=== PATIENT | female | born 1940 | race Caucasian/White ===

== ENCOUNTER → 2017-09-17 16:58 | Outpatient (CLI) | payer MEDICARE, SELFPAY | PROVIDERS: PCP Family Medicine; Visit Provider Specialist | DX: R89.8 Other abnormal findings in specimens from other organs, systems and tissues (principal) | CPT/HCPCS: 87086 ==

== ENCOUNTER → 2017-10-25 14:37 | Outpatient (CLI) | payer MEDICARE, SELFPAY ==
--- NOTE | 2017-10-25 | DI.CT.S_ITS ---
PROCEDURE: CT KIDNEY URETER BLADDER (KUB) INDICATIONS: Left abdominal pain TECHNIQUE: Noncontrast 5 mm thick sections acquired from the diaphragms to the symphysis. 5 mm thick coronal and sagittal reformats were then performed. For radiation dose reduction, the following was used: automated exposure control, adjustment of mA and/or kV according to patient size. COMPARISON: [facility], CT, IVP (ABD & PEL WWO CONTRAST), 02/22/2015, 10:57. FINDINGS: Image quality: Excellent. Lung bases: Lung bases are clear. Heart size is normal. Urinary system: Both kidneys are normal in size. 3 calcifications in the upper pole of the left kidney are identified, measuring 2-3 mm in size. Punctate calcifications are present present in the right lower collecting system. No hydronephrosis or perinephric fat stranding. Both ureters appear non-dilated throughout their expected courses. Bladder is nearly empty; no calcified bladder stones. Other solid organs: Liver is normal in size. Gallbladder is absent. Pancreas is normal in contours. Spleen is normal in size, numerous calcifications again noted. No adrenal nodules. Peritoneum and bowel: Unenhanced bowel loops demonstrate normal wall thickness and caliber. Appendix is not seen. Colonic diverticulosis without diverticulitis. No free fluid or air. Nodes and vessels: No retroperitoneal or mesenteric adenopathy by size criteria. Atheromatous aorta and inferior vena cava are normal in caliber. Abdominal wall: In the left lower quadrant, series 2/image 60, is identified a hernia within which is mesenteric fat and a loop of nonobstructed small bowel. The neck of the hernia measures 2.1 cm in diameter. Pelvis: No free pelvic fluid. No inguinal hernias or adenopathy. Uterus and adnexa are unremarkable. Bones: No suspicious bony lesions. No vertebral body compression fractures. Lumbar scoliosis with multilevel degenerative disc disease and reactive sclerosis. Slight anterolisthesis L4-5. IMPRESSION: 1. Nephrolithiasis, calcifications too small to characterize. No hydronephrosis. Normal ureters and near empty urinary bladder. 2. Colonic diverticulosis, most marked in the sigmoid colon. No CT evidence of diverticulitis. 3. Left lower quadrant ventral hernia containing nonobstructed small bowel. Correlate clinically for area of pain. 4. Splenic calcifications compatible with prior granulomatous infection. 5. Apparent cholecystectomy and appendectomy. Dictated by: Juan Pablo Evans M.D. on 10/25/2017 at 15:10 Approved by: Juan Pablo Evans M.D. on 10/25/2017 at 15:22
== END ==
PROVIDERS: PCP Family Medicine; Visit Provider Physician Assistant
DX: N20.0 Calculus of kidney (principal); K57.90 Diverticulosis of intestine, part unspecified, without perforation or abscess without bleeding; K43.9 Ventral hernia without obstruction or gangrene
CPT/HCPCS: 74176

== ENCOUNTER → 2017-11-18 12:56 | Outpatient (CLI) | payer MEDICARE, SELFPAY ==
--- NOTE | 2017-11-18 | DI.RAD.S_ITS ---
PROCEDURE: FL UPPER GI SMALL BOWEL INDICATIONS: GERD COMPARISON: [facility], CT, THORAX WITH CONTRAST, 09/28/2013, 13:08. [facility], CT, CT KIDNEY URETER BLADDER (KUB), 10/25/2017, 14:36. FINDINGS: KUB: Preprocedural rehabilitation center manager film shows a normal bowel gas pattern. No suspicious abdominal calcifications. Visualized solid organ contours appear normal in size. No suspicious bony abnormalities. Esophagus: Air-contrast views demonstrate a normal mucosal pattern. There is mild esophageal dysmotility with disorganized tertiary contractions. No fixed strictures, extrinsic mass effects, or diverticula. Small sliding hiatal hernias is present. There is severe gastroesophageal reflux. There is normal transit of a calibrated barium tablet through the esophagus. Stomach: The gastric lumen is normally distensible, and has normal rugal fold thickness. No mucosal masses or ulcers. The pylorus and duodenal bulb have a normal morphology. Small bowel: Duodenal folds appear normal in thickness. There is normal transit time of barium through the small intestine. Small bowel loops appear normal in caliber throughout. Jejunal and ileal folds are smooth and normal in thickness. No strictures, intraluminal masses, or extrinsic mass effects. The terminal ileum is identified and appears normal. IMPRESSION: 1. Severe gastroesophageal reflux. 2. Mild esophageal dysmotility. 3. Normal small bowel follow-through. Dictated by: Phillip Soriano M.D. on 11/18/2017 at 15:26 Approved by: Phillip Soriano M.D. on 11/18/2017 at 15:29
== END ==
PROVIDERS: Family Provider Surgery; PCP Family Medicine; Visit Provider Family Medicine
DX: K21.9 Gastro-esophageal reflux disease without esophagitis (principal); K22.4 Dyskinesia of esophagus; K44.9 Diaphragmatic hernia without obstruction or gangrene
CPT/HCPCS: 74245

== ENCOUNTER → 2017-11-25 08:47 | Outpatient (CLI) | payer MEDICARE, SELFPAY ==
--- NOTE | 2017-11-26 18:01 | PM.PFT.1 ---
Pulmonary Function Test Referral & Results Date Patient Seen: 11/25/17 Requesting provider: Jodi Banegas Indication: Results: The spirometry demonstrates an FVC of 2.33 L which is 91% of predicted. The FEV1 was measured at 1.94 L which is 101% of predicted. The FEV1/FVC ratio was 83 which is 111% of predicted. Following the administration of bronchodilator there was no appreciable change. Lung volumes show an SVC of 2.19 L which is 85% of predicted. The diffusing capacity was measured at 17.88 which is 82% of predicted. No hemoglobin value was provided, so no correction for potential anemia could be made, if appropriate. The maximum voluntary ventilation was slightly reduced. Interpretation: This study demonstrates essentially normal spirometry with perhaps mild reduction in diffusing capacity, unless patient is anemic. Clinical correlation suggested.
== END ==
PROVIDERS: PCP Family Medicine; Visit Provider Surgery
DX: R06.02 Shortness of breath (principal)
CPT/HCPCS: 94010; 94060; 94726; 94729

== ENCOUNTER → 2017-12-10 13:50 | Outpatient (CLI) | payer MEDICARE, SELFPAY | PROVIDERS: PCP Family Medicine; Visit Provider Registered Nurse | DX: N76.0 Acute vaginitis (principal) ==

== ENCOUNTER 2017-12-21 13:23 | Day surgery (SDC) | payer MEDICARE, SELFPAY ==
--- NOTE | 2017-12-21 | PATH_ITS ---
[facility] Accession Number: [id number] . 01 Material submitted: . PART A: DUODENAL BIOPSY PART B: ANTRAL BIOPSY PART C: GE JUNCTION . 02 Diagnosis: A. Duodenal Biopsy: Duodenal mucosa with no diagnostic abnormality. Negative for active inflammation, granulomas, dysplasia, and malignancy. . B. Antral Biopsy: Antral mucosa with mild chronic gastritis. Negative for H. pylori organisms by H/E stain and immunohistochemistry studies. Negative for intestinal metaplasia, dysplasia or malignancy. . C. GE Junction, Biopsy: Squamocolumnar junctional mucosa with no diagnostic abnormality. Negative for intestinal metaplasia, dysplasia, and malignancy. [facility]/12/24/2017 . 02 Electronically signed: . Bianca Alvarado MD, Pathologist NPI- [id number] . 01 Gross description: . Part A: DUODENAL BIOPSY: Received in formalin is 1 fragment(s) of regan, soft tissue measuring 0.4 x 0.3 x 0.3 cm submitted entirely in 1 cassette(s) Part B: ANTRAL BIOPSY: Received in formalin is 1 fragment(s) of regan, soft tissue measuring 0.3 x 0.3 x 0.3 cm submitted entirely in 1 cassette(s) Part C: GE JUNCTION: Received in formalin is 1 fragment(s) of regan, soft tissue measuring 0.4 x 0.4 x 0.3 cm submitted entirely in 1 cassette(s) /CKI /CKI . 02 Microscopic: . Immunohistochemical stains are performed to further evaluate for the presence of Helicobacter organisms. The patient tissue is stained with monoclonal antibody to Helicobacter pylori (SP48). Positive and negative controls stain appropriately. . RESULT: Block: Block B1 Helicobacter pylori: Negative. . * This test was developed and its performance characteristics determined by [facility]. It has not been cleared or approved by the U.S. Food and Drug Administration. The FDA has determined that such clearance or approval is not necessary. This test is used for clinical purposes. It should not be regarded as investigational or for research. . 02 Pathologist provided ICD-10: K29.70 . 02 CPT . 410209, 090353, 324449, [id number] Performed at: 01 [facility] [address] [address], [place], [place] [id number] MD Phil Michele MD Phone: [phone] Performed at: 02 [facility] [address] [place] [id number] MD Kelby Cunningham MD Phone: [phone]
[2017-12-21 14:05] VITALS: BP 141/77; PULSE 71; RESP 16; TEMP 36.2; O2SAT 98; BMI 33.6
--- NOTE | 2017-12-21 16:23 | SUR.OPER ---
IV failed, new IV started in Right arm. patient resedated
[2017-12-21] MEDS: TETRACAINE/BENZOCAINE/BUTAMBEN (CETACAINE) BOTTLE 1 SPRAY TOP (16:29)
[2017-12-21] MEDS: LIDOCAINE 4% SOLN 50 ML 20 ML TOP (16:30)
[2017-12-21] MEDS: MIDAZOLAM 5 MG/5 ML VIAL IV (16:31)
[2017-12-21] MEDS: fentaNYL 250 MCG/5 ML INJ IV (16:32)
--- NOTE | 2017-12-21 16:35 | PM.PREOP ---
Pre-operative Note Interval Note Pre-op Check: Yes History & Physical Reviewed by Physician Changes: No ASA Class (for procedural sedation): II
[2017-12-21 16:36] VITALS: BP 124/54; PULSE 73; RESP 10; TEMP 36.8; O2SAT 96
--- NOTE | 2017-12-21 16:36 | PM.OP.1 ---
Operative Date/Time/Diagnoses Date of procedure: 12/21/17 Time of procedure: 16:36 Pre-op diagnosis: Hoarseness Dysphagia Post-op diagnosis: same Procedure & Clinicians Procedure: Esophagogastroduodenoscopy with biopsies Same procedure as scheduled: Yes Surgeon: Jodi Banegas Anesthesia Type: Sedation (Fentanyl and Versed) Operative Notes Findings: 1. Normal duodenum 2. Normal appearing antrum with a functioning pyloric valve 3. GE junction at 40 cm from the incisors with no significant hiatal hernia. Very regular appearing Z-line 4. Presbyesophagus with normal mucosa 5. Normal posterior oropharynx without obvious evidence of inflammation. Closure Type: not applicable Specimen(s): other (See list) Procedure in detail: After obtaining informed consent, the patient was brought to the GI suite and placed in the left lateral decubitus position on the examination table. After placement of appropriate monitors, the patient was given incremental doses of Versed and Fentanyl until an appropriate level of sedation was achieved. A time out was held per SCOAP protocol. A bite block was gently placed between the patient's teeth. The endoscope was lubricated and then passed into the patient's posterior oropharynx. The esophagus was cannulated under direct vision and the scope was passed to the second portion of the duodenum without difficulty. The scope was then withdrawn with careful examination of all areas of the upper GI tract and mucosa. In the stomach, the instrument was retroflexed and the GE junction examined. The scope was straightened and the procedure continued with examination of the remainder of the upper GI tract. Findings are noted above. Air was aspirated from the stomach and the endoscope gently removed from the esophagus. The patient was allowed to awaken from sedation without difficulty and taken to the post-anesthesia care unit in good condition. Complications: none Condition: stable Disposition: PACU Plan for aftercare: 1. Discharge to home 2. We will contact you with pathology results and recommendations
[2017-12-21 16:42] VITALS: BP 126/68; PULSE 74; RESP 12; O2SAT 96
[2017-12-21 16:48] VITALS: BP 137/65; PULSE 68; RESP 18; O2SAT 95
[2017-12-21 16:52] VITALS: BP 128/60; PULSE 74; RESP 16; TEMP 36.4; O2SAT 95
== END 2017-12-21 17:05 | disposition home or self-care (01) ==
PROVIDERS: PCP Family Medicine; Visit Provider Surgery
PROC: 0DJ08ZZ Inspection of Upper Intestinal Tract, Via Natural or Artificial Opening Endoscopic (ICD-10-PCS; CPT 43235; principal; 2017-12-21 15:00)
DX: R49.0 Dysphonia (principal); K21.9 Gastro-esophageal reflux disease without esophagitis; R06.02 Shortness of breath
CPT/HCPCS: 43235; 88305; 88342; J2250; J3010

== ENCOUNTER → 2017-12-23 10:29 | Outpatient (CLI) | payer MEDICARE, SELFPAY | PROVIDERS: PCP Family Medicine; Visit Provider Specialist | DX: R30.0 Dysuria (principal) | CPT/HCPCS: 87086 ==

== ENCOUNTER → 2018-11-09 13:03 | Outpatient (CLI) | payer MEDICARE, SELFPAY ==
--- NOTE | 2018-11-09 | DI.RAD.S_ITS ---
PROCEDURE: FL BARIUM SWALLOW W SPEECH INDICATIONS: pain in throat TECHNIQUE: Examination was conducted in conjunction with speech pathology per standard protocol. In the lateral projection, filming was performed of the patient swallowing. AP projection filming may also be performed with patient swallowing. COMPARISON: [facility], CT, CT ABDOMEN PELVIS WITH CONTRAST, 08/11/2018, 12:24. FINDINGS: Function: The oral preparatory phase appears normal, with proper containment. The subsequent oral propulsive phase, pharyngeal phase, and esophageal phase of swallowing also appear normal with all proffered substances. Minimal laryngotracheal penetration was observed. No aspiration. No pathologic vallecular or piriform sinus pooling. Limited evaluation of the esophagus in the upright position demonstrates decreased peristalsis with pooling of contrast in the lower third of esophagus. A 13 mm barium tablet passes without difficulty through the pharynx but was held up at the gastroesophageal junction. Morphology: No cricopharyngeal bar is identified. No cervical esophageal webs. No Zenker's diverticulum. No strictures. IMPRESSION: 1. Intermittent laryngeal penetration. No aspiration. 2. Decreased esophageal peristalsis was demonstrated with limited evaluation. If more detailed evaluation is desired esophagram could be performed. 3. Barium tablet passes through the pharynx but was held up at the gastroesophageal junction. Please see speech pathologist report. Dictated by: Taj Baxter M.D. on 11/09/2018 at 14:50 Approved by: Taj Baxter M.D. on 11/09/2018 at 15:00
--- NOTE | 2018-11-10 11:07 | ST.SWALLOW ---
Care Team Visit Care Team Role Provider Type Diana Cottrell DO Primary Care Provider Non-Staff Specialty: Family Practice Address: [address], [address] Email: Pelon Kunz MD Attending Provider Physician Specialty: Ear, Nose, Throat Address: [address] [place] [address], [id number] Email: Modified Barium Swallow Study KNIFEMAN Modified Barium Swallow Study Start: 11/10/18 10:44 Freq: Status: Active Protocol: Document 11/09/18 10:46 TLC (Rec: 11/10/18 11:07 TLC [id number]) Modified Barium Swallow Study Total Time Visit Start Time 13:30 Visit Stop Time 13:50 Total Visit Minutes 20 Setting Setting Outpatient Care Patient Information Identification Type Name Patient History Tri was referred by Dr. Kunz, ENT due to complaints of pill dysphagia and chronic sore throat persisting for the last 6 weeks following bilateral robotic inguinal hernia repair in August. Intermittent sore throat dates back to at least 2013. She has a medical history of breast cancer, cutaneous lupus , sleep apnea, reflux, hiatal hernia repair in 2018, thryoid nodules (biopsy was negative) . Laryngoscopy revealed mildly asymmetric left base of tongue with possible small byst, normal vallecula, epiglottis, pyriform sinuses and normally mobile TVCs without lesion. Subjective Observations Patient arrived on time and was pleasant and cooperative during the examination. The study was not recorded due to a technological malfunction, therefore, exam report is limited to real time observations. Patient Positioning Position View Lat-A/P Imaging Lateral View Textures Administered Trials Presented Thin Liquid via Spoon Thin Liquid via Cup [place] Liquid via Spoon [place] Liquid via Cup Honey Liquid via Spoon Pudding Thick Liquid via Spoon Regular Textures Oral Phase Source: MBSIMP (TM) (C) Bolus Specific Scoring Grid Lip Closure No Impairment (WNL) Tongue Control During Bolus Hold No Impairment (WNL) Bolus Prep/Mastication No Impairment (WNL) Bolus Transport/Lingual Motion No Impairment (WNL) Oral Residue Minimal Impairment Residue Clearing No Impairment (WNL) Additional Oral Phase Observations Mild oral residue on base of tongue likely related to asymmetry of tongue. Cleared with additional swallows. Pharyngeal Phase Source: MBSIMP (TM) (C) Bolus Specific Scoring Grid Delayed Initiation of Pharyngeal Swallow No Laryngeal Elevation No Impairment (WNL) Anterior Hyoid Movement No Impairment (WNL) Epiglottic Range of Motion No Impairment (WNL) Vallecular Residue Yes Clearance of Vallecular Residue No Impairment (WNL) Laryngeal Vestibular Closure Minimal Impairment Posterior Pharyngeal Wall Residue No Upper Esophageal Sphincter Opening No Impairment (WNL) Residue in the Pyriform Sinuses Yes Clearance of Residue in the Pyriform No Impairment (WNL) Sinuses Esophageal Clearance Upright Position Mild Impairment Additional Pharyngeal Phase Observations One episode of flash penetration with cup sips of thin liquids. No aspiration observed during the study. Trace residue in the vallecula and pyriform sinus cleared with additional swallows. A/P View Textures Administered Trials Presented Barium Tablet A/P View Observations Esophageal Function Slowed Clearing Additional Observations Decreased esophageal peristalsis resulting in esophageal retention. Clinical Impressions Findings Mild dysphagia in oral, pharyngeal and esophageal phase characterized by trace oral and pharyngeal residue, incomplete laryngeal vestibule closure allowing for intermittent flash penetration and esophageal retention. Recommendations Diet Liquids Order Thin Diet Order Regular Medication Recommendation Whole in Carrier One at a Time Aspiration Precautions Recommended Precautions Upright at 90 Degrees Small Bites/Sips Double Swallow Treatment Plan Recommended Referrals GI Consult
== END ==
PROVIDERS: PCP Family Medicine; Visit Provider Otolaryngology
DX: R07.0 Pain in throat (principal)
CPT/HCPCS: 74230; 92611

== ENCOUNTER → 2018-12-09 10:34 | Outpatient (CLI) | payer MEDICARE, SELFPAY ==
[2018-12-09 12:46] LABS: Estimated Glomerular Filt Rate > 60.0 mL/min (>60)
== END ==
PROVIDERS: Visit Provider Otolaryngology
DX: R42 Dizziness and giddiness (principal)
CPT/HCPCS: 36415; 82565

== ENCOUNTER → 2018-12-16 14:03 | Outpatient (CLI) | payer MEDICARE, SELFPAY ==
--- NOTE | 2018-12-16 | DI.MRI.S_ITS ---
PROCEDURE: MR HEAD/BRAIN WO/W CON INDICATIONS: DIZZINESS TECHNIQUE: Noncontrast axial T1 spin echo, axial T2 fast spin echo, sagittal and axial FLAIR, coronal T2 fast spin echo, axial gradient echo, axial diffusion and ADC through the brain. After the administration of contrast, axial and coronal 3D VIBE or T1 spin echo with fat saturation through the brain. COMPARISON: None. FINDINGS: Image quality: Excellent. CSF Spaces: Basal cisterns are patent. No extra-axial fluid collections. Ventricles are normal in size and shape. Brain: No midline shift. No intracranial bleeds or masses. No abnormal intracranial enhancement. The brainstem appears normal. Diffusion-weighted images demonstrate no acute ischemic insults. No areas of encephalomalacia. No GRE weighted abnormalities identified. There is mild, diffuse rebral on loss. There are mild periventricular and subcortical white matter chronic microvascular ischemic changes. Normal intravascular flow voids are present. Skull and face: Calvarial marrow is normal in signal. Orbits appear normal. Sinuses: Sinuses and mastoids appear clear. IMPRESSION: 1. No acute intracranial disease process. 2. No abnormal intracranial mass or suspicious postcontrast enhancement. 3. Mild, diffuse cerebral volume loss. 4. Mild periventricular and subcortical white matter chronic microvascular ischemic change. Dictated by: Desirae Nicole MD, PhD on 12/16/2018 at 16:32 Approved by: Desirae Nicole MD, PhD on 12/16/2018 at 16:37
== END ==
PROVIDERS: PCP Family Medicine; Visit Provider Otolaryngology
DX: R42 Dizziness and giddiness (principal)
CPT/HCPCS: 70553; A9579

== ENCOUNTER → 2019-02-06 17:29 | Outpatient (CLI) | payer MEDICARE, SELFPAY ==
--- NOTE | 2019-02-06 | DI.MRI.S_ITS ---
PROCEDURE: MR CERVICAL SPINE WO CON INDICATIONS: Cervicalgia TECHNIQUE: Noncontrast sagittal T1 spin echo and T2 fast spin echo, sagittal STIR, foraminal oblique sagittal T2 fast spin echo, and axial gradient echo or T2 fast spin echo through the cervical spine. COMPARISON: [facility], , C-SPINE WITHOUT CONTRAST, 05/28/2017, 16:45. FINDINGS: Image quality: Excellent. Alignment and Curvature: Trace anterolisthesis of C2 on C3, C3 on C4, and C4 on C5, unchanged. Bone Marrow: Marrow demonstrates normal overall signal. Again noted is a hemangioma involving the C5 vertebral body. Spinal Cord: Visualized spinal cord has normal size and signal. No cerebellar tonsillar herniation. Paraspinous Soft Tissues: No paravertebral masses. Prevertebral soft tissues are normal in thickness. C2-C3: Unchanged. No canal stenosis or foraminal stenosis. C3-C4: Unchanged. No canal stenosis or foraminal stenosis. Minimal disc bulge. Mild bilateral facet hypertrophy. C4-C5: Unchanged. Mild posterior disc bulge. No canal stenosis. Bilateral uncovertebral joint hypertrophy. Left uncovertebral joint hypertrophy with moderate left foraminal narrowing. C5-C6: Unchanged. Minimal disc bulge. No canal stenosis. Mild bilateral foraminal stenosis. Mild bilateral uncovertebral joint hypertrophy. Mild bilateral facet hypertrophy. C6-C7: Slight interval increase in disc bulge without canal stenosis. Mild bilateral foraminal stenosis. Bilateral uncovertebral joint hypertrophy. C7-T1: Normal appearance. IMPRESSION: 1. Mild increase in disc bulge at C6-C7 without canal stenosis. 2. Otherwise stable study. 3. No canal stenosis. Multilevel foraminal narrowing as described above. 4. Mild multilevel facet hypertrophy. Dictated by: Alverto Tejada M.D. on 02/07/2019 at 12:40 Approved by: Alverto Tejada M.D. on 02/07/2019 at 12:50
== END ==
PROVIDERS: Family Provider Family Medicine; PCP Family Medicine; Visit Provider Physical Medicine & Rehabilitation
DX: M50.221 Other cervical disc displacement at C4-C5 level (principal); M48.02 Spinal stenosis, cervical region
CPT/HCPCS: 72141

== ENCOUNTER → 2019-06-07 13:46 | Outpatient (CLI) | payer MEDICARE, SELFPAY ==
[2019-06-07 16:16] LABS: Blood Urea Nitrogen 28 mg/dL (7-17); Calcium 10.2 mg/dL (8.4-10.2); Carbon Dioxide 27 mmol/L (22-32); Chloride 100 mmol/L (98-107); Estimated Glomerular Filt Rate > 60.0 mL/min (>60); Glucose 124 mg/dL (80-110); HEMOLYSIS < 15 (0-50); Sodium 138 mmol/L (137-145)
== END ==
PROVIDERS: Family Provider Family Medicine; PCP Family Medicine; Referring Provider Internal Medicine Cardiovascular Disease; Visit Provider Internal Medicine Cardiovascular Disease
DX: I10 Essential (primary) hypertension (principal)
CPT/HCPCS: 36415; 80048

== ENCOUNTER → 2019-09-22 14:21 | Outpatient (CLI) | payer MEDICARE, SELFPAY ==
[2019-09-24 10:36] LABS: COVID19 Sendout Not Detected (Not Detected)
== END ==
PROVIDERS: Family Provider Family Medicine; PCP Family Medicine; Visit Provider Physician Assistant
DX: R06.02 Shortness of breath (principal)
CPT/HCPCS: 87635

== ENCOUNTER → 2019-09-22 14:34 | Outpatient (CLI) | payer MEDICARE, SELFPAY ==
--- NOTE | 2019-09-22 14:37 | DI.RAD.S_ITS ---
PROCEDURE: XR CHEST 2V INDICATIONS: Shortness of breath; fever; hx of breast cancer TECHNIQUE: 2 views of the chest were acquired. COMPARISON: [facility], , CHEST 1 VIEW, 09/26/2015, 10:03. FINDINGS: Surgical changes and devices: None. Lungs and pleura: Lungs are clear. No pleural effusions or pneumothorax. Mediastinum: Mediastinal contours are normal. Heart size is normal. Bones and chest wall: No suspicious bony abnormalities. Soft tissues appear unremarkable. IMPRESSION: Normal for age, source of current shortness of breath symptoms is not seen. Dictated by: Norberto Grover M.D. on 09/22/2019 at 15:35 Approved by: Norberto Grover M.D. on 09/22/2019 at 15:35
[2019-09-22 16:14] LABS: Add Manual Diff / Slide Review NO; Basophils Absolute Auto 100 /uL (0-100); Basophils Percent Auto 0.7 % (0-2); Eosinophils Absolute Auto 0 /uL (0-450); Eosinophils Percent Auto 0.3 % (2-4); Hemoglobin 14.6 g/dL (12.0-16.0); Lymphocytes Absolute Auto 1000 /uL (1100-4500); Lymphocytes Percent Auto 12.4 % (25-40); Mean Corpuscular Hemoglobin 30.4 PG (26-34); Mean Corpuscular Volume 89.6 fL (80-100); Monocytes Absolute Auto 500 /uL (0-900); Monocytes Percent Auto 5.6 % (3-14); Neutrophils Absolute Auto 6500 /uL (1500-7000); Platelet Count 185 X10^3/uL (150-400); Red Cell Distribution Width 14.9 % (11.6-14.8)
[2019-09-22 16:30] LABS: Alanine Aminotransferase 14 IU/L (<35); Albumin 4.2 g/dL (3.5-5.0); Albumin Globulin Ratio 1.4 (1.0-2.8); Alkaline Phosphatase 73 U/L (38-126); Aspartate Aminotransferase 24 IU/L (14-36); BUN Creatinine Ratio 36.2 (6-22); Bilirubin Total 0.7 mg/dL (0.2-1.3); Blood Urea Nitrogen 25 mg/dL (7-17); Carbon Dioxide 28 mmol/L (22-32); Chloride 104 mmol/L (98-107); Estimated Glomerular Filt Rate > 60.0 mL/min (>60); Globulin 3.1 g/dL (1.7-4.1); Glucose 101 mg/dL (80-110); HEMOLYSIS < 15 (0-50); Potassium 4.6 mmol/L (3.4-5.1); Sodium 139 mmol/L (137-145); Total Protein 7.3 g/dL (6.3-8.2)
== END ==
PROVIDERS: Family Provider Family Medicine; PCP Family Medicine; Referring Provider Physician Assistant; Visit Provider Physician Assistant
DX: R06.02 Shortness of breath (principal); R50.9 Fever, unspecified; R06.00 Dyspnea, unspecified; C50.919 Malignant neoplasm of unspecified site of unspecified female breast
CPT/HCPCS: 36415; 71046; 80053; 85025; 87635

== ENCOUNTER → 2019-12-18 15:47 | Outpatient (CLI) | payer MEDICARE, SELFPAY ==
--- NOTE | 2019-12-18 | DI.MRI.S_ITS ---
PROCEDURE: MR LUMBAR SPINE WO CON INDICATIONS: Lumbago with sciatica, right side TECHNIQUE: Noncontrast sagittal T1 spin echo and T2 fast echo, sagittal STIR, axial T1 and T2 fast spin echo through the lumbar spine. In cases with scoliosis, additional coronal T2 fast spin echo may be performed. COMPARISON: [facility], MR, L-SPINE WITHOUT CONTRAST, 12/17/2016, 11:59. [facility], CT, CT KIDNEY URETER BLADDER (KUB), 10/25/2017, 14:36. FINDINGS: Image quality: Excellent. Alignment and Curvature: Moderate dextroconvex lumbar scoliosis is seen. There is minimal retrolisthesis at L3-4 and mild grade 1 anterolisthesis at L4-5. No associated pars defects are seen. Bone Marrow: Marrow is of normal overall signal. No acute vertebral body compression fractures. Spinal Cord: Conus medullaris terminates at the T12-L1 level. Visualized cord demonstrates normal signal and size. Paraspinous Soft Tissues: No paravertebral masses. T12-L1: The disc height is well-preserved. Loss of disc signal is seen at this level. No significant neural foraminal or central canal narrowing can be seen. L1-L2: At least moderate loss of disc height and disc signal can be seen. Bridging endplate osteophytes are seen. Mild to moderate disc bulge is seen. Moderate facet joint hypertrophy is seen. Associated hypertrophy of the ligamentum flavum can be seen. There is mild to moderate right-sided and moderate left-sided neural foraminal narrowing seen. Mild central canal narrowing is seen. No significant change from the prior. L2-L3: Moderate loss of disc height is seen. Loss of disc signal is seen. Moderate disc bulge is seen, which is eccentric to the left. There is moderate left-sided and [id number] right-sided facet hypertrophy seen. Associated hypertrophy of the ligamentum flavum can be seen. There is mild to moderate right-sided and moderate to severe left-sided neural foraminal narrowing seen. There is a degree of compression seen upon the exiting left L2 nerve root. Mild central canal narrowing is seen. When comparison is made with the prior examination, these findings are similar. L3-L4: Moderate loss of disc height is seen. Loss of disc signal is seen. Moderate generalized disc bulge is seen. There is at least moderate facet hypertrophy seen, left worse than right. There is moderate left-sided and moderate to severe left-sided neural foraminal narrowing seen. There is a degree of compression seen upon the exiting left L3 nerve root. Moderate central canal narrowing is seen. When comparison is made with the prior examination, these findings are similar. L4-L5: Moderate loss of disc height is seen. Loss of disc signal is seen. Moderate disc bulge is seen, which is eccentric to the right. There is prominent right-sided and moderate left-sided facet hypertrophy seen at this level. There is moderate bilateral neural foraminal narrowing seen. At least moderate central canal narrowing is seen at this level. When comparison is made with the prior examination, these findings are similar. L5-S1: Mild loss of disc height is seen. Loss of disc signal is seen. Mild disc bulge is seen, with a mild central disc protrusion. There is moderate facet hypertrophy seen. No significant neural foraminal or central canal narrowing can be seen. No significant change from the prior. IMPRESSION: Dextroconvex lumbar scoliosis and multiple levels of degenerative change are seen. When compared to 2017, there is no significant progression of the degenerative change. Dictated by: Jairon Jay M.D. on 12/18/2019 at 17:47 Approved by: Jairon Jay M.D. on 12/18/2019 at 17:52
== END ==
PROVIDERS: Family Provider Family Medicine; PCP Family Medicine; Referring Provider Physical Medicine & Rehabilitation; Visit Provider Physical Medicine & Rehabilitation
DX: M54.41 Lumbago with sciatica, right side (principal); M41.86 Other forms of scoliosis, lumbar region; M47.816 Spondylosis without myelopathy or radiculopathy, lumbar region; M47.817 Spondylosis without myelopathy or radiculopathy, lumbosacral region
CPT/HCPCS: 72148

== ENCOUNTER → 2020-01-09 12:32 | Outpatient (CLI) | payer MEDICARE, SELFPAY ==
[2020-01-09 13:27] LABS: NT-proBNP (BNP-Adult 18+) 400 pg/mL (<450)
== END ==
PROVIDERS: Family Provider Family Medicine; PCP Family Medicine; Referring Provider Internal Medicine Cardiovascular Disease; Visit Provider Internal Medicine Cardiovascular Disease
DX: R06.02 Shortness of breath (principal)
CPT/HCPCS: 36415; 83880

== ENCOUNTER → 2020-07-02 11:46 | Outpatient (CLI) | payer MEDICARE, SELFPAY ==
[2020-07-02 12:48] LABS: BUN Creatinine Ratio 36.1 (6-22); Blood Urea Nitrogen 22 mg/dL (7-17); Carbon Dioxide 29 mmol/L (22-32); Chloride 102 mmol/L (98-107); Estimated Glomerular Filt Rate > 60.0 mL/min (>60); Glucose 109 mg/dL (80-110); HEMOLYSIS < 15 (0-50); Potassium 4.7 mmol/L (3.4-5.1); Sodium 137 mmol/L (137-145)
== END ==
PROVIDERS: Family Provider Family Medicine; PCP Family Medicine; Referring Provider Nurse Practitioner; Visit Provider Nurse Practitioner
DX: I10 Essential (primary) hypertension (principal); R00.2 Palpitations
CPT/HCPCS: 36415; 80048

== ENCOUNTER 2020-10-04 17:40 | Emergency (ER) | payer MEDICARE, SELFPAY ==
[2020-10-04 17:46] VITALS: BP 169/86; PULSE 78; RESP 18; TEMP 36.7; O2SAT 98
--- NOTE | 2020-10-04 17:54 | DI.MRI.S_ITS ---
PROCEDURE: MR HEAD/BRAIN WO/W CON INDICATIONS: cyst found on cervical spine MRI, blurry vision, 'shaking' TECHNIQUE: Noncontrast axial T1 spin echo, axial T2 fast spin echo, sagittal and axial FLAIR, coronal T2 fast spin echo, axial gradient echo, axial diffusion and ADC through the brain. After the administration of contrast, axial and coronal 3D VIBE or T1 spin echo with fat saturation through the brain. COMPARISON: [facility], MR, MR HEAD/BRAIN WO/W CON, 12/16/2018, 14:08. [facility], RG, MRI C-SPINE W/WO CONTRAST, 10/03/2020, 13:57. FINDINGS: Cerebrum, Cerebellum and Brainstem: At the craniocervical junction just below the foramen magnum, there is an anterior extra-axial 7 mm mass lesion which is dural-based, densely enhancing and has a small dural tail. The lesion touches the ventral surface of the cord without mass effect or indentation. Moderate cerebral and cerebellar volume loss as well as moderate multifocal hyperintensities in the deep and subcortical white matter present. The diffusion sequence is normal without evidence of acute infarct. incidental enlarged perivascular space noted adjacent to the anterior commissure on the right. No intracranial hemorrhage. Ventricles: Appropriate in size and position. No hydrocephalus. Skull Base: The bony sella, pituitary gland and infundibulum unremarkable. Clivus and craniovertebral relationships are appropriate. Visualized portions of the seventh and eighth cranial nerve complexes and internal auditory canals are within normal limits. Scalp and Calvarium: The scalp is unremarkable. Underlying calvarium has an appropriate marrow signal. Paranasal Sinuses: Visualized portions of the paranasal sinuses are clear. Mastoids: Unremarkable as visualized. No mastoid effusion present. Orbits: The orbits, globes and ocular muscles are unremarkable. IMPRESSION: 1. Small 7 mm extra-axial meningioma corresponding with the prior MR cervical spine findings. No cord indentation or associated cord edema. 2. Stable atrophy and chronic ischemic change. No intracranial hemorrhage or infarct. Dictated by: Khoi Gee M.D. on 10/04/2020 at 18:28 Approved by: Khoi Gee M.D. on 10/04/2020 at 18:40
[2020-10-04 18:29] LABS: Add Manual Diff / Slide Review NO; Basophils Absolute Auto 100 /uL (0-100); Basophils Percent Auto 0.9 % (0-2); Eosinophils Absolute Auto 100 /uL (0-450); Eosinophils Percent Auto 0.8 % (2-4); Hematocrit 43.3 % (36-46); Hemoglobin 14.1 g/dL (12.0-16.0); Lymphocytes Absolute Auto 1500 /uL (1100-4500); Lymphocytes Percent Auto 15.6 % (25-40); Mean Corpuscular HGB Conc 32.5 % (30-36); Mean Corpuscular Volume 89.3 fL (80-100); Monocytes Absolute Auto 1100 /uL (0-900); Monocytes Percent Auto 11.1 % (3-14); Neutrophils Absolute Auto 6900 /uL (1500-7000); Neutrophils Percent Auto 71.6 % (50-75); Platelet Count 203 X10^3/uL (150-400); Red Blood Cell Count 4.85 X10^6/uL (4.0-5.2); Red Cell Distribution Width 15.4 % (11.6-14.8); White Blood Cell Count 9.6 X10^3/uL (4.5-11.0)
[2020-10-04 18:48] LABS: Alanine Aminotransferase 15 IU/L (<35); Albumin 4.2 g/dL (3.5-5.0); Albumin Globulin Ratio 1.3 (1.0-2.8); Alkaline Phosphatase 70 U/L (38-126); Aspartate Aminotransferase 27 IU/L (14-36); BUN Creatinine Ratio 33.8 (6-22); Bilirubin Total 0.4 mg/dL (0.2-1.3); Blood Urea Nitrogen 25 mg/dL (7-17); Calcium 10.2 mg/dL (8.4-10.2); Carbon Dioxide 29 mmol/L (22-32); Chloride 103 mmol/L (98-107); Estimated Glomerular Filt Rate > 60.0 mL/min (>60); Globulin 3.2 g/dL (1.7-4.1); Glucose 106 mg/dL (80-110); HEMOLYSIS 21 (0-50); Potassium 4.2 mmol/L (3.4-5.1); Sodium 138 mmol/L (137-145); Total Protein 7.4 g/dL (6.3-8.2)
[2020-10-04 19:18] VITALS: BP 167/76; PULSE 76; O2SAT 97
[2020-10-04 19:30] VITALS: BP 161/72; PULSE 69; O2SAT 95
--- NOTE | 2020-10-04 20:20 | ED.RECABL ---
HPI - Recheck/Abnormal Lab/Rx General Chief Complaint: Recheck/Abnormal Lab/Rx Stated Complaint: sent for MRI Time Seen by Provider: 10/04/20 17:56 Source: patient Mode of arrival: Ambulatory Limitations: no limitations History of Present Illness HPI narrative: 80F nonsmoker with history of breast cancer, lumbar pain and various chronic neurologic symptoms over the past few months presents at the request of her doctors for an MRI. The patient has suffered dizziness and various episodes of numbness and tingling of her upper and lower extremities off and on for the past few months. Her doctors had ordered an outpatient cervical MRI yesterday which noticed a cyst anterior to her spinal cord and recommendation was to obtain further imaging. Her doctors had made multiple attempts to set up the imaging as an outpatient and were unsuccessful and then sent her here has of result. She denies any new symptoms. She has had no change in the severity or distribution of her symptoms over the past many months. She denies any trauma nor any fever or chills. She has no focal findings. She denies any chest pain or shortness of breath. She denies any new medications or dietary change. Symptoms since prior visit: no new symptoms Related Data Home Medications Medication Instructions Recorded Confirmed atenolol 25 mg tablet 25 mg PO DAILY 09/17/17 07/23/20 naproxen 500 mg tablet 500 mg PO QD-BID PRN 09/17/17 07/23/20 ascorbic acid (vitamin C) 500 mg mg PO cap 11/22/17 07/23/20 capsule calcium carbonate 500 mg calcium 500 mg PO BID cap 11/22/17 07/23/20 (1,250 mg) capsule cholecalciferol (vitamin D3) 50 2,000 unit PO DAILY 11/22/17 07/23/20 mcg (2,000 unit) capsule multivitamin 1 tab PO DAILY 11/22/17 07/23/20 prednisone 5 mg tablet 5 mg PO DAILY 11/22/17 07/23/20 tramadol 50 mg tablet 100 mg PO ONCE tab 11/22/17 07/23/20 esomeprazole magnesium 20 mg 40 mg PO DAILY cap 12/10/17 07/23/20 capsule,delayed release diclofenac sodium 1 % topical gel 2 gram TOP QID 09/28/18 07/23/20 losartan 25 mg tablet 25 mg PO DAILY 09/28/18 07/23/20 cyclosporine EYE-BOTH DAILY 01/02/19 07/23/20 Previous Rx's Medication Instructions Recorded Cmp Estriol Cream 0.5 gram VAG .COMPLEX #45 gram 05/20/18 estradiol 10 mcg vaginal tablet 10 mcg VAG .1XW #12 tab 07/23/20 Allergies Allergy/AdvReac Type Severity Reaction Status Date / Time Sulfa (Sulfonamide Allergy Mild Rash Verified 10/04/20 17:50 Antibiotics) Penicillins [PENICILLINS] Allergy Unknown Verified 10/04/20 17:50 oxybutynin AdvReac Intermediate Facial Verified 10/04/20 17:50 redness and swelling Review of Systems Constitutional Constitutional: Denies chills, Denies fatigue, Denies fever(s), Denies frequent falls, Denies lethargy and Denies weakness Eyes Eyes: Denies change in vision, Denies eye discharge, Denies irritation and Denies loss of vision ENT Ears, Nose, Mouth, and Throat: Denies change in voice, Reports dizziness, Denies neck pain, Denies sore throat and Denies throat swelling Cardiovascular Cardiovascular: Denies chest pain, Denies irregular heart rhythm, Denies lightheadedness, Denies palpitations, Denies dyspnea, Denies dyspnea on exertion and Denies orthopnea Respiratory Respiratory: Denies cough, Denies dyspnea, Denies dyspnea on exertion and Denies wheezing Gastrointestinal Gastrointestinal: Denies abdominal pain, Denies change in bowel habits, Denies diarrhea, Denies nausea and Denies vomiting Musculoskeletal Musculoskeletal: Denies neck pain and Denies numbness Integumentary/Breasts Skin/Breast: Denies pruritus, Denies erythema, Denies rash and Denies wounds Neurologic Neurologic: Denies behavioral changes, Denies confusion, Reports dizziness, Denies frequent falls, Denies loss of vision, Denies numbness, Reports sensory deficit, Reports paresthesias and Denies weakness Psychiatric Psychiatric: Denies anxiety, Denies behavioral changes, Denies confusion, Denies depression, Denies homicidal ideation and Denies suicidal ideation Endocrine Endocrine: Denies fatigue, Denies flushing and Denies palpitations Hematologic/Lymphatic Hematologic/Lymphatic: Denies easy bruising Allergic/Immunologic Allergic/Immunologic: Denies urticaria, Denies throat swelling and Denies wheezing Patient History Medical History Breast cancer Lupus Osteopenia Surgical History History of cataract removal with insertion of prosthetic lens Status post laparoscopic cholecystectomy (12/2014) Family History Mother Hypertension Father Heart disease Brother Heart disease Social History household members: none Smoking Status: Never smoker alcohol intake: never substance use type: does not use Smoking Status: Never smoker alcohol intake frequency: 0-2 drinks per day Substance Use Type: does not use Exam Narrative Exam Narrative: GENERAL: [80] year old patient appears stated age. Well-developed patient, in mild distress. HEAD: Atraumatic. Normocephalic. EYES: Pupils equal round and reactive. Extraocular motions intact. No scleral icterus. No injection or drainage. ENT: Nose without bleeding, purulent drainage. Throat without erythema, tonsillar hypertrophy or exudate. Airway patent. NECK: Trachea midline. Non tender CARDIOVASCULAR: Regular rate and rhythm without murmurs, gallops, or rubs. RESPIRATORY: Clear to auscultation. Breath sounds equal bilaterally. No wheezes, rales, or rhonchi. GASTROINTESTINAL: Abdomen soft, non-tender, nondistended. EXTREMITIES: No edema or joint tenderness. BACK: Nontender without deformity or crepitance. No flank tenderness. NEURO: AOx3. SKIN: No rash or erythema of visible areas NIH Stroke Scale 1a. LOC: Patient is alert and keenly responsive (0) 1b. LOC Questions: Patient answers both LOC questions accurately (0) 1c. LOC Commands: Patient performs both tasks correctly (0) 2. Best Gaze: Normal (0) 3. Visual: No visual loss (0) 4. Facial palsy: Normal symmetrical movements (0) 5. Motor arm: No drift (0) 6. Motor leg: No drift (0) 7. Limb ataxia: Absent (0) 8. Sensory: Normal (1) 9. Best language: No aphasia; normal (0) 10. Dysarthria: Normal (0) 11. Extinction and inattention: No abnormality (0) NIHSS: 1 Initial Vital Signs Initial Vital Signs: Vital Signs Temperature 98.1 F 10/04/20 17:46 Pulse Rate 78 10/04/20 17:46 Respiratory Rate 18 10/04/20 17:46 Blood Pressure 169/86 H 10/04/20 17:46 Pulse Oximetry 98 10/04/20 17:46 Course Orders Ordered: ED Orders 10/04/20 17:54 MR head/brain wo/w con Stat 10/04/20 18:15 Complete Blood Count AUTO DIFF Stat Comprehensive Metabolic Panel Stat Vital Signs Vital signs: Vital Signs - 8 hr 10/04/20 17:46 10/04/20 19:18 10/04/20 19:30 Temperature 98.1 F Pulse Rate 78 76 69 Respiratory Rate 18 Blood Pressure 169/86 H 167/76 H 161/72 H Pulse Oximetry 98 97 95 10/04/20 21:00 Temperature Pulse Rate 69 Respiratory Rate 18 Blood Pressure 159/74 H Pulse Oximetry 97 MDM - Recheck/Abnormal Lab/Rx Lab Data Result diagrams: 10/04/20 18:15 10/04/20 18:15 Labs: Lab Results 10/04/20 10/04/20 Range/Units 18:15 18:15 WBC 9.6 (4.5-11.0) X10^3/uL RBC 4.85 (4.0-5.2) X10^6/uL Hgb 14.1 (12.0-16.0) g/dL Hct 43.3 (36-46) % MCV 89.3 (80-100) fL MCH 29.0 (26-34) PG MCHC 32.5 (30-36) % RDW 15.4 H (11.6-14.8) % Plt Count 203 (150-400) X10^3/uL Neut % (Auto) 71.6 (50-75) % Lymph % (Auto) 15.6 L (25-40) % Harris % (Auto) 11.1 (3-14) % Eos % (Auto) 0.8 L (2-4) % Baso % (Auto) 0.9 (0-2) % Neut # (Auto) 6900 (6635-4313) /uL Lymph # (Auto) 1500 (5948-1247) /uL Harris # (Auto) 1100 H (0-900) /uL Eos # (Auto) 100 (0-450) /uL Baso # (Auto) 100 (0-100) /uL Sodium 138 (137-145) mmol/L Potassium 4.2 (3.4-5.1) mmol/L Chloride 103 (98-107) mmol/L Carbon Dioxide 29 (22-32) mmol/L BUN 25 H (7-17) mg/dL Creatinine 0.74 (0.52-1.04) mg/dL Estimated GFR > 60.0 (>60) mL/min BUN/Creatinine Ratio 33.8 H (6-22) Glucose 106 (80-110) mg/dL Calcium 10.2 (8.4-10.2) mg/dL Total Bilirubin 0.4 (0.2-1.3) mg/dL AST 27 (14-36) IU/L ALT 15 (<35) IU/L Alkaline Phosphatase 70 (38-126) U/L Total Protein 7.4 (6.3-8.2) g/dL Albumin 4.2 (3.5-5.0) g/dL Globulin 3.2 (1.7-4.1) g/dL Albumin/Globulin Ratio 1.3 (1.0-2.8) Urine Dip Bedside Urine Glucose Negative Bedside Urine Bilirubin - Negative Bedside Urine Ketone - Negative Urine Specific [place] 1.010 Bedside Urine Occult Blood - Negative Bedside Urine pH 6.0 Bedside Urine Protein - Negative Bedside Urine Urobilinogen - Negative Bedside Urine Nitrite - Negative Bedside Urine Leukocytes - Negative Esterase Imaging Data MRI Head: Radiologist's Impression: [address] [id number] Resonance ReportSigned Patient: Tri Joseph CMR#: [id number]: 1940cct:[id number]/Sex: 80 / FDate of Service: 10/04/20Loc: EDAccession Number: [id number] Procedure: MR head/brain wo/w con Ordering Provider: Lucie Hsu MD PROCEDURE: MR HEAD/BRAIN WO/W CON INDICATIONS: cyst found on cervical spine MRI, blurry vision, 'shaking' TECHNIQUE: Noncontrast axial T1 spin echo, axial T2 fast spin echo, sagittal and axial FLAIR, coronal T2 fast spin echo, axial gradient echo, axial diffusion and ADC through the brain. After the administration of contrast, axial and coronal 3D VIBE or T1 spin echo with fat saturation through the brain. COMPARISON: [facility], MR, MR HEAD/BRAIN WO/W CON, 12/16/2018, 14:08. [facility], RG, MRI C-SPINE W/WO CONTRAST, 10/03/2020, 13:57. FINDINGS: Cerebrum, Cerebellum and Brainstem: At the craniocervical junction just below the foramen magnum, there is an anterior extra-axial 7 mm mass lesion which is dural-based, densely enhancing and has a small dural tail. The lesion touches the ventral surface of the cord without mass effect or indentation. Moderate cerebral and cerebellar volume loss as well as moderate multifocal hyperintensities in the deep and subcortical white matter present. The diffusion sequence is normal without evidence of acute infarct. incidental enlarged perivascular space noted adjacent to the anterior commissure on the right. No intracranial hemorrhage. Ventricles: Appropriate in size and position. No hydrocephalus. Skull Base: The bony sella, pituitary gland and infundibulum unremarkable. Clivus and craniovertebral relationships are appropriate. Visualized portions of the seventh and eighth cranial nerve complexes and internal auditory canals are within normal limits. Scalp and Calvarium: The scalp is unremarkable. Underlying calvarium has an appropriate marrow signal. Paranasal Sinuses: Visualized portions of the paranasal sinuses are clear. Mastoids: Unremarkable as visualized. No mastoid effusion present. Orbits: The orbits, globes and ocular muscles are unremarkable. IMPRESSION: 1. Small 7 mm extra-axial meningioma corresponding with the prior MR cervical spine findings. No cord indentation or associated cord edema. 2. Stable atrophy and chronic ischemic change. No intracranial hemorrhage or infarct. Dictated by: Khoi Gee M.D. on 10/04/2020 at 18:28 Approved by: Khoi Gee M.D. on 10/04/2020 at 18:40 [facility] Narrative Medical decision making narrative: Patient with stable and widespread neurologic symptoms for the past many months. She was sent here for an MRI which shows a small 7 mm Extra-axial meningioma without any cord involvement. Patient was very adamant about going home as her symptoms have been stable for so many months. I did not ask her to sign out Against Medical Advice as Pauline were symptoms stable for many months but this is a small meningioma without any evidence of compression or edema. I did discuss return precautions with the patient and encouraged close follow-up. She was given a copy of her MRI and records have been electronically transmitted to both her primary care provider as well as the neurologist she is seen in consultation. Discharge Plan Departure Patient Disposition: Home Clinical Impression: Dizziness, Meningioma Instructions: DI for Dizziness-Nonvertigo Activity Restrictions/Additional Instructions: *You have been diagnosed with [chronic neurologic symptoms including dizziness, numbness and tingling with an MRI suggesting a small, 7 mm meningioma outside of your brain and spinal cord] *What to do: *Please continue to take your regular medications as directed. [ ] New medication prescriptions sent to your pharmacy: [ ] [ ] New medication written as a paper prescription [ x] No new medications given *Please follow up with your primary care provider in 2-3 days, call for an appointment. Let them know you were seen in the Emergency Department and that we ask that you be seen in follow up. We will electronically transmit a record of today's note if your PCP is in our system *If you do not have a primary care provider please contact the [facility] Resource line at [phone]. They will ask some questions about your medical history and help get you set up with a doctor in the community. *Return to Emergency Department if you should have any new, worsening or concerning symptoms, such as [fever greater than 101 F, shaking chills, worsening pain, persistent vomiting or other bothersome symptoms] Prescriptions: No Action Cmp Estriol Cream 0.2 % 0.5 gram VAG .COMPLEX Qty: 45 RF: 1 naproxen 500 mg tablet 500 mg PO QD-BID PRN (Reason: Pain (Scale Score 4-6)) RF: 0 atenolol 25 mg tablet 25 mg PO DAILY RF: 0 tramadol 50 mg tablet 100 mg PO ONCE RF: 0 esomeprazole magnesium [Nexium] 20 mg capsule,delayed release(DR/EC) 40 mg PO DAILY RF: 0 losartan 25 mg tablet 25 mg PO DAILY RF: 0 diclofenac sodium [Voltaren] 1 % gel 2 gram TOP QID RF: 0 estradiol [Vagifem] 10 mcg tablet 10 mcg VAG .1XW Qty: 12 RF: 3 prednisone 5 mg tablet 5 mg PO DAILY RF: 0 multivitamin tablet 1 tab PO DAILY RF: 0 ascorbic acid (vitamin C) 500 mg capsule PO RF: 0 calcium carbonate [Calci-Mix] 500 mg calcium (1,250 mg) capsule 500 mg PO BID RF: 0 cholecalciferol (vitamin D3) 2,000 unit capsule 2,000 unit PO DAILY RF: 0 cyclosporine EYE-BOTH DAILY RF: 0 Referrals: Diana Cottrell DO [Primary Care Provider] - Hemant Pacheco MD [Non-Staff] -
[2020-10-04 21:00] VITALS: BP 159/74; PULSE 69; RESP 18; O2SAT 97
== END 2020-10-04 21:15 | disposition home or self-care (01) ==
PROVIDERS: Emergency Medicine; Emergency Provider Emergency Medicine; Family Provider Family Medicine; PCP Family Medicine; Referring Provider Family Medicine
DX: D32.0 Benign neoplasm of cerebral meninges (principal); D32.1 Benign neoplasm of spinal meninges; R42 Dizziness and giddiness
CPT/HCPCS: 70553; 80053; 81003; 85025; 99283; 99284; A9579

== ENCOUNTER 2020-10-28 08:40 | Emergency (ER) | payer MEDICARE, SELFPAY ==
[2020-10-28] VITALS (7 sets, daily range): BP systolic 159–165; BP diastolic 70–77; PULSE 57–72; RESP 14; TEMP 36.9; O2SAT 96–99
--- NOTE | 2020-10-28 10:01 | ED_ITS ---
HPI - Neuro Symptoms/Deficit General Chief Complaint: Neuro Symptoms/Deficit Stated Complaint: episodes of tremors, seizures Time Seen by Provider: 10/28/20 09:57 Source: patient and old records reviewed Mode of arrival: Ambulatory Limitations: no limitations History of Present Illness HPI Narrative: This is a 80-year-old who comes to the emergency department with complaint of worsening tremor over the last several days. Patient states she was seen in September and was seen at [place] by Neurosurgery for a meningioma. Patient states she was told that was not the cause of her symptoms. She has had tremor for the past 3 months but is significantly worse for the last few days he has been affecting her speech. Patient denies fevers but she has felt chilled. She states her teeth it been chattering. She has had a little bit of shortness of breath, she has not any chest pain or pressure. She has not had any syncope. She has had some mild nausea but no vomiting. No other GI symptoms. She has had dysuria, frequency and a sense of urgency. She denies any back or flank pain. She is currently on losartan for blood pressure, prednisone daily for lupus and takes atenolol which was switched to propranolol for tremor several days ago she had significantly worsening symptoms after this and is attempting to switch back to atenolol. Patient also has a history of breast cancer and had lumpectomy, chemotherapy which she has completed in its entirety. Related Data Home Medications Medication Instructions Recorded Confirmed atenolol 25 mg tablet 25 mg PO DAILY 09/17/17 07/23/20 naproxen 500 mg tablet 500 mg PO QD-BID PRN 09/17/17 07/23/20 ascorbic acid (vitamin C) 500 mg mg PO cap 11/22/17 07/23/20 capsule calcium carbonate 500 mg calcium 500 mg PO BID cap 11/22/17 07/23/20 (1,250 mg) capsule (Calci-Mix) cholecalciferol (vitamin D3) 50 2,000 unit PO DAILY 11/22/17 07/23/20 mcg (2,000 unit) capsule multivitamin 1 tab PO DAILY 11/22/17 07/23/20 prednisone 5 mg tablet 5 mg PO DAILY 11/22/17 07/23/20 tramadol 50 mg tablet 100 mg PO ONCE tab 11/22/17 07/23/20 esomeprazole magnesium 20 mg 40 mg PO DAILY cap 12/10/17 07/23/20 capsule,delayed release (Nexium) diclofenac sodium 1 % topical gel 2 gram TOP QID 09/28/18 07/23/20 (Voltaren) losartan 25 mg tablet 25 mg PO DAILY 09/28/18 07/23/20 cyclosporine [Restasis] EYE-BOTH DAILY 01/02/19 07/23/20 Previous Rx's Medication Instructions Recorded Cmp Estriol Cream 0.5 gram VAG .COMPLEX #45 gram 05/20/18 estradiol 10 mcg vaginal tablet 10 mcg VAG .1XW #12 tab 07/23/20 (Vagifem) Allergies Allergy/AdvReac Type Severity Reaction Status Date / Time Sulfa (Sulfonamide Allergy Mild Rash Verified 10/28/20 09:14 Antibiotics) Penicillins [PENICILLINS] Allergy Unknown Verified 10/28/20 09:14 oxybutynin AdvReac Intermediate Facial Verified 10/28/20 09:14 redness and swelling Review of Systems Review of Systems ROS Unobtainable: All systems reviewed & are unremarkable except as noted in HPI and below Patient History Medical History Breast cancer Lupus Osteopenia Surgical History History of cataract removal with insertion of prosthetic lens Status post laparoscopic cholecystectomy (12/2014) Family History Mother Hypertension Father Heart disease Brother Heart disease Social History household members: none Smoking Status: Never smoker alcohol intake: never substance use type: does not use Smoking Status: Never smoker alcohol intake frequency: 0-2 drinks per day Substance Use Type: does not use Exam Narrative Exam Narrative: GEN: well nourished, well appearing female, alert and oriented x 3, patient appears to be in mild distress. HEENT: Atraumatic, right pupil is 5 mm and left pupil appears to be 6-7 mm both are round reactive to light, extraocular movements are intact, nares are clear, TMs are clear with no fluid, there is no conjunctival pallor. Throat is clear without any exudates, erythema, tonsillar enlargement or uvular deviation, no facial droop. HEART: Regular rate and rhythm without murmur, clicks, rubs. LUNGS:Lungs clear to auscultation, no wheezes, rales, crackles, chest moves symmetrically ABD:bowel sounds normal, soft, non-tender, no guarding, rebound, rigidity, no masses noted, no hepatosplenomegaly :No CVA tenderness EXT: Normal range of motion, 5 in 5 muscle strength. NEURO:CN 2-12 intact, sensation normal, reflexes 2/4 upper and lower extremities. Patient has mild generalized tremor. Patient ambulates to the department without issue several times. Initial Vital Signs Initial Vital Signs: Vital Signs Temperature 98.4 F 10/28/20 09:10 Pulse Rate 64 10/28/20 09:10 Respiratory Rate 14 10/28/20 09:10 Blood Pressure 165/76 H 10/28/20 09:10 Pulse Oximetry 99 10/28/20 09:10 Scores GCS Juan Alberto coma scale eye opening: Spontaneous Juan Alberto coma scale verbal response: Orientated [place] coma scale motor response: Obey commands Juan Alberto coma scale total score: 15 Course Orders Ordered: ED Orders 10/28/20 10:10 CT head/brain wo con Stat 10/28/20 11:05 Basic Metabolic Panel Stat Complete Blood Count AUTO DIFF Stat Lactate (Lactic Acid) Stat Procalcitonin Stat Vital Signs Vital signs: Vital Signs - 8 hr 10/28/20 11:57 10/28/20 11:59 10/28/20 12:00 Pulse Rate 57 L 60 62 Blood Pressure 163/77 H Pulse Oximetry 99 97 97 MDM - Neuro Symptoms/Deficit Lab Data Result diagrams: 10/28/20 11:05 10/28/20 11:05 Labs: Lab Results 10/28/20 10/28/20 10/28/20 Range/Units 11:05 11:05 11:05 WBC 8.5 (4.5-11.0) X10^3/uL RBC 4.90 (4.0-5.2) X10^6/uL Hgb 14.2 (12.0-16.0) g/dL Hct 44.1 (36-46) % MCV 90.0 (80-100) fL MCH 29.1 (26-34) PG MCHC 32.3 (30-36) % RDW 15.3 H (11.6-14.8) % Plt Count 174 (150-400) X10^3/uL Neut % (Auto) 86.0 H (50-75) % Lymph % (Auto) 9.0 L (25-40) % Jackson % (Auto) 4.1 (3-14) % Eos % (Auto) 0.2 L (2-4) % Baso % (Auto) 0.7 (0-2) % Neut # (Auto) 7300 H (5986-3479) /uL Lymph # (Auto) 800 L (9889-4415) /uL Jackson # (Auto) 300 (0-900) /uL Eos # (Auto) 0 (0-450) /uL Baso # (Auto) 100 (0-100) /uL Sodium 141 (137-145) mmol/L Potassium 4.1 (3.4-5.1) mmol/L Chloride 106 (98-107) mmol/L Carbon Dioxide 28 (22-32) mmol/L BUN 21 H (7-17) mg/dL Creatinine 0.58 (0.52-1.04) mg/dL Estimated GFR > 60.0 (>60) mL/min BUN/Creatinine Ratio 36.2 H (6-22) Glucose 114 H (80-110) mg/dL Lactate 0.6 L (0.7-2.1) mmol/L Calcium 10.3 H (8.4-10.2) mg/dL Procalcitonin 0.03 (<0.5) ng/mL Urine Dip Bedside Urine Glucose Negative Bedside Urine Bilirubin - Negative Bedside Urine Ketone - Negative Urine Specific [place] 1.020 Bedside Urine Occult Blood - Negative Bedside Urine pH 6.5 Bedside Urine Protein - Negative Bedside Urine Urobilinogen - Negative Bedside Urine Nitrite - Negative Bedside Urine Leukocytes - Negative Esterase Imaging Data MRI brain : Radiologist's Impression: Tri Joseph 80 F [address] [id number] Resonance ReportSigned Patient: Tri Joseph CMR#: [id number]: [id number]:[id number]/Sex: 80 / FDate of Service: 10/04/20Loc: EDAccession Number: [id number] Procedure: MR head/brain wo/w con Ordering Provider: Lucie Hsu MD PROCEDURE: MR HEAD/BRAIN WO/W CON INDICATIONS: cyst found on cervical spine MRI, blurry vision, 'shaking' TECHNIQUE: Noncontrast axial T1 spin echo, axial T2 fast spin echo, sagittal and axial FLAIR, coronal T2 fast spin echo, axial gradient echo, axial diffusion and ADC through the brain. After the administration of contrast, axial and coronal 3D VIBE or T1 spin echo with fat saturation through the brain. COMPARISON: [facility], MR, MR HEAD/BRAIN WO/W CON, 12/16/2018, 14:08. [facility], RG, MRI C-SPINE W/WO CONTRAST, 10/03/2020, 13:57. FINDINGS: Cerebrum, Cerebellum and Brainstem: At the craniocervical junction just below the foramen magnum, there is an anterior extra-axial 7 mm mass lesion which is dural-based, densely enhancing and has a small dural tail. The lesion touches the ventral surface of the cord without mass effect or indentation. Moderate cerebral and cerebellar volume loss as well as moderate multifocal hyperintensities in the deep and subcortical white matter present. The diffusion sequence is normal without evidence of acute infarct. incidental enlarged perivascular space noted adjacent to the anterior commissure on the right. No intracranial hemorrhage. Ventricles: Appropriate in size and position. No hydrocephalus. Skull Base: The bony sella, pituitary gland and infundibulum unremarkable. Cl ivus and craniovertebral relationships are appropriate. Visualized portions of the seventh and eighth cranial nerve complexes and internal auditory canals are within normal limits. Scalp and Calvarium: The scalp is unremarkable. Underlying calvarium has an appropriate marrow signal. Paranasal Sinuses: Visualized portions of the paranasal sinuses are clear. Mastoids: Unremarkable as visualized. No mastoid effusion present. Orbits: The orbits, globes and ocular muscles are unremarkable. IMPRESSION: 1. Small 7 mm extra-axial meningioma corresponding with the prior MR cervical spine findings. No cord indentation or associated cord edema. 2. Stable atrophy and chronic ischemic change. No intracranial hemorrhage or infarct. Dictated by: Khoi Gee M.D. on 10/04/2020 at 18:28 Approved by: Khoi Gee M.D. on 10/04/2020 at 18:40 CT scan - head: Radiologist's Impression: [address] [id number] Scan ReportSigned Patient: Tri Joseph CMR#: [id number]: 3Acct:[id number]/Sex: 80 / FDate of Service: 10/28/20Loc: EDAccession Number: [id number] Procedure: CT head/brain wo con Ordering Provider: Sakina Rush D.O. PROCEDURE: CT HEAD/BRAIN WO CON INDICATIONS: Worsening tremor; craniocervical junction meningioma TECHNIQUE: Noncontrast 4.5 mm thick angled axial sections acquired from the foramen magnum to the vertex, with coronal and sagittal reformats. For radiation dose reduction, the following was used: automated exposure control, adjustment of mA and/or kV according to patient size. COMPARISON: [facility], MR, MR HEAD/BRAIN WO/W CON, 12/16/2018, 14:08. [facility], MR, MR HEAD/BRAIN WO/W CON, 10/04/2020, 18:20. FINDINGS: Image quality: Excellent. CSF spaces: Basal cisterns are patent. No extra-axial fluid collections. The ventricles are symmetric in size and shape. Brain: Small meningioma at the craniocervical junction is redemonstrated, though not well visualized. No acute intracranial hemorrhage. No findings of mass effect or midline shift. There is cerebral volume loss. Moderate to severe chronic microvascular ischemic changes. Intracranial carotid artery and vertebral artery atherosclerosis. Midline structures are within normal limits. Skull and face: Calvarium and visualized facial bones appear intact, without suspicious lesions. Sinuses: Visualized sinuses and mastoids are clear. IMPRESSION: No acute intracranial finding. Global cerebral volume loss and chronic microvascular ischemic changes. Dictated by: Sumit Bloom M.D. on 10/28/2020 at 10:48 Approved by: Sumit Bloom M.D. on 10/28/2020 at 10:51 [facility] Narrative Medical decision making narrative: This is a 80-year-old female comes emergency department with complaint of worsening tremors. Patient has seen neurosurgery for a meningioma that was appreciated on MRI. She was cleared medically and they do not feel that is the cause of her symptoms. Patient's primary care had changed her medications recently from to propranolol and sounds like she had a gap or she was not really covered with beta-torrey this may worsened or exacerbated her symptoms. She did does not have any acute neurologic changes and is able to ambulate safely here in the department. My suspicion for stroke or other acute neurologic event is low. Unclear patient has seen Neurology and recommended follow-up with them for further evaluation and treatment. Discharge Plan Departure Patient Disposition: Home Clinical Impression: Tremor of unknown origin Activity Restrictions/Additional Instructions: Follow-up with your physician for recheck. I would recommend you continue at least 1 of her beta-blockers, your atenolol is appropriate if you find this more helpful than the propranolol. I would also recommend following up with Neurology for further evaluation if that has not occurred. Peripheral is included below. Your labs, imaging and urinalysis today do not show any acute changes or causes. Please return for new or worsening symptoms, severe headaches, passing out, persistent vomiting, new chest pain or shortness of breath, inability to ambulate safely, new numbness tingling or weakness of your extremities or other new or concerning symptoms. Prescriptions: No Action Cmp Estriol Cream 0.2 % 0.5 gram VAG .COMPLEX Qty: 45 RF: 1 naproxen 500 mg tablet 500 mg PO QD-BID PRN (Reason: Pain (Scale Score 4-6)) RF: 0 atenolol 25 mg tablet 25 mg PO DAILY RF: 0 tramadol 50 mg tablet 100 mg PO ONCE RF: 0 esomeprazole magnesium [Nexium] 20 mg capsule,delayed release(DR/EC) 40 mg PO DAILY RF: 0 losartan 25 mg tablet 25 mg PO DAILY RF: 0 diclofenac sodium [Voltaren] 1 % gel 2 gram TOP QID RF: 0 estradiol [Vagifem] 10 mcg tablet 10 mcg VAG .1XW Qty: 12 RF: 3 prednisone 5 mg tablet 5 mg PO DAILY RF: 0 multivitamin tablet 1 tab PO DAILY RF: 0 ascorbic acid (vitamin C) 500 mg capsule PO RF: 0 calcium carbonate [Calci-Mix] 500 mg calcium (1,250 mg) capsule 500 mg PO BID RF: 0 cholecalciferol (vitamin D3) 2,000 unit capsule 2,000 unit PO DAILY RF: 0 cyclosporine EYE-BOTH DAILY RF: 0 Referrals: Diana Cottrell DO [Primary Care Provider] - Hemant Pacheco MD [Non-Staff] -
--- NOTE | 2020-10-28 10:10 | DI.CT.S_ITS ---
PROCEDURE: CT HEAD/BRAIN WO CON INDICATIONS: Worsening tremor; craniocervical junction meningioma TECHNIQUE: Noncontrast 4.5 mm thick angled axial sections acquired from the foramen magnum to the vertex, with coronal and sagittal reformats. For radiation dose reduction, the following was used: automated exposure control, adjustment of mA and/or kV according to patient size. COMPARISON: [facility], MR, MR HEAD/BRAIN WO/W CON, 12/16/2018, 14:08. [facility], MR, MR HEAD/BRAIN WO/W CON, 10/04/2020, 18:20. FINDINGS: Image quality: Excellent. CSF spaces: Basal cisterns are patent. No extra-axial fluid collections. The ventricles are symmetric in size and shape. Brain: Small meningioma at the craniocervical junction is redemonstrated, though not well visualized. No acute intracranial hemorrhage. No findings of mass effect or midline shift. There is cerebral volume loss. Moderate to severe chronic microvascular ischemic changes. Intracranial carotid artery and vertebral artery atherosclerosis. Midline structures are within normal limits. Skull and face: Calvarium and visualized facial bones appear intact, without suspicious lesions. Sinuses: Visualized sinuses and mastoids are clear. IMPRESSION: No acute intracranial finding. Global cerebral volume loss and chronic microvascular ischemic changes. Dictated by: Sumit Bloom M.D. on 10/28/2020 at 10:48 Approved by: Sumit Bloom M.D. on 10/28/2020 at 10:51
[2020-10-28 11:15] LABS: Add Manual Diff / Slide Review NO; Basophils Absolute Auto 100 /uL (0-100); Basophils Percent Auto 0.7 % (0-2); Eosinophils Absolute Auto 0 /uL (0-450); Eosinophils Percent Auto 0.2 % (2-4); Hematocrit 44.1 % (36-46); Hemoglobin 14.2 g/dL (12.0-16.0); Lymphocytes Absolute Auto 800 /uL (1100-4500); Mean Corpuscular HGB Conc 32.3 % (30-36); Mean Corpuscular Hemoglobin 29.1 PG (26-34); Monocytes Absolute Auto 300 /uL (0-900); Monocytes Percent Auto 4.1 % (3-14); Neutrophils Absolute Auto 7300 /uL (1500-7000); Platelet Count 174 X10^3/uL (150-400); Red Cell Distribution Width 15.3 % (11.6-14.8); White Blood Cell Count 8.5 X10^3/uL (4.5-11.0)
[2020-10-28 11:29] LABS: Lactate (Lactic Acid) 0.6 mmol/L (0.7-2.1)
[2020-10-28 11:30] LABS: BUN Creatinine Ratio 36.2 (6-22); Blood Urea Nitrogen 21 mg/dL (7-17); Calcium 10.3 mg/dL (8.4-10.2); Carbon Dioxide 28 mmol/L (22-32); Chloride 106 mmol/L (98-107); Estimated Glomerular Filt Rate > 60.0 mL/min (>60); Glucose 114 mg/dL (80-110); HEMOLYSIS < 15 (0-50); Potassium 4.1 mmol/L (3.4-5.1); Sodium 141 mmol/L (137-145)
[2020-10-28 11:47] LABS: Procalcitonin 0.03 ng/mL (<0.5)
--- NOTE | 2020-10-28 12:23 | PC.NURSE ---
pt stated having tremors and urine incontinence for the last week or so
== END 2020-10-28 12:24 | disposition home or self-care (01) ==
PROVIDERS: Emergency Provider Emergency Medicine; Family Provider Family Medicine; PCP Family Medicine
DX: R25.1 Tremor, unspecified (principal); R11.0 Nausea; R30.0 Dysuria
CPT/HCPCS: 36415; 70450; 80048; 81003; 83605; 84145; 85025; 99282; 99284

== ENCOUNTER → 2021-01-23 10:54 | Outpatient (CLI) | payer MEDICARE, SELFPAY ==
--- NOTE | 2021-01-23 10:56 | DI.US.S_ITS ---
PROCEDURE: US PELVIC COMPLETE INDICATIONS: BLOATING TECHNIQUE: Real-time scanning was performed of the pelvic organs, with image documentation. Additional endovaginal scanning was necessary due to incomplete visualization of the adnexal and endometrial structures by transabdominal scanning. COMPARISON: None. FINDINGS: Uterus: The uterus is anteverted and measures 5.2 x 1.9 x 3.5 centimeters. Endometrial thickness is 1.3 millimeters. The cervix appears normal. Ovaries: The ovaries are not visualized. Other: No pathologic free abdominal or pelvic fluid. IMPRESSION: Normal pelvic ultrasound. Dictated by: Efrain Quintana M.D. on 01/23/2021 at 12:59 Approved by: Efrain Quintana M.D. on 01/23/2021 at 13:07
[2021-01-23 13:35] LABS: Appearance Urine UA CLEAR; Bilirubin Urine UA NEGATIVE (NEGATIVE); Color Urine UA YELLOW; Glucose Urine UA NEGATIVE (Negative); Ketones Urine UA NEGATIVE (NEGATIVE); Leukocyte Esterase Urine UA NEGATIVE (NEGATIVE); Nitrite Urine UA NEGATIVE (Negative); Occult Blood Urine UA 2+ (Negative); Protein Urine UA TRACE (Negative); Urobilinogen Urine UA 0.2 E.U./dL (0.2)
[2021-01-23 14:24] LABS: RBC Urine 1-5/HPF (0-5/HPF)
[2021-01-23 14:25] LABS: Bacteria Urine Few (2-10); Culture Indicated Urine Cult Not Indicated; Squamous Epithelial Cell Urine 5-10 /HPF (0-5/HPF); WBC Urine 0-1/HPF (0-5/HPF)
== END ==
PROVIDERS: Family Provider Family Medicine; PCP Family Medicine; Referring Provider Specialist; Visit Provider Specialist
DX: R14.0 Abdominal distension (gaseous) (principal); N39.0 Urinary tract infection, site not specified
CPT/HCPCS: 76830; 76856; 81003; 81015

== ENCOUNTER → 2021-07-03 14:04 | Outpatient (CLI) | payer MEDICARE, SELFPAY ==
--- NOTE | 2021-07-03 | DI.MRI.S_ITS ---
PROCEDURE: MR CERVICAL SPINE WO CON INDICATIONS: Spinal stenosis, cervical region TECHNIQUE: Noncontrast sagittal T1 spin echo and T2 fast spin echo, sagittal STIR, foraminal oblique sagittal T2 fast spin echo, and axial gradient echo or T2 fast spin echo through the cervical spine. COMPARISON: [facility], MR, MR CERVICAL SPINE WO CON, 02/06/2019, 17:45. FINDINGS: Image quality: Excellent. Alignment and Curvature: Trace degenerative anterolisthesis of C2 on C3 and of C4 on C5, and of C6 on C7. Bone Marrow: Marrow demonstrates normal overall signal. C5 vertebral body hemangioma. Spinal Cord: Visualized spinal cord has normal size and signal. No cerebellar tonsillar herniation. Paraspinous Soft Tissues: No paravertebral masses. Prevertebral soft tissues are normal in thickness. C2-C3: No canal stenosis or foraminal stenosis. C3-C4: No canal stenosis or foraminal stenosis. C4-C5: Stable findings. Mild disc bulge. No canal stenosis. Mild bilateral uncovertebral joint hypertrophy. Bilateral facet hypertrophy. Moderate left foraminal narrowing. C5-C6: Unchanged. No canal stenosis. Mild bilateral facet hypertrophy. Mild bilateral foraminal narrowing. C6-C7: Unchanged. Disc bulge. No canal stenosis or foraminal stenosis. C7-T1: No canal stenosis or foraminal stenosis. IMPRESSION: 1. No significant interval change. 2. Mild multilevel facet arthropathy. 3. Multilevel disc bulges. 4. No canal stenosis. 5. Multilevel foraminal narrowing as described above. Dictated by: Alverto Tejada M.D. on 07/03/2021 at 15:50 Approved by: Alverto Tejada M.D. on 07/03/2021 at 16:00
== END ==
PROVIDERS: Family Provider Family Medicine; PCP Family Medicine; Referring Provider Physical Medicine & Rehabilitation; Visit Provider Physical Medicine & Rehabilitation
DX: M48.02 Spinal stenosis, cervical region (principal); M47.812 Spondylosis without myelopathy or radiculopathy, cervical region; M50.221 Other cervical disc displacement at C4-C5 level
CPT/HCPCS: 72141

== ENCOUNTER → 2021-08-21 12:41 | Outpatient (CLI) | payer MEDICARE, SELFPAY ==
--- NOTE | 2021-08-21 12:44 | DI.US.S_ITS ---
PROCEDURE: US CAROTID DOPPLER BI INDICATIONS: OCCLUSION AND STENOSIS OF CAROTID ARTERIES TECHNIQUE: Color and pulse Doppler interrogation was performed of both carotid systems, with image documentation and velocity measurements. COMPARISON: None. FINDINGS: Stenosis calculations are based on SRU (Society of Radiologists in Ultrasound) criteria. Right side: Brachial blood pressure: 138/78 mm Hg. Common carotid artery peak systolic velocity: 109 cm/sec. Internal carotid artery peak systolic velocity: 104 cm/sec. Internal carotid artery end diastolic velocity: 16 cm/sec. External carotid artery peak systolic velocity: 83 cm/sec. ICA/CCA peak systolic ratio: 0.96 . Beard scale imaging description: Mild atheromatous plaque is present at the carotid bulb Percent internal carotid artery stenosis: Less than 50% stenosis . Vertebral artery: Flow direction is antegrade. Left side: Brachial blood pressure: Not obtained mm Hg. Common carotid artery peak systolic velocity: 98 cm/sec. Internal carotid artery peak systolic velocity: 82 cm/sec. Internal carotid artery end diastolic velocity: 17 cm/sec. External carotid artery peak systolic velocity: 72 cm/sec. ICA/CCA peak systolic ratio: 0.84 . Beard scale imaging description: No atheromatous plaque or calcification. Percent internal carotid artery stenosis: Normal study. Vertebral artery: Flow direction is antegrade. IMPRESSION: Less than 50% stenosis of the right internal carotid artery and no sonographic evidence for stenosis of the left internal carotid artery. Dictated by: Elizabet Holcomb M.D. on 08/21/2021 at 16:44 Approved by: Elizabet Holcomb M.D. on 08/21/2021 at 16:46
--- NOTE | 2021-08-21 12:45 | DI.MRI.S_ITS ---
PROCEDURE: MR HEAD/BRAIN WO/W CON INDICATIONS: Occlusion and stenosis of bilateral carotid arteri TECHNIQUE: Noncontrast axial T1 spin echo, axial T2 fast spin echo, sagittal and axial FLAIR, coronal T2 fast spin echo, axial gradient echo, axial diffusion and ADC through the brain. After the administration of contrast, axial and coronal T1 spin echo with fat saturation through the brain. COMPARISON: [facility], US, US CAROTID DOPPLER BI, 08/21/2021, 14:02. [facility], MR, MR HEAD/BRAIN WO/W CON, 10/04/2020, 18:20. FINDINGS: Image quality: Excellent. CSF spaces: Basal cisterns are patent. No extra-axial fluid collections. Ventricles are normal in size and shape. Brain: No midline shift. No intracranial bleeds. There is an extra-axial 7 mm focus of enhancement appearing dural-based within enhancing tail at the craniocervical junction, series 13, image 18. It is unchanged compared to prior exam, including noting effacement of the ventral surface of the cord without mass effect or indentation. No associated cord edema. There is cerebral volume loss for age. There is periventricular white matter chronic small vessel ischemic change. The brainstem appears normal. Diffusion-weighted images demonstrate no acute ischemic insults. No chronic ischemic insults. Normal intravascular flow voids are present. Skull and face: Calvarial marrow is normal in signal. Orbits appear normal. Sinuses: Sinuses and mastoids appear clear. IMPRESSION: Unchanged appearance of craniocervical meningioma. Moderate atrophy and chronic microvascular ischemic change. Dictated by: Vicky Artis M.D. on 08/21/2021 at 16:03 Approved by: Vicky Artis M.D. on 08/21/2021 at 16:07
== END ==
PROVIDERS: Family Provider Family Medicine; PCP Family Medicine; Referring Provider Psychiatry & Neurology Neurology; Visit Provider Psychiatry & Neurology Neurology
DX: D32.9 Benign neoplasm of meninges, unspecified (principal); I65.23 Occlusion and stenosis of bilateral carotid arteries
CPT/HCPCS: 70553; 93880; A9579

== ENCOUNTER → 2021-12-16 11:14 | Outpatient (CLI) | payer MEDICARE, SELFPAY ==
--- NOTE | 2021-12-16 11:18 | DI.MRI.S_ITS ---
PROCEDURE: MR CERVICAL SPINE WO CON INDICATIONS: Cervicalgia TECHNIQUE: Noncontrast sagittal T1 spin echo and T2 fast spin echo, sagittal STIR, foraminal oblique sagittal T2 fast spin echo, and axial gradient echo or T2 fast spin echo through the cervical spine. COMPARISON: [facility], MR, MR CERVICAL SPINE WO CON, 07/03/2021, 15:01. FINDINGS: Image quality: Excellent. Alignment and Curvature: Grade 1 anterior spondylolisthesis noted C4-5 Bone Marrow: Marrow demonstrates normal overall signal. Spinal Cord: Visualized spinal cord has normal size and signal. No cerebellar tonsillar herniation. Paraspinous Soft Tissues: No paravertebral masses. Prevertebral soft tissues are normal in thickness. C2-C3: Normal appearance. C3-C4: Normal appearance. C4-C5: Mild disc space narrowing and hypertrophic facet joints present. No central or foraminal stenosis. C5-C6: Normal appearance. C6-C7: Normal appearance. C7-T1: Normal appearance. IMPRESSION: Mild degenerative arthropathy resulting in grade 1 anterior spondylolisthesis at C4-5. No central or foraminal stenosis Approved by: Khoi Gee M.D. on 12/16/2021 at 15:16
== END ==
PROVIDERS: Family Provider Family Medicine; PCP Nurse Practitioner Family; Referring Provider Psychiatry & Neurology Neurology; Visit Provider Psychiatry & Neurology Neurology
DX: M43.12 Spondylolisthesis, cervical region (principal); M54.2 Cervicalgia
CPT/HCPCS: 72141

== ENCOUNTER → 2022-01-05 09:53 | Outpatient (CLI) | payer MEDICARE, SELFPAY ==
[2022-01-05 11:34] LABS: COVID19 -Nasal RAPID Negative (Negative)
== END ==
PROVIDERS: Family Provider Family Medicine; PCP Nurse Practitioner Family; Visit Provider Surgery
DX: Z01.812 Encounter for preprocedural laboratory examination (principal); Z20.822 Contact with and (suspected) exposure to COVID-19
CPT/HCPCS: 87635; C9803

== ENCOUNTER 2022-01-06 13:32 | Day surgery (SDC) | payer MEDICARE, SELFPAY ==
[2022-01-06] VITALS (7 sets, daily range): BP systolic 138–170; BP diastolic 52–76; PULSE 65–88; RESP 10–22; TEMP 36.2–36.4; O2SAT 97–99; BMI 30.7
[2022-01-06] MEDS: LACTATED RINGERS 1,000 ML 42 ML IV (14:28)
--- NOTE | 2022-01-06 15:36 | PM.PREOP ---
Pre-operative Note COVID-19 COVID-19 status: Negative Result date/Date tested (Pos, Neg/Pending): 01/05/22 Interval Note History & Physical reviewed/Exam performed by Physician: Yes Changes to H&P: No ASA Class (for procedural sedation): III
--- NOTE | 2022-01-06 16:35 | P.OP.COLON_ITS ---
Operative Date/Time/Diagnoses Date of procedure: 01/06/22 Time of procedure: 16:35 Pre-op diagnosis: Positive cologuard test Post-op diagnosis: same Procedure & Clinicians Study performed: Colonoscopy Same procedure as scheduled: Yes Surgeon: Jono River Procedure Notes Procedure in detail: Surgeon: Jono River MD Anesthesia: MAC by Dr. Prabhakar Procedure: The patient was brought to the endoscopy suite, placed in left lateral decubitus position. The patient was connected to monitoring devices. A time-out was performed. Sedation was administered. Once the patient was adequately sedated, a digital rectal exam was performed and was normal. The scope was then inserted and advanced to the cecum where the appendiceal orifice was identified and photographed. The scope was then slowly withdrawn over greater than 6 minutes. The mucosa was thoroughly inspected. There was pandiv erticulosis greatest in the sigmoid colon. There were no polyps. The scope was retroflexed in the rectum. No abnormality was noted. The scope was straightened and removed. The patient was awakened and brought to recovery. EBL: 0 Findings: Pandiverticulosis Scope withdrawal time: 8 Impression: You may stop screening for colon cancer Post-procedure Disposition: PACU
== END 2022-01-06 17:22 | disposition home or self-care (01) ==
PROVIDERS: Family Provider Family Medicine; PCP Nurse Practitioner Family; Referring Provider Surgery; Visit Provider Surgery
PROC: 0DJD8ZZ Inspection of Lower Intestinal Tract, Via Natural or Artificial Opening Endoscopic (ICD-10-PCS; CPT 45378; principal; 2022-01-06 15:00)
DX: R19.5 Other fecal abnormalities (principal); G20 Parkinson's disease; K57.30 Diverticulosis of large intestine without perforation or abscess without bleeding
CPT/HCPCS: 45378; J2704

== ENCOUNTER → 2022-03-19 10:53 | Outpatient (CLI) | payer MEDICARE, SELFPAY ==
[2022-03-20 06:37] LABS: Candida species Negative (Negative); Gardnerella vaginalis Negative (Negative); Trichomoas vaginalis Negative (Negative)
== END ==
PROVIDERS: Family Provider Family Medicine; PCP Nurse Practitioner Family; Visit Provider Physician Assistant Medical
DX: N39.0 Urinary tract infection, site not specified (principal); R30.0 Dysuria; N89.8 Other specified noninflammatory disorders of vagina
CPT/HCPCS: 87086; 87480; 87510; 87660

== ENCOUNTER → 2022-03-19 11:11 | Outpatient (CLI) | payer MEDICARE, SELFPAY ==
[2022-03-19 12:49] LABS: Add Manual Diff / Slide Review NO; Basophils Absolute Auto 100 /uL (0-100); Basophils Percent Auto 0.6 % (0-2); Eosinophils Absolute Auto 100 /uL (0-450); Eosinophils Percent Auto 0.6 % (2-4); Hematocrit 43.7 % (36-46); Hemoglobin 14.1 g/dL (12.0-16.0); Lymphocytes Absolute Auto 900 /uL (1100-4500); Lymphocytes Percent Auto 7.8 % (25-40); Mean Corpuscular HGB Conc 32.3 % (30-36); Mean Corpuscular Hemoglobin 29.2 PG (26-34); Mean Corpuscular Volume 90.2 fL (80-100); Monocytes Absolute Auto 900 /uL (0-900); Monocytes Percent Auto 7.4 % (3-14); Neutrophils Absolute Auto 9600 /uL (1500-7000); Neutrophils Percent Auto 83.6 % (50-75); Platelet Count 190 X10^3/uL (150-400); Red Blood Cell Count 4.85 X10^6/uL (4.0-5.2); Red Cell Distribution Width 15.4 % (11.6-14.8); White Blood Cell Count 11.5 X10^3/uL (4.5-11.0)
[2022-03-19 14:04] LABS: Alanine Aminotransferase 17 IU/L (<35); Albumin Globulin Ratio 1.5 (1.0-2.8); Alkaline Phosphatase 68 U/L (38-126); Aspartate Aminotransferase 20 IU/L (14-36); BUN Creatinine Ratio 37.9 (6-22); Bilirubin Total 0.7 mg/dL (0.2-1.3); Blood Urea Nitrogen 25 mg/dL (7-17); Calcium 9.9 mg/dL (8.4-10.2); Carbon Dioxide 27 mmol/L (22-32); Chloride 101 mmol/L (98-107); Estimated Glomerular Filt Rate > 60 mL/min (>60); Globulin 2.7 g/dL (1.7-4.1); Glucose 92 mg/dL (80-110); HEMOLYSIS < 15 (0-50); Potassium 4.5 mmol/L (3.4-5.1); Sodium 137 mmol/L (137-145); Total Protein 6.7 g/dL (6.3-8.2)
== END ==
PROVIDERS: Family Provider Family Medicine; PCP Nurse Practitioner Family; Referring Provider Physician Assistant Medical; Visit Provider Physician Assistant Medical
DX: R42 Dizziness and giddiness (principal); N39.0 Urinary tract infection, site not specified; R30.0 Dysuria; N89.8 Other specified noninflammatory disorders of vagina
CPT/HCPCS: 36415; 80053; 84443; 85025; 87077; 87086; 87186; 87480; 87510; 87660

== ENCOUNTER 2022-07-08 18:46 | Emergency (ER) | payer MEDICARE, SELFPAY ==
[2022-07-08] VITALS (10 sets, daily range): BP systolic 184–197; BP diastolic 79–88; PULSE 63–82; RESP 17–25; TEMP 36.7; O2SAT 97–98; BMI 26.9
--- NOTE | 2022-07-08 18:50 | DI.RAD.S_ITS ---
PROCEDURE: XR ELBOW LT MIN 3V INDICATIONS: fall with pain on olecranon TECHNIQUE: Three views of the elbow were acquired. COMPARISON: None. FINDINGS: Bones: Small curvilinear calcification seen in the medial aspect of the radiocapitellar region. No discrete lucent fracture plane or donor site. Elbow articulations are otherwise normal. Soft tissues: No elbow joint effusion. No suspicious soft tissue calcifications. IMPRESSION: 1. Tiny curvilinear calcification along the radiocapitellar articulation. This may be a small avulsion fracture or degeneration. 2. No joint effusion to support fracture. Dictated by: Cher Gregory M.D. on 07/08/2022 at 19:52 Approved by: Cher Gregory M.D. on 07/08/2022 at 19:54
--- NOTE | 2022-07-08 18:50 | DI.RAD.S_ITS ---
PROCEDURE: XR ANKLE LT MIN 3V INDICATIONS: fall with ankle pain TECHNIQUE: 3 views of the ankle were acquired. COMPARISON: None. FINDINGS: Bones: No fractures or dislocations. Ankle mortise is normally aligned. No suspicious bony lesions. Soft tissues: No tibiotalar joint effusion. Achilles tendon appears normal. IMPRESSION: Normal left ankle. Dictated by: Cher Gregory M.D. on 07/08/2022 at 19:54 Approved by: Cher Gregory M.D. on 07/08/2022 at 19:55
--- NOTE | 2022-07-08 18:50 | DI.RAD.S_ITS ---
PROCEDURE: XR HIP W PEL IF DONE LT 2V INDICATIONS: fall with L hip pain, cannot weight bear TECHNIQUE: AP pelvis with lateral view(s) of the left hip(s). COMPARISON: None. FINDINGS: Bones: No fractures or dislocations. Moderate asymmetric right hip joint degeneration and mild left degeneration. Pelvic ring appears intact. No suspicious bony lesions. Soft tissues: The visualized bowel gas pattern is normal. No suspicious soft tissue calcifications. IMPRESSION: 1. No visible hip or pelvic fracture. 2. Asymmetric right greater than left hip joint degeneration. Dictated by: Cher Gregory M.D. on 07/08/2022 at 19:55 Approved by: Cher Gregory M.D. on 07/08/2022 at 19:56
--- NOTE | 2022-07-08 18:50 | DI.RAD.S_ITS ---
PROCEDURE: XR KNEE LT 3V INDICATIONS: fall with knee pain TECHNIQUE: 3 views of the knee were acquired. COMPARISON: [facility], RAMO, XR KNEE ARTHRITIC SERIES BI, 01/24/2020, 15:54. [facility], RAMO, XR KNEE 4+ VIEWS LEFT, 06/26/2020, 11:48. [facility], , KNEE 3V LEFT, 12/20/2016, 12:50. FINDINGS: Bones: No acute fracture or dislocation. Knee prosthesis components are in place. Possible developing lucency around the tibial stem. Chronic enthesophyte arising from the medial femoral condyle. Spurring at the patellofemoral joint. Soft tissues: Very small joint effusion. No suspicious soft tissue calcifications. IMPRESSION: 1. No evidence of acute fracture. 2. Questionable changes of tibial component loosening. 3. Very small joint effusion. Dictated by: Cher Gregory M.D. on 07/08/2022 at 20:06 Approved by: Cher Gregory M.D. on 07/08/2022 at 20:09
--- NOTE | 2022-07-08 18:51 | ED_ITS ---
HPI - General Adult General Chief complaint: Fall Stated complaint: GLF, LLE pain Time Seen by Provider: 07/08/22 18:47 History of Present Illness HPI narrative: 81-year-old female nonsmoker with history of Parkinson's and hypertension presents by EMS for evaluation of injury sustained as a consequence of a ground level fall this afternoon. She states that she was getting out of the car with assistance from her caregiver and fell onto her left side. She denies any head neck or back pain but does have some left-sided rib pain. Over the course of the afternoon her pain is increased. She denies any shortness of breath and has had no hemoptysis. She does not take blood thinners. She denies pain in her left shoulder but does have increasing pain in her left elbow which is made worse with range of motion. She has significant pain in her left hip, knee and ankle, sufficient that she is unable to weightbear. EMS notes no shortening or rotation. The patient denies any weakness, numbness or tingling. She is activated as a modified trauma given her age and suspected injury Related Data Home Medications Medication Instructions Recorded Confirmed atenolol 25 mg tablet 25 mg PO DAILY 09/17/17 03/19/22 ascorbic acid (vitamin C) 500 mg 500 mg PO DAILY 11/22/17 03/19/22 capsule calcium carbonate 500 mg calcium 500 mg PO BID 11/22/17 03/19/22 (1,250 mg) capsule (Calci-Mix) cholecalciferol (vitamin D3) 50 2,000 unit PO DAILY 11/22/17 03/19/22 mcg (2,000 unit) capsule multivitamin 1 tab PO DAILY 11/22/17 03/19/22 prednisone 5 mg tablet 5 mg PO DAILY 11/22/17 03/19/22 diclofenac sodium 1 % topical gel 2 gram topical QID 09/28/18 03/19/22 (Voltaren) losartan 25 mg tablet 25 mg PO DAILY 09/28/18 03/19/22 lidocaine 4 % topical patch 1 patch topical DAILY PRN Pain 12/15/21 03/19/22 (Scale Score 4-6) omega 6-efc-jgd-fish oil 300 1 cap PO DAILY 12/15/21 03/19/22 mg-1,000 mg capsule (Fish Oil) naproxen 500 mg tablet 500 mg PO DAILY PRN Pain (Scale 12/16/21 03/19/22 Score 1-3) tramadol 50 mg tablet 50 mg PO BID PRN Pain (Scale Score 12/16/21 03/19/22 4-6) aspirin 81 mg capsule 81 mg PO DAILY PRN Headache 01/06/22 03/19/22 Previous Rx's Medication Instructions Recorded estradiol 10 mcg vaginal tablet 10 mcg vaginal 2XW #24 tabs 03/19/22 (Vagifem) Allergies Allergy/AdvReac Type Severity Reaction Status Date / Time ciprofloxacin [From Cipro] Allergy Verified 07/08/22 18:51 doxycycline Allergy Verified 07/08/22 18:51 gabapentin Allergy Verified 07/08/22 18:51 mirabegron [From Myrbetriq] Allergy Verified 07/08/22 18:51 primidone Allergy Verified 07/08/22 18:51 propranolol Allergy Verified 07/08/22 18:51 oxybutynin AdvReac Intermediate Facial Verified 07/08/22 18:51 redness and swelling nitrofurantoin AdvReac Mild Dizziness Verified 07/08/22 18:51 [From Macrobid] Review of Systems Review of Systems Narrative: GENERAL: Denies chills, fatigue, malaise, fever, sweats. HEENT: Denies sinus pain, ear pain, sore throat, difficulty swallowing, dizziness. RESPIRATORY: See HPI CARDIOVASCULAR: Denies chest pain, palpitations, orthopnea, edema, GASTROINTESTINAL: Denies nausea, vomiting, abdominal pain, diarrhea, constipati on, melena. : Denies dysuria, frequency, incontinence, hematuria, urinary retention. MUSCULOSKELETAL: See HPI SKIN: Denies rash, skin lesions, or other NEUROLOGIC: Denies weakness, headache, numbness, change in speech, confusion, seizures, incoordination. PSYCHIATRIC: No concerning psychosocial issues. 12 point review of systems is negative except for those stated above Patient History Medical History Breast cancer Dizziness Lupus Osteopenia Parkinson disease Surgical History History of cataract removal with insertion of prosthetic lens Status post laparoscopic cholecystectomy (12/2014) Status post total knee replacement, left Family History Mother Hypertension Father Heart disease Brother Heart disease Social History household members: none Smoking Status: Never smoker alcohol intake: never substance use type: does not use Smoking Status: Never smoker alcohol intake frequency: 0-2 drinks per day Substance Use Type: does not use Exam Narrative Exam Narrative: GENERAL: [81] year old patient appears stated age. Well-developed patient, in mild distress. GCS 15 HEAD: Atraumatic. Normocephalic. No hematoma, abrasion or evidence of depressed skull fracture EYES: Pupils equal round and reactive. No hyphema Extraocular motions intact. No scleral icterus. No injection or drainage. ENT: Nose without bleeding, purulent drainage. Throat without erythema, tonsillar hypertrophy or exudate. Airway patent. NECK: Trachea midline. Non tender, no crepitance or step-offs CARDIOVASCULAR: Regular rate and rhythm without murmurs, gallops, or rubs. Left lateral ribs tender to palpate, no obvious ecchymosis or clicks RESPIRATORY: Clear to auscultation. Breath sounds equal bilaterally. No wheezes, rales, or rhonchi. GASTROINTESTINAL: Abdomen soft, non-tender, nondistended. EXTREMITIES: Left elbow with tenderness on the olecranon, no obvious deformity. Minimal ecchymosis, pain with flexion, extension as well as pronation and supination though range of motion is full. Pain on palpation of left hip, no shortening or rotation. Pain on palpation of joint lines of knee, no ligamentous instability, no effusion or obvious deformity. Pain on palpation of left ankle, no obvious deformity these injuries are closed and neurovascularly intact, compartments are soft BACK: Nontender without deformity or crepitance. No flank tenderness. NEURO: AOx3. SKIN: No rash or erythema of visible areas Initial Vital Signs Initial Vital Signs: Vital Signs Pulse Rate 64 07/08/22 18:51 Respiratory Rate 18 07/08/22 18:51 Blood Pressure 193/88 H 07/08/22 18:51 Pulse Oximetry 97 07/08/22 18:51 Oxygen Delivery Method Room Air 07/08/22 18:51 Course Orders Ordered: Discontinued Medications Acetaminophen (Acetaminophen 325 Mg Tablet) 650 mg PO NOW ONE Stop: 07/08/22 21:43 Last Admin: 07/08/22 21:54 Dose: 650 mg Documented By: GRISELDA Hydrocodone Bitart/Acetaminophen (Hydrocodone/Acet 5/325 Prepack) 1 bottle MISC SEEINSTR ONE Stop: 07/08/22 21:43 Last Admin: 07/08/22 21:52 Dose: 1 bottle Documented By: GRISELDA Ibuprofen (Ibuprofen 400 Mg Tablet) 400 mg PO NOW ONE Stop: 07/08/22 21:43 Last Admin: 07/08/22 21:52 Dose: 400 mg Documented By: GRISELDA Vital Signs Vital signs: Vital Signs - 8 hr 07/08/22 18:51 07/08/22 18:56 07/08/22 18:56 Temperature Pulse Rate 64 74 Respiratory Rate 18 17 Blood Pressure 193/88 H 193/88 H Pulse Oximetry 97 97 Oxygen Delivery Method Room Air 07/08/22 19:23 07/08/22 19:28 07/08/22 19:28 Temperature Pulse Rate 63 75 Respiratory Rate 25 H Blood Pressure 186/79 H Pulse Oximetry 98 97 Oxygen Delivery Method 07/08/22 19:30 07/08/22 19:30 07/08/22 20:00 Temperature Pulse Rate 74 78 Respiratory Rate 21 17 Blood Pressure 197/88 H Pulse Oximetry 98 97 Oxygen Delivery Method 07/08/22 20:01 07/08/22 20:01 07/08/22 20:30 Temperature Pulse Rate 72 Respiratory Rate 24 Blood Pressure 186/81 H 184/81 H Pulse Oximetry 98 Oxygen Delivery Method 07/08/22 20:30 07/08/22 21:00 07/08/22 21:54 Temperature 98.1 F Pulse Rate 82 72 Respiratory Rate 23 Blood Pressure Pulse Oximetry 98 97 Oxygen Delivery Method Medical Decision Making [facility] Narrative Medical decision making narrative: [81] year old patient presents with ground level mechanical fall and left-sided injuries worsening over the course of the day. No head or neck injury Multiple etiologies for patient's symptoms considered including, but not limited to: [Rib fracture versus contusion, elbow contusion versus fracture or dislocation, hip fracture versus contusion versus other] Prior Charts reviewed in our EMR Primary Historian: patient Imaging reviewed: Consultations: Patient's symptoms improved over duration of stay with above-stated therapies. Findings and discharge diagnosis discussed with patient/family followed by verbalization of understanding Return precautions discussed with patient/family whom verbalize understanding of diagnosis and plan Discharge Plan Departure Patient Disposition: Home Clinical Impression: Contusion of hip region, Contusion of ribs, Contusion of knee, Ankle sprain Activity Restrictions/Additional Instructions: *You have been diagnosed with [ minor injuries as a consequence of your fall. Xrays and CT scan showed no obvious fracture or dislocation] *What to do: *Please continue to take your regular medications as directed. [ ] New medication prescriptions sent to your pharmacy: [ ] [ ] New medication written as a paper prescription [ ] No new medications given *Please follow up with your primary care provider in 2-3 days, call for an appointment. Let them know you were seen in the Emergency Department and that we ask that you be seen in follow up. We will electronically transmit a record of today's note if your PCP is in our system *If you do not have a primary care provider please contact the [facility] Resource line at [phone]. They will ask some questions about your medical history and help get you set up with a doctor in the community. *Return to Emergency Department if you should have any new, worsening or concerning symptoms, such as [fever greater than 101 F, shaking chills, worsening pain, persistent vomiting or other bothersome symptoms] Prescriptions: No Action atenolol 25 mg tablet 25 mg PO DAILY losartan 25 mg tablet 25 mg PO DAILY diclofenac sodium [Voltaren] 1 % gel 2 gram TOP QID estradiol [Vagifem] 10 mcg tablet 10 mcg vaginal 2XW Qty: 24 3RF prednisone 5 mg tablet 5 mg PO DAILY multivitamin tablet 1 tab PO DAILY ascorbic acid (vitamin C) 500 mg capsule 500 mg PO DAILY calcium carbonate [Calci-Mix] 500 mg calcium (1,250 mg) capsule 500 mg PO BID cholecalciferol (vitamin D3) 2,000 unit capsule 2,000 unit PO DAILY omega 3-udv-dwg-fish oil [Fish Oil] 300-1,000 mg capsule 1 cap PO DAILY lidocaine 4 % adhesive patch,medicated 1 patch topical DAILY PRN (Reason: Pain (Scale Score 4-6)) tramadol 50 mg tablet 50 mg PO BID PRN (Reason: Pain (Scale Score 4-6)) naproxen 500 mg tablet 500 mg PO DAILY PRN (Reason: Pain (Scale Score 1-3)) aspirin 81 mg Capsule 81 mg PO DAILY PRN (Reason: Headache) Referrals: Walchenbach,Lainey A, [facility] [Primary Care Provider] - Stand Alone Forms: Patient Portal/API
--- NOTE | 2022-07-08 18:52 | DI.RAD.S_ITS ---
PROCEDURE: XR RIBS LT MIN 3V W CXR1V INDICATIONS: fall with left side rib pain TECHNIQUE: Two views of the left ribs were acquired, along with a single view chest. COMPARISON: None. FINDINGS: Surgical changes and devices: Surgical clips in the left axilla. Bones and chest wall: No visible displaced fractures or dislocations. No suspicious bony lesions. Overlying soft tissues appear unremarkable. Lungs and pleura: No pleural effusions or pneumothorax. Lungs appear clear. Mediastinum: Mediastinal contours appear normal. Heart size is slightly enlarged. IMPRESSION: 1. No visible displaced rib fractures. 2. No radiographic evidence of underlying chest trauma. Dictated by: Cher Gregory M.D. on 07/08/2022 at 20:09 Approved by: Cher Gregory M.D. on 07/08/2022 at 20:10
--- NOTE | 2022-07-08 20:17 | DI.CT.S_ITS ---
PROCEDURE: CT PEL WO CON INDICATIONS: fall with pain, neg xray, cannot weight bear TECHNIQUE: Noncontrast 3 mm axial sections acquired through the bony pelvis, with coronal and sagittal reformatting. COMPARISON: [facility], CR, XR HIP W PEL IF DONE LT 2V, 07/08/2022, 18:52. FINDINGS: Image quality: Excellent. Bones: No fracture or dislocation. Specifically, no hip fracture identified. There is moderate axial joint space narrowing in the right hip with moderate collar osteophytosis. There is moderate facet arthropathy within the visualized lower lumbar spine. Soft tissues: The visualized musculature appears preserved. No discrete hematoma collection. No definite hip joint effusions. No intraperitoneal free fluid within the visualized pelvis. IMPRESSION: 1. No fracture of the hips or bony pelvis identified. Dictated by: Phil Edwards M.D. on 07/08/2022 at 21:27 Approved by: Phil Edwards M.D. on 07/08/2022 at 21:30
[2022-07-08] MEDS: IBUPROFEN 400 MG TABLET PO (21:52)
[2022-07-08] MEDS: HYDROCODONE/ACET 5/325 PREPACK 1 BOTTLE MISC (21:52)
[2022-07-08] MEDS: ACETAMINOPHEN 325 MG TABLET 650 MG PO (21:54)
== END 2022-07-08 23:23 | disposition home or self-care (01) ==
PROVIDERS: Emergency Provider Emergency Medicine; Family Provider Family Medicine; PCP Nurse Practitioner Family
DX: S70.02XA Contusion of left hip, initial encounter (principal); S20.212A Contusion of left front wall of thorax, initial encounter; S80.02XA Contusion of left knee, initial encounter; S93.402A Sprain of unspecified ligament of left ankle, initial encounter; W18.30XA Fall on same level, unspecified, initial encounter; Z79.899 Other long term (current) drug therapy
CPT/HCPCS: 71101; 72192; 73080; 73502; 73562; 73610; 99283; 99284

== ENCOUNTER 2022-07-10 07:38 | Inpatient (IN) | payer MEDICARE, SELFPAY ==
[2022-07-10] VITALS (25 sets, daily range): BP systolic 152–189; BP diastolic 64–90; PULSE 66–95; RESP 11–24; TEMP 36.3–36.8; O2SAT 92–98; BMI 26.9
--- NOTE | 2022-07-10 07:45 | DI.RAD.S_ITS ---
PROCEDURE: XR CHEST 1V INDICATIONS: fall TECHNIQUE: One view of the chest was acquired. COMPARISON: [facility], [facility], XR CHEST 2V, 09/22/2019, 14:51. [facility], [facility], CHEST 1 VIEW, 09/26/2015, 10:03. FINDINGS: Surgical changes and devices: Left axillary clips Lungs and pleura: Mild diffuse lung disease. No pleural effusions. Mediastinum: Mild cardiomegaly Bones and chest wall: No suspicious bony lesions. Overlying soft tissues appear unremarkable. IMPRESSION: Mild diffuse lung disease, possibly infection or edema. Consider future imaging surveillance to assess for resolution. Dictated by: Nitin Lehman M.D. on 07/10/2022 at 9:11 Approved by: Nitin Lehman M.D. on 07/10/2022 at 9:12
--- NOTE | 2022-07-10 07:45 | DI.CT.S_ITS ---
PROCEDURE: CT CERVICAL SPINE WO CON INDICATIONS: fall pain TECHNIQUE: Noncontrast 3 mm thick sections acquired from the skull base to the T4 level. Sagittal and coronal reformats were then constructed. For radiation dose reduction, the following was used: automated exposure control, adjustment of mA and/or kV according to patient size. COMPARISON: None. FINDINGS: Image quality: Excellent. Bones: No fractures or dislocations. Grade 1 anterolisthesis of C4 on C5. Mild degenerative disease and moderate facet arthropathy in cervical spine. Osteopenia. Visualized superior ribs are intact. Soft tissues: Prevertebral soft tissues are normal in thickness. No paravertebral hematomas. No apical pneumothoraces. IMPRESSION: No acute fracture in cervical spine. Degenerative changes noted. Dictated by: Phillip Soriano M.D. on 07/10/2022 at 8:27 Approved by: Phillip Soriano M.D. on 07/10/2022 at 8:29
--- NOTE | 2022-07-10 07:45 | DI.RAD.S_ITS ---
PROCEDURE: XR HIP W PEL IF DONE LT 2V INDICATIONS: fall pain TECHNIQUE: AP pelvis with lateral view(s) of the left hip(s). COMPARISON: [facility], CT, CT PEL WO CON, 07/08/2022, 20:40. [facility], CR, XR HIP W PEL IF DONE LT 2V, 07/08/2022, 18:52. FINDINGS: Bones: Lateral view is suboptimal. Suspected left angulated hip fracture. Right hip arthrosis. Soft tissues: No suspicious calcifications. IMPRESSION: Suspected basicervical angulated left hip fracture. Lateral view is suboptimal. Consider CT to further characterize. Approved by: Nitin Lehman M.D. on 07/10/2022 at 9:10
--- NOTE | 2022-07-10 07:45 | DI.CT.S_ITS ---
PROCEDURE: CT HEAD/BRAIN WO CON INDICATIONS: syncope fall TECHNIQUE: Noncontrast 4.5 mm thick angled axial sections acquired from the foramen magnum to the vertex, with coronal and sagittal reformats. For radiation dose reduction, the following was used: automated exposure control, adjustment of mA and/or kV according to patient size. COMPARISON: [facility], CT, CT HEAD/BRAIN WO CON, 10/28/2020, 10:44. FINDINGS: Image quality: Excellent. CSF spaces: Basal cisterns are patent. No extra-axial fluid collections. The ventricles are symmetric in size and shape. Brain: No intracranial bleeds or masses. There is cerebral volume loss for age, with resultant ventricular and sulcal prominence. There are periventricular and deep white matter chronic small vessel ischemic changes. There is intracranial internal carotid artery atherosclerosis. Skull and face: Calvarium and visualized facial bones appear intact, without suspicious lesions. Sinuses: Visualized sinuses and mastoids are clear. IMPRESSION: 1. No acute intracranial abnormalities. 2. Cerebral volume loss and chronic microvascular ischemic changes. Dictated by: Phillip Soriano M.D. on 07/10/2022 at 8:25 Approved by: Phillip Soriano M.D. on 07/10/2022 at 8:27
--- NOTE | 2022-07-10 07:45 | DI.RAD.S_ITS ---
PROCEDURE: XR SHOULDER LT MIN 2V INDICATIONS: fall pain TECHNIQUE: 3 views of the shoulder were acquired. COMPARISON: None. FINDINGS: Bones: No displaced fracture or dislocation of the shoulder. Soft tissues: There are axillary clips. Possible mild partially seen lung disease. IMPRESSION: No acute radiographic abnormality. If there is high concern for occult injury, consider repeat radiography or cross-sectional imaging. Possible mild lung disease, better seen on chest imaging. Dictated by: Nitin Lehman M.D. on 07/10/2022 at 9:10 Approved by: Nitin Lehman M.D. on 07/10/2022 at 9:11
--- NOTE | 2022-07-10 07:45 | ED.SYNCOPE ---
HPI - Syncope General Chief Complaint: Fall Stated Complaint: Fall/ Pain Time Seen by Provider: 07/10/22 07:41 History of Present Illness HPI narrative: Patient is a 81-year-old female with history of Parkinson's, hypertension, meningioma presenting today after syncopal episode while on the commode yesterday. She is not really been ambulatory since. She reports that she is always a little bit dizzy and lightheaded it was not any worse today than previously. She fell onto her left side now complaining of left-sided neck pain shoulder pain and hip pain. She denies any chest pain palpitations shortness of breath nausea or vomiting. She was seen evaluated here on 07/08/2022 for a ground level fall she was getting out of the car at that time and had left leg pain. She denies any fever chills or worsening symptoms. Related Data Home Medications Medication Instructions Recorded Confirmed atenolol 25 mg tablet 25 mg PO DAILY 09/17/17 03/19/22 ascorbic acid (vitamin C) 500 mg 500 mg PO DAILY 11/22/17 03/19/22 capsule calcium carbonate 500 mg calcium 500 mg PO BID 11/22/17 03/19/22 (1,250 mg) capsule (Calci-Mix) cholecalciferol (vitamin D3) 50 2,000 unit PO DAILY 11/22/17 03/19/22 mcg (2,000 unit) capsule multivitamin 1 tab PO DAILY 11/22/17 03/19/22 prednisone 5 mg tablet 5 mg PO DAILY 11/22/17 03/19/22 diclofenac sodium 1 % topical gel 2 gram topical QID 09/28/18 03/19/22 (Voltaren) losartan 25 mg tablet 25 mg PO DAILY 09/28/18 03/19/22 lidocaine 4 % topical patch 1 patch topical DAILY PRN Pain 12/15/21 03/19/22 (Scale Score 4-6) omega 6-yrw-bkq-fish oil 300 1 cap PO DAILY 12/15/21 03/19/22 mg-1,000 mg capsule (Fish Oil) naproxen 500 mg tablet 500 mg PO DAILY PRN Pain (Scale 12/16/21 03/19/22 Score 1-3) tramadol 50 mg tablet 50 mg PO BID PRN Pain (Scale Score 12/16/21 03/19/22 4-6) aspirin 81 mg capsule 81 mg PO DAILY PRN Headache 01/06/22 03/19/22 Previous Rx's Medication Instructions Recorded estradiol 10 mcg vaginal tablet 10 mcg vaginal 2XW #24 tabs 03/19/22 (Vagifem) Allergies Allergy/AdvReac Type Severity Reaction Status Date / Time ciprofloxacin [From Cipro] Allergy Verified 07/08/22 18:51 doxycycline Allergy Verified 07/08/22 18:51 gabapentin Allergy Verified 07/08/22 18:51 mirabegron [From Myrbetriq] Allergy Verified 07/08/22 18:51 primidone Allergy Verified 07/08/22 18:51 propranolol Allergy Verified 07/08/22 18:51 oxybutynin AdvReac Intermediate Facial Verified 07/08/22 18:51 redness and swelling nitrofurantoin AdvReac Mild Dizziness Verified 07/08/22 18:51 [From Macrobid] Review of Systems Review of Systems ROS Unobtainable: All systems reviewed & are unremarkable except as noted in HPI and below Patient History Medical History Breast cancer Dizziness Lupus Osteopenia Parkinson disease Surgical History History of cataract removal with insertion of prosthetic lens Status post laparoscopic cholecystectomy (12/2014) Status post total knee replacement, left Family History Mother Hypertension Father Heart disease Brother Heart disease Social History household members: none Smoking Status: Never smoker alcohol intake: never substance use type: does not use Smoking Status: Never smoker alcohol intake frequency: 0-2 drinks per day Substance Use Type: does not use Exam Initial Vital Signs Initial Vital Signs: Vital Signs Pulse Rate 72 07/10/22 07:45 Pulse Oximetry 93 07/10/22 07:45 GENERAL: Alert 81-year-old female and in no acute distress. HEENT: Head atraumatic,EOMI, pupils reactive, face symmetric, moist mucous membranes CARDIOVASCULAR: Regular rate and rhythm without murmurs, rubs or gallops. RESPIRATORY: Breath sounds equal bilaterally, no wheezes rales or rhonchi. ABDOMEN: Soft, nontender. Normoactive bowel sounds all 4 quadrants. No guarding or rebound. : No CVA tenderness EXTREMITIES: Normal range of motion, no clubbing or edema. Neurovascularly intact Pain left hip with internal external rotation legs are of equal length, distal pedal pulse intact Left shoulder pain NEUROLOGICAL: Alert and oriented x4. Rubber Insulator strength equal bilaterally SKIN: Warm, dry, no laceration, no petechiae, no rashes or lesions. Course Orders Ordered: ED Orders 07/10/22 07:45 CT cervical spine wo con Stat CT head/brain wo con Stat XR chest 1V Stat XR hip w pel if done LT 2V Stat XR shoulder LT min 2V Stat 07/10/22 07:57 EKG-12 Lead Stat 07/10/22 09:23 Complete Blood Count AUTO DIFF Stat Comprehensive Metabolic Panel Stat Lipase Stat Procalcitonin Stat Troponin & CK Cardiac Panel Stat 07/10/22 09:59 CT pelvis wo con Stat 07/10/22 11:02 Urinalysis and Microscopic Stat Acetaminophen (Acetaminophen 325 Mg Tablet) 650 mg PO Q6H PRN PRN Reason: Fever/Mild Pain (1-3) Atenolol (Atenolol 25 Mg Tablet) 25 mg PO DAILY RICK Diclofenac Sodium (Diclofenac 1% Gel 100 Gm) 1 applic TOP QID PRN PRN Reason: joint pain Enoxaparin Sodium (Enoxaparin 40 Mg/0.4 Ml Syringe) 40 mg SUBCUT DAILY [facility] Hydromorphone HCl (Hydromorphone 0.5 Mg Inj) 0.5 mg IV Q2H PRN PRN Reason: Pain, Severe (7-10) Last Admin: 07/10/22 12:31 Dose: 0.5 mg Documented By: KLS Sodium Chloride (Normal Saline 0.9%) 1,000 mls @ 150 mls/hr IV CONT [facility] Last Admin: 07/10/22 09:42 Dose: 150 mls/hr Documented By: NR Lidocaine (Lidocaine Patch 1 Each Adh..Patch) 1 each TOP DAILY PRN PRN Reason: Pain (Scale Score 4-6) Losartan Potassium (Losartan 25 Mg Tablet) 25 mg PO DAILY [facility] Last Admin: 07/10/22 13:31 Dose: Not Given Documented By: NR Melatonin (Melatonin 3 Mg Tablet) 6 mg PO BEDTIME PRN PRN Reason: Insomnia Naloxone HCl (Naloxone 0.4 Mg/Ml Vial) 0.2 mg IV Q2MIN PRN PRN Reason: Opiate Reversal Oxycodone HCl (Oxycodone Ir 5 Mg Tablet) 5 mg PO Q4HR PRN PRN Reason: Pain, Moderate (4-6) Oxycodone HCl (Oxycodone Ir 10 Mg Tablet) 10 mg PO Q4HR PRN PRN Reason: Pain, Severe (7-10) Polyethylene Glycol (Polyethylene Glycol 3350 17 Gm Powd.Pack) 17 gm PO DAILY PRN PRN Reason: Constipation Prednisone (Prednisone 5 Mg Tablet) 5 mg PO DAILY RICK Sennosides (Sennosides 8.6 Mg Tablet) 8.6 mg PO BID PRN PRN Reason: Constipation Discontinued Medications Morphine Sulfate (Morphine 2 Mg/Ml Inj) 2 mg IV NOW ONE Stop: 07/10/22 10:00 Last Admin: 07/10/22 10:32 Dose: 2 mg Documented By: NR Vital Signs Vital signs: Vital Signs - 8 hr 07/10/22 08:00 07/10/22 07:45 07/10/22 07:46 Temperature 98.3 F Pulse Rate 78 72 Respiratory Rate 20 Blood Pressure 187/87 H 187/87 H Pulse Oximetry 93 93 Oxygen Delivery Method Room Air 07/10/22 07:46 07/10/22 08:00 07/10/22 08:00 Temperature Pulse Rate 70 66 Respiratory Rate Blood Pressure 168/71 H Pulse Oximetry 93 93 Oxygen Delivery Method 07/10/22 08:40 07/10/22 09:00 07/10/22 09:23 Temperature Pulse Rate 75 72 Respiratory Rate Blood Pressure 183/90 H Pulse Oximetry 95 93 Oxygen Delivery Method 07/10/22 09:23 07/10/22 09:30 07/10/22 09:30 Temperature Pulse Rate 75 69 Respiratory Rate Blood Pressure 176/79 H Pulse Oximetry 94 94 Oxygen Delivery Method 07/10/22 10:00 07/10/22 10:00 07/10/22 10:15 Temperature Pulse Rate 73 Respiratory Rate 13 Blood Pressure 172/75 H 189/88 H Pulse Oximetry 94 Oxygen Delivery Method 07/10/22 10:15 07/10/22 10:30 07/10/22 10:30 Temperature Pulse Rate 72 72 Respiratory Rate 11 L 18 Blood Pressure 182/84 H Pulse Oximetry Oxygen Delivery Method 07/10/22 11:00 07/10/22 11:00 Temperature Pulse Rate 71 Respiratory Rate 19 Blood Pressure 172/79 H Pulse Oximetry 93 Oxygen Delivery Method Room Air MDM - Syncope Lab Data 07/10/22 09:23 07/10/22 09:23 Labs: Lab Results 07/10/22 07/10/22 07/10/22 Range/Units 09:23 09:23 09:23 WBC 11.4 H (4.5-11.0) X10^3/uL RBC 4.77 (4.0-5.2) X10^6/uL Hgb 14.1 (12.0-16.0) g/dL Hct 43.0 (36-46) % MCV 90.2 (80-100) fL MCH 29.6 (26-34) PG MCHC 32.8 (30-36) % RDW 15.0 H (11.6-14.8) % Plt Count 150 (150-400) X10^3/uL Neut % (Auto) 84.1 H (50-75) % Lymph % (Auto) 5.6 L (25-40) % [place] % (Auto) 9.1 (3-14) % Eos % (Auto) 0.5 L (2-4) % Baso % (Auto) 0.7 (0-2) % Neut # (Auto) 9600 H (0406-1076) /uL Lymph # (Auto) 600 L (8010-8252) /uL [place] # (Auto) 1000 H (0-900) /uL Eos # (Auto) 100 (0-450) /uL Baso # (Auto) 100 (0-100) /uL Sodium 139 (137-145) mmol/L Potassium 3.6 (3.4-5.1) mmol/L Chloride 104 (98-107) mmol/L Carbon Dioxide 31 (22-32) mmol/L BUN 17 (7-17) mg/dL Creatinine 0.53 (0.52-1.04) mg/dL Estimated GFR > 60 (>60) mL/min BUN/Creatinine Ratio 32.1 H (6-22) Glucose 100 (80-110) mg/dL Calcium 8.9 (8.4-10.2) mg/dL Magnesium (1.6-2.3) mg/dL Total Bilirubin 1.2 (0.2-1.3) mg/dL AST 31 (14-36) IU/L ALT 19 (<35) IU/L Alkaline Phosphatase 53 (38-126) U/L Total Creatine Kinase 89 (30-135) U/L CK-MB (CK-2) TNP CK-MB (CK-2) Rel Index TNP Troponin I 0.020 (0.01-0.034) ng/mL Total Protein 6.7 (6.3-8.2) g/dL Albumin 3.6 (3.5-5.0) g/dL Globulin 3.1 (1.7-4.1) g/dL Albumin/Globulin Ratio 1.2 (1.0-2.8) Lipase 27 (23-300) U/L Procalcitonin 0.08 (<0.5) ng/mL Urine Color Urine Appearance Urine pH (4.5-8.0) Ur Specific [place] (1.000-1.035) Urine Protein (Negative) Urine Glucose (UA) (Negative) g/dL Urine Ketones (NEGATIVE) Urine Occult Blood (Negative) Urine Nitrate (Negative) Urine Bilirubin (NEGATIVE) Urine Urobilinogen (0.2) E.U./dL Ur Leukocyte Esterase (NEGATIVE) Urine RBC (0-5/HPF) Urine WBC (0-5/HPF) Ur Squamous Epith Cells (0-5/HPF) Urine Bacteria (None) Ur Culture Indicated? 07/10/22 07/10/22 Range/Units 09:23 11:02 WBC (4.5-11.0) X10^3/uL RBC (4.0-5.2) X10^6/uL Hgb (12.0-16.0) g/dL Hct (36-46) % MCV (80-100) fL MCH (26-34) PG MCHC (30-36) % RDW (11.6-14.8) % Plt Count (150-400) X10^3/uL Neut % (Auto) (50-75) % Lymph % (Auto) (25-40) % [place] % (Auto) (3-14) % Eos % (Auto) (2-4) % Baso % (Auto) (0-2) % Neut # (Auto) (5180-8366) /uL Lymph # (Auto) (8624-3215) /uL [place] # (Auto) (0-900) /uL Eos # (Auto) (0-450) /uL Baso # (Auto) (0-100) /uL Sodium (137-145) mmol/L Potassium (3.4-5.1) mmol/L Chloride (98-107) mmol/L Carbon Dioxide (22-32) mmol/L BUN (7-17) mg/dL Creatinine (0.52-1.04) mg/dL Estimated GFR (>60) mL/min BUN/Creatinine Ratio (6-22) Glucose (80-110) mg/dL Calcium (8.4-10.2) mg/dL Magnesium 2.0 (1.6-2.3) mg/dL Total Bilirubin (0.2-1.3) mg/dL AST (14-36) IU/L ALT (<35) IU/L Alkaline Phosphatase (38-126) U/L Total Creatine Kinase (30-135) U/L CK-MB (CK-2) CK-MB (CK-2) Rel Index Troponin I (0.01-0.034) ng/mL Total Protein (6.3-8.2) g/dL Albumin (3.5-5.0) g/dL Globulin (1.7-4.1) g/dL Albumin/Globulin Ratio (1.0-2.8) Lipase (23-300) U/L Procalcitonin (<0.5) ng/mL Urine Color Yellow Urine Appearance Clear Urine pH 5.5 (4.5-8.0) Ur Specific [place] 1.015 (1.000-1.035) Urine Protein Negative (Negative) Urine Glucose (UA) Negative (Negative) g/dL Urine Ketones 1+ H (NEGATIVE) Urine Occult Blood Negative (Negative) Urine Nitrate Negative (Negative) Urine Bilirubin Negative (NEGATIVE) Urine Urobilinogen 0.2 (0.2) E.U./dL Ur Leukocyte Esterase Negative (NEGATIVE) Urine RBC None seen (0-5/HPF) Urine WBC None seen (0-5/HPF) Ur Squamous Epith Cells None seen (0-5/HPF) Urine Bacteria None seen (None) Ur Culture Indicated? Cult not indicated Imaging Data CT scan - head: Radiologist's Impression: PROCEDURE:? CT HEAD/BRAIN WO CON ? INDICATIONS:? syncope fall ? TECHNIQUE:? Noncontrast 4.5 mm thick angled axial sections acquired from the foramen magnum to the vertex, with coronal and sagittal reformats.? For radiation dose reduction, the following was used:? automated exposure control, adjustment of mA and/or kV according to patient size.? ? COMPARISON:? [facility], CT, CT HEAD/BRAIN WO CON, 10/28/2020, 10:44. ? FINDINGS:? Image quality:? Excellent.? ? CSF spaces:? Basal cisterns are patent.? No extra-axial fluid collections.? The ventricles are symmetric in size and shape.? ? Brain:? No intracranial bleeds or masses.? There is cerebral volume loss for age, with resultant ventricular and sulcal prominence.? There are periventricular and deep white matter chronic small vessel ischemic changes.? There is intracranial internal carotid artery atherosclerosis.? ? Skull and face:? Calvarium and visualized facial bones appear intact, without suspicious lesions.? ? Sinuses:? Visualized sinuses and mastoids are clear.? ? IMPRESSION:? ? 1. No acute intracranial abnormalities. ? 2. Cerebral volume loss and chronic microvascular ischemic changes. ? ? ? Dictated by: Phillip Soriano M.D. on 07/10/2022 at 8:25 CT - cervical spine: Radiologist's Impression: PROCEDURE:? CT CERVICAL SPINE WO CON ? INDICATIONS:? fall pain ? TECHNIQUE:? Noncontrast 3 mm thick sections acquired from the skull base to the T4 level.? Sagittal and coronal reformats were then constructed.? For radiation dose reduction, the following was used:? automated exposure control, adjustment of mA and/or kV according to patient size.? ? COMPARISON:? None. ? FINDINGS:? Image quality:? Excellent.? ? Bones:? No fractures or dislocations.? Grade 1 anterolisthesis of C4 on C5.? Mild degenerative disease and moderate facet arthropathy in cervical spine.? Osteopenia.? Visualized superior ribs are intact.? ? Soft tissues:? Prevertebral soft tissues are normal in thickness.? No paravertebral hematomas.? No apical pneumothoraces.? ? ? IMPRESSION:? No acute fracture in cervical spine.? Degenerative changes noted. ? ? ? Dictated by: Phillip Soriano M.D. on 07/10/2022 at 8:27 ? Chest x-ray: Radiologist's Impression: PROCEDURE:? XR CHEST 1V ? INDICATIONS:? fall ? TECHNIQUE:? One view of the chest was acquired.? ? COMPARISON:? [facility], CR, XR CHEST 2V, 09/22/2019, 14:51.? [facility], CR, CHEST 1 VIEW, 09/26/2015, 10:03. ? FINDINGS:? ? Surgical changes and devices:? Left axillary clips ? Lungs and pleura:? Mild diffuse lung disease.? No pleural effusions. ? Mediastinum:? Mild cardiomegaly ? Bones and chest wall:? No suspicious bony lesions.? Overlying soft tissues appear unremarkable.? ? IMPRESSION:? Mild diffuse lung disease, possibly infection or edema.? Consider future imaging surveillance to assess for resolution. ? ? ? Dictated by: Nitin Lehman M.D. on 07/10/2022 at 9:11 ? ? Extremity x-ray #1: Radiologist's Impression: PROCEDURE:? XR HIP W PEL IF DONE LT 2V ? INDICATIONS:? fall pain ? TECHNIQUE:? AP pelvis with lateral view(s) of the left hip(s).? ? COMPARISON:? [facility], CT, CT PEL WO CON, 07/08/2022, 20:40.? [facility], CR, XR HIP W PEL IF DONE LT 2V, 07/08/2022, 18:52. ? FINDINGS:? ? Bones:? Lateral view is suboptimal.? Suspected left angulated hip fracture.? Right hip arthrosis. ? Soft tissues:? No suspicious calcifications. ? ? IMPRESSION:? Suspected basicervical angulated left hip fracture.? Lateral view is suboptimal.? Consider CT to further characterize. Approved by: Nitin Lehman M.D. on 07/10/2022 at 9:10? Extremity x-ray #2: Radiologist's Impression: PROCEDURE:? XR SHOULDER LT MIN 2V ? INDICATIONS:? fall pain ? TECHNIQUE:? 3 ?views of the shoulder were acquired.? ? COMPARISON:? None. ? FINDINGS:? ? Bones:? No displaced fracture or dislocation of the shoulder.? ? Soft tissues:? There are axillary clips.? Possible mild partially seen lung disease. ? IMPRESSION:? No acute radiographic abnormality.? If there is high concern for occult injury, consider repeat radiography or cross-sectional imaging. Possible mild lung disease, better seen on chest imaging.? ? Dictated by: Nitin Lehman M.D. on 07/10/2022 at 9:10 ?? ECG Data Interpretation: Normal sinus rhythm rate 64 MN interval 194 QRS [address] changes T-wave inversion noted in lead 3 only MDM Narrative Medical decision making narrative: Patient is a 81-year-old female who has a history of Parkinson's she was seen evaluated here a few days ago after a fall however she has fallen since. Complaining today mostly of pain on left side of body. X-ray of hip questionable for fracture CT confirms a subcapital femoral fracture. Blood work shows mild leukocytosis of 11.4 without significant left shift, electrolyte no abnormality no DUY, no UTI chest x-ray is negative other head CT and CT cervical spine are also negative. 10:41 Dr. Thomas called and consulted in regards to hip fracture Dr. Abarca updated patient's symptoms test results and accepts patient Discharge Plan Departure Patient Disposition: Admitted As Inpatient Clinical Impression: Closed left hip fracture Admit Date/Time: 07/10/22 11:25 Admit Provider: Carlos Abarca
[2022-07-10 09:33] LABS: Add Manual Diff / Slide Review NO; Basophils Absolute Auto 100 /uL (0-100); Basophils Percent Auto 0.7 % (0-2); Eosinophils Absolute Auto 100 /uL (0-450); Eosinophils Percent Auto 0.5 % (2-4); Hemoglobin 14.1 g/dL (12.0-16.0); Lymphocytes Absolute Auto 600 /uL (1100-4500); Lymphocytes Percent Auto 5.6 % (25-40); Mean Corpuscular HGB Conc 32.8 % (30-36); Mean Corpuscular Hemoglobin 29.6 PG (26-34); Mean Corpuscular Volume 90.2 fL (80-100); Monocytes Absolute Auto 1000 /uL (0-900); Monocytes Percent Auto 9.1 % (3-14); Neutrophils Absolute Auto 9600 /uL (1500-7000); Neutrophils Percent Auto 84.1 % (50-75); Platelet Count 150 X10^3/uL (150-400); Red Blood Cell Count 4.77 X10^6/uL (4.0-5.2); White Blood Cell Count 11.4 X10^3/uL (4.5-11.0)
[2022-07-10] MEDS: SODIUM CHLORIDE 0.9% 1,000 ML 150 ML IV (09:42)
[2022-07-10 09:53] LABS: Alanine Aminotransferase 19 IU/L (<35); Albumin 3.6 g/dL (3.5-5.0); Albumin Globulin Ratio 1.2 (1.0-2.8); Alkaline Phosphatase 53 U/L (38-126); Aspartate Aminotransferase 31 IU/L (14-36); BUN Creatinine Ratio 32.1 (6-22); Bilirubin Total 1.2 mg/dL (0.2-1.3); Blood Urea Nitrogen 17 mg/dL (7-17); Calcium 8.9 mg/dL (8.4-10.2); Carbon Dioxide 31 mmol/L (22-32); Chloride 104 mmol/L (98-107); Creatine Kinase 89 U/L (30-135); Estimated Glomerular Filt Rate > 60 mL/min (>60); Globulin 3.1 g/dL (1.7-4.1); Glucose 100 mg/dL (80-110); HEMOLYSIS 47 (0-50); Lipase 27 U/L (23-300); Potassium 3.6 mmol/L (3.4-5.1); Sodium 139 mmol/L (137-145); Total Protein 6.7 g/dL (6.3-8.2)
--- NOTE | 2022-07-10 09:59 | DI.CT.S_ITS ---
PROCEDURE: CT PEL WO CON INDICATIONS: left hip fracture? TECHNIQUE: Noncontrast 3 mm axial sections acquired through the bony pelvis, with coronal and sagittal reformatting. COMPARISON: [facility], CT, CT PEL WO CON, 07/08/2022, 20:40. FINDINGS: Image quality: Good Bones: Subcapital moderately angulated and displaced left hip fracture. Soft tissues: There is surrounding soft tissue swelling. Vascular calcifications. Possible prior hernia repair. Right hip degenerative changes. Lumbosacral degenerative changes. IMPRESSION: Left hip subcapital fracture Dictated by: Nitin Lehman M.D. on 07/10/2022 at 10:19 Approved by: Nitin Lehman M.D. on 07/10/2022 at 10:21
[2022-07-10 10:10] LABS: Procalcitonin 0.08 ng/mL (<0.5)
[2022-07-10] MEDS: MORPHINE 2 MG/ML INJ IV (10:32)
--- NOTE | 2022-07-10 12:14 | PM.HP.1 ---
History of Present Illness History of Present Illness Date Patient Seen: 07/10/22 Time Patient Seen: 12:14 Chief complaint: Fall/ Pain Narrative: This is a 81-year-old female with past medical history of Parkinson's disease followed by Dr. Pacheco Neurology, lupus, remote breast cancer, hypertension, and left total knee replacement who presents with ground level fall resulting in left hip fracture. Patient states she slipped and landed on her left side on 07/08 after getting out of the car. She came to our ED but CT and XR hip showed no fracture so she was sent home. Then earlier today she fell off the commode and had left hip pain. Repeat CT pelvis shows subcapital fracture. Dr. Thomas consulted for surgery. She is only on baby aspirin but no other blood thinners. She has been off of her parkinson's meds due to side-effects but her neurologist has been wanting her to restart them. She is not in much pain currently at rest but has severe pain with movement of left leg. She denies headache, dizziness, CP, SOB, abd pain, diarrhea or dysuria. Patient History Medical History Breast cancer Dizziness Lupus Osteopenia Parkinson disease Surgical History History of cataract removal with insertion of prosthetic lens Status post laparoscopic cholecystectomy (12/2014) Status post total knee replacement, left Family & Social History Family History Mother Hypertension Father Heart disease Brother Heart disease Social History: household members none Safety & Behavioral: Feels Safe in Current Yes Environment Been Physically Hurt or No Threatened By a Person Tobacco & Substance use: Smoking Status Never smoker alcohol intake never alcohol intake frequency 0-2 drinks per day Substance Use Type does not use Meds Home Medications and Allergies Home Medications Medication Instructions Recorded Confirmed Type atenolol 25 mg tablet 25 mg PO DAILY 09/17/17 03/19/22 History ascorbic acid (vitamin C) 500 mg 500 mg PO DAILY 11/22/17 03/19/22 History capsule calcium carbonate 500 mg calcium 500 mg PO BID 11/22/17 03/19/22 History (1,250 mg) capsule (Calci-Mix) cholecalciferol (vitamin D3) 50 2,000 unit PO DAILY 11/22/17 03/19/22 History mcg (2,000 unit) capsule multivitamin 1 tab PO DAILY 11/22/17 03/19/22 History prednisone 5 mg tablet 5 mg PO DAILY 11/22/17 03/19/22 History diclofenac sodium 1 % topical gel 2 gram topical QID 09/28/18 03/19/22 History (Voltaren) losartan 25 mg tablet 25 mg PO DAILY 09/28/18 03/19/22 History lidocaine 4 % topical patch 1 patch topical DAILY PRN Pain 12/15/21 03/19/22 History (Scale Score 4-6) omega 3-wzm-uev-fish oil 300 1 cap PO DAILY 12/15/21 03/19/22 History mg-1,000 mg capsule (Fish Oil) naproxen 500 mg tablet 500 mg PO DAILY PRN Pain (Scale 12/16/21 03/19/22 History Score 1-3) tramadol 50 mg tablet 50 mg PO BID PRN Pain (Scale Score 12/16/21 03/19/22 History 4-6) aspirin 81 mg capsule 81 mg PO DAILY PRN Headache 01/06/22 03/19/22 History estradiol 10 mcg vaginal tablet 10 mcg vaginal 2XW #24 tabs 03/19/22 03/19/22 Rx (Vagifem) Allergies Allergy/AdvReac Type Severity Reaction Status Date / Time ciprofloxacin [From Cipro] Allergy Verified 07/08/22 18:51 doxycycline Allergy Verified 07/08/22 18:51 gabapentin Allergy Verified 07/08/22 18:51 mirabegron [From Myrbetriq] Allergy Verified 07/08/22 18:51 primidone Allergy Verified 07/08/22 18:51 propranolol Allergy Verified 07/08/22 18:51 oxybutynin AdvReac Intermediate Facial Verified 07/08/22 18:51 redness and swelling nitrofurantoin AdvReac Mild Dizziness Verified 07/08/22 18:51 [From Macrobid] Review of Systems Review of Systems Narrative: All other systems reviewed with the patient and are negative unless otherwise stated. Exam Vital Signs (past 8 hours): - 07/10/22 08:00 07/10/22 07:45 07/10/22 07:46 Temperature 98.3 F Pulse Rate 78 72 Respiratory Rate 20 Blood Pressure 187/87 H 187/87 H Pulse Oximetry 93 93 Oxygen Delivery Method Room Air 07/10/22 07:46 07/10/22 08:00 07/10/22 08:00 Temperature Pulse Rate 70 66 Respiratory Rate Blood Pressure 168/71 H Pulse Oximetry 93 93 Oxygen Delivery Method 07/10/22 08:40 07/10/22 09:00 07/10/22 09:23 Temperature Pulse Rate 75 72 Respiratory Rate Blood Pressure 183/90 H Pulse Oximetry 95 93 Oxygen Delivery Method 07/10/22 09:23 07/10/22 09:30 07/10/22 09:30 Temperature Pulse Rate 75 69 Respiratory Rate Blood Pressure 176/79 H Pulse Oximetry 94 94 Oxygen Delivery Method 07/10/22 10:00 07/10/22 10:00 07/10/22 10:15 Temperature Pulse Rate 73 Respiratory Rate 13 Blood Pressure 172/75 H 189/88 H Pulse Oximetry 94 Oxygen Delivery Method 07/10/22 10:15 Temperature Pulse Rate 72 Respiratory Rate 11 L Blood Pressure Pulse Oximetry Oxygen Delivery Method Oxygen Delivery Method Room Air Narrative Exam Narrative: GEN: no acute distress, appears in pain, elderly female HEENT: moist mucous membranes, PERRL NECK: trachea midline, no JVD CV: regular rate and rhythm, no murmurs PULM: clear bilaterally ABD: soft, nontender, nondistended, no organomegaly EXT: left hip externally rotated NEURO: awake, alert, oriented, no focal deficits Objective Labs 07/10/22 09:23 07/10/22 09:23 Labs: Laboratory Results - last 24 hr 07/10/22 07/10/22 07/10/22 09:23 09:23 09:23 WBC 11.4 H RBC 4.77 Hgb 14.1 Hct 43.0 MCV 90.2 MCH 29.6 MCHC 32.8 RDW 15.0 H Plt Count 150 Neut % (Auto) 84.1 H Lymph % (Auto) 5.6 L [place] % (Auto) 9.1 Eos % (Auto) 0.5 L Baso % (Auto) 0.7 Neut # (Auto) 9600 H Lymph # (Auto) 600 L [place] # (Auto) 1000 H Eos # (Auto) 100 Baso # (Auto) 100 Sodium 139 Potassium 3.6 Chloride 104 Carbon Dioxide 31 BUN 17 Creatinine 0.53 Estimated GFR > 60 BUN/Creatinine Ratio 32.1 H Glucose 100 Calcium 8.9 Total Bilirubin 1.2 AST 31 ALT 19 Alkaline Phosphatase 53 Total Creatine Kinase 89 CK-MB (CK-2) TNP CK-MB (CK-2) Rel Index TNP Troponin I 0.020 Total Protein 6.7 Albumin 3.6 Globulin 3.1 Albumin/Globulin Ratio 1.2 Lipase 27 Procalcitonin 0.08 Assessment & Plan Assessment & Plan narrative: # left subcapital hip fracture -patient fell twice in last 2 days, CT shows fracture -Dr. Thomas orthopedics consulted and will take for surgery either today or tomorrow -pain control as needed -NPO # history of Parkinson's -followed by Stroke, Neurology at [facility] -currently not on Sinemet which may contributing to her falls # history of lupus -continue home prednisone 5 mg daily # hypertension -continue home losartan and atenolol daily # urinary incontinence, chronic -check UA -place [facility] Code status is DNR. COVID negative. DVT prophylaxis with Lovenox. Proxy is brothaura Champion. I have reviewed home meds and used all available resources to reconcile the home meds. This patient will be admitted as inpatient and will require greater than 2 midnights of hospital time to treat left hip fracture.
[2022-07-10] MEDS: HYDROMORPHONE 0.5 MG INJ IV (12:31)
[2022-07-10 13:11] LABS: COVID19 -Nasal RAPID Negative (Negative)
--- NOTE | 2022-07-10 13:26 | PC.NURSE ---
pt states she no longer takes losartan and was taken off it last month. medication not given, reported to RN in acute care
[2022-07-10 13:28] LABS: Appearance Urine UA CLEAR; Bilirubin Urine UA NEGATIVE (NEGATIVE); Color Urine UA YELLOW; Glucose Urine UA NEGATIVE (Negative); Ketones Urine UA 1+ (NEGATIVE); Leukocyte Esterase Urine UA NEGATIVE (NEGATIVE); Nitrite Urine UA NEGATIVE (Negative); Occult Blood Urine UA NEGATIVE (Negative); Protein Urine UA NEGATIVE (Negative); Specific Gravity Urine UA 1.015 (1.000-1.035); Urobilinogen Urine UA 0.2 E.U./dL (0.2)
[2022-07-10 13:57] LABS: pH Urine UA 5.5 (4.5-8.0)
[2022-07-10 14:02] LABS: Bacteria Urine None Seen; Culture Indicated Urine Cult Not Indicated; RBC Urine None Seen (0-5/HPF); Squamous Epithelial Cell Urine None Seen (0-5/HPF); WBC Urine None Seen (0-5/HPF)
--- NOTE | 2022-07-10 14:28 | PM.CN ---
History of Present Illness Consult details Date Patient Seen: 07/10/22 Time Patient Seen: 14:29 Chief complaint: Fall/ Pain Reason for consult: Left femoral neck fracture Requesting provider: Umm Motta Narrative: The patient is a 81-year-old woman who suffers from Parkinson's disease. She was attending an appointment at her doctors when she fell landing on concrete 3 days ago. She had difficulty walking afterwards and was assisted into her car by her friend who was driving her to the appointment. She did go to the emergency room 2 days ago, on July 08, 2022. Radiographs at that time were interpreted as normal however in retrospect there is a crack across the femoral neck. She subsequently had worsening of her condition was returned to the emergency room today where repeat x-rays and a CT scan has showed a displaced femoral neck fracture. She is been admitted to the hospital for treatment and orthopedic consultation has been obtained for definitive management of the fracture. Meds Home Medications and Allergies Home Medications Medication Instructions Recorded Confirmed Type atenolol 25 mg tablet 25 mg PO DAILY 09/17/17 03/19/22 History ascorbic acid (vitamin C) 500 mg 500 mg PO DAILY 11/22/17 03/19/22 History capsule calcium carbonate 500 mg calcium 500 mg PO BID 11/22/17 03/19/22 History (1,250 mg) capsule (Calci-Mix) cholecalciferol (vitamin D3) 50 2,000 unit PO DAILY 11/22/17 03/19/22 History mcg (2,000 unit) capsule multivitamin 1 tab PO DAILY 11/22/17 03/19/22 History prednisone 5 mg tablet 5 mg PO DAILY 11/22/17 03/19/22 History diclofenac sodium 1 % topical gel 2 gram topical QID 09/28/18 03/19/22 History (Voltaren) losartan 25 mg tablet 25 mg PO DAILY 09/28/18 03/19/22 History lidocaine 4 % topical patch 1 patch topical DAILY PRN Pain 12/15/21 03/19/22 History (Scale Score 4-6) omega 9-bsl-epl-fish oil 300 1 cap PO DAILY 12/15/21 03/19/22 History mg-1,000 mg capsule (Fish Oil) naproxen 500 mg tablet 500 mg PO DAILY PRN Pain (Scale 12/16/21 03/19/22 History Score 1-3) tramadol 50 mg tablet 50 mg PO BID PRN Pain (Scale Score 12/16/21 03/19/22 History 4-6) aspirin 81 mg capsule 81 mg PO DAILY PRN Headache 01/06/22 03/19/22 History estradiol 10 mcg vaginal tablet 10 mcg vaginal 2XW #24 tabs 03/19/22 03/19/22 Rx (Vagifem) Allergies Allergy/AdvReac Type Severity Reaction Status Date / Time ciprofloxacin [From Cipro] Allergy Verified 07/08/22 18:51 doxycycline Allergy Verified 07/08/22 18:51 gabapentin Allergy Verified 07/08/22 18:51 mirabegron [From Myrbetriq] Allergy Verified 07/08/22 18:51 primidone Allergy Verified 07/08/22 18:51 propranolol Allergy Verified 07/08/22 18:51 oxybutynin AdvReac Intermediate Facial Verified 07/08/22 18:51 redness and swelling nitrofurantoin AdvReac Mild Dizziness Verified 07/08/22 18:51 [From Macrobid] Review of Systems Review of Systems Narrative: The patient reports that prior to the fall she was in her normal state of health with significant Parkinson's limiting her activity. Exam Vital Signs (past 8 hours): - 07/10/22 08:00 07/10/22 07:45 07/10/22 07:46 Temperature 98.3 F Pulse Rate 78 72 Respiratory Rate 20 Blood Pressure 187/87 H 187/87 H Pulse Oximetry 93 93 Oxygen Delivery Method Room Air Oxygen Flow Rate 07/10/22 07:46 07/10/22 08:00 07/10/22 08:00 Temperature Pulse Rate 70 66 Respiratory Rate Blood Pressure 168/71 H Pulse Oximetry 93 93 Oxygen Delivery Method Oxygen Flow Rate 07/10/22 08:40 07/10/22 09:00 07/10/22 09:23 Temperature Pulse Rate 75 72 Respiratory Rate Blood Pressure 183/90 H Pulse Oximetry 95 93 Oxygen Delivery Method Oxygen Flow Rate 07/10/22 09:23 07/10/22 09:30 07/10/22 09:30 Temperature Pulse Rate 75 69 Respiratory Rate Blood Pressure 176/79 H Pulse Oximetry 94 94 Oxygen Delivery Method Oxygen Flow Rate 07/10/22 10:00 07/10/22 10:00 07/10/22 10:15 Temperature Pulse Rate 73 Respiratory Rate 13 Blood Pressure 172/75 H 189/88 H Pulse Oximetry 94 Oxygen Delivery Method Oxygen Flow Rate 07/10/22 10:15 07/10/22 10:30 07/10/22 10:30 Temperature Pulse Rate 72 72 Respiratory Rate 11 L 18 Blood Pressure 182/84 H Pulse Oximetry Oxygen Delivery Method Oxygen Flow Rate 07/10/22 11:00 07/10/22 11:00 07/10/22 11:30 Temperature Pulse Rate 71 Respiratory Rate 19 Blood Pressure 172/79 H 180/84 H Pulse Oximetry 93 Oxygen Delivery Method Room Air Oxygen Flow Rate 07/10/22 11:30 07/10/22 12:00 07/10/22 12:00 Temperature Pulse Rate 74 76 Respiratory Rate 23 Blood Pressure 171/81 H Pulse Oximetry 93 93 Oxygen Delivery Method Oxygen Flow Rate 07/10/22 12:30 07/10/22 12:30 07/10/22 13:00 Temperature Pulse Rate 71 Respiratory Rate 24 Blood Pressure 184/79 H 178/77 H Pulse Oximetry 95 Oxygen Delivery Method Oxygen Flow Rate 07/10/22 13:00 07/10/22 13:30 07/10/22 13:30 Temperature Pulse Rate 71 70 Respiratory Rate 24 Blood Pressure 174/79 H Pulse Oximetry 94 94 Oxygen Delivery Method Oxygen Flow Rate 07/10/22 14:00 Temperature 97.8 F Pulse Rate 70 Respiratory Rate 17 Blood Pressure 169/64 H Pulse Oximetry 94 Oxygen Delivery Method Oxygen Flow Rate 0 Oxygen Delivery Method Room Air Oxygen Flow Rate 0 Narrative Exam Narrative: The patient is examined while resting comfortably in bed. The left leg is somewhat shortened and externally rotated. There is discomfort upon log roll of the leg. She has intact light touch throughout the left foot and can dorsiflex and plantar flex her toes and ankle on demand. Objective Labs 07/10/22 09:23 07/10/22 09:23 Labs: Laboratory Results - last 24 hr 07/10/22 07/10/22 07/10/22 09:23 09:23 09:23 WBC 11.4 H RBC 4.77 Hgb 14.1 Hct 43.0 MCV 90.2 MCH 29.6 MCHC 32.8 RDW 15.0 H Plt Count 150 Neut % (Auto) 84.1 H Lymph % (Auto) 5.6 L [place] % (Auto) 9.1 Eos % (Auto) 0.5 L Baso % (Auto) 0.7 Neut # (Auto) 9600 H Lymph # (Auto) 600 L [place] # (Auto) 1000 H Eos # (Auto) 100 Baso # (Auto) 100 Sodium 139 Potassium 3.6 Chloride 104 Carbon Dioxide 31 BUN 17 Creatinine 0.53 Estimated GFR > 60 BUN/Creatinine Ratio 32.1 H Glucose 100 Calcium 8.9 Magnesium Total Bilirubin 1.2 AST 31 ALT 19 Alkaline Phosphatase 53 Total Creatine Kinase 89 CK-MB (CK-2) TNP CK-MB (CK-2) Rel Index TNP Troponin I 0.020 Total Protein 6.7 Albumin 3.6 Globulin 3.1 Albumin/Globulin Ratio 1.2 Lipase 27 Procalcitonin 0.08 Urine Color Urine Appearance Urine pH Ur Specific [place] Urine Protein Urine Glucose (UA) Urine Ketones Urine Occult Blood Urine Nitrate Urine Bilirubin Urine Urobilinogen Ur Leukocyte Esterase Urine RBC Urine WBC Ur Squamous Epith Cells Urine Bacteria Ur Culture Indicated? SARS-CoV-2 (PCR) 07/10/22 07/10/22 07/10/22 09:23 11:02 12:32 WBC RBC Hgb Hct MCV MCH MCHC RDW Plt Count Neut % (Auto) Lymph % (Auto) [place] % (Auto) Eos % (Auto) Baso % (Auto) Neut # (Auto) Lymph # (Auto) [place] # (Auto) Eos # (Auto) Baso # (Auto) Sodium Potassium Chloride Carbon Dioxide BUN Creatinine Estimated GFR BUN/Creatinine Ratio Glucose Calcium Magnesium 2.0 Total Bilirubin AST ALT Alkaline Phosphatase Total Creatine Kinase CK-MB (CK-2) CK-MB (CK-2) Rel Index Troponin I Total Protein Albumin Globulin Albumin/Globulin Ratio Lipase Procalcitonin Urine Color Yellow Urine Appearance Clear Urine pH 5.5 Ur Specific [place] 1.015 Urine Protein Negative Urine Glucose (UA) Negative Urine Ketones 1+ H Urine Occult Blood Negative Urine Nitrate Negative Urine Bilirubin Negative Urine Urobilinogen 0.2 Ur Leukocyte Esterase Negative Urine RBC None seen Urine WBC None seen Ur Squamous Epith Cells None seen Urine Bacteria None seen Ur Culture Indicated? Cult not indicated SARS-CoV-2 (PCR) Negative radiographs from today, a CT scan from today and radiographs from July 08, 2022 are reviewed and independently interpreted today. These reveal a displaced femoral neck fracture on the left. As noted in the history of present illness this was evident but nondisplaced on the films from July 08. PFSH Medical History Breast cancer Dizziness Lupus Osteopenia Parkinson disease Surgical History History of cataract removal with insertion of prosthetic lens Status post laparoscopic cholecystectomy (12/2014) Status post total knee replacement, left Family History Mother Hypertension Father Heart disease Brother Heart disease Social History household members: none Tobacco & Substance Use Smoking Status: Never smoker alcohol intake: never substance use type: does not use Assessment & Plan Assessment & Plan narrative: Patient has a displaced left femoral neck fracture. This would best be treated with a hemiarthroplasty. She is been NPO since last evening. There is an opportunity for us to perform a hemiarthroplasty this evening at around 4:30 a.m.. The risks benefits and alternatives of that surgery were discussed with her in the presence of her family. Risks discussed included but were not limited to: Failure to improve pain, leg length discrepancy, instability of the hip, infection, nerve damage, deep venous thrombosis, pulmonary embolism, stroke, myocardial infarction, permanent paralysis and . In addition we did discuss the high mortality rate within the year following hip fracture. The patient has given her signed informed consent to proceed after this discussion. COVID-19 COVID-19 status: Negative Result date/Date tested (Pos, Neg/Pending): 07/10/22 Time Spent With Patient Time with patient: 30 to 49 minutes with 50% spent counseling/coordinating care
[2022-07-10] MEDS: LACTATED RINGERS 1,000 ML 42 ML IV (16:01)
--- NOTE | 2022-07-10 16:06 | PC.NURSE ---
Pt arrived from ED on stretcher at 1350. A&Ox4, c/o significant pain to LLE and numbness and tingling throughout left side of body. Lungs CTA, c/o nausea, + bowel sounds. Pedal/radial pulses equal bilaterally, tremors occasionally noted with movement. Linens changed, purewick in place, pt oriented to room and call light. Pt and family updated re: plan for surgery this afternoon. Bed alarm on.
[2022-07-10] MEDS: CEFAZOLIN 2 GM/100 ML PREMIX 100 ML IV (17:10)
[2022-07-10] MEDS: TRANEXAMIC ACID 1,000 MG VIAL 2000 MG INJ ×2 (17:20→18:15)
--- NOTE | 2022-07-10 17:29 | SUR.OPER ---
Lateral on padded OR bed. Gel axillary roll. Arms secured on padded armboard with pillow supporting top arm. Padded hip positioner braces x4 - anterior and posterior chest and pelvis. Additional gel pad used anterior pelvis. Gel pad under bottom leg from knee to foot and secured with tape over sheet.
[2022-07-10] MEDS: BUPIVACAINE 0.25% (PF) 30 ML, EPINEPHrine 0.15 MG INJ (17:37)
--- NOTE | 2022-07-10 18:02 | DI.RAD.S_ITS ---
PROCEDURE: XR PELVIS 1-2V INDICATIONS: surgical TECHNIQUE: Intra-operative view of the pelvis and hip acquired. COMPARISON: None. FINDINGS: Bones: Intraoperative devices prior to placement of arthroplasty prostheses are in expected positions. No fractures or suspicious bony lesions. Soft tissues: Overlying surgical retractors are present, along with other intraoperative changes. IMPRESSION: Postsurgical changes from left hip arthroplasty Dictated by: Royal Walters M.D. on 07/10/2022 at 18:29 Approved by: Royal Walters M.D. on 07/10/2022 at 18:29
--- NOTE | 2022-07-10 18:29 | P.OP_ITS ---
Operative Date/Time/Diagnoses Date of procedure: 07/10/22 Time of procedure: 18:29 Pre-op diagnosis: Left closed displaced femoral neck fracture Post-op diagnosis: same Procedure & Clinicians Procedure: Left hip hemiarthroplasty Same procedure as scheduled: Yes Indications: The patient is a 81-year-old woman with Parkinson's who fell, suffering a left hip femoral neck fracture with displacement. She has agreed to proceed with surgery after discussion of the risks benefits and alternatives as documented in my consultation note. Surgeon: Paras Thomas Director Peoplesoft: Aroldo Castano Click Yes if Unassisted: No Anesthesia Type: General and Local Operative Notes Findings: Displaced femoral neck fracture with extension down the medial calcar to the level of the lesser trochanter. Closure Type: primary Specimen(s): none sent Prosthetic devices, grafts, tissues, transplants, or devices: Implants used in this procedure manufactured by the [employer] and included a size 9 high offset Synergy cemented stem with an 8 mm distal cement centralizer, a +4 tandem unipolar neck sleeve and a 44 mm tandem unipolar head. In addition an Artisan bone plug for small size canal was implanted. Applied: implant(s) Estimated Blood Loss (mL): 200 Blood products transfused: none Procedure in detail: The patient was seen in the pre-operative area, where they identified the left hip as the operative site and this was marked with my initials. The patient received pre-operative antibiotics and was taken to the operating room and placed on the operative table in the right lateral decubitus position after satisfactory anesthesia. A interactive multimedia designer out was performed. The left leg was prepared from the ankle to the iliac crest with ChloroPrep in the usual fashion and draped through sterile drapes. The hip was approached through an approximately 20 cm incision centered over the greater trochanter and curving gently posteriorly as it went proximally. This was carried sharply to the fascia abhilash, which was divided and retracted with a self-retaining retractor. The trochanteric bursa was excised with care being taken to avoid the sciatic nerve, which was identified and protected throughout the case. The short external rotators were incised and the capsulomuscular flap was raised and tagged for later repair. The femoral head was removed with a ?c orkscrew?, and the femoral neck osteotomy performed approximately 15 mm above the lesser trochanter. Retractors were placed to expose the acetabulum and a trial femoral head placed to confirm the size of the ball. We then turned our attention to the femur. The canal was opened with a box cutting osteotome, followed by a T handled reamer and a lateralizing reamer. The broaches were used, sequentially enlarging until a good fit was obtained. A trial head and neck were then placed and the hip relocated and checked for leg length and stability. The patient was stable in the position of sleep, of squatting, and could be put through a range of motion with 45 degrees internal rotation without dislocation. At 90 degrees flexion, internal rotation to 70 degrees was possible before dislocation. This was felt to be satisfactory and the appropriate components were opened, and the trials were removed. The canal was prepared by placing a distal cement plug. The pulsatile lavage was used followed by an epinephrine-soaked sponge for hemostasis. Cement was then retrograde injected and pressurized by finger packing. Pressurization using the gun was not possible due to the split medially to the level of the lesser trochanter. The final stem was then impacted into the prepared femoral canal. Finally the femoral head was impacted onto the stem. The acetabulum was cleared of all material and the hip relocated one final time. Radiographs were obtained intra-operatively confirming the position of all components and confirming that there were no iatrogenic fractures. The capsulomuscular flap was then repaired to the greater trochanter though an awl hole using the tag sutures. The short external rotators were not of sufficient quality to allow repair. The fascia abhilash was closed with running and interrupted 0 Vicryl. The subcutaneous layer was closed with interrupted 3-0 Vicryl, and the skin with a running 3-0 V-Lock suture and Dermabond. An Aquacel Ag dressing was applied and the patient was taken to recovery having tolerated the procedure well. The services of a skilled physical laboratory assistant were required to assist with this procedure to position the limb, provide retraction to protect vital structures and to provide exposure. Without the services of Mr. Castano, the procedure would not have proceeded in a safe, expedient fashion. Complications: none Post-operative Condition: stable Disposition: PACU Plan for aftercare: The patient will be maintained on posterior hip precautions with a formal foam wedge because of her Parkinson's and mild dementia. She will likely require discharge to a [place] [facility] facility. She is allowed to weight bear as tolerated.
--- NOTE | 2022-07-10 18:44 | SUR.PHASEI ---
Patient drowsy but arousable. VSS. Following all commands; denies pain at this time.
--- NOTE | 2022-07-10 19:42 | PC.NURSE ---
Pt returned from PACU at 1855, A&Ox3, but lethargic. No c/o pain or nausea. Aquacel to R hip c/d/i, ice in place, pillow between legs, 2+ pedal pulse. Pt requiring 3L O2 and hypertensive, otherwise VSS. Pt re-oriented to room and call light, bed alarm on.
[2022-07-10] MEDS: DOCUSATE 100 MG CAPSULE PO (20:38)
[2022-07-10] MEDS: ASPIRIN EC 81 MG TABLET PO (20:38)
--- NOTE | 2022-07-10 23:49 | PC.NURSE ---
Pt refuses SCDs, states they will keep me awake at night.
[2022-07-11] MEDS: IBUPROFEN 400 MG TABLET PO ×5 (00:36→23:00)
[2022-07-11] MEDS: CEFAZOLIN 2 GM/100 ML PREMIX 100 ML IV ×2 (00:37→08:55)
[2022-07-11] MEDS: ACETAMINOPHEN 325 MG TABLET 650 MG PO ×5 (00:37→23:00)
[2022-07-11 03:02] VITALS: BP 157/67; PULSE 84; RESP 17; TEMP 35.9; O2SAT 96
[2022-07-11 08:00] VITALS: BP 183/90; PULSE 84; PULSE 88; RESP 17; RESP 18; TEMP 36.3; O2SAT 94; O2SAT 96
[2022-07-11] MEDS: atenoloL 25 MG TABLET PO (08:56)
[2022-07-11] MEDS: DOCUSATE 100 MG CAPSULE PO ×2 (08:56→20:26)
[2022-07-11] MEDS: ASPIRIN EC 81 MG TABLET PO ×2 (08:56→20:26)
[2022-07-11 09:14] LABS: Add Manual Diff / Slide Review NO; Basophils Absolute Auto 100 /uL (0-100); Basophils Percent Auto 0.8 % (0-2); Eosinophils Absolute Auto 100 /uL (0-450); Eosinophils Percent Auto 0.7 % (2-4); Hematocrit 39.2 % (36-46); Hemoglobin 12.7 g/dL (12.0-16.0); Lymphocytes Absolute Auto 900 /uL (1100-4500); Lymphocytes Percent Auto 7.9 % (25-40); Mean Corpuscular HGB Conc 32.4 % (30-36); Mean Corpuscular Hemoglobin 29.4 PG (26-34); Mean Corpuscular Volume 90.9 fL (80-100); Monocytes Absolute Auto 600 /uL (0-900); Monocytes Percent Auto 5.4 % (3-14); Neutrophils Absolute Auto 9500 /uL (1500-7000); Neutrophils Percent Auto 85.2 % (50-75); Platelet Count 133 X10^3/uL (150-400); Red Blood Cell Count 4.31 X10^6/uL (4.0-5.2); Red Cell Distribution Width 15.2 % (11.6-14.8); White Blood Cell Count 11.1 X10^3/uL (4.5-11.0)
--- NOTE | 2022-07-11 09:14 | PM.PNPO.1 ---
Subjective Subjective Date Patient Seen: 07/11/22 Time Patient Seen: 09:14 Interval history: mild left hip pain. No fever or chills. No nausea or vomiting. Exam Vital Signs (past 8 hours): - 07/11/22 03:02 07/11/22 08:00 Temperature 96.7 F L 97.3 F L Pulse Rate 84 88 Respiratory Rate 17 17 Blood Pressure 157/67 H 183/90 H Pulse Oximetry 96 96 Oxygen Flow Rate 1 3 Fraction of Inspired Oxygen 32 SaO2/FiO2 Ratio 300 Oxygen Delivery Method Nasal Cannula Oxygen Flow Rate 3 Narrative Exam Narrative: Left hip dressing is clean, dry and intact.Motor functions intact bilateral lower extremities. Sensation grossly intact to light touch bilateral lower extremities. Const General: cooperative, healthy appearing and comfortable Nutritional Appearance: well nourished Orientation: alert Resp Effort & Inspection: normal respiratory effort and able to speak in complete sentences Objective Labs 07/11/22 08:50 07/10/22 09:23 Labs: Laboratory Results - last 24 hr 07/10/22 07/10/22 07/10/22 09:23 09:23 09:23 WBC 11.4 H RBC 4.77 Hgb 14.1 Hct 43.0 MCV 90.2 MCH 29.6 MCHC 32.8 RDW 15.0 H Plt Count 150 Neut % (Auto) 84.1 H Lymph % (Auto) 5.6 L [place] % (Auto) 9.1 Eos % (Auto) 0.5 L Baso % (Auto) 0.7 Neut # (Auto) 9600 H Lymph # (Auto) 600 L [place] # (Auto) 1000 H Eos # (Auto) 100 Baso # (Auto) 100 Sodium 139 Potassium 3.6 Chloride 104 Carbon Dioxide 31 BUN 17 Creatinine 0.53 Estimated GFR > 60 BUN/Creatinine Ratio 32.1 H Glucose 100 Calcium 8.9 Magnesium Total Bilirubin 1.2 AST 31 ALT 19 Alkaline Phosphatase 53 Total Creatine Kinase 89 CK-MB (CK-2) TNP CK-MB (CK-2) Rel Index TNP Troponin I 0.020 Total Protein 6.7 Albumin 3.6 Globulin 3.1 Albumin/Globulin Ratio 1.2 Lipase 27 Procalcitonin 0.08 Urine Color Urine Appearance Urine pH Ur Specific [place] Urine Protein Urine Glucose (UA) Urine Ketones Urine Occult Blood Urine Nitrate Urine Bilirubin Urine Urobilinogen Ur Leukocyte Esterase Urine RBC Urine WBC Ur Squamous Epith Cells Urine Bacteria Ur Culture Indicated? SARS-CoV-2 (PCR) 07/10/22 07/10/22 07/10/22 09:23 11:02 12:32 WBC RBC Hgb Hct MCV MCH MCHC RDW Plt Count Neut % (Auto) Lymph % (Auto) [place] % (Auto) Eos % (Auto) Baso % (Auto) Neut # (Auto) Lymph # (Auto) [place] # (Auto) Eos # (Auto) Baso # (Auto) Sodium Potassium Chloride Carbon Dioxide BUN Creatinine Estimated GFR BUN/Creatinine Ratio Glucose Calcium Magnesium 2.0 Total Bilirubin AST ALT Alkaline Phosphatase Total Creatine Kinase CK-MB (CK-2) CK-MB (CK-2) Rel Index Troponin I Total Protein Albumin Globulin Albumin/Globulin Ratio Lipase Procalcitonin Urine Color Yellow Urine Appearance Clear Urine pH 5.5 Ur Specific [place] 1.015 Urine Protein Negative Urine Glucose (UA) Negative Urine Ketones 1+ H Urine Occult Blood Negative Urine Nitrate Negative Urine Bilirubin Negative Urine Urobilinogen 0.2 Ur Leukocyte Esterase Negative Urine RBC None seen Urine WBC None seen Ur Squamous Epith Cells None seen Urine Bacteria None seen Ur Culture Indicated? Cult not indicated SARS-CoV-2 (PCR) Negative PFSH Medical History Breast cancer Dizziness Lupus Osteopenia Parkinson disease Surgical History History of cataract removal with insertion of prosthetic lens Status post laparoscopic cholecystectomy (12/2014) Status post total knee replacement, left Family History Mother Hypertension Father Heart disease Brother Heart disease Social History household members: none Smoking Status: Never smoker alcohol intake: never substance use type: does not use Assessment & Plan Post-op Postoperative Procedures: Procedures Operation Date: 07/10/22 16:30 Actual Procedure Side Surgeon p Hip Hemiarthroplasty Left Paras Thomas MD Postoperative day: 1 Postoperative status: doing well Postoperative status narrative: Status post left hip hemiarthroplasty for left closed displaced femoral neck fracture Postoperative plan: routine post-op care Postoperative plan narrative: posterior hip precautions with foam wedge because of her Parkinson's and mild dementia weight-bearing as tolerated multimodal pain management disposition likely correction facility follow-up with [facility] 2 weeks
--- NOTE | 2022-07-11 09:29 | P.PN_ITS ---
Subjective Subjective Interval history: This is a 81-year-old female with past medical history of Parkinson's disease followed by Dr. Pacheco Neurology, lupus, remote breast cancer, hypertension, and left total knee replacement who presented with ground level fall resulting in left hip fracture.? Patient is currently 1 day postoperative. Main complaint is neck and back pain. Patient states that her left hip does not hurt due to her stationary position in bed. However patient is eager to get up to walk soon. Is concerned about having a bowel movement and wants to be able to walk to the bathroom. Exam Vital Signs (past 8 hours): - 07/11/22 03:02 07/11/22 08:00 Temperature 96.7 F L 97.3 F L Pulse Rate 84 88 Respiratory Rate 17 17 Blood Pressure 157/67 H 183/90 H Pulse Oximetry 96 96 Oxygen Flow Rate 1 3 Fraction of Inspired Oxygen 32 SaO2/FiO2 Ratio 300 Oxygen Delivery Method Nasal Cannula Oxygen Flow Rate 3 Narrative Exam Narrative: GEN: no acute distress, appears in some pain, elderly female HEENT: moist mucous membranes, PERRL NECK: trachea midline, no JVD, tender posteriorly CV: regular rate and rhythm, no murmurs PULM: clear bilaterally ABD: soft, nontender, nondistended, no organomegaly EXT: Wedge between legs. Tenderness of left hip. NEURO: awake, alert, oriented, no focal deficits Objective Labs 07/11/22 08:50 07/10/22 09:23 Labs: Laboratory Results - last 24 hr 07/10/22 07/10/22 07/10/22 09:23 09:23 09:23 WBC 11.4 H RBC 4.77 Hgb 14.1 Hct 43.0 MCV 90.2 MCH 29.6 MCHC 32.8 RDW 15.0 H Plt Count 150 Neut % (Auto) 84.1 H Lymph % (Auto) 5.6 L [place] % (Auto) 9.1 Eos % (Auto) 0.5 L Baso % (Auto) 0.7 Neut # (Auto) 9600 H Lymph # (Auto) 600 L [place] # (Auto) 1000 H Eos # (Auto) 100 Baso # (Auto) 100 Sodium 139 Potassium 3.6 Chloride 104 Carbon Dioxide 31 BUN 17 Creatinine 0.53 Estimated GFR > 60 BUN/Creatinine Ratio 32.1 H Glucose 100 Calcium 8.9 Magnesium Total Bilirubin 1.2 AST 31 ALT 19 Alkaline Phosphatase 53 Total Creatine Kinase 89 CK-MB (CK-2) TNP CK-MB (CK-2) Rel Index TNP Troponin I 0.020 Total Protein 6.7 Albumin 3.6 Globulin 3.1 Albumin/Globulin Ratio 1.2 Lipase 27 Procalcitonin 0.08 Urine Color Urine Appearance Urine pH Ur Specific [place] Urine Protein Urine Glucose (UA) Urine Ketones Urine Occult Blood Urine Nitrate Urine Bilirubin Urine Urobilinogen Ur Leukocyte Esterase Urine RBC Urine WBC Ur Squamous Epith Cells Urine Bacteria Ur Culture Indicated? SARS-CoV-2 (PCR) 07/10/22 07/10/22 07/10/22 09:23 11:02 12:32 WBC RBC Hgb Hct MCV MCH MCHC RDW Plt Count Neut % (Auto) Lymph % (Auto) [place] % (Auto) Eos % (Auto) Baso % (Auto) Neut # (Auto) Lymph # (Auto) [place] # (Auto) Eos # (Auto) Baso # (Auto) Sodium Potassium Chloride Carbon Dioxide BUN Creatinine Estimated GFR BUN/Creatinine Ratio Glucose Calcium Magnesium 2.0 Total Bilirubin AST ALT Alkaline Phosphatase Total Creatine Kinase CK-MB (CK-2) CK-MB (CK-2) Rel Index Troponin I Total Protein Albumin Globulin Albumin/Globulin Ratio Lipase Procalcitonin Urine Color Yellow Urine Appearance Clear Urine pH 5.5 Ur Specific [place] 1.015 Urine Protein Negative Urine Glucose (UA) Negative Urine Ketones 1+ H Urine Occult Blood Negative Urine Nitrate Negative Urine Bilirubin Negative Urine Urobilinogen 0.2 Ur Leukocyte Esterase Negative Urine RBC None seen Urine WBC None seen Ur Squamous Epith Cells None seen Urine Bacteria None seen Ur Culture Indicated? Cult not indicated SARS-CoV-2 (PCR) Negative 07/11/22 08:50 WBC 11.1 H RBC 4.31 Hgb 12.7 Hct 39.2 MCV 90.9 MCH 29.4 MCHC 32.4 RDW 15.2 H Plt Count 133 L Neut % (Auto) 85.2 H Lymph % (Auto) 7.9 L [place] % (Auto) 5.4 Eos % (Auto) 0.7 L Baso % (Auto) 0.8 Neut # (Auto) 9500 H Lymph # (Auto) 900 L [place] # (Auto) 600 Eos # (Auto) 100 Baso # (Auto) 100 Sodium Potassium Chloride Carbon Dioxide BUN Creatinine Estimated GFR BUN/Creatinine Ratio Glucose Calcium Magnesium Total Bilirubin AST ALT Alkaline Phosphatase Total Creatine Kinase CK-MB (CK-2) CK-MB (CK-2) Rel Index Troponin I Total Protein Albumin Globulin Albumin/Globulin Ratio Lipase Procalcitonin Urine Color Urine Appearance Urine pH Ur Specific [place] Urine Protein Urine Glucose (UA) Urine Ketones Urine Occult Blood Urine Nitrate Urine Bilirubin Urine Urobilinogen Ur Leukocyte Esterase Urine RBC Urine WBC Ur Squamous Epith Cells Urine Bacteria Ur Culture Indicated? SARS-CoV-2 (PCR) [facility] Medical History Breast cancer Dizziness Lupus Osteopenia Parkinson disease Surgical History History of cataract removal with insertion of prosthetic lens Status post laparoscopic cholecystectomy (12/2014) Status post total knee replacement, left Family History Mother Hypertension Father Heart disease Brother Heart disease Social History household members: none Smoking Status: Never smoker alcohol intake: never substance use type: does not use Assessment & Plan Assessment & Plan narrative: # left subcapital hip fracture Postop day 1 of left hip hemiarthroplasty # history of Parkinson's -followed by Stroke, Neurology at [facility] -currently not on Sinemet which may be contributing to her falls # history of lupus -continue home prednisone 5 mg daily. Due to chronic steroid use will increase to 5 mg b.i.d. for the next 3 days and then back to baseline 5 mg daily # hypertension -continue home losartan and atenolol daily. Continue to monitor. May need other medication added. # urinary incontinence, chronic - UA unremarkable - Fole in place, we will remove for trial of void once patient can ambulate to the bathroom # mild leukocytosis and mild hyponatremia. Continue to follow. # Pain control. Postoperative orders per orthopedic surgeon. Regular medicine of tramadol, lidocaine patch, and Voltaren gel ordered. Patient also on ibuprofen as needed. Follow labs and clinically. Code status is DNR. COVID negative. DVT prophylaxis with Lovenox. Proxy is brother Akira.
[2022-07-11 09:34] LABS: BUN Creatinine Ratio 26.4 (6-22); Blood Urea Nitrogen 14 mg/dL (7-17); Calcium 8.6 mg/dL (8.4-10.2); Carbon Dioxide 27 mmol/L (22-32); Chloride 104 mmol/L (98-107); Estimated Glomerular Filt Rate > 60 mL/min (>60); Glucose 153 mg/dL (80-110); HEMOLYSIS < 15 (0-50); Potassium 3.8 mmol/L (3.4-5.1); Sodium 135 mmol/L (137-145)
[2022-07-11] MEDS: CHOLECALCIFEROL (VITAMIN D3) 1,000 UNIT TABLET 2000 UNIT PO (10:34)
[2022-07-11] MEDS: CALCIUM CARBONATE 500 MG TAB PO ×2 (10:34→20:26)
[2022-07-11] MEDS: predniSONE 5 MG TABLET PO ×2 (10:34→20:26)
[2022-07-11 10:35] VITALS: BP 183/90; PULSE 88
[2022-07-11] MEDS: LOSARTAN 25 MG TABLET PO (10:35)
[2022-07-11] MEDS: MULTIVITAMIN 1 TABLET 1 TAB PO (10:35)
[2022-07-11] MEDS: FISH OIL 1,000 MG CAPSULE 1000 MG PO (10:36)
[2022-07-11] MEDS: TRAMADOL 50 MG TABLET PO ×2 (10:36→20:26)
--- NOTE | 2022-07-11 10:49 | CM.DANOTE ---
Addendum entered by Irina Gamez R.N. 07/11/22 14:41: Met with patient and nieceKathia. Brought in ipad with Medicare Choice List, as well as list to give to patient and niece, and Senior Resources, book. Encouraged patient to make three choices on skilled facilities. She originally chose [facility], let her know that they had some COVID patients, and were holding on discharges. She has chosen three, [facility], [facility], and [facility]. Faxed to [facility] and [facility] the referral, and spoke to Camelia at [facility], she was going to review. She then called back and stated that they have accepted patient, would be ready Wednesday. Went ahead and completed PASSR. Went over Senior Resouces Book with Kathia, and encouraged her to start researching the agencies for home caregivers. Patient indicated that she has an apartment downstairs, and is hopeful to hire someone to stay with her. Kathia indicated, she does have the finances, she also has truck terminal manager care insurance. Original Note: DCP: Case received, EMR reviewed and met with patient. Introduced self and role. With patient's permission, also spoke to patient's niece, Kathia. Her number is: [phone]. Was able to obtain information regarding patient's baseline activity level at home, as well as her current living situation. DCP assessment completed with information currently available. Patient is a 81 year old female who admitted yesterday morning to the care of the hospitalist team. PCP: Dr. Martins. Payer: confirmed: Medicare/AARP. Patient came to the hospital via ambulance secondary to having a ground level fall. Notes indicate that patient had syncopal episode while on the commode yesterday Notes also indicate that patient had been evaluated at the ER on 07/08, for a ground level fall getting out of the car, and was complaining of left leg pain. Patient was evaluated after second fall, and was noted to have a hip fracture. Patient had hip surgery yesterday afternoon by ortho. Patient has history of Parkinson's , followed by Dr. Pacheco, Neurology, lupus, total knee replacement. Received a message on [employer]'s desk from Kathia, wanting to discuss discharge plan. Met with patient in her room. She was sitting up in bed, she had just gotten off of the phone with Kathia. Confirmed that she is her niece, gave permission to contact. Patient resides alone in [place], her niece also lives in the [place] area. Patient no longer drives, has a FWW. Mentioned the possibility of detention. She is hopeful for home, but has not yet worked with P.T. Spoke to Kathia. She indicated that patient will need caregivers at home, and that she has the finances to do so. Let her know that this [employer] can meet with her today to discuss, and give her resources so she can start calling agencies. This [employer] will plan on bringing in ipad for detention facilities, so she may be able to get some rehab before going home, and pattie may be able to do some research on caregivers. Dr. Thomas came by the office, and was updated. P: DCP to continue to follow. Will meet with niece and patient between [phone] with resources, and detention information. Patient has not yet worked with P.T. Irina Gamez RN/Electroencephalographic Technologist Discharge Planning/Care Management CM Discharge Assessment Start: 07/11/22 10:47 Freq: Status: Active Protocol: Document 07/11/22 10:47 (Rec: 07/11/22 10:49 [id number]) Discharge Planning Assessment Assigned Brand Ambassador Irina Gamze RN/Electroencephalographic Technologist Advance Directives? Yes Advance Directives on File No History Provided By Family Member,Medical Record Prior Living Arrangements House Household Members none Type of transporation used prior to Relies on Others admit Independent with ADL's Yes Is patient alert and oriented? Yes Needs Assistance With Meal Prep,Home Chores / Shopping Caregiver for Another No DME Already Rented / Owned FWW / Walker Patient/Family Preference Care Home Facility Barriers to Discharge Yes Comment Lives alone, frequent falls, may need multimedia authoring specialist caregivers. Discharge Plan Care Home Facility Transportation Arrangement Facility Referrals Initiated Other Additional Comment Will plan on meeting with patient and niKathia marquez, today to discuss. Whiteboard Updated in Patient Room with Yes name and ext. # of Brand Ambassador Review Status In Process Next Review Type Continued Stay Review
[2022-07-11 12:00] VITALS: BP 138/64; PULSE 68; RESP 17; TEMP 37.2; O2SAT 93
--- NOTE | 2022-07-11 12:21 | PT.IIE ---
Current Diagnoses Unspecified intracapsular fracture of left femur, initial encounter for closed fracture (07/10/22) Surgery Performed Operation Date: 07/10/22 16:30 Actual Procedures p Hip Hemiarthroplasty(Left) - Paras Thomas MD Surgical History (Last Reviewed 07/11/22 @ 09:31 by Tisha Jacome MD) History of cataract removal with insertion of prosthetic lens Status post laparoscopic cholecystectomy (12/2014) Status post total knee replacement, left Medical History (Last Reviewed 07/11/22 @ 09:31 by Tisha Jacome MD) Breast cancer Dizziness Lupus Osteopenia Parkinson disease Physical Therapy Inpatient Evaluation/Re-Eval M1 PT/OT-IP Prior Functional Status Start: 07/11/22 12:16 Freq: NEEDED Status: Active Protocol: Document 07/11/22 12:21 DLM (Rec: 07/11/22 13:00 DLM [id number]) Medical Review Prior Functional Status Medical History Reviewed Yes Diet/Fluid Consistency Regular Communication WFL, hx mild dementia Mobility and Gait Independent gait at home, pt is unclear in how much she uses her fWW vs nothing. This admit is her second recent fall. Pt reports she tripped the first time and she fell using the bedside commode the second time. She reports she normally rolls out of bed towards the left side to get up. Activities of Daily Living and IADL's Independent with basic ADL's. She has help for meals/ shopping and housekeeping. Prior Functional Level (Other details) She has a Niece involved in her care at home Social History Household Members none Living Arrangements House Number of Floors (Floors) One Floor Number of Stairs To Enter/Railing? she can stay on main level, one step to enter Home Equipment Front Wheel Walker Additional Social History Comment She reports her bed is tall and she has to use a stool at home. She had difficulty giving me all the details of her home situation. M2 PT-IP Current Condition Start: 07/11/22 12:16 Freq: NEEDED Status: Active Protocol: Document 07/11/22 12:21 DLM (Rec: 07/11/22 13:00 DLM [id number]) Physical Therapy Current Condition Current Condition Evaluation Date 07/11/22 Treatment Diagnosis fall, left MERCEDES with posterior approach, impaired gait/ mobility Onset Date 07/10/22 M3 PT-IP Subjective Start: 07/11/22 12:16 Freq: NEEDED Status: Active Protocol: Document 07/11/22 12:21 DLM (Rec: 07/11/22 13:00 DL [id number]) Subjective Physical Therapy Visit Type Type Initial Evaluation Visit Start Time 11:35 Visit Stop Time 12:22 Total Visit Minutes 47 Number of ALARM INSTALLER Visits 0 Physical Therapy Visit Comments Patient Comments She reports having right hip area soreness in addition to left hip pain during mobility. Patient Goals be able to go home Therapy Pain Assessment Pain When Pain Assessed After Treatment Pain Present Pain Present Pain Reported Location left side Intensity 7 Scale Used Numeric (0 - 10) Description Aching Pain Behaviors Facial Grimacing Pain Management Techniques Apply Cold,Re-positioning M4 PT-IP Mobility and Gait Start: 07/11/22 12:16 Freq: NEEDED Status: Active Protocol: Document 07/11/22 12:21 DLM (Rec: 07/11/22 13:00 DL [id number]) PT-Bed Mobility Assessment Supine to Sit Supine to Sit Moderate Assistance,Bedrails Scooting Scooting to Edge of Bed Moderate Assistance,Maximum Assistance PT-Transfer Assessment Sit to and From Stand Sit to and from Stand Minimal Assistance,Use of Upper Extremities Equipment Transfer Assistive Device Gait Belt,Front Wheeled Walker Transfers Transfer Destination Chair Transfer Technique Stand Step Pivot Transfer Ability Level of Assist Moderate Assistance,Use of Upper Extremities Comments Mobility Comments The bed is tall for Tri so it was easier for her to stay up from this position. She needs education to effectively use UE support during sit to stand. She has significant posterior losses of balance with initial standing that improved as she stood but she continued to need min/mod assist to prevent a fall in standing with the FWW. CG/min assist of second person was added in standing for transfers and gait due to her decreased balance. Educated pt to avoid rolling to get out of bed to manage her posterior hip precautions. She has difficulty scooting on the bed and was very slow to get up to sitting on the edge of the bed. No light-headedness and no nausea with getting up. Gait Assessment Gait Gait Assistance Required: Moderate Assistance,1 Person Assist,2 Person Assist Distance (Feet) 3 Assistive Devices Assistive Device Gait Belt,Front Wheeled Walker Gait Deviations General Gait Pattern Antalgic,Decreased Stride Length,Decreased Feet Clearance,Flexed Trunk Factors Limiting Gait Function Factors Limiting Gait Function Decreased Activity Tolerance, Decreased Strength,Limited Range of Motion,Pain,Poor Balance Comments Gait Comments Pt ambulated a short distance bed to recliner with small steps and increased pain with weight bearing on her Left LE. She needs assistance to manage stance on left LE to advance right LE since she can not fully compensate with her UE's on the FWW. She is able to lift Left LE functionally to take steps. Two people used this visit to decrease her fall risks. Pt left up in the recliner and set up for lunch. Her feet are elevated, ice in incisional area for pain, call light close and chair alarm. Stair Climbing Assessment Comments Stair Climbing Comments has one step to enter at home, pt not ready to do stair training yet PT-Balance Assessment Sitting Balance and Reactions Static Sitting Balance Ability Good Dynamic Sitting Balance Ability Fair Standing Balance and Reactions Static Standing Balance Ability Fair Dynamic Standing Balance Ability Poor Device Used FWW Comments Other Balance Tests/Deviations/Treatment posterior losses of balance in : standing with delayed and insufficient balance reactions , pt reports this was also a problem at baseline M5 PT-IP Objective Assessments Start: 07/11/22 12:16 Freq: NEEDED Status: Active Protocol: Document 07/11/22 12:21 DLM (Rec: 07/11/22 13:00 DL [id number]) Orientation Orientation/Cognition Level of Alertness Alert Orientation Name,Age,Birthday,Place, Situation Language Function Ability No Deficits Noted Safety Awareness Understands Safety Issues Memory Description Short Term Impaired Gross Range of Motion Upper Extremity ROM Assessment Within Functional Limits Lower Extremity ROM Assessment Left Impaired Impairments post-op precautions and hip pain Strength Upper Extremity Strength Assessment Within Functional Limits Lower Extremity Strength Assessment Left Impaired Hip needs assist to move LE in bed , standing flex 2+/5 Knee ext 3-/5 Ankle DF 4/5 Comments Strength Comments left hip pain limits functional strength Coordination Assessment Gross Coordination Gross Coordination WNL Sensation Assessment Sensation Gross Sensation WNL Comments Sensation Comments no changes reported by pt Muscle Tone Muscle Tone WNL Yes M6 PT-IP Treatment Start: 07/11/22 12:16 Freq: NEEDED Status: Active Protocol: Document 07/11/22 12:21 DLM (Rec: 07/11/22 13:00 DL [id number]) Physical Therapy Treatment Education Education Provided Precautions,Weight Bearing Status,Post-Op Packet,Safety Other Treatments Other Treatment Performed pt educated to have staff assist for all mobility M7 PT-IP Assessment and Plan Start: 07/11/22 12:16 Freq: NEEDED Status: Active Protocol: Document 07/11/22 12:21 DLM (Rec: 07/11/22 13:00 DLM [id number]) PT Summary Assessment and Plan Potential Rehabilitation Potential Good Status of Condition at Evaluation Evolving Summary Impairments Pain,ROM,Strength,Balance, Cognition,Bed Mobility, Transfers,Gait,Activity Tolerance Assessment Summary Tri is alert and resting in bed today. She is talkative and engaged in therapy. She is moving slowly with mobility with left hip pain. She also reported intermittent right hip area pain. She was two person assist to get up to the recliner to manage her posterior losses of balance and difficulty weight bearing on left LE in stance. Pt left up in the recliner for lunch. Recommend SNF rehab at discharge to assist with her functional recovery. She is not safe to discharge home alone. Goals Bed Mobility Goal Contact Guard Assistance, Minimal Assistance Transfer Goal Contact Guard Assistance, Minimal Assistance,Front Wheeled Walker Gait Goal Contact Guard Assistance, Minimal Assistance,Front Wheel Walker Gait Distance 30 feet Other Goals up/down one step with fWW and min assist Days to Meet Goals 7 Frequency of Treatment Frequency Of Treatment Twice a Day Treatment Plan Physical Therapy Treatment Plan Bed Mobility Training,Transfer Training,Gait Training, Therapeutic Exercise,Balance Retraining,Post Op Education, Discharge Planning,Hot or Cold Pack,Neuromuscular Re-ed Precautions Posterior Hip Precautions No Hip Flexion > 90 degrees,No Hip Internal Rotation,No Hip Adduction Weight Bearing Status Weight Bearing Status Weight Bear as Tolerated Allowed Weight Bearing Amount (enter % left LE s/p MERCEDES or #) (%) Recommendations To Nursing Amount of Assist Needed 1 Person Assist,2 Person Assist Discharge Recommendations PT Discharge Recommendations SNF Rehab Transportation Needs at Discharge Wheelchair/Cabulance
--- NOTE | 2022-07-11 15:00 | PT.IPTN ---
Current Diagnoses Unspecified intracapsular fracture of left femur, initial encounter for closed fracture (07/10/22) Surgery Performed Operation Date: 07/10/22 16:30 Actual Procedures p Hip Hemiarthroplasty(Left) - Paras Thomas MD Physical Therapy Treatment Note M2 PT-IP Current Condition Start: 07/11/22 12:16 Freq: NEEDED Status: Active Protocol: Document 07/11/22 12:21 DLM (Rec: 07/11/22 13:00 DLM [id number]) Physical Therapy Current Condition Current Condition Evaluation Date 07/11/22 Treatment Diagnosis fall, left MERCEDES with posterior approach, impaired gait/ mobility Onset Date 07/10/22 M3 PT-IP Subjective Start: 07/11/22 12:16 Freq: NEEDED Status: Active Protocol: Document 07/11/22 15:36 TS (Rec: 07/11/22 16:30 TS [id number]) Subjective Physical Therapy Visit Type Type Treatment Note Visit Start Time 15:00 Visit Stop Time 15:27 Total Visit Minutes 27 Number of SUPERVISOR MOLD CONSTRUCTION Visits 1 Physical Therapy Visit Comments Patient Comments Pt just got back to bed with nursing, continues to report increase pain in R hip. Patient Goals be able to go home Therapy Pain Assessment Pain When Pain Assessed During Mobility Pain Present Pain Present Pain Reported Location left side Description Aching,Sharp Pain Behaviors Facial Grimacing,Guarding, Holding Area Pain Management Techniques Apply Cold,Re-positioning M4 PT-IP Mobility and Gait Start: 07/11/22 12:16 Freq: NEEDED Status: Active Protocol: Document 07/11/22 15:36 TS (Rec: 07/11/22 16:30 TS [id number]) PT-Transfer Assessment Comments Mobility Comments Pt found resting in bed with niece in room, just got back to bed with nursing and wedge in place. She asked to remain in bed for session. Educated her on post-op precautions for L hip, recalled 0/3. Pt performed bed ex of ankle pumps, quad sets, hip abd, heel slides and glute sets x5. Pt was left in bed with wedge back in place call light nearby and needs met. Gait Assessment Comments Gait Comments Did not ambulate this session. Stair Climbing Assessment Comments Stair Climbing Comments has one step to enter at home, pt not ready to do stair training yet PT-Balance Assessment Comments Other Balance Tests/Deviations/Treatment Pt in supine. : M5 PT-IP Objective Assessments Start: 07/11/22 12:16 Freq: NEEDED Status: Active Protocol: Document 07/11/22 12:21 DLM (Rec: 07/11/22 13:00 DLM [id number]) Orientation Orientation/Cognition Level of Alertness Alert Orientation Name,Age,Birthday,Place, Situation Language Function Ability No Deficits Noted Safety Awareness Understands Safety Issues Memory Description Short Term Impaired Gross Range of Motion Upper Extremity ROM Assessment Within Functional Limits Lower Extremity ROM Assessment Left Impaired Impairments post-op precautions and hip pain Strength Upper Extremity Strength Assessment Within Functional Limits Lower Extremity Strength Assessment Left Impaired Hip needs assist to move LE in bed , standing flex 2+/5 Knee ext 3-/5 Ankle DF 4/5 Comments Strength Comments left hip pain limits functional strength Coordination Assessment Gross Coordination Gross Coordination WNL Sensation Assessment Sensation Gross Sensation WNL Comments Sensation Comments no changes reported by pt Muscle Tone Muscle Tone WNL Yes M6 PT-IP Treatment Start: 07/11/22 12:16 Freq: NEEDED Status: Active Protocol: Document 07/11/22 15:36 TS (Rec: 07/11/22 16:30 TS [id number]) Physical Therapy Treatment Education Education Provided Precautions,Weight Bearing Status,Post-Op Packet,Safety Other Treatments Other Treatment Performed Pt educated on post-op precautions for L hip, recalled 0/3. Pt educated on post-op bed exercises on frequency and intensity. M7 PT-IP Assessment and Plan Start: 07/11/22 12:16 Freq: NEEDED Status: Active Protocol: Document 07/11/22 15:36 TS (Rec: 07/11/22 16:30 TS [id number]) PT Summary Assessment and Plan Potential Rehabilitation Potential Good Status of Condition at Evaluation Evolving Summary Impairments Pain,ROM,Strength,Balance, Cognition,Bed Mobility, Transfers,Gait,Activity Tolerance Assessment Summary Tri transferred back to bed with nursing staff before PT session. She requested to stay in bed for treatment and agreed to perform bed exercises. She continues to report pain in left hip with mobility and in R hip when trasnferring with nursing. She performed post-op exercises of anle pumps, quad sets, glute sets, heel slides and hip abd, has most discomfort with heel slides. She required education on post-op hip precautions and could recall 0 /3. PT is recommending SNF to improve bed mobility, transfers and gait. She is not safe to d/c home alone. Goals Bed Mobility Goal Contact Guard Assistance, Minimal Assistance Transfer Goal Contact Guard Assistance, Minimal Assistance,Front Wheeled Walker Gait Goal Contact Guard Assistance, Minimal Assistance,Front Wheel Walker Gait Distance 30 feet Other Goals up/down one step with fWW and min assist Days to Meet Goals 7 Frequency of Treatment Frequency Of Treatment Twice a Day Treatment Plan Physical Therapy Treatment Plan Bed Mobility Training,Transfer Training,Gait Training, Therapeutic Exercise,Balance Retraining,Post Op Education, Discharge Planning,Hot or Cold Pack,Neuromuscular Re-ed Precautions Posterior Hip Precautions No Hip Flexion > 90 degrees,No Hip Internal Rotation,No Hip Adduction Weight Bearing Status Weight Bearing Status Weight Bear as Tolerated Allowed Weight Bearing Amount (enter % left LE s/p MERCEDES or #) (%) Recommendations To Nursing Amount of Assist Needed 1 Person Assist,2 Person Assist Discharge Recommendations PT Discharge Recommendations SNF Rehab Transportation Needs at Discharge Wheelchair/Cabulance
[2022-07-11 20:33] VITALS: BP 137/64; PULSE 65; RESP 18; TEMP 36.7; O2SAT 94
[2022-07-12] VITALS (8 sets, daily range): BP systolic 133–169; BP diastolic 56–84; PULSE 67–82; RESP 15–18; TEMP 36.2–37; O2SAT 93–97
[2022-07-12] MEDS: IBUPROFEN 400 MG TABLET PO ×4 (05:57→23:37)
[2022-07-12] MEDS: ONDANSETRON 4 MG ODT PO (05:57)
[2022-07-12] MEDS: ACETAMINOPHEN 325 MG TABLET 650 MG PO ×4 (05:57→23:36)
[2022-07-12 06:14] LABS: Add Manual Diff / Slide Review NO; Basophils Absolute Auto 0 /uL (0-100); Basophils Percent Auto 0.3 % (0-2); Eosinophils Absolute Auto 100 /uL (0-450); Eosinophils Percent Auto 0.8 % (2-4); Hemoglobin 12.2 g/dL (12.0-16.0); Lymphocytes Absolute Auto 1000 /uL (1100-4500); Lymphocytes Percent Auto 10.2 % (25-40); Mean Corpuscular HGB Conc 32.9 % (30-36); Mean Corpuscular Hemoglobin 29.4 PG (26-34); Mean Corpuscular Volume 89.5 fL (80-100); Monocytes Absolute Auto 900 /uL (0-900); Monocytes Percent Auto 9.7 % (3-14); Neutrophils Absolute Auto 7600 /uL (1500-7000); Platelet Count 142 X10^3/uL (150-400); Red Blood Cell Count 4.14 X10^6/uL (4.0-5.2); Red Cell Distribution Width 14.8 % (11.6-14.8); White Blood Cell Count 9.7 X10^3/uL (4.5-11.0)
[2022-07-12 06:27] LABS: BUN Creatinine Ratio 32.1 (6-22); Blood Urea Nitrogen 17 mg/dL (7-17); Calcium 8.6 mg/dL (8.4-10.2); Carbon Dioxide 30 mmol/L (22-32); Chloride 104 mmol/L (98-107); Estimated Glomerular Filt Rate > 60 mL/min (>60); Glucose 101 mg/dL (80-110); HEMOLYSIS < 15 (0-50); Potassium 3.9 mmol/L (3.4-5.1); Sodium 137 mmol/L (137-145)
[2022-07-12] MEDS: CALCIUM CARBONATE 500 MG TAB PO ×2 (08:09→20:35)
[2022-07-12] MEDS: FISH OIL 1,000 MG CAPSULE 1000 MG PO (08:09)
[2022-07-12] MEDS: TRAMADOL 50 MG TABLET PO ×2 (08:09→20:35)
[2022-07-12] MEDS: CHOLECALCIFEROL (VITAMIN D3) 1,000 UNIT TABLET 2000 UNIT PO (08:11)
[2022-07-12] MEDS: atenoloL 25 MG TABLET PO (08:11)
[2022-07-12] MEDS: ASPIRIN EC 81 MG TABLET PO ×2 (08:11→20:35)
[2022-07-12] MEDS: predniSONE 5 MG TABLET PO ×2 (08:12→20:35)
[2022-07-12] MEDS: DOCUSATE 100 MG CAPSULE PO ×2 (08:12→20:35)
[2022-07-12] MEDS: MULTIVITAMIN 1 TABLET 1 TAB PO (08:12)
[2022-07-12] MEDS: LOSARTAN 25 MG TABLET PO (08:13)
--- NOTE | 2022-07-12 10:25 | PM.PNPO.1 ---
Subjective Subjective Interval history: The patient reports no new pain. She expresses a desire to [facility] to [facility] and then home with home health care. Exam Vital Signs (past 8 hours): - 07/12/22 06:00 07/12/22 08:13 07/12/22 08:15 Temperature 98.0 F Pulse Rate 78 75 75 Respiratory Rate 18 Blood Pressure 164/73 H 169/74 H 169/84 H Pulse Oximetry 94 Oxygen Flow Rate 0 Fraction of Inspired Oxygen 24 SaO2/FiO2 Ratio 391 Oxygen Delivery Method Nasal Cannula Oxygen Flow Rate 0 Narrative Exam Narrative: The patient is lying comfortably in bed. Left leg length and rotation appears appropriate. Dressing shows no signs of drainage in the visible portion. Calf is soft. Light touch and motion are intact in the left lower extremity. Objective Labs 07/12/22 05:43 07/12/22 05:43 Labs: Laboratory Results - last 24 hr 07/12/22 07/12/22 05:43 05:43 WBC 9.7 RBC 4.14 Hgb 12.2 Hct 37.0 MCV 89.5 MCH 29.4 MCHC 32.9 RDW 14.8 Plt Count 142 L Neut % (Auto) 79.0 H Lymph % (Auto) 10.2 L [place] % (Auto) 9.7 Eos % (Auto) 0.8 L Baso % (Auto) 0.3 Neut # (Auto) 7600 H Lymph # (Auto) 1000 L [place] # (Auto) 900 Eos # (Auto) 100 Baso # (Auto) 0 Sodium 137 Potassium 3.9 Chloride 104 Carbon Dioxide 30 BUN 17 Creatinine 0.53 Estimated GFR > 60 BUN/Creatinine Ratio 32.1 H Glucose 101 Calcium 8.6 PFSH Medical History Breast cancer Dizziness Lupus Osteopenia Parkinson disease Surgical History History of cataract removal with insertion of prosthetic lens Status post laparoscopic cholecystectomy (12/2014) Status post total knee replacement, left Family History Mother Hypertension Father Heart disease Brother Heart disease Social History household members: none Smoking Status: Never smoker alcohol intake: never substance use type: does not use Assessment & Plan Post-op Postoperative Procedures: Procedures Operation Date: 07/10/22 16:30 Actual Procedure Side Surgeon p Hip Hemiarthroplasty Left Paras Thomas MD Postoperative day: 2 Postoperative status: doing well and anemia Postoperative status narrative: She is stable postoperative day 2 status post left hip hemiarthroplasty. She has been able to get up and ambulate to the bathroom with the assistance of physical therapy. Discharge planning is underway for transfer to [facility]. Postoperative plan: routine post-op care, ambulate and voiding trials Postoperative plan narrative: She will mobilize further with physical therapy. The Dill will be discontinued per protocol. She will likely be transferred to [facility] tomorrow. Time Spent With Patient Time with patient: less than 15 minutes
[2022-07-12] MEDS: OXYCODONE IR 5 MG TABLET PO (10:54)
[2022-07-12] MEDS: polyethylene glycoL 3350 17 GM POWD.PACK PO (12:42)
--- NOTE | 2022-07-12 13:31 | CM.DPC ---
DCP Cont: Spoke to Camelia at [facility], confirmed acceptance for tomorrow. customer support agent time is currently pending. Did update patient today regarding bed for tomorrow. Updated Dr. Thomas, as well as Dr. Rivera. Confirmed with September also that patient does not need another COVID swab. P: DCP to continue to follow. Plan is for [facility] tomorrow. Gave Kathia blankenship, resources yesterday for in home private caregivers. Irina Gamez RN/[employer] Operator Helper
--- NOTE | 2022-07-12 14:10 | P.PN_ITS ---
Subjective Subjective Interval history: Progressing as expected post operatively. Unusual progress with physical therapy. We will be transitioning to SNF tomorrow for this process of further rehabilitation. Exam Vital Signs (past 8 hours): - 07/12/22 08:13 07/12/22 08:15 07/12/22 12:00 Temperature 97.6 F Pulse Rate 75 75 75 Respiratory Rate 15 Blood Pressure 169/74 H 169/84 H 165/76 H Pulse Oximetry 94 93 Oxygen Flow Rate 0 0 Fraction of Inspired Oxygen 24 SaO2/FiO2 Ratio 391 Oxygen Delivery Method Nasal Cannula Oxygen Flow Rate 0 Narrative Exam Narrative: GEN: no acute distress, appears in some pain, elderly female HEENT: moist mucous membranes, PERRL NECK: trachea midline, no JVD, tender posteriorly CV: regular rate and rhythm, no murmurs PULM: clear bilaterally ABD: soft, nontender, nondistended, no organomegaly EXT:? Tenderness of left hip. NEURO: awake, alert, oriented, no focal deficits Objective Labs 07/12/22 05:43 07/12/22 05:43 Labs: Laboratory Results - last 24 hr 07/12/22 07/12/22 05:43 05:43 WBC 9.7 RBC 4.14 Hgb 12.2 Hct 37.0 MCV 89.5 MCH 29.4 MCHC 32.9 RDW 14.8 Plt Count 142 L Neut % (Auto) 79.0 H Lymph % (Auto) 10.2 L [place] % (Auto) 9.7 Eos % (Auto) 0.8 L Baso % (Auto) 0.3 Neut # (Auto) 7600 H Lymph # (Auto) 1000 L [place] # (Auto) 900 Eos # (Auto) 100 Baso # (Auto) 0 Sodium 137 Potassium 3.9 Chloride 104 Carbon Dioxide 30 BUN 17 Creatinine 0.53 Estimated GFR > 60 BUN/Creatinine Ratio 32.1 H Glucose 101 Calcium 8.6 PFSH Medical History Breast cancer Dizziness Lupus Osteopenia Parkinson disease Surgical History History of cataract removal with insertion of prosthetic lens Status post laparoscopic cholecystectomy (12/2014) Status post total knee replacement, left Family History Mother Hypertension Father Heart disease Brother Heart disease Social History household members: none Smoking Status: Never smoker alcohol intake: never substance use type: does not use Assessment & Plan Assessment & Plan narrative: # left subcapital hip fracture Postop day 2 of left hip hemiarthroplasty # history of Parkinson's -followed by Stroke, Neurology at [facility] -currently not on Sinemet which may be contributing to her falls # history of lupus -continue home prednisone 5 mg daily.? Due to chronic steroid use will increase to 5 mg b.i.d. for the next 3 days and then back to baseline 5 mg daily # hypertension -continue home losartan and atenolol daily.? Continue to monitor.? May need other medication added. # urinary incontinence, chronic - UA unremarkable - Dill in place, we will remove for trial of void once patient can ambulate to the bathroom # mild leukocytosis and mild hyponatremia.? Continue to follow. #? Pain control.? Postoperative orders per orthopedic surgeon.? Regular medicine of tramadol, lidocaine patch, and Voltaren gel ordered.? Patient also on ibuprofen as needed. Follow labs and clinically. Code status is DNR. COVID negative. DVT prophylaxis with Lovenox. Proxy is brothaura Champion.
--- NOTE | 2022-07-12 14:44 | PT.IPTN ---
Current Diagnoses Unspecified intracapsular fracture of left femur, initial encounter for closed fracture (07/10/22) Surgery Performed Operation Date: 07/10/22 16:30 Actual Procedures p Hip Hemiarthroplasty(Left) - Paras Thomas MD Physical Therapy Treatment Note M2 PT-IP Current Condition Start: 07/11/22 12:16 Freq: NEEDED Status: Active Protocol: Document 07/11/22 12:21 DLM (Rec: 07/11/22 13:00 DLM [id number]) Physical Therapy Current Condition Current Condition Evaluation Date 07/11/22 Treatment Diagnosis fall, left MERCEDES with posterior approach, impaired gait/ mobility Onset Date 07/10/22 M3 PT-IP Subjective Start: 07/11/22 12:16 Freq: NEEDED Status: Active Protocol: Document 07/12/22 14:36 BC (Rec: 07/12/22 14:44 BC [id number]) Subjective Physical Therapy Visit Type Type Initial Evaluation Visit Start Time 13:20 Visit Stop Time 13:50 Total Visit Minutes 25 Physical Therapy Visit Comments Patient Comments Pt stating she has PD but stopped taking Carbidopa- Levadopa several mo ago. She has since had several falls. Patient Goals To go to SNF Therapy Pain Assessment Pain When Pain Assessed During Weight Bearing Pain Present Pain Present Pain Reported Location left side Intensity 5 Description Burning Pain Management Techniques Re-positioning,Timing of Activity with Medications M4 PT-IP Mobility and Gait Start: 07/11/22 12:16 Freq: NEEDED Status: Active Protocol: Document 07/12/22 14:36 BC (Rec: 07/12/22 14:44 BC [id number]) PT-Bed Mobility Assessment Supine to Sit Supine to Sit Moderate Assistance,Bedrails Scooting Scooting to Edge of Bed Moderate Assistance,Maximum Assistance PT-Transfer Assessment Sit to and From Stand Sit to and from Stand Minimal Assistance,Use of Upper Extremities Equipment Transfer Assistive Device Gait Belt,Front Wheeled Walker Transfers Transfer Destination Chair Transfer Technique Stand Step Pivot Transfer Ability Level of Assist Moderate Assistance,Use of Upper Extremities Comments Mobility Comments Needing hand over hand cues for positioning and safe technique with sit<>stand. Gait Assessment Gait Gait Assistance Required: Moderate Assistance,1 Person Assist Distance (Feet) 10 Assistive Devices Assistive Device Gait Belt,Front Wheeled Walker Gait Deviations General Gait Pattern Antalgic,Decreased Stride Length,Decreased Feet Clearance,Flexed Trunk,Step-to Gait Factors Limiting Gait Function Factors Limiting Gait Function Decreased Activity Tolerance, Decreased Strength,Limited Range of Motion,Pain,Poor Balance Comments Gait Comments Ambulated 10' to chair in room . Unable to progress beyond step to gait pattern due to decreased WB tolerance on LLE during SLS. Movement is grayson and hypokinetic. RUE tremor increasing with faitgue of gait. Stair Climbing Assessment Comments Stair Climbing Comments Not appropriate at this time PT-Balance Assessment Sitting Balance and Reactions Static Sitting Balance Ability Good Dynamic Sitting Balance Ability Fair Standing Balance and Reactions Static Standing Balance Ability Fair Dynamic Standing Balance Ability Poor Device Used FWW Comments Other Balance Tests/Deviations/Treatment Slight retropulsion in : standing but improves with dynamic mobility. M5 PT-IP Objective Assessments Start: 07/11/22 12:16 Freq: NEEDED Status: Active Protocol: Document 07/11/22 12:21 DLM (Rec: 07/11/22 13:00 DLM [id number]) Orientation Orientation/Cognition Level of Alertness Alert Orientation Name,Age,Birthday,Place, Situation Language Function Ability No Deficits Noted Safety Awareness Understands Safety Issues Memory Description Short Term Impaired Gross Range of Motion Upper Extremity ROM Assessment Within Functional Limits Lower Extremity ROM Assessment Left Impaired Impairments post-op precautions and hip pain Strength Upper Extremity Strength Assessment Within Functional Limits Lower Extremity Strength Assessment Left Impaired Hip needs assist to move LE in bed , standing flex 2+/5 Knee ext 3-/5 Ankle DF 4/5 Comments Strength Comments left hip pain limits functional strength Coordination Assessment Gross Coordination Gross Coordination WNL Sensation Assessment Sensation Gross Sensation WNL Comments Sensation Comments no changes reported by pt Muscle Tone Muscle Tone WNL Yes M6 PT-IP Treatment Start: 07/11/22 12:16 Freq: NEEDED Status: Active Protocol: Document 07/12/22 14:36 BC (Rec: 07/12/22 14:44 BC [id number]) Physical Therapy Treatment Exercises Exercises Ankle Pumps,Gluteal Sets,Quad Sets,Supine Hip Abduction, Short Arc Quads Education Education Provided Precautions,Weight Bearing Status,Post-Op Packet,Safety Other Treatments Other Treatment Performed Pt unable to recall THPs. Used packet/handout to review precautions. M7 PT-IP Assessment and Plan Start: 07/11/22 12:16 Freq: NEEDED Status: Active Protocol: Document 07/12/22 14:36 BC (Rec: 03/26/23 14:44 [id number]) PT Summary Assessment and Plan Potential Rehabilitation Potential Good Status of Condition at Evaluation Evolving Summary Impairments Pain,ROM,Strength,Balance, Cognition,Bed Mobility, Transfers,Gait,Activity Tolerance Assessment Summary Pt agreeable to PT. She is requiring mod A for bed mobility, transfers and ambulation. She cannot recall hip precautions today. She was able to ambulate further ~10' today. She expresses surprise at ease of moving LLE vs RLE. Educated on RLE swing phase more challenging due to the WB tolerance on LLE. Pt fatigued quickly. She was unable to ambulate all the way posterior to chair. Chair was brought closer to her to assist with transfer safety. She completed the above ther ex with cues for technique and AAROM for hip abduction. Pt to remain sitting up in chair. Family arrived at end of session. Alarm is donned and call light in reach. Nsng aware Pt is sitting up. Goals Bed Mobility Goal Contact Guard Assistance, Minimal Assistance Transfer Goal Contact Guard Assistance, Minimal Assistance,Front Wheeled Walker Gait Goal Contact Guard Assistance, Minimal Assistance,Front Wheel Walker Gait Distance 30 feet Other Goals up/down one step with fWW and min assist Days to Meet Goals 7 Frequency of Treatment Frequency Of Treatment Twice a Day Treatment Plan Physical Therapy Treatment Plan Bed Mobility Training,Transfer Training,Gait Training, Therapeutic Exercise,Balance Retraining,Post Op Education, Discharge Planning,Hot or Cold Pack,Neuromuscular Re-ed Precautions Posterior Hip Precautions No Hip Flexion > 90 degrees,No Hip Internal Rotation,No Hip Adduction Weight Bearing Status Weight Bearing Status Weight Bear as Tolerated Allowed Weight Bearing Amount (enter % left LE s/p MERCEDES or #) (%) Recommendations To Nursing Amount of Assist Needed 1 Person Assist Discharge Recommendations PT Discharge Recommendations SNF Rehab Transportation Needs at Discharge Wheelchair/Cabulance
[2022-07-13] MEDS: IBUPROFEN 400 MG TABLET PO (05:01)
[2022-07-13] MEDS: ACETAMINOPHEN 325 MG TABLET 650 MG PO (05:01)
[2022-07-13 05:36] LABS: Add Manual Diff / Slide Review NO; Basophils Absolute Auto 100 /uL (0-100); Basophils Percent Auto 0.9 % (0-2); Eosinophils Absolute Auto 100 /uL (0-450); Eosinophils Percent Auto 1.4 % (2-4); Hematocrit 36.3 % (36-46); Hemoglobin 12.1 g/dL (12.0-16.0); Lymphocytes Absolute Auto 1100 /uL (1100-4500); Lymphocytes Percent Auto 12.6 % (25-40); Mean Corpuscular HGB Conc 33.3 % (30-36); Mean Corpuscular Hemoglobin 29.6 PG (26-34); Mean Corpuscular Volume 89.1 fL (80-100); Monocytes Absolute Auto 1000 /uL (0-900); Monocytes Percent Auto 11.2 % (3-14); Neutrophils Absolute Auto 6600 /uL (1500-7000); Neutrophils Percent Auto 73.9 % (50-75); Platelet Count 162 X10^3/uL (150-400); Red Blood Cell Count 4.07 X10^6/uL (4.0-5.2); Red Cell Distribution Width 14.9 % (11.6-14.8); White Blood Cell Count 8.9 X10^3/uL (4.5-11.0)
[2022-07-13 05:42] LABS: BUN Creatinine Ratio 32.3 (6-22); Blood Urea Nitrogen 20 mg/dL (7-17); Calcium 8.9 mg/dL (8.4-10.2); Carbon Dioxide 31 mmol/L (22-32); Chloride 105 mmol/L (98-107); Estimated Glomerular Filt Rate > 60 mL/min (>60); Glucose 101 mg/dL (80-110); HEMOLYSIS < 15 (0-50); Potassium 4.2 mmol/L (3.4-5.1); Sodium 138 mmol/L (137-145)
[2022-07-13 06:00] VITALS: BP 165/78; PULSE 80; RESP 18; TEMP 36.6; O2SAT 94
[2022-07-13 06:01] VITALS: BP 157/73
[2022-07-13] MEDS: LIDOCAINE PATCH 1 EACH ADH..PATCH TOP (06:41)
[2022-07-13] MEDS: SODIUM CHLORIDE NASAL SPRAY 1 SPRAY NASAL (06:41)
[2022-07-13 08:00] VITALS: BP 157/66; PULSE 68; RESP 17; TEMP 36.6; O2SAT 96
[2022-07-13] MEDS: FISH OIL 1,000 MG CAPSULE 1000 MG PO (08:22)
[2022-07-13] MEDS: CHOLECALCIFEROL (VITAMIN D3) 1,000 UNIT TABLET 2000 UNIT PO (08:22)
[2022-07-13] MEDS: predniSONE 5 MG TABLET PO (08:23)
[2022-07-13] MEDS: TRAMADOL 50 MG TABLET PO (08:23)
[2022-07-13 08:24] VITALS: BP 170/85; PULSE 63
[2022-07-13] MEDS: MULTIVITAMIN 1 TABLET 1 TAB PO (08:24)
[2022-07-13] MEDS: LOSARTAN 25 MG TABLET PO (08:24)
[2022-07-13] MEDS: DOCUSATE 100 MG CAPSULE PO (08:24)
[2022-07-13] MEDS: ASPIRIN EC 81 MG TABLET PO (08:24)
[2022-07-13] MEDS: atenoloL 25 MG TABLET PO (08:24)
[2022-07-13] MEDS: CALCIUM CARBONATE 500 MG TAB PO (08:25)
--- NOTE | 2022-07-13 08:43 | P.DS_ITS ---
History of Present Illness History of Present Illness Date Patient Seen: 07/13/22 Chief complaint: Fall/ Pain Narrative: Progressing as expected post operatively.? Usual progress with physical therapy.? We will be transitioning to SNF today for this process of further rehabilitation. Discharge Providers Provider Date of admission: 07/10/22 11:25 Discharge Date: 07/13/22 Primary care physician: TOMAS Daigle Consults: 07/10/22 12:08 Consult to Orthopedic Surgery Routine Comment: Consulting Provider: Paras Thomas Reason for consultation: left hip fracture Has provider been notified: Yes 07/10/22 12:11 Consult to Discharge Planning Routine Comment: 07/10/22 17:41 Consult to Dietitian, Adult Routine Comment: Reason For Exam: decrease in oral intake 07/10/22 19:41 Consult to Discharge Planning Routine Comment: Consult to Physical Therapy Evaluate & Treat Comment: Physician Instructions: post op MERCEDES protocol Discharge provider: Tisha Jacome MD Summary Hospital Course Discharge Diagnosis: Left subcapital hip fracture Postop left hip hemiarthroplasty Hypertension Urinary incontinence, chronic Mild leukocytosis Mild hyponatremia Pain control Breast cancer Dizziness Lupus Osteopenia Parkinson disease History of cataract removal with insertion of prosthetic lens Status post laparoscopic cholecystectomy (12/2014) Status post total knee replacement, left Hospital Course: This is a 81-year-old female with past medical history of Parkinson's disease followed by Dr. Pacheco Neurology, lupus, remote breast cancer, hypertension, and left total knee replacement who presented with ground level fall resulting in left hip fracture. Patient states she slipped and landed on her left side on 07/08 after getting out of the car. She came to our ED but CT and XR hip showed no fracture so she was sent home. Then earlier today she fell off the commode and had left hip pain. Repeat CT pelvis shows subcapital fracture. Dr. Thomas consulted for surgery. She is only on baby aspirin but no other blood thinners. She has been off of her parkinson's meds due to side-effects but her neurologist has been wanting her to restart them. On July 10, 2022 a left hip hemiarthroplasty was done by Dr. Thomas. Has been stable postoperatively. Progressing with physical therapy however some delay in the amount progress due to her multiple comorbidities. Patient will be transferred to a SNF for further rehabilitation. Currently has a Dill catheter in place. Status at Discharge Cognitive/behavioral status at discharge: at baseline, oriented Functional status at discharge: independent ambulation (Needs 1 person assist and only ambulating approximately 10 ft) Overall status at discharge: patient is progressing back to baseline Time Spent with Patient Time spent: Greater than 30 minutes Exam Vital Signs (past 8 hours): - 07/13/22 06:00 07/13/22 06:01 Temperature 98 F Pulse Rate 80 Respiratory Rate 18 Blood Pressure 165/78 H 157/73 H Pulse Oximetry 94 Fraction of Inspired Oxygen 24 SaO2/FiO2 Ratio 391 Oxygen Delivery Method Nasal Cannula Oxygen Flow Rate 0 Narrative Exam Narrative: GEN: no acute distress, appears in some pain, elderly female HEENT: moist mucous membranes, PERRL NECK: trachea midline, no JVD, tender posteriorly CV: regular rate and rhythm, no murmurs PULM: clear bilaterally ABD: soft, nontender, nondistended, no organomegaly EXT:? Tenderness of left hip. NEURO: awake, alert, oriented, no focal deficits Objective Labs 07/13/22 05:04 07/13/22 05:04 Labs: Laboratory Results - last 24 hr 07/13/22 07/13/22 05:04 05:04 WBC 8.9 RBC 4.07 Hgb 12.1 Hct 36.3 MCV 89.1 MCH 29.6 MCHC 33.3 RDW 14.9 H Plt Count 162 Neut % (Auto) 73.9 Lymph % (Auto) 12.6 L [place] % (Auto) 11.2 Eos % (Auto) 1.4 L Baso % (Auto) 0.9 Neut # (Auto) 6600 Lymph # (Auto) 1100 [place] # (Auto) 1000 H Eos # (Auto) 100 Baso # (Auto) 100 Sodium 138 Potassium 4.2 Chloride 105 Carbon Dioxide 31 BUN 20 H Creatinine 0.62 Estimated GFR > 60 BUN/Creatinine Ratio 32.3 H Glucose 101 Calcium 8.9 PFSH Medical History Breast cancer Dizziness Lupus Osteopenia Parkinson disease Surgical History History of cataract removal with insertion of prosthetic lens Status post laparoscopic cholecystectomy (12/2014) Status post total knee replacement, left Family History Mother Hypertension Father Heart disease Brother Heart disease Social History household members: none Smoking Status: Never smoker alcohol intake: never substance use type: does not use Discharge Plan Discharge Plan Patient Disposition: SNF Transfer to: [facility] Discharge orders & Medications Prescriptions: New acetaminophen 325 mg Tablet 650 mg PO Q6HR Qty: 30 0RF docusate sodium 100 mg Capsule 100 mg PO BID Qty: 30 0RF polyethylene glycol 3350 17 gram Powder In Packet 17 g PO DAILY PRN (Reason: Constipation) Qty: 14 0RF ibuprofen 400 mg Tablet 400 mg PO Q6HR Qty: 30 0RF oxycodone 5 mg Tablet 5 mg PO Q3HR PRN (Reason: Pain, Moderate (4-6)) Qty: 10 0RF [place] Nasal 0.65 % Aerosol,[place] 1 spray intranasal PRN PRN (Reason: Congestion) Qty: 44 0RF Continued atenolol 25 mg tablet 25 mg PO DAILY losartan 25 mg tablet 25 mg PO DAILY diclofenac sodium [Voltaren] 1 % gel 2 gram TOP QID estradiol [Vagifem] 10 mcg tablet 10 mcg vaginal 2XW Qty: 24 3RF prednisone 5 mg tablet 5 mg PO DAILY multivitamin tablet 1 tab PO DAILY ascorbic acid (vitamin C) 500 mg capsule 500 mg PO DAILY calcium carbonate [Calci-Mix] 500 mg calcium (1,250 mg) capsule 500 mg PO BID cholecalciferol (vitamin D3) 2,000 unit capsule 2,000 unit PO DAILY omega 4-giq-ure-fish oil [Fish Oil] 300-1,000 mg capsule 1 cap PO DAILY lidocaine 4 % adhesive patch,medicated 1 patch topical DAILY PRN (Reason: Pain (Scale Score 4-6)) tramadol 50 mg tablet 50 mg PO BID PRN (Reason: Pain (Scale Score 4-6)) naproxen 500 mg tablet 500 mg PO DAILY PRN (Reason: Pain (Scale Score 1-3)) aspirin 81 mg Capsule 81 mg PO DAILY PRN (Reason: Headache) Follow up/Referrals: Paras Thomas MD [Physician] - (Dr. Thomas or CHRIS 2 wks post op) Lainey Martins ARNP [Primary Care Provider] - Diet/Activity/Treatments Activity: weight-bearing as tolerated, foam wedge while in bed, posterior hip precautions Cold/Heat Therapy: ice to hip as needed Skin/Wound/Dressing Care Dressing: keep dressing clean and dry Visit Report/Discharge Packet Stand Alone Forms: Patient Portal/API Discharge Data Primary Care Provider: Lainey Martins
--- NOTE | 2022-07-13 10:27 | PT.IPTN ---
Current Diagnoses Unspecified intracapsular fracture of left femur, initial encounter for closed fracture (07/10/22) Surgery Performed Operation Date: 07/10/22 16:30 Actual Procedures p Hip Hemiarthroplasty(Left) - Paras Thomas MD Physical Therapy Treatment Note M2 PT-IP Current Condition Start: 07/11/22 12:16 Freq: NEEDED Status: Active Protocol: Document 07/11/22 12:21 DLM (Rec: 07/11/22 13:00 DLM [id number]) Physical Therapy Current Condition Current Condition Evaluation Date 07/11/22 Treatment Diagnosis fall, left MERCEDES with posterior approach, impaired gait/ mobility Onset Date 07/10/22 M3 PT-IP Subjective Start: 07/11/22 12:16 Freq: NEEDED Status: Active Protocol: Document 07/13/22 11:30 TS (Rec: 07/13/22 12:05 TS [id number]) Subjective Physical Therapy Visit Type Type Treatment Note Visit Start Time 10:27 Visit Stop Time 11:15 Total Visit Minutes 48 Physical Therapy Visit Comments Patient Comments Pt found resting in bedside chair with ice pack on L hip and back of neck. She reports her pain is 9/10, is having burning sensation after UTI, reports concern about peeing into brief. Patient Goals To go to SNF Therapy Pain Assessment Pain When Pain Assessed At Rest Pain Present Pain Present Pain Reported Location left side Intensity 9 Scale Used Numeric (0 - 10) Description Burning,Radiating,Shooting, With Movement Pain Behaviors Facial Grimacing,Guarding, Holding Area,Wincing Pain Management Techniques Apply Cold,Modification of Treatment,Re-positioning, Timing of Activity with Medications M4 PT-IP Mobility and Gait Start: 07/11/22 12:16 Freq: NEEDED Status: Active Protocol: Document 07/13/22 11:30 TS (Rec: 07/13/22 12:05 TS [id number]) PT-Bed Mobility Assessment Rolling Type of Rolling Bilateral Level of Assist Standby Assistance Sit to Supine Sit to Supine Maximum Assistance,1 Person Assistance,2 Person Assistance Scooting Scooting Up and Down in Bed Moderate Assistance PT-Transfer Assessment Sit to and From Stand Sit to and from Stand Minimal Assistance,1 Person Assistance,Use of Upper Extremities Equipment Transfer Assistive Device Gait Belt,Front Wheeled Walker Comments Mobility Comments Sit to stand x1 from chair Anel with cues for pushing off arms of chair with BUE support, some retropulsion. In standing she performed heel lifts x2 ea LE with decreased lift on on RLE, provided cues to offload weight into arms on FWW, discussed wbering status . Sit to stand from EOB Anel x1, required cues for handplacement with BUE support on bed, does not demonstrate carryover from previous attempts. Sit to supine MaxA x1 for LE's inot bed and righting of trunk, provided cues for UE handrail assist. ModA x2 for scooting up to HOB , again provided cues for BUE handrail assist. Pt was left in bed with call light nearby, ice packs and pillows back in place, nursing notified. Gait Assessment Gait Gait Assistance Required: Minimum Assistance,1 Person Assist Distance (Feet) 10 Able to Maintain Weight Bearing Status Yes During Gait Assistive Devices Assistive Device Gait Belt,Front Wheeled Walker Gait Deviations General Gait Pattern Antalgic,Decreased Stride Length,Decreased Feet Clearance,Flexed Trunk,Step-to Gait Factors Limiting Gait Function Factors Limiting Gait Function Decreased Activity Tolerance, Decreased Strength,Limited Range of Motion,Pain,Poor Balance Comments Gait Comments Ambulated ~5' to bed from chair Anel for retropulsion, required cues for step to gait , FWW management and wbering status. Reported feeling fatigue/weakness in LEs, required a break and sat EOB. She took lateral steps x6 to HOB SBA with cues for fww management and placement of feet. Stair Climbing Assessment Comments Stair Climbing Comments Not appropriate at this time PT-Balance Assessment Sitting Balance and Reactions Static Sitting Balance Ability Good Dynamic Sitting Balance Ability Fair Standing Balance and Reactions Static Standing Balance Ability Fair Dynamic Standing Balance Ability Poor Device Used FWW Comments Other Balance Tests/Deviations/Treatment Maintains good sitting balance : without UE support. In standing she requires cues for posture and Anel for retropulsion. M5 PT-IP Objective Assessments Start: 07/11/22 12:16 Freq: NEEDED Status: Active Protocol: Document 07/11/22 12:21 DLM (Rec: 07/11/22 13:00 DLM [id number]) Orientation Orientation/Cognition Level of Alertness Alert Orientation Name,Age,Birthday,Place, Situation Language Function Ability No Deficits Noted Safety Awareness Understands Safety Issues Memory Description Short Term Impaired Gross Range of Motion Upper Extremity ROM Assessment Within Functional Limits Lower Extremity ROM Assessment Left Impaired Impairments post-op precautions and hip pain Strength Upper Extremity Strength Assessment Within Functional Limits Lower Extremity Strength Assessment Left Impaired Hip needs assist to move LE in bed , standing flex 2+/5 Knee ext 3-/5 Ankle DF 4/5 Comments Strength Comments left hip pain limits functional strength Coordination Assessment Gross Coordination Gross Coordination WNL Sensation Assessment Sensation Gross Sensation WNL Comments Sensation Comments no changes reported by pt Muscle Tone Muscle Tone WNL Yes M6 PT-IP Treatment Start: 07/11/22 12:16 Freq: NEEDED Status: Active Protocol: Document 07/13/22 11:30 TS (Rec: 07/13/22 12:05 TS [id number]) Physical Therapy Treatment Exercises Exercises Ankle Pumps,Gluteal Sets,Quad Sets,Heel Slides Education Education Provided Precautions,Weight Bearing Status,Post-Op Packet,Safety Other Treatments Other Treatment Performed Pt recalled 1/3 hip precautions, educated her on the importance of her precautions. She performed ankle pumps, heel slides, glute sets and quad sets x5, reported some discomfort with heel slides. M7 PT-IP Assessment and Plan Start: 07/11/22 12:16 Freq: NEEDED Status: Active Protocol: Document 07/13/22 11:30 TS (Rec: 07/13/22 12:05 TS [id number]) PT Summary Assessment and Plan Potential Rehabilitation Potential Good Status of Condition at Evaluation Evolving Summary Impairments Pain,ROM,Strength,Balance, Cognition,Bed Mobility, Transfers,Gait,Activity Tolerance Assessment Summary Pt continues to not recall precatuions 1 out of 3 today, doesn't demonstrate carryover of bed exercises. Pt requires Anel for sit to stands due to retropulsion and reapted cues for sequencing and BUE support with FWW. She ambulated Anel x~10' to bed and along EOB, requires cues for step sequencing and management of FWW, reported fatigue/weakness in LE's. PT continues to recommend SNF to improve activity tolerance, trasnfers and gait. Goals Bed Mobility Goal Contact Guard Assistance, Minimal Assistance Transfer Goal Contact Guard Assistance, Minimal Assistance,Front Wheeled Walker Gait Goal Contact Guard Assistance, Minimal Assistance,Front Wheel Walker Gait Distance 30 feet Other Goals up/down one step with fWW and min assist Days to Meet Goals 7 Frequency of Treatment Frequency Of Treatment Twice a Day Treatment Plan Physical Therapy Treatment Plan Bed Mobility Training,Transfer Training,Gait Training, Therapeutic Exercise,Balance Retraining,Post Op Education, Discharge Planning,Hot or Cold Pack,Neuromuscular Re-ed Precautions Posterior Hip Precautions No Hip Flexion > 90 degrees,No Hip Internal Rotation,No Hip Adduction Weight Bearing Status Weight Bearing Status Weight Bear as Tolerated Allowed Weight Bearing Amount (enter % left LE s/p MERCEDES or #) (%) Recommendations To Nursing Amount of Assist Needed 2 Person Assist Discharge Recommendations PT Discharge Recommendations SNF Rehab Transportation Needs at Discharge Wheelchair/Cabulance
--- NOTE | 2022-07-13 12:03 | CM.DPC ---
DCP Cont: Confirmed with Camelia at [facility] that patient is to be picked up at 1300. Updated nurse, Enedina, gave her name and number for report, and patient is updated, White board at main nurses' station has pear picker time written on it. Dr. Rivera has completed orders, and EVA Barnard assistant operator, faxed over PASSR, orders, DC Summary to [facility]. P: Patient is to be discharged to [facility] today with pear picker time of 1300. Irina Gamez RN/Independent Agent [employer]
== END 2022-07-13 13:00 | DRG 522 ==
LOC: ED 11:11 → AC 11:25
PROVIDERS: Orthopaedic Surgery; Admitting Provider Student in an Organized Health Care Education/Training Program; Emergency Provider Emergency Medicine; Family Provider Family Medicine; PCP Nurse Practitioner Family; Referring Provider Emergency Medicine; Visit Provider Student in an Organized Health Care Education/Training Program
PROC: 0SRS0JZ Replacement of Left Hip Joint, Femoral Surface with Synthetic Substitute, Open Approach (ICD-10-PCS; CPT 27125; principal; 2022-07-10 16:30)
DX: S72.012A Unspecified intracapsular fracture of left femur, initial encounter for closed fracture (principal); E87.1 Hypo-osmolality and hyponatremia; G20 Parkinson's disease; I10 Essential (primary) hypertension; R32 Unspecified urinary incontinence; F02.80 Dementia in other diseases classified elsewhere, unspecified severity, without behavioral disturbance, psychotic disturbance, mood disturbance, and anxiety; W18.11XA Fall from or off toilet without subsequent striking against object, initial encounter; Z66 Do not resuscitate; Z20.822 Contact with and (suspected) exposure to COVID-19
CPT/HCPCS: 36415; 70450; 71045; 71101; 72125; 72170; 72192; 73030; 73080; 73502; 73562; 73610; 80048; 80053; 81001; 82550; 83690; 83735; 84145; 84484; 85025; 87635; 93005; 93010; 94760; 94762; 96374; 96375; 97110; 97116; 97162; 97530; 99284; 99285; C1776; C9803; A9270; J0171; J0690; J1170; J2270; J2405; J2704; J3010

== ENCOUNTER 2022-08-08 21:41 | Emergency (ER) | payer MEDICARE, SELFPAY ==
[2022-07-10 17:32] VITALS: BMI 26.9
[2022-08-08] VITALS (24 sets, daily range): BP systolic 179–191; BP diastolic 73–84; PULSE 65–81; RESP 18–19; TEMP 36.7; O2SAT 92–99; BMI 29.3
--- NOTE | 2022-08-08 21:55 | DI.RAD.S_ITS ---
PROCEDURE: XR HIP W PEL IF DONE LT 2V INDICATIONS: fall with pain TECHNIQUE: AP pelvis with lateral view(s) of the left hip(s). COMPARISON: [facility], CT, CT PEL WO CON, 07/10/2022, 10:06. [facility], CR, XR HIP W PEL IF DONE LT 2V, 07/10/2022, 8:16. FINDINGS: Bones: The left prosthetic femoral head is dislocated superiorly from the pauma acetabular cup. Pelvic ring appears intact. No suspicious bony lesions. Soft tissues: The visualized bowel gas pattern is normal. No suspicious soft tissue calcifications. IMPRESSION: Left hip dislocation, with the prosthetic femoral head dislocated superiorly from the acetabular cup. Dictated by: Jairon Jay M.D. on 08/08/2022 at 21:13 Approved by: Jairon Jay M.D. on 08/08/2022 at 21:14
--- NOTE | 2022-08-08 23:01 | ED_ITS ---
HPI - Fall General Chief Complaint: Fall Stated Complaint: fall/ hip fx Time Seen by Provider: 08/08/22 22:14 Source: patient and EMS Mode of arrival: EMS Limitations: no limitations History of Present Illness HPI Narrative: Patient is an 82-year-old female who recently had left hip surgery. She states that earlier today she was bending over cleaning out the cat litter when she felt like she either fractured or dislocated left hip. She stated that she did hit her head in his having neck pain but she is also having left knee pain as well. There was no loss of consciousness. Related Data Home Medications Medication Instructions Recorded Confirmed atenolol 25 mg tablet 25 mg PO DAILY 09/17/17 03/19/22 ascorbic acid (vitamin C) 500 mg 500 mg PO DAILY 11/22/17 03/19/22 capsule calcium carbonate 500 mg calcium 500 mg PO BID 11/22/17 03/19/22 (1,250 mg) capsule (Calci-Mix) cholecalciferol (vitamin D3) 50 2,000 unit PO DAILY 11/22/17 03/19/22 mcg (2,000 unit) capsule multivitamin 1 tab PO DAILY 11/22/17 03/19/22 prednisone 5 mg tablet 5 mg PO DAILY 11/22/17 03/19/22 diclofenac sodium 1 % topical gel 2 gram topical QID 09/28/18 03/19/22 (Voltaren) losartan 25 mg tablet 25 mg PO DAILY 09/28/18 03/19/22 lidocaine 4 % topical patch 1 patch topical DAILY PRN Pain 12/15/21 03/19/22 (Scale Score 4-6) omega 8-ffs-mql-fish oil 300 1 cap PO DAILY 12/15/21 03/19/22 mg-1,000 mg capsule (Fish Oil) naproxen 500 mg tablet 500 mg PO DAILY PRN Pain (Scale 12/16/21 03/19/22 Score 1-3) tramadol 50 mg tablet 50 mg PO BID PRN Pain (Scale Score 12/16/21 03/19/22 4-6) aspirin 81 mg capsule 81 mg PO DAILY PRN Headache 01/06/22 03/19/22 Previous Rx's Medication Instructions Recorded estradiol 10 mcg vaginal tablet 10 mcg vaginal 2XW #24 tabs 03/19/22 (Vagifem) acetaminophen 325 mg tablet 650 mg PO Q6HR #30 tabs 07/13/22 docusate sodium 100 mg capsule 100 mg PO BID #30 caps 07/13/22 ibuprofen 400 mg tablet 400 mg PO Q6HR #30 tabs 07/13/22 oxycodone 5 mg capsule 5 mg PO Q6H PRN pain #20 caps 07/13/22 polyethylene glycol 3350 17 gram 17 g PO DAILY PRN Constipation #14 07/13/22 oral powder packet ea sodium chloride 0.65 % nasal spray 1 spray intranasal PRN PRN 07/13/22 aerosol (Deep Sea Nasal) Congestion #44 mL tramadol 50 mg tablet 50 mg PO Q8H PRN pain #30 tabs 07/13/22 Allergies Allergy/AdvReac Type Severity Reaction Status Date / Time ciprofloxacin [From Cipro] Allergy Verified 08/08/22 21:51 doxycycline Allergy Verified 08/08/22 21:51 gabapentin Allergy Verified 08/08/22 21:51 mirabegron [From Myrbetriq] Allergy Verified 08/08/22 21:51 primidone Allergy Verified 08/08/22 21:51 propranolol Allergy Verified 08/08/22 21:51 oxybutynin AdvReac Intermediate Facial Verified 08/08/22 21:51 redness and swelling nitrofurantoin AdvReac Mild Dizziness Verified 08/08/22 21:51 [From Macrobid] Review of Systems Constitutional Constitutional: Reports system reviewed and no additional complaints, except as documented Cardiovascular Cardiovascular: Reports system reviewed and no additional complaints, except as documented Respiratory Respiratory: Reports system reviewed and no additional complaints, except as documented Musculoskeletal Musculoskeletal: Reports system reviewed and no additional complaints, except as documented Integumentary/Breasts Skin/Breast: Reports system reviewed and no additional complaints, except as documented Hematologic/Lymphatic On Anticoagulants: No Patient History Medical History Breast cancer Dizziness Lupus Osteopenia Parkinson disease Surgical History History of cataract removal with insertion of prosthetic lens Status post laparoscopic cholecystectomy (12/2014) Status post total knee replacement, left Family History Mother Hypertension Father Heart disease Brother Heart disease Social History household members: none Smoking Status: Never smoker alcohol intake: never substance use type: does not use Smoking Status: Never smoker alcohol intake frequency: 0-2 drinks per day Substance Use Type: does not use Exam Initial Vital Signs Initial Vital Signs: Vital Signs Pulse Rate 65 08/08/22 21:46 Blood Pressure 191/84 H 08/08/22 21:46 Pulse Oximetry 96 08/08/22 21:46 HENMT Head: normal to inspection and normocephalic Chest Chest: No crepitus and No tenderness Resp Effort & Inspection: normal respiratory effort Auscultation: clear to auscultation bilaterally Cardio Rate: regular rate Rhythm: regular rhythm GI Inspection: normal to inspection Back/Spine/Pelvis Cervical Spine: cervical muscular tenderness and No cervical spinal tenderness Neuro General: patient alert and patient awake Extrem Other: Tenderness to palpation of the left knee and also the left hemipelvis. Procedures Orthopedic Joint Reduction Joint #1: Time Out Performed: Yes Side: left Joint Reduction Location: hip Analgesia: procedural sedation Technique used: traction/counter-traction and direct manipulation Post-reduction neuro exam: intact Post-reduction vascular: intact Post Reduction X-Ray Obtained: Yes Post Reduction X-Ray Results: reduced Splint Applied: Yes (Knee immobilizer) Patient Tolerated Procedure: Well and No complications Orthopedic Splinting/Casting Injury #1: Side: left Lower Extremity Immobilizer: knee immobilizer Post splinting neuro exam: intact Post splinting vascular exam: intact Placed by: Nursing Procedural Sedation Time out performed: Yes Indication: fracture/dislocation reduction ASA Class: II Mallampati Airway Classification: Class II Preparation: groundwater monitoring technician applied, pulse oximeter, capnometry used, supplemental O2 applied, suction/airway equipment at bedside and IV secured IV Propofol dose (mg): 60 Intraservice time/total sedation time (min): 15 ED Sedation Level: Moderate (Concious) Patient Tolerated Procedure: Well and No complications Complications: none Course Orders Ordered: ED Orders 08/08/22 21:55 XR hip w pel if done LT 2V Stat 08/08/22 23:02 CT cervical spine wo con Stat CT head/brain wo con Stat XR knee LT 1to2V Stat 08/09/22 00:08 XR hip w pel if done LT 2V Stat Sodium Chloride (Normal Saline 0.9%) 1,000 mls @ 125 mls/hr IV CONT RICK Last Infusion: 08/09/22 02:15 Dose: 0 mls/hr Documented By: Admin: 08/08/22 23:16 Dose: 125 mls/hr Documented By: JESS Discontinued Medications Fentanyl (Fentanyl 100 Mcg/2 Ml Inj) 50 mcg IV NOW ONE Stop: 08/08/22 23:02 Last Admin: 08/08/22 23:17 Dose: 50 mcg Documented By: JESS Propofol (Propofol 200 Mg/20 Ml Vial) 100 mg IV NOW ONE Stop: 08/08/22 22:49 Last Admin: 08/09/22 00:06 Dose: 60 mg Documented By: JESS Vital Signs Vital signs: Vital Signs - 8 hr 08/08/22 21:51 08/09/22 00:10 08/09/22 00:34 Temperature 98.0 F 97.6 F 97.4 F L Pulse Rate 67 71 67 Respiratory Rate 18 16 14 Blood Pressure 191/84 H 137/58 L 134/69 Pulse Oximetry 95 98 98 Oxygen Delivery Method Room Air 08/08/22 21:46 08/08/22 21:46 08/08/22 21:50 Temperature Pulse Rate 65 68 Respiratory Rate Blood Pressure 191/84 H Pulse Oximetry 96 98 Oxygen Delivery Method 08/08/22 21:55 08/08/22 22:00 08/08/22 22:05 Temperature Pulse Rate 65 72 70 Respiratory Rate Blood Pressure Pulse Oximetry 96 98 97 Oxygen Delivery Method 08/08/22 22:10 08/08/22 22:15 08/08/22 22:20 Temperature Pulse Rate 67 69 65 Respiratory Rate Blood Pressure Pulse Oximetry 96 97 96 Oxygen Delivery Method 08/08/22 22:25 08/08/22 22:30 08/08/22 22:35 Temperature Pulse Rate 67 65 Respiratory Rate Blood Pressure 182/73 H Pulse Oximetry 96 93 Oxygen Delivery Method 08/08/22 22:35 08/08/22 22:40 08/08/22 22:45 Temperature Pulse Rate 67 67 67 Respiratory Rate Blood Pressure Pulse Oximetry 98 95 95 Oxygen Delivery Method 08/08/22 22:50 08/08/22 22:55 08/08/22 23:00 Temperature Pulse Rate 67 69 Respiratory Rate Blood Pressure 179/80 H Pulse Oximetry 95 97 Oxygen Delivery Method 08/08/22 23:00 08/08/22 23:05 08/08/22 23:10 Temperature Pulse Rate 71 70 70 Respiratory Rate 18 Blood Pressure Pulse Oximetry 99 98 97 Oxygen Delivery Method 08/08/22 23:15 08/08/22 23:20 08/08/22 23:45 Temperature Pulse Rate 68 66 69 Respiratory Rate 19 18 18 Blood Pressure Pulse Oximetry 92 93 95 Oxygen Delivery Method 08/08/22 23:50 08/08/22 23:55 08/09/22 00:00 Temperature Pulse Rate 73 81 80 Respiratory Rate 18 18 21 Blood Pressure Pulse Oximetry 97 95 97 Oxygen Delivery Method 08/09/22 00:05 08/09/22 00:05 08/09/22 00:10 Temperature Pulse Rate 75 72 Respiratory Rate 18 22 Blood Pressure 183/84 H Pulse Oximetry 97 94 Oxygen Delivery Method 08/09/22 00:11 08/09/22 00:11 08/09/22 00:15 Temperature Pulse Rate 69 Respiratory Rate 23 Blood Pressure 146/66 H 158/70 H Pulse Oximetry 97 Oxygen Delivery Method 08/09/22 00:15 08/09/22 00:20 08/09/22 00:20 Temperature Pulse Rate 71 67 Respiratory Rate 21 20 Blood Pressure 145/67 H Pulse Oximetry 98 97 Oxygen Delivery Method 08/09/22 00:25 08/09/22 00:25 Temperature Pulse Rate 69 Respiratory Rate 22 Blood Pressure 137/58 L Pulse Oximetry 97 Oxygen Delivery Method MDM - Fall Lab Data Labs: Point of Care Testing Test Results Not applicable Imaging Data Extremity x-ray #1: Radiologist's Impression: PROCEDURE:? XR HIP W PEL IF DONE LT 2V ? INDICATIONS:? fall with pain ? TECHNIQUE:? AP pelvis with lateral view(s) of the left hip(s).? ? COMPARISON:? [facility], CT, CT PEL WO CON, 07/10/2022, 10:06.? [facility], CR, XR HIP W PEL IF DONE LT 2V, 07/10/2022, 8:16. ? FINDINGS:? ? Bones:? The left prosthetic femoral head is dislocated superiorly from the [place] acetabular cup. ? Pelvic ring appears intact.? No suspicious bony lesions.? ? Soft tissues:? The visualized bowel gas pattern is normal.? No suspicious soft tissue calcifications.? ? ? IMPRESSION:? Left hip dislocation, with the prosthetic femoral head dislocated superiorly from the acetabular cup. Extremity x-ray #2: Radiologist's Impression: PROCEDURE:? XR HIP W PEL IF DONE LT 2V ? INDICATIONS:? post reduction ? TECHNIQUE:? AP pelvis with lateral view(s) of the left hip(s).? ? COMPARISON:? [facility], CR, XR KNEE LT 1TO2V, 08/08/2022, 23:30.? [facility], CT, CT HEAD/BRAIN WO CON, 08/08/2022, 23:27.? [facility], CT, CT CERVICAL SPINE WO CON, 08/08/2022, 23:27.? [facility], CR, XR PELVIS 1-2V, 07/10/2022, 17:59.? [facility], CT, CT PEL WO CON, 07/10/2022, 10:06.? [facility], CR, XR HIP W PEL IF DONE LT 2V, 07/10/2022, 8:16.? [facility], CR, XR HIP W PEL IF DONE LT 2V, 08/08/2022, 21:51. ? FINDINGS:? ? Bones:? The left prosthetic femoral hip is now relocated within the left acetabulum. ? No fracture is detected. ? Soft tissues:? The visualized bowel gas pattern is normal.? No suspicious soft tissue calcifications.? Atherosclerotic calcification is noted.? ? ? IMPRESSION:? Left hip relocation. Extremity x-ray #3: Radiologist's Impression: PROCEDURE:? XR KNEE LT 1TO2V ? INDICATIONS:? pain after fall ? TECHNIQUE:? 2 views of the knee were acquired.? ? COMPARISON:? [facility], CR, XR KNEE LT 3V, 07/08/2022, 18:52.? [facility], CT, CT HEAD/BRAIN WO CON, 08/08/2022, 23:27.? [facility], CT, CT CERVICAL SPINE WO CON, 08/08/2022, 23:27. ? FINDINGS:? Study is limited by nonstandard positioning. ? Bones:? No fractures or dislocations.? No suspicious bony lesions.? ? Left knee arthroplasty hardware is seen.? The previously seen lucency adjacent to the tibial component is not well seen on the current images. ? Soft tissues:? No joint effusion.? No suspicious soft tissue calcifications.? ? ? IMPRESSION: ? No displaced fracture is seen on these images, although evaluation is limited by nonstandard positioning.? CT - cervical spine: Radiologist's Impression: PROCEDURE:? CT CERVICAL SPINE WO CON ? INDICATIONS:? pain after fall ? TECHNIQUE:? Noncontrast 3 mm thick sections acquired from the skull base to the T4 level.? Sagittal and coronal reformats were then constructed.? For radiation dose reduction, the following was used:? automated exposure control, adjustment of mA and/or kV according to patient size.? ? COMPARISON:? [facility], MR, MR CERVICAL SPINE WO CON, 12/16/2021, 11:56.? [facility], CR, XR KNEE LT 1TO2V, 08/08/2022, 23:30.? [facility], CT, CT HEAD/BRAIN WO CON, 08/08/2022, 23:27.? [facility], CR, XR HIP W PEL IF DONE LT 2V, 08/08/2022, 21:51.? [facility], CT, CT CERVICAL SPINE WO CON, 07/10/2022, 8:14. ? FINDINGS:? Image quality:? This examination is limited by involuntary motion artifact.? ? ? Bones:? No fractures or dislocations.? Visualized superior ribs are intact.? ? Focal degenerative change is seen involving the C1-C2 interface anteriorly.? Mild grade 1 anterolisthesis is seen at the C4-C5 level.? A C5 level the hemangioma can be seen. ? Soft tissues:? Prevertebral soft tissues are normal in thickness.? No paravertebral hematomas.? No apical pneumothoraces.? 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 ? IMPRESSION:? Negative for fracture. CT scan - head: Radiologist's Impression: PROCEDURE:? CT HEAD/BRAIN WO CON ? INDICATIONS:? fall with head injury ? TECHNIQUE:? Noncontrast 4.5 mm thick angled axial sections acquired from the foramen magnum to the vertex, with coronal and sagittal reformats.? For radiation dose reduction, the following was used:? automated exposure control, adjustment of mA and/or kV according to patient size.? ? COMPARISON:? [facility], CT, CT CERVICAL SPINE WO CON, 07/10/2022, 8:14.? [facility], MR, MR HEAD/BRAIN WO/W CON, 08/21/2021, 13:42.? [facility], CR, XR KNEE LT 1TO2V, 08/08/2022, 23:30.? [facility], CT, CT CERVICAL SPINE WO CON, 08/08/2022, 23:27.? [facility], CR, XR HIP W PEL IF DONE LT 2V, 08/08/2022, 21:51.? [facility], CT, CT HEAD/BRAIN WO CON, 07/10/2022, 8:14. ? FINDINGS:? Image quality:? Excellent.? ? CSF spaces:? Basal cisterns are patent.? No extra-axial fluid collections.? The ventricles are symmetric in size and shape.? ? Brain:? No intracranial bleeds or masses.? There is cerebral volume loss for age, with resultant ventricular and sulcal prominence.? There are periventricular and deep white matter chronic small vessel ischemic changes.? There is intracranial internal carotid artery atherosclerosis.? ? Skull and face:? Calvarium and visualized facial bones appear intact, without suspicious lesions.? ? Sinuses:? Visualized sinuses and mastoids are clear.? ? IMPRESSION:? No acute intracranial hemorrhage is seen.? ? No acute intracranial process is seen.? ? Note is made of age-appropriate brain parenchymal volume loss and chronic small vessel ischemic changes. MDM Narrative Medical decision making narrative: Workup here in the emergency department does show a left-sided hip dislocation. No other injuries were noted on any x-rays. I did discuss the risks and benefits of sedation and a reduction with the patient. She provided verbal consent however given the amount of discomfort that she was in she did not sign the consent paperwork. Nursing staff and respiratory therapist were in the room when the patient did give verbal consent. Patient was sedated in her hip was reduced without incident. She is placed in a knee immobilizer to prevent her from getting into position that would potentially cause her to dislocate again. She was ambulatory with a walker. She has a walker at home. Will discharge patient home with care instructions and return precautions. She expressed understanding and agreement. Discharge Plan Departure Patient Disposition: Home Clinical Impression: Anterior dislocation of left hip Instructions: DI for Hip Dislocation -- Adult Activity Restrictions/Additional Instructions: I do recommend you use your walker at home as needed. You can put pressure/walk on your left leg. The knee immobilizer can be taken off to shower and also to sleep and if your just sitting at home. I do recommend that for the next 48 hours you wear it all your up and moving. After that you can take it off. I also recommend that you contact the orthopedic doctor who performed your surgery to let them know you were here in the emergency department today. Return to the emergency department for new or worsening symptoms. Prescriptions: No Action atenolol 25 mg tablet 25 mg PO DAILY losartan 25 mg tablet 25 mg PO DAILY diclofenac sodium [Voltaren] 1 % gel 2 gram TOP QID estradiol [Vagifem] 10 mcg tablet 10 mcg vaginal 2XW Qty: 24 3RF prednisone 5 mg tablet 5 mg PO DAILY multivitamin tablet 1 tab PO DAILY ascorbic acid (vitamin C) 500 mg capsule 500 mg PO DAILY calcium carbonate [Calci-Mix] 500 mg calcium (1,250 mg) capsule 500 mg PO BID cholecalciferol (vitamin D3) 2,000 unit capsule 2,000 unit PO DAILY omega 6-clx-qnq-fish oil [Fish Oil] 300-1,000 mg capsule 1 cap PO DAILY lidocaine 4 % adhesive patch,medicated 1 patch topical DAILY PRN (Reason: Pain (Scale Score 4-6)) tramadol 50 mg tablet 50 mg PO BID PRN (Reason: Pain (Scale Score 4-6)) naproxen 500 mg tablet 500 mg PO DAILY PRN (Reason: Pain (Scale Score 1-3)) aspirin 81 mg Capsule 81 mg PO DAILY PRN (Reason: Headache) acetaminophen 325 mg Tablet 650 mg PO Q6HR Qty: 30 0RF docusate sodium 100 mg Capsule 100 mg PO BID Qty: 30 0RF polyethylene glycol 3350 17 gram Powder In Packet 17 g PO DAILY PRN (Reason: Constipation) Qty: 14 0RF ibuprofen 400 mg Tablet 400 mg PO Q6HR Qty: 30 0RF Deep Sea Nasal 0.65 % Aerosol,[place] 1 spray intranasal PRN PRN (Reason: Congestion) Qty: 44 0RF oxycodone 5 mg capsule 5 mg PO Q6H PRN (Reason: pain) Qty: 20 0RF tramadol 50 mg tablet 50 mg PO Q8H PRN (Reason: pain) Qty: 30 0RF Referrals: Lainey Martins ARNP [Primary Care Provider] - Stand Alone Forms: Patient Portal/API
--- NOTE | 2022-08-08 23:02 | DI.CT.S_ITS ---
PROCEDURE: CT HEAD/BRAIN WO CON INDICATIONS: fall with head injury TECHNIQUE: Noncontrast 4.5 mm thick angled axial sections acquired from the foramen magnum to the vertex, with coronal and sagittal reformats. For radiation dose reduction, the following was used: automated exposure control, adjustment of mA and/or kV according to patient size. COMPARISON: [facility], CT, CT CERVICAL SPINE WO CON, 07/10/2022, 8:14. [facility], MR, MR HEAD/BRAIN WO/W CON, 08/21/2021, 13:42. [facility], CR, XR KNEE LT 1TO2V, 08/08/2022, 23:30. [facility], CT, CT CERVICAL SPINE WO CON, 08/08/2022, 23:27. [facility], CR, XR HIP W PEL IF DONE LT 2V, 08/08/2022, 21:51. [facility], CT, CT HEAD/BRAIN WO CON, 07/10/2022, 8:14. FINDINGS: Image quality: Excellent. CSF spaces: Basal cisterns are patent. No extra-axial fluid collections. The ventricles are symmetric in size and shape. Brain: No intracranial bleeds or masses. There is cerebral volume loss for age, with resultant ventricular and sulcal prominence. There are periventricular and deep white matter chronic small vessel ischemic changes. There is intracranial internal carotid artery atherosclerosis. Skull and face: Calvarium and visualized facial bones appear intact, without suspicious lesions. Sinuses: Visualized sinuses and mastoids are clear. IMPRESSION: No acute intracranial hemorrhage is seen. No acute intracranial process is seen. Note is made of age-appropriate brain parenchymal volume loss and chronic small vessel ischemic changes. Dictated by: Jairon Jay M.D. on 08/08/2022 at 22:57 Approved by: Jairon Jay M.D. on 08/08/2022 at 23:01
--- NOTE | 2022-08-08 23:02 | DI.CT.S_ITS ---
PROCEDURE: CT CERVICAL SPINE WO CON INDICATIONS: pain after fall TECHNIQUE: Noncontrast 3 mm thick sections acquired from the skull base to the T4 level. Sagittal and coronal reformats were then constructed. For radiation dose reduction, the following was used: automated exposure control, adjustment of mA and/or kV according to patient size. COMPARISON: [facility], MR, MR CERVICAL SPINE WO CON, 12/16/2021, 11:56. [facility], CR, XR KNEE LT 1TO2V, 08/08/2022, 23:30. [facility], CT, CT HEAD/BRAIN WO CON, 08/08/2022, 23:27. [facility], CR, XR HIP W PEL IF DONE LT 2V, 08/08/2022, 21:51. [facility], CT, CT CERVICAL SPINE WO CON, 07/10/2022, 8:14. FINDINGS: Image quality: This examination is limited by involuntary motion artifact. Bones: No fractures or dislocations. Visualized superior ribs are intact. Focal degenerative change is seen involving the C1-C2 interface anteriorly. Mild grade 1 anterolisthesis is seen at the C4-C5 level. A C5 level the hemangioma can be seen. Soft tissues: Prevertebral soft tissues are normal in thickness. No paravertebral hematomas. No apical pneumothoraces. 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 Dictated by: Jairon Jay M.D. on 08/08/2022 at 23:01 Approved by: Jairon Jay M.D. on 08/08/2022 at 23:03
--- NOTE | 2022-08-08 23:02 | DI.RAD.S_ITS ---
PROCEDURE: XR KNEE LT 1TO2V INDICATIONS: pain after fall TECHNIQUE: 2 views of the knee were acquired. COMPARISON: [facility], CR, XR KNEE LT 3V, 07/08/2022, 18:52. [facility], CT, CT HEAD/BRAIN WO CON, 08/08/2022, 23:27. [facility], CT, CT CERVICAL SPINE WO CON, 08/08/2022, 23:27. FINDINGS: Study is limited by nonstandard positioning. Bones: No fractures or dislocations. No suspicious bony lesions. Left knee arthroplasty hardware is seen. The previously seen lucency adjacent to the tibial component is not well seen on the current images. Soft tissues: No joint effusion. No suspicious soft tissue calcifications. IMPRESSION: No displaced fracture is seen on these images, although evaluation is limited by nonstandard positioning. Dictated by: Jairon Jay M.D. on 08/08/2022 at 23:03 Approved by: Jairon Jay M.D. on 08/08/2022 at 23:05
[2022-08-08] MEDS: SODIUM CHLORIDE 0.9% 1,000 ML 125 ML IV (23:16)
[2022-08-08] MEDS: fentaNYL 100 MCG/2 ML INJ 50 MCG IV (23:17)
[2022-08-09] VITALS (11 sets, daily range): BP systolic 134–183; BP diastolic 58–84; PULSE 67–80; RESP 14–24; TEMP 36.3–36.6; O2SAT 94–98
[2022-08-09] MEDS: propofoL 200 MG/20 ML VIAL 100 MG IV (00:06)
--- NOTE | 2022-08-09 00:08 | DI.RAD.S_ITS ---
PROCEDURE: XR HIP W PEL IF DONE LT 2V INDICATIONS: post reduction TECHNIQUE: AP pelvis with lateral view(s) of the left hip(s). COMPARISON: [facility], CR, XR KNEE LT 1TO2V, 08/08/2022, 23:30. [facility], CT, CT HEAD/BRAIN WO CON, 08/08/2022, 23:27. [facility], CT, CT CERVICAL SPINE WO CON, 08/08/2022, 23:27. [facility], CR, XR PELVIS 1-2V, 07/10/2022, 17:59. [facility], CT, CT PEL WO CON, 07/10/2022, 10:06. [facility], CR, XR HIP W PEL IF DONE LT 2V, 07/10/2022, 8:16. [facility], CR, XR HIP W PEL IF DONE LT 2V, 08/08/2022, 21:51. FINDINGS: Bones: The left prosthetic femoral hip is now relocated within the left acetabulum. No fracture is detected. Soft tissues: The visualized bowel gas pattern is normal. No suspicious soft tissue calcifications. Atherosclerotic calcification is noted. IMPRESSION: Left hip relocation. Dictated by: Jairon Jay M.D. on 08/08/2022 at 23:27 Approved by: Jairon Jay M.D. on 08/08/2022 at 23:27
== END 2022-08-09 03:59 | disposition home or self-care (01) ==
PROVIDERS: Emergency Provider Emergency Medicine; Family Provider Family Medicine; PCP Nurse Practitioner Family
DX: S73.035A Other anterior dislocation of left hip, initial encounter (principal); M54.2 Cervicalgia; M25.562 Pain in left knee; W18.30XA Fall on same level, unspecified, initial encounter; Z79.899 Other long term (current) drug therapy
CPT/HCPCS: 27250; 70450; 72125; 73502; 73560; 96361; 96374; 99152; 99284; J2704; J3010

== ENCOUNTER 2022-08-09 06:41 | Emergency (ER) | payer MEDICARE, SELFPAY ==
[2022-07-10 17:32] VITALS: BMI 26.9
[2022-08-09] VITALS (30 sets, daily range): BP systolic 125–174; BP diastolic 56–89; PULSE 68–80; RESP 16–27; TEMP 36.8; O2SAT 92–99; BMI 29.2
--- NOTE | 2022-08-09 06:48 | DI.RAD.S_ITS ---
PROCEDURE: XR HIP W PEL IF DONE LT 2V INDICATIONS: eval for dislocation TECHNIQUE: 2 views of the hip were acquired. COMPARISON: [facility], [facility]O, XR HIP W PEL IF DONE LT 2V, 08/09/2022, 0:03. [facility], CR, XR HIP W PEL IF DONE LT 2V, 08/08/2022, 21:51. FINDINGS: Bones: Left hip arthroplasty is superiorly dislocated. Moderate right hip arthrosis Soft tissues: Vascular calcifications. IMPRESSION: Superiorly dislocated left hip arthroplasty. Dictated by: Nitin Lehman M.D. on 08/09/2022 at 8:20 Approved by: Nitin Lehman M.D. on 08/09/2022 at 8:21
--- NOTE | 2022-08-09 07:48 | ED.EXTPRO ---
HPI - Extremity Problem General Chief complaint: Extremity Problem,Nontraumatic Stated complaint: hip pain Time Seen by Provider: 08/09/22 06:48 Source: patient and EMS Mode of arrival: EMS History of Present Illness HPI Narrative: Patient is a 82-year-old female history of Parkinson's disease, lupus, hypertension with left total hip arthroplasty on 07/10/[address] Thomas, presents for the 2nd time in 7 hours with a left hip dislocation. She was seen and evaluated here last night she was bending over cleaning out catheter last night when she fell. Hip was reduced she ambulated and she was discharged home. She says once she got home she ambulated into the house she use the commode and it came out again. She is having again left hip pain. No other injury this time. She complains of dry mouth. Related Data Home Medications Medication Instructions Recorded Confirmed atenolol 25 mg tablet 25 mg PO DAILY 09/17/17 03/19/22 ascorbic acid (vitamin C) 500 mg 500 mg PO DAILY 11/22/17 03/19/22 capsule calcium carbonate 500 mg calcium 500 mg PO BID 11/22/17 03/19/22 (1,250 mg) capsule (Calci-Mix) cholecalciferol (vitamin D3) 50 2,000 unit PO DAILY 11/22/17 03/19/22 mcg (2,000 unit) capsule multivitamin 1 tab PO DAILY 11/22/17 03/19/22 prednisone 5 mg tablet 5 mg PO DAILY 11/22/17 03/19/22 diclofenac sodium 1 % topical gel 2 gram topical QID 09/28/18 03/19/22 (Voltaren) losartan 25 mg tablet 25 mg PO DAILY 09/28/18 03/19/22 lidocaine 4 % topical patch 1 patch topical DAILY PRN Pain 12/15/21 03/19/22 (Scale Score 4-6) omega 9-lsx-itp-fish oil 300 1 cap PO DAILY 12/15/21 03/19/22 mg-1,000 mg capsule (Fish Oil) naproxen 500 mg tablet 500 mg PO DAILY PRN Pain (Scale 12/16/21 03/19/22 Score 1-3) tramadol 50 mg tablet 50 mg PO BID PRN Pain (Scale Score 12/16/21 03/19/22 4-6) aspirin 81 mg capsule 81 mg PO DAILY PRN Headache 01/06/22 03/19/22 Previous Rx's Medication Instructions Recorded estradiol 10 mcg vaginal tablet 10 mcg vaginal 2XW #24 tabs 03/19/22 (Vagifem) acetaminophen 325 mg tablet 650 mg PO Q6HR #30 tabs 07/13/22 docusate sodium 100 mg capsule 100 mg PO BID #30 caps 07/13/22 ibuprofen 400 mg tablet 400 mg PO Q6HR #30 tabs 07/13/22 oxycodone 5 mg capsule 5 mg PO Q6H PRN pain #20 caps 07/13/22 polyethylene glycol 3350 17 gram 17 g PO DAILY PRN Constipation #14 07/13/22 oral powder packet ea sodium chloride 0.65 % nasal spray 1 spray intranasal PRN PRN 07/13/22 aerosol (Deep Sea Nasal) Congestion #44 mL tramadol 50 mg tablet 50 mg PO Q8H PRN pain #30 tabs 07/13/22 hydrocodone 5 mg-acetaminophen 325 1 tab PO Q6H PRN pain #10 tabs 08/09/22 mg tablet Allergies Allergy/AdvReac Type Severity Reaction Status Date / Time ciprofloxacin [From Cipro] Allergy Verified 08/08/22 21:51 doxycycline Allergy Verified 08/08/22 21:51 gabapentin Allergy Verified 08/08/22 21:51 mirabegron [From Myrbetriq] Allergy Verified 08/08/22 21:51 primidone Allergy Verified 08/08/22 21:51 propranolol Allergy Verified 08/08/22 21:51 oxybutynin AdvReac Intermediate Facial Verified 08/08/22 21:51 redness and swelling nitrofurantoin AdvReac Mild Dizziness Verified 08/08/22 21:51 [From Macrobid] Review of Systems Review of Systems ROS Unobtainable: All systems reviewed & are unremarkable except as noted in HPI and below Patient History Medical History Breast cancer Dizziness Lupus Osteopenia Parkinson disease Surgical History History of cataract removal with insertion of prosthetic lens Status post laparoscopic cholecystectomy (12/2014) Status post total knee replacement, left Family History Mother Hypertension Father Heart disease Brother Heart disease Social History household members: none Smoking Status: Never smoker alcohol intake: never substance use type: does not use Smoking Status: Never smoker alcohol intake frequency: 0-2 drinks per day Substance Use Type: does not use Exam Initial Vital Signs Initial Vital Signs: Vital Signs Temperature 98.2 F 08/09/22 06:51 Pulse Rate 69 08/09/22 06:51 Respiratory Rate 16 08/09/22 06:51 Blood Pressure 149/72 H 08/09/22 06:51 Pulse Oximetry 92 08/09/22 06:51 Oxygen Delivery Method Room Air 08/09/22 06:51 GENERAL: Alert pleasant 82-year-old female HEENT: Head atraumatic,EOMI, pupils reactive, face symmetric, [moist] mucous membranes CARDIOVASCULAR: Regular rate and rhythm without murmurs, rubs or gallops. RESPIRATORY: Breath sounds equal bilaterally, no wheezes rales or rhonchi. ABDOMEN: Soft, nontender. Normoactive bowel sounds all 4 quadrants. No guarding or rebound. EXTREMITIES: Normal range of motion, no clubbing or edema. Neurovascularly intact Left lower extremity shortened history pedal pulse intact wearing knee immobilizer NEUROLOGICAL: Alert and oriented x4. SKIN: Warm, dry, no laceration, no petechiae, no rashes or lesions. Procedures Orthopedic Joint Reduction Joint #1: Time Out Performed: Yes Side: left Joint Reduction Location: hip Analgesia: procedural sedation Technique used: traction/counter-traction and direct manipulation Post-reduction neuro exam: intact Post-reduction vascular: intact Post Reduction X-Ray Obtained: Yes Post Reduction X-Ray Results: reduced Splint Applied: Yes Patient Tolerated Procedure: Well and No complications Orthopedic Splinting/Casting Injury #1: Side: left Lower Extremity Immobilizer: knee immobilizer Post splinting neuro exam: intact Post splinting vascular exam: intact Placed by: Nursing Procedural Sedation Consent signed: Yes ASA Class: II Mallampati Airway Classification: Class II IV Propofol dose (mg): 60 Intraservice time/total sedation time (min): 14 ED Sedation Level: Moderate (Concious) Patient Tolerated Procedure: Well and No complications Course Orders Ordered: ED Orders 08/09/22 06:48 XR hip w pel if done LT 2V Stat 08/09/22 08:44 XR hip w pel if done LT 2V Stat Discontinued Medications Morphine Sulfate (Morphine 2 Mg/Ml Inj) 2 mg IV NOW ONE Stop: 08/09/22 07:49 Last Admin: 08/09/22 07:53 Dose: 2 mg Documented By: NAHEED Propofol (Propofol 200 Mg/20 Ml Vial) 75 mg 1 mg/kg (75 mg) IV NOW ONE Stop: 08/09/22 08:20 Last Admin: 08/09/22 08:40 Dose: 60 mg Documented By: NAHEED Vital Signs Vital signs: Vital Signs - 8 hr 08/09/22 06:51 08/09/22 07:55 08/09/22 07:56 Temperature 98.2 F Pulse Rate 69 72 80 Respiratory Rate 16 Blood Pressure 149/72 H Pulse Oximetry 92 97 95 Oxygen Delivery Method Room Air 08/09/22 07:56 08/09/22 08:00 08/09/22 08:00 Temperature Pulse Rate 76 Respiratory Rate Blood Pressure 164/89 H 171/74 H Pulse Oximetry 96 Oxygen Delivery Method 08/09/22 08:30 08/09/22 08:31 08/09/22 08:31 Temperature Pulse Rate 71 71 Respiratory Rate Blood Pressure 138/62 Pulse Oximetry 95 94 Oxygen Delivery Method 08/09/22 08:35 08/09/22 08:40 08/09/22 08:40 Temperature Pulse Rate 72 75 Respiratory Rate 16 Blood Pressure 174/75 H Pulse Oximetry 95 98 Oxygen Delivery Method 08/09/22 08:41 08/09/22 08:41 08/09/22 08:45 Temperature Pulse Rate 79 Respiratory Rate 22 Blood Pressure 126/60 129/56 L Pulse Oximetry 98 Oxygen Delivery Method 08/09/22 08:45 08/09/22 08:50 08/09/22 08:50 Temperature Pulse Rate 72 75 Respiratory Rate 26 H 27 H Blood Pressure 133/63 Pulse Oximetry 93 97 Oxygen Delivery Method 08/09/22 08:55 08/09/22 08:55 08/09/22 09:00 Temperature Pulse Rate 70 Respiratory Rate 19 Blood Pressure 129/58 L 125/57 L Pulse Oximetry 95 Oxygen Delivery Method 08/09/22 09:00 08/09/22 09:05 08/09/22 09:06 Temperature Pulse Rate 68 70 71 Respiratory Rate 19 23 22 Blood Pressure Pulse Oximetry 98 99 99 Oxygen Delivery Method 08/09/22 09:06 08/09/22 09:11 08/09/22 09:11 Temperature Pulse Rate 73 Respiratory Rate 22 Blood Pressure 153/66 H 157/81 H Pulse Oximetry 99 Oxygen Delivery Method 08/09/22 09:16 08/09/22 09:16 08/09/22 09:20 Temperature Pulse Rate 73 73 Respiratory Rate 22 20 Blood Pressure 139/67 Pulse Oximetry 94 96 Oxygen Delivery Method 08/09/22 09:20 08/09/22 09:25 08/09/22 09:25 Temperature Pulse Rate 71 Respiratory Rate 21 Blood Pressure 162/73 H 153/67 H Pulse Oximetry 96 Oxygen Delivery Method 08/09/22 09:30 08/09/22 09:30 08/09/22 09:36 Temperature Pulse Rate 72 70 Respiratory Rate 24 22 Blood Pressure 155/70 H Pulse Oximetry 94 93 Oxygen Delivery Method 08/09/22 09:36 08/09/22 09:42 08/09/22 09:42 Temperature Pulse Rate 71 Respiratory Rate 21 Blood Pressure 159/69 H 134/64 Pulse Oximetry 95 Oxygen Delivery Method 08/09/22 09:45 08/09/22 09:45 08/09/22 09:50 Temperature Pulse Rate 69 69 Respiratory Rate 17 18 Blood Pressure 146/70 H Pulse Oximetry 95 95 Oxygen Delivery Method 08/09/22 09:50 08/09/22 09:54 08/09/22 09:55 Temperature Pulse Rate 69 Respiratory Rate 23 Blood Pressure 143/65 H 150/73 H Pulse Oximetry 94 Oxygen Delivery Method 08/09/22 10:14 08/09/22 10:15 08/09/22 10:15 Temperature Pulse Rate 77 74 Respiratory Rate Blood Pressure 157/70 H Pulse Oximetry 97 96 Oxygen Delivery Method 08/09/22 10:30 08/09/22 10:30 08/09/22 11:00 Temperature Pulse Rate 70 Respiratory Rate Blood Pressure 150/63 H 128/63 Pulse Oximetry 95 Oxygen Delivery Method 08/09/22 11:00 Temperature Pulse Rate 71 Respiratory Rate Blood Pressure Pulse Oximetry 97 Oxygen Delivery Method MDM - Extremity (Nontraumatic) Lab Data Labs: Point of Care Testing Test Results Not applicable Imaging Data Extremity x-ray #1: Radiologist's Impression: PROCEDURE:? XR HIP W PEL IF DONE LT 2V ? INDICATIONS:? eval for dislocation ? TECHNIQUE:? 2 views of the hip were acquired.? ? COMPARISON:? [facility], CR, XR HIP W PEL IF DONE LT 2V, 08/09/2022, 0:03.? [facility], CR, XR HIP W PEL IF DONE LT 2V, 08/08/2022, 21:51. ? FINDINGS:? ? Bones:? Left hip arthroplasty is superiorly dislocated.? Moderate right hip arthrosis ? Soft tissues:? Vascular calcifications. ? IMPRESSION:? Superiorly dislocated left hip arthroplasty. ? ? Dictated by: Nitin Lehman M.D. on 08/09/2022 at 8:20 ? ? Extremity x-ray #2: Radiologist's Impression: PROCEDURE:? XR HIP W PEL IF DONE LT 2V ? INDICATIONS:? post op ? TECHNIQUE:? 2 views of the hip were acquired.? ? COMPARISON:? [facility], CR, XR HIP W PEL IF DONE LT 2V, 08/09/2022, 7:51. ? FINDINGS:? ? Bones:? Left hip hemiarthroplasty now shows appropriate articulation without evidence of fracture. Generalized decrease in osseous mineralization noted.? Advanced right hip joint space narrowing and subchondral sclerosis.? Degenerative changes noted lower lumbar spine ? Soft tissues:? No suspicious soft tissue calcifications or masses.? ? IMPRESSION:? ? Left hip hemiarthroplasty in appropriate position.? Osteopenia without fracture. ? ? ? Approved by: Khoi Gee M.D. on 08/09/2022 at 9:06? MDM Narrative Medical decision making narrative: Patient 82-year-old female presents for the 2nd time in about 8 hours for left dislocated hip. She has not really been following hip protocol. She did not have a tall commode last night sat on the commode and it dislocated. Previously she bent down to empty out a ana litter box. Hip was easily reduced. We discussed precautions and getting taller commode. This may need revision. I discussed case with Dr. Dickinson, on-call Orthopedics. Who state recommended outpatient follow-up, he will pass message along to Dr. Thomas. Patient ambulated in the ED with knee immobilizer and walker. She has a life Alert at home. She actually has 24 hour in home person caregiver. However the caregiver can not pick her up when she falls her her hip is dislocated. She is not supposed to have follow-up for couple of weeks. At this time we went over precautions and movements which are not allowed, both she and her ex- understand. Discharge Plan Departure Patient Disposition: Home Clinical Impression: Closed dislocation of left hip Instructions: DI for Hip Dislocation -- Adult Activity Restrictions/Additional Instructions: *You have been diagnosed with left hip dislocation *What to do: I recommend going to [employer] to get a higher commadoe. Don't bend over to pick up attendant cat or cat litter. This may need surgery revision, to be discussed with your surgeon. Follow these precautions for 6 weeks after your injury or as directed: --Sit with your back straight and your feet flat on the floor. Do not cross your legs. Do not lean forward when you sit in a chair. --Keep your knees apart. Place a pillow or wedge between your knees when you sit or lie. Do not twist your knees. Do not lift your knees higher than your hips. --Do not sit in a low chair. Use armrests and your upper body strength to push yourself up from a sitting position. --Do not bend at the waist to pick up attendant an object from the floor. Bend your knees to reach the object, or use a tool to pick it up *Continue to take medications as directed [place] 1 tablet every 6 hours if needed for pain *Follow up with your primary care provider in 2-3 days or call [phone] Thomas tomorrow to schedule follow-up appoint *Return to ER if you should have increased pain just location [or] any new, worsening or concerning symptoms Prescriptions: New hydrocodone-acetaminophen 5-325 mg tablet 1 tab PO Q6H PRN (Reason: pain) Qty: 10 0RF No Action atenolol 25 mg tablet 25 mg PO DAILY losartan 25 mg tablet 25 mg PO DAILY diclofenac sodium [Voltaren] 1 % gel 2 gram TOP QID estradiol [Vagifem] 10 mcg tablet 10 mcg vaginal 2XW Qty: 24 3RF prednisone 5 mg tablet 5 mg PO DAILY multivitamin tablet 1 tab PO DAILY ascorbic acid (vitamin C) 500 mg capsule 500 mg PO DAILY calcium carbonate [Calci-Mix] 500 mg calcium (1,250 mg) capsule 500 mg PO BID cholecalciferol (vitamin D3) 2,000 unit capsule 2,000 unit PO DAILY omega 1-fmp-vmm-fish oil [Fish Oil] 300-1,000 mg capsule 1 cap PO DAILY lidocaine 4 % adhesive patch,medicated 1 patch topical DAILY PRN (Reason: Pain (Scale Score 4-6)) tramadol 50 mg tablet 50 mg PO BID PRN (Reason: Pain (Scale Score 4-6)) naproxen 500 mg tablet 500 mg PO DAILY PRN (Reason: Pain (Scale Score 1-3)) aspirin 81 mg Capsule 81 mg PO DAILY PRN (Reason: Headache) acetaminophen 325 mg Tablet 650 mg PO Q6HR Qty: 30 0RF docusate sodium 100 mg Capsule 100 mg PO BID Qty: 30 0RF polyethylene glycol 3350 17 gram Powder In Packet 17 g PO DAILY PRN (Reason: Constipation) Qty: 14 0RF ibuprofen 400 mg Tablet 400 mg PO Q6HR Qty: 30 0RF Deep Sea Nasal 0.65 % Aerosol,[place] 1 spray intranasal PRN PRN (Reason: Congestion) Qty: 44 0RF oxycodone 5 mg capsule 5 mg PO Q6H PRN (Reason: pain) Qty: 20 0RF tramadol 50 mg tablet 50 mg PO Q8H PRN (Reason: pain) Qty: 30 0RF Referrals: Paras Thomas MD [Physician] - Lainey Martins ARNP [Primary Care Provider] - Stand Alone Forms: Patient Portal/API
[2022-08-09] MEDS: MORPHINE 2 MG/ML INJ IV (07:53)
[2022-08-09] MEDS: propofoL 200 MG/20 ML VIAL 75 MG IV (08:40)
--- NOTE | 2022-08-09 08:44 | DI.RAD.S_ITS ---
PROCEDURE: XR HIP W PEL IF DONE LT 2V INDICATIONS: post op TECHNIQUE: 2 views of the hip were acquired. COMPARISON: [facility], CR, XR HIP W PEL IF DONE LT 2V, 08/09/2022, 7:51. FINDINGS: Bones: Left hip hemiarthroplasty now shows appropriate articulation without evidence of fracture. Generalized decrease in osseous mineralization noted. Advanced right hip joint space narrowing and subchondral sclerosis. Degenerative changes noted lower lumbar spine Soft tissues: No suspicious soft tissue calcifications or masses. IMPRESSION: Left hip hemiarthroplasty in appropriate position. Osteopenia without fracture. Approved by: hKoi Gee M.D. on 08/09/2022 at 9:06
--- NOTE | 2022-08-09 11:46 | PC.NURSE ---
pt ambulated around ER without diffiuculty post hip reduction. She spoke with Dr. Motta during her walk.
== END 2022-08-09 11:49 | disposition home or self-care (01) ==
PROVIDERS: Emergency Provider Emergency Medicine; Family Provider Family Medicine; PCP Nurse Practitioner Family
DX: S73.005A Unspecified dislocation of left hip, initial encounter (principal); W18.30XA Fall on same level, unspecified, initial encounter
CPT/HCPCS: 27250; 73502; 96374; 99152; 99284; J2270; J2704

== ENCOUNTER 2022-08-10 15:03 | Emergency (ER) | payer MEDICARE, SELFPAY ==
[2022-07-10 17:32] VITALS: BMI 26.9
[2022-08-10] VITALS (23 sets, daily range): BP systolic 110–174; BP diastolic 57–105; PULSE 68–97; RESP 14–22; O2SAT 94–99
--- NOTE | 2022-08-10 15:18 | DI.RAD.S_ITS ---
PROCEDURE: XR HIP W PEL IF DONE LT 2V INDICATIONS: atraumatic left hip pain sp dislocation/ reduction x 2 TECHNIQUE: 2 views of the hip were acquired. COMPARISON: [facility], [facility], XR HIP W PEL IF DONE LT 2V, 08/09/2022, 8:37. [facility], CR, XR HIP W PEL IF DONE LT 2V, 08/09/2022, 7:51. FINDINGS: Left hip arthroplasty. Superior dislocation of the left hip. No acute fracture identified. Degenerative changes of the right hip are present. IMPRESSION: Superior dislocation of the left hip. Dictated by: Royal Walters M.D. on 08/10/2022 at 16:48 Approved by: Royal Walters M.D. on 08/10/2022 at 16:49
--- NOTE | 2022-08-10 16:05 | ED_ITS ---
HPI - Extremity Problem <Umm Kalia, DO - Last Filed: 08/13/22 01:00> General Chief complaint: Extremity Problem,Nontraumatic Stated complaint: lt. hip px Time Seen by Provider: 08/10/22 15:30 Source: patient and EMS Mode of arrival: EMS History of Present Illness HPI Narrative: Patient is a 82-year-old female who presents for the 3rd time over the last 3 days. She is presented every single day with left hip pain and dislocation she presents today the same. She is been sent home with knee immobilizer in upper discharge instructions. She is Parkinson's and probably some mild dementia and not able to follow directions. 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 She does have a caregiver with her 24 hours but caregiver not currently here. Ex- has previously picked her up and has been helping her but does not live with her. She reports that when she left here the last time she was able to get out of the car but it was a little tricky she says by the time she got inside it had come out again. She does not remember any specific movement that popped her hip back out. Related Data Home Medications Medication Instructions Recorded Confirmed atenolol 25 mg tablet 25 mg PO DAILY 09/17/17 08/11/22 ascorbic acid (vitamin C) 500 mg 500 mg PO DAILY 11/22/17 08/11/22 capsule calcium carbonate 500 mg calcium 500 mg PO BID 11/22/17 08/11/22 (1,250 mg) capsule (Calci-Mix) cholecalciferol (vitamin D3) 50 2,000 unit PO DAILY 11/22/17 08/11/22 mcg (2,000 unit) capsule multivitamin 1 tab PO DAILY 11/22/17 08/11/22 prednisone 5 mg tablet 5 mg PO DAILY 11/22/17 08/11/22 diclofenac sodium 1 % topical gel 2 gram topical QID 09/28/18 08/11/22 (Voltaren) losartan 25 mg tablet 25 mg PO DAILY 09/28/18 08/11/22 lidocaine 4 % topical patch 1 patch topical DAILY PRN Pain 12/15/21 08/11/22 (Scale Score 4-6) omega [id number] oil 300 1 cap PO DAILY 12/15/21 08/11/22 mg-1,000 mg capsule (Fish Oil) naproxen 500 mg tablet 500 mg PO DAILY PRN Pain (Scale 12/16/21 08/11/22 Score 1-3) aspirin 81 mg capsule 81 mg PO DAILY PRN Headache 01/06/22 08/11/22 acetaminophen 325 mg tablet 650 mg PO Q6HR PRN Pain (Scale 08/11/22 08/11/22 Score 4-6) sodium chloride 0.65 % nasal spray 1 spray intranasal BID PRN 08/11/22 08/11/22 aerosol (Deep Sea Nasal) Congestion Previous Rx's Medication Instructions Recorded estradiol 10 mcg vaginal tablet 10 mcg vaginal 2XW #24 tabs 03/19/22 (Vagifem) docusate sodium 100 mg capsule 100 mg PO BID #30 caps 07/13/22 ibuprofen 400 mg tablet 400 mg PO Q6HR #30 tabs 07/13/22 oxycodone 5 mg capsule 5 mg PO Q6H PRN pain #20 caps 07/13/22 polyethylene glycol 3350 17 gram 17 g PO DAILY PRN Constipation #14 07/13/22 oral powder packet ea tramadol 50 mg tablet 50 mg PO Q8H PRN pain #30 tabs 07/13/22 Allergies Allergy/AdvReac Type Severity Reaction Status Date / Time ciprofloxacin [From Cipro] Allergy Verified 08/10/22 15:18 doxycycline Allergy Verified 08/10/22 15:18 gabapentin Allergy Verified 08/10/22 15:18 mirabegron [From Myrbetriq] Allergy Verified 08/10/22 15:18 primidone Allergy Verified 08/10/22 15:18 propranolol Allergy Verified 08/10/22 15:18 oxybutynin AdvReac Intermediate Facial Verified 08/10/22 15:18 redness and swelling nitrofurantoin AdvReac Mild Dizziness Verified 08/10/22 15:18 [From Macrobid] Review of Systems <Umm Motta DO - Last Filed: 08/13/22 01:00> Review of Systems ROS Unobtainable: All systems reviewed & are unremarkable except as noted in HPI and below Patient History <Umm Motta DO - Last Filed: 08/13/22 01:00> Medical History Breast cancer Dizziness Lupus Osteopenia Parkinson disease Surgical History History of cataract removal with insertion of prosthetic lens Status post laparoscopic cholecystectomy (12/2014) Status post total knee replacement, left Family History Mother Hypertension Father Heart disease Brother Heart disease Social History household members: caregiver and none Smoking Status: Never smoker alcohol intake: never substance use type: does not use Smoking Status: Never smoker alcohol intake frequency: 0-2 drinks per day Substance Use Type: does not use Exam <Umm Motta, DO - Last Filed: 08/13/22 01:00> Initial Vital Signs Initial Vital Signs: Vital Signs Pulse Rate 68 08/10/22 16:35 Blood Pressure 140/76 08/10/22 16:35 Pulse Oximetry 97 08/10/22 16:35 Oxygen Delivery Method Room Air 08/10/22 16:35 GENERAL: Alert 82-year-old female appears uncomfortable HEENT: Head atraumatic,EOMI, pupils reactive, face symmetric, [moist] mucous membranes CARDIOVASCULAR: Regular rate and rhythm without murmurs, rubs or gallops. RESPIRATORY: Breath sounds equal bilaterally, no wheezes rales or rhonchi. ABDOMEN: Soft, nontender. Normoactive bowel sounds all 4 quadrants. No guarding or rebound. EXTREMITIES: Normal range of motion, no clubbing or edema. Neurovascularly intact Left leg is shortened distal pedal pulse intact tender at left NEUROLOGICAL: Alert and oriented x4 SKIN: Warm, dry, no laceration, no petechiae, no rashes or lesions. <Doron Sarabia, DO - Last Filed: 08/11/22 18:12> Initial Vital Signs Initial Vital Signs: Vital Signs Pulse Rate 68 08/10/22 16:35 Blood Pressure 140/76 08/10/22 16:35 Pulse Oximetry 97 08/10/22 16:35 Oxygen Delivery Method Room Air 08/10/22 16:35 <Ramni Shore, DO - Last Filed: 08/12/22 05:58> Initial Vital Signs Initial Vital Signs: Vital Signs Pulse Rate 68 08/10/22 16:35 Blood Pressure 140/76 08/10/22 16:35 Pulse Oximetry 97 08/10/22 16:35 Oxygen Delivery Method Room Air 08/10/22 16:35 Procedures <Umm Motta DO - Last Filed: 08/13/22 01:00> Orthopedic Joint Reduction Joint #1: Side: left Joint Reduction Location: hip Analgesia: procedural sedation Technique used: traction/counter-traction and direct manipulation Post-reduction neuro exam: intact and no change Post-reduction vascular: intact and no change Post Reduction X-Ray Obtained: Yes Post Reduction X-Ray Results: not reduced Patient Tolerated Procedure: Well Joint #2: Side: left Joint Reduction Location: hip Analgesia: procedural sedation Technique used: traction/counter-traction and direct manipulation Post-reduction neuro exam: intact Post-reduction vascular: intact and no change Post Reduction X-Ray Obtained: Yes Post Reduction X-Ray Results: reduced Procedural Sedation Consent signed: Yes Time out performed: Yes ASA Class: II Mallampati Airway Classification: Class II IV Propofol dose (mg): 60 Intraservice time/total sedation time (min): 12 ED Sedation Level: Moderate (Concious) Patient Tolerated Procedure: Well and No complications Complications: none Additional Comments: Initial attempt was unsuccessful it was re-attempted with again 60 mg of propofol. She would no complications tolerated procedure well there is 12 minutes of sedation again. Course <Umm Motta DO - Last Filed: 08/13/22 01:00> Orders Ordered: Discontinued Medications Atenolol (Atenolol 25 Mg Tablet) 25 mg PO DAILY [facility] Last Admin: 08/11/22 08:25 Dose: 25 mg Documented By: AT Hydromorphone HCl (Hydromorphone 0.5 Mg Inj) 0.5 mg IV NOW ONE Stop: 08/10/22 21:13 Last Admin: 08/10/22 21:16 Dose: 0.5 mg Documented By: OSITO Hydromorphone HCl (Hydromorphone 0.5 Mg Inj) 0.5 mg IV NOW ONE Stop: 08/11/22 08:17 Last Admin: 08/11/22 08:23 Dose: 0.5 mg Documented By: AT Ketorolac Tromethamine (Ketorolac 30 Mg/Ml Vial) 15 mg IV NOW ONE Stop: 08/10/22 19:08 Last Admin: 08/10/22 19:13 Dose: 15 mg Documented By: OSITO Losartan Potassium (Losartan 25 Mg Tablet) 25 mg PO DAILY [facility] Last Admin: 08/11/22 08:24 Dose: 25 mg Documented By: AT Morphine Sulfate (Morphine 2 Mg/Ml Inj) 2 mg IV NOW ONE Stop: 08/10/22 16:03 Last Admin: 08/10/22 17:45 Dose: 2 mg Documented By: OSITO Morphine Sulfate (Morphine 2 Mg/Ml Inj) 2 mg IV NOW ONE Stop: 08/10/22 20:16 Last Admin: 08/10/22 20:29 Dose: 2 mg Documented By: JOEY Oxycodone HCl (Oxycodone Ir 5 Mg Tablet) 5 mg PO NOW ONE Stop: 08/11/22 13:05 Last Admin: 08/11/22 13:28 Dose: 5 mg Documented By: NEFTALY Propofol (Propofol 200 Mg/20 Ml Vial) 60 mg IV NOW ONE Stop: 08/10/22 16:14 Last Admin: 08/10/22 18:27 Dose: 60 mg Documented By: OSITO Propofol (Propofol 200 Mg/20 Ml Vial) 60 mg IV NOW ONE Stop: 08/10/22 18:49 Last Admin: 08/10/22 18:40 Dose: 60 mg Documented By: OSITO Vital Signs Vital signs: Vital Signs - 8 hr 08/11/22 10:15 08/11/22 10:20 08/11/22 10:25 Pulse Rate 70 71 68 Respiratory Rate 16 16 17 Blood Pressure Pulse Oximetry 95 95 95 08/11/22 10:30 08/11/22 10:30 08/11/22 10:35 Pulse Rate 69 73 Respiratory Rate 20 21 Blood Pressure 129/63 Pulse Oximetry 95 96 08/11/22 10:40 08/11/22 10:45 08/11/22 10:50 Pulse Rate 71 72 75 Respiratory Rate 17 18 18 Blood Pressure Pulse Oximetry 95 96 08/11/22 10:55 08/11/22 11:00 08/11/22 11:05 Pulse Rate 80 73 78 Respiratory Rate 29 H 39 H 33 H Blood Pressure Pulse Oximetry 08/11/22 11:10 08/11/22 11:15 08/11/22 11:20 Pulse Rate 80 76 74 Respiratory Rate 38 H 22 16 Blood Pressure Pulse Oximetry 94 95 08/11/22 11:25 08/11/22 11:30 08/11/22 11:30 Pulse Rate 71 75 Respiratory Rate 19 20 Blood Pressure 135/63 Pulse Oximetry 93 96 08/11/22 11:35 08/11/22 11:40 08/11/22 11:45 Pulse Rate 75 75 75 Respiratory Rate 16 20 14 Blood Pressure Pulse Oximetry 96 96 95 08/11/22 11:50 08/11/22 11:55 08/11/22 12:00 Pulse Rate 78 77 Respiratory Rate 18 18 Blood Pressure 148/70 H Pulse Oximetry 96 96 08/11/22 12:00 08/11/22 12:05 08/11/22 12:10 Pulse Rate 75 73 73 Respiratory Rate 19 24 16 Blood Pressure Pulse Oximetry 95 95 95 08/11/22 12:15 08/11/22 12:20 08/11/22 12:25 Pulse Rate 71 77 77 Respiratory Rate 16 19 20 Blood Pressure Pulse Oximetry 94 93 96 08/11/22 12:30 08/11/22 12:30 08/11/22 12:35 Pulse Rate 78 80 Respiratory Rate 22 20 Blood Pressure 155/75 H Pulse Oximetry 96 96 08/11/22 12:40 08/11/22 12:45 08/11/22 12:50 Pulse Rate 78 75 84 Respiratory Rate 20 18 32 H Blood Pressure Pulse Oximetry 96 97 96 <Doron Sarabia DO - Last Filed: 08/11/22 18:12> Orders Ordered: Discontinued Medications Atenolol (Atenolol 25 Mg Tablet) 25 mg PO DAILY RICK Last Admin: 08/11/22 08:25 Dose: 25 mg Documented By: AT Hydromorphone HCl (Hydromorphone 0.5 Mg Inj) 0.5 mg IV NOW ONE Stop: 08/10/22 21:13 Last Admin: 08/10/22 21:16 Dose: 0.5 mg Documented By: KB Hydromorphone HCl (Hydromorphone 0.5 Mg Inj) 0.5 mg IV NOW ONE Stop: 08/11/22 08:17 Last Admin: 08/11/22 08:23 Dose: 0.5 mg Documented By: AT Ketorolac Tromethamine (Ketorolac 30 Mg/Ml Vial) 15 mg IV NOW ONE Stop: 08/10/22 19:08 Last Admin: 08/10/22 19:13 Dose: 15 mg Documented By: OSITO Losartan Potassium (Losartan 25 Mg Tablet) 25 mg PO DAILY [facility]ICK Last Admin: 08/11/22 08:24 Dose: 25 mg Documented By: AT Morphine Sulfate (Morphine 2 Mg/Ml Inj) 2 mg IV NOW ONE Stop: 08/10/22 16:03 Last Admin: 08/10/22 17:45 Dose: 2 mg Documented By: OSITO Morphine Sulfate (Morphine 2 Mg/Ml Inj) 2 mg IV NOW ONE Stop: 08/10/22 20:16 Last Admin: 08/10/22 20:29 Dose: 2 mg Documented By: JOEY Oxycodone HCl (Oxycodone Ir 5 Mg Tablet) 5 mg PO NOW ONE Stop: 08/11/22 13:05 Last Admin: 08/11/22 13:28 Dose: 5 mg Documented By: NEFTALY Propofol (Propofol 200 Mg/20 Ml Vial) 60 mg IV NOW ONE Stop: 08/10/22 16:14 Last Admin: 08/10/22 18:27 Dose: 60 mg Documented By: OSITO Propofol (Propofol 200 Mg/20 Ml Vial) 60 mg IV NOW ONE Stop: 08/10/22 18:49 Last Admin: 08/10/22 18:40 Dose: 60 mg Documented By: OSITO Vital Signs Vital signs: Vital Signs - 8 hr 08/11/22 10:15 08/11/22 10:20 08/11/22 10:25 Pulse Rate 70 71 68 Respiratory Rate 16 16 17 Blood Pressure Pulse Oximetry 95 95 95 08/11/22 10:30 08/11/22 10:30 08/11/22 10:35 Pulse Rate 69 73 Respiratory Rate 20 21 Blood Pressure 129/63 Pulse Oximetry 95 96 08/11/22 10:40 08/11/22 10:45 08/11/22 10:50 Pulse Rate 71 72 75 Respiratory Rate 17 18 18 Blood Pressure Pulse Oximetry 95 96 08/11/22 10:55 08/11/22 11:00 08/11/22 11:05 Pulse Rate 80 73 78 Respiratory Rate 29 H 39 H 33 H Blood Pressure Pulse Oximetry 08/11/22 11:10 08/11/22 11:15 08/11/22 11:20 Pulse Rate 80 76 74 Respiratory Rate 38 H 22 16 Blood Pressure Pulse Oximetry 94 95 08/11/22 11:25 08/11/22 11:30 08/11/22 11:30 Pulse Rate 71 75 Respiratory Rate 19 20 Blood Pressure 135/63 Pulse Oximetry 93 96 08/11/22 11:35 08/11/22 11:40 08/11/22 11:45 Pulse Rate 75 75 75 Respiratory Rate 16 20 14 Blood Pressure Pulse Oximetry 96 96 95 08/11/22 11:50 08/11/22 11:55 08/11/22 12:00 Pulse Rate 78 77 Respiratory Rate 18 18 Blood Pressure 148/70 H Pulse Oximetry 96 96 08/11/22 12:00 08/11/22 12:05 08/11/22 12:10 Pulse Rate 75 73 73 Respiratory Rate 19 24 16 Blood Pressure Pulse Oximetry 95 95 95 08/11/22 12:15 08/11/22 12:20 08/11/22 12:25 Pulse Rate 71 77 77 Respiratory Rate 16 19 20 Blood Pressure Pulse Oximetry 94 93 96 08/11/22 12:30 08/11/22 12:30 08/11/22 12:35 Pulse Rate 78 80 Respiratory Rate 22 20 Blood Pressure 155/75 H Pulse Oximetry 96 96 08/11/22 12:40 08/11/22 12:45 08/11/22 12:50 Pulse Rate 78 75 84 Respiratory Rate 20 18 32 H Blood Pressure Pulse Oximetry 96 97 96 <Ramin Shore DO - Last Filed: 08/12/22 05:58> Orders Ordered: Discontinued Medications Atenolol (Atenolol 25 Mg Tablet) 25 mg PO DAILY [facility]ICK Last Admin: 08/11/22 08:25 Dose: 25 mg Documented By: AT Hydromorphone HCl (Hydromorphone 0.5 Mg Inj) 0.5 mg IV NOW ONE Stop: 08/10/22 21:13 Last Admin: 08/10/22 21:16 Dose: 0.5 mg Documented By: KB Hydromorphone HCl (Hydromorphone 0.5 Mg Inj) 0.5 mg IV NOW ONE Stop: 08/11/22 08:17 Last Admin: 08/11/22 08:23 Dose: 0.5 mg Documented By: AT Ketorolac Tromethamine (Ketorolac 30 Mg/Ml Vial) 15 mg IV NOW ONE Stop: 08/10/22 19:08 Last Admin: 08/10/22 19:13 Dose: 15 mg Documented By: OSITO Losartan Potassium (Losartan 25 Mg Tablet) 25 mg PO DAILY [facility] Last Admin: 08/11/22 08:24 Dose: 25 mg Documented By: AT Morphine Sulfate (Morphine 2 Mg/Ml Inj) 2 mg IV NOW ONE Stop: 08/10/22 16:03 Last Admin: 08/10/22 17:45 Dose: 2 mg Documented By: OSITO Morphine Sulfate (Morphine 2 Mg/Ml Inj) 2 mg IV NOW ONE Stop: 08/10/22 20:16 Last Admin: 08/10/22 20:29 Dose: 2 mg Documented By: JOEY Oxycodone HCl (Oxycodone Ir 5 Mg Tablet) 5 mg PO NOW ONE Stop: 08/11/22 13:05 Last Admin: 08/11/22 13:28 Dose: 5 mg Documented By: NEFTALY Propofol (Propofol 200 Mg/20 Ml Vial) 60 mg IV NOW ONE Stop: 08/10/22 16:14 Last Admin: 08/10/22 18:27 Dose: 60 mg Documented By: OSITO Propofol (Propofol 200 Mg/20 Ml Vial) 60 mg IV NOW ONE Stop: 08/10/22 18:49 Last Admin: 08/10/22 18:40 Dose: 60 mg Documented By: OSITO Vital Signs Vital signs: Vital Signs - 8 hr 08/11/22 10:15 08/11/22 10:20 08/11/22 10:25 Pulse Rate 70 71 68 Respiratory Rate 16 16 17 Blood Pressure Pulse Oximetry 95 95 95 08/11/22 10:30 08/11/22 10:30 08/11/22 10:35 Pulse Rate 69 73 Respiratory Rate 20 21 Blood Pressure 129/63 Pulse Oximetry 95 96 08/11/22 10:40 08/11/22 10:45 08/11/22 10:50 Pulse Rate 71 72 75 Respiratory Rate 17 18 18 Blood Pressure Pulse Oximetry 95 96 08/11/22 10:55 08/11/22 11:00 08/11/22 11:05 Pulse Rate 80 73 78 Respiratory Rate 29 H 39 H 33 H Blood Pressure Pulse Oximetry 08/11/22 11:10 08/11/22 11:15 08/11/22 11:20 Pulse Rate 80 76 74 Respiratory Rate 38 H 22 16 Blood Pressure Pulse Oximetry 94 95 08/11/22 11:25 08/11/22 11:30 08/11/22 11:30 Pulse Rate 71 75 Respiratory Rate 19 20 Blood Pressure 135/63 Pulse Oximetry 93 96 08/11/22 11:35 08/11/22 11:40 08/11/22 11:45 Pulse Rate 75 75 75 Respiratory Rate 16 20 14 Blood Pressure Pulse Oximetry 96 96 95 08/11/22 11:50 08/11/22 11:55 08/11/22 12:00 Pulse Rate 78 77 Respiratory Rate 18 18 Blood Pressure 148/70 H Pulse Oximetry 96 96 08/11/22 12:00 08/11/22 12:05 08/11/22 12:10 Pulse Rate 75 73 73 Respiratory Rate 19 24 16 Blood Pressure Pulse Oximetry 95 95 95 08/11/22 12:15 08/11/22 12:20 08/11/22 12:25 Pulse Rate 71 77 77 Respiratory Rate 16 19 20 Blood Pressure Pulse Oximetry 94 93 96 08/11/22 12:30 08/11/22 12:30 08/11/22 12:35 Pulse Rate 78 80 Respiratory Rate 22 20 Blood Pressure 155/75 H Pulse Oximetry 96 96 08/11/22 12:40 08/11/22 12:45 08/11/22 12:50 Pulse Rate 78 75 84 Respiratory Rate 20 18 32 H Blood Pressure Pulse Oximetry 96 97 96 MDM - Extremity (Nontraumatic) <Umm Motta, DO - Last Filed: 08/13/22 01:00> Lab Data 08/10/22 17:44 08/10/22 17:44 Labs: Lab Results 08/10/22 08/10/22 08/10/22 Range/Units 17:20 17:44 17:44 WBC 11.5 H (4.5-11.0) X10^3/uL RBC 3.83 L (4.0-5.2) X10^6/uL Hgb 11.6 L (12.0-16.0) g/dL Hct 34.7 L (36-46) % MCV 90.5 (80-100) fL MCH 30.3 (26-34) PG MCHC 33.4 (30-36) % RDW 16.0 H (11.6-14.8) % Plt Count 176 (150-400) X10^3/uL Neut % (Auto) 72.9 (50-75) % Lymph % (Auto) 14.5 L (25-40) % [place] % (Auto) 11.5 (3-14) % Eos % (Auto) 0.5 L (2-4) % Baso % (Auto) 0.6 (0-2) % Neut # (Auto) 8400 H (1647-2345) /uL Lymph # (Auto) 1700 (2229-0780) /uL [place] # (Auto) 1300 H (0-900) /uL Eos # (Auto) 100 (0-450) /uL Baso # (Auto) 100 (0-100) /uL Sodium 136 L (137-145) mmol/L Potassium 4.4 (3.4-5.1) mmol/L Chloride 102 (98-107) mmol/L Carbon Dioxide 28 (22-32) mmol/L BUN 22 H (7-17) mg/dL Creatinine 0.54 (0.52-1.04) mg/dL Estimated GFR > 60 (>60) mL/min BUN/Creatinine Ratio 40.7 H (6-22) Glucose 100 (80-110) mg/dL Calcium 9.6 (8.4-10.2) mg/dL Total Bilirubin 0.9 (0.2-1.3) mg/dL AST 60 H (14-36) IU/L ALT 26 (<35) IU/L Alkaline Phosphatase 50 (38-126) U/L Total Protein 6.4 (6.3-8.2) g/dL Albumin 3.6 (3.5-5.0) g/dL Globulin 2.8 (1.7-4.1) g/dL Albumin/Globulin Ratio 1.3 (1.0-2.8) Procalcitonin (<0.5) ng/mL Urine Color Urine Appearance Urine pH (4.5-8.0) Ur Specific [place] (1.000-1.035) Urine Protein (Negative) Urine Glucose (UA) (Negative) g/dL Urine Ketones (NEGATIVE) Urine Occult Blood (Negative) Urine Nitrate (Negative) Urine Bilirubin (NEGATIVE) Urine Urobilinogen (0.2) E.U./dL Ur Leukocyte Esterase (NEGATIVE) Urine RBC (0-5/HPF) Urine WBC (0-5/HPF) Urine Bacteria (None) Ur Culture Indicated? SARS-CoV-2 (PCR) Negative (Negative) 08/10/22 08/10/22 Range/Units 17:44 17:44 WBC (4.5-11.0) X10^3/uL RBC (4.0-5.2) X10^6/uL Hgb (12.0-16.0) g/dL Hct (36-46) % MCV (80-100) fL MCH (26-34) PG MCHC (30-36) % RDW (11.6-14.8) % Plt Count (150-400) X10^3/uL Neut % (Auto) (50-75) % Lymph % (Auto) (25-40) % [place] % (Auto) (3-14) % Eos % (Auto) (2-4) % Baso % (Auto) (0-2) % Neut # (Auto) (2442-0873) /uL Lymph # (Auto) (9484-6343) /uL [place] # (Auto) (0-900) /uL Eos # (Auto) (0-450) /uL Baso # (Auto) (0-100) /uL Sodium (137-145) mmol/L Potassium (3.4-5.1) mmol/L Chloride (98-107) mmol/L Carbon Dioxide (22-32) mmol/L BUN (7-17) mg/dL Creatinine (0.52-1.04) mg/dL Estimated GFR (>60) mL/min BUN/Creatinine Ratio (6-22) Glucose (80-110) mg/dL Calcium (8.4-10.2) mg/dL Total Bilirubin (0.2-1.3) mg/dL AST (14-36) IU/L ALT (<35) IU/L Alkaline Phosphatase (38-126) U/L Total Protein (6.3-8.2) g/dL Albumin (3.5-5.0) g/dL Globulin (1.7-4.1) g/dL Albumin/Globulin Ratio (1.0-2.8) Procalcitonin 0.06 (<0.5) ng/mL Urine Color Yellow Urine Appearance Clear Urine pH 6.0 (4.5-8.0) Ur Specific [place] <=1.005 (1.000-1.035) Urine Protein 1+ H (Negative) Urine Glucose (UA) Negative (Negative) g/dL Urine Ketones Negative (NEGATIVE) Urine Occult Blood Negative (Negative) Urine Nitrate Negative (Negative) Urine Bilirubin Negative (NEGATIVE) Urine Urobilinogen 0.2 (0.2) E.U./dL Ur Leukocyte Esterase Negative (NEGATIVE) Urine RBC None seen (0-5/HPF) Urine WBC None seen (0-5/HPF) Urine Bacteria None seen (None) Ur Culture Indicated? Cult not indicated SARS-CoV-2 (PCR) (Negative) Point of Care Testing Test Results Not applicable Imaging Data Extremity x-ray #1: Radiologist's Impression: PROCEDURE:? XR HIP W PEL IF DONE LT 2V ? INDICATIONS:? atraumatic left hip pain sp dislocation/ reduction x 2 ? TECHNIQUE:? 2 views of the hip were acquired.? ? COMPARISON:? [facility], CR, XR HIP W PEL IF DONE LT 2V, 08/09/2022, 8:37.? [facility], CR, XR HIP W PEL IF DONE LT 2V, 08/09/2022, 7:51. ? FINDINGS:? ? Left hip arthroplasty.? Superior dislocation of the left hip.? No acute fracture identified.? Degenerative changes of the right hip are present. ? IMPRESSION:? Superior dislocation of the left hip. ? ? Dictated by: Royal Walters M.D. on 08/10/2022 at 16:48 ? ? Extremity x-ray #2: Radiologist's Impression: PROCEDURE:? XR PELVIS 1-2V ? INDICATIONS:? reduction ? TECHNIQUE:? 1 view(s) of the pelvis acquired.? ? COMPARISON:? [facility], CR, XR PELVIS 1-2V, 07/10/2022, 17:59.? [facility], CR, XR HIP W PEL IF DONE LT 2V, 08/10/2022, 15:21. ? FINDINGS:? ? Bones:? No fractures or dislocations.? No suspicious bony lesions.? There has been interval reduction of previously left hip dislocation.? There appears to be good anatomic alignment in single AP view.? Severe right hip arthritic changes present. ? Soft tissues:? Visualized bowel gas pattern is normal.? No suspicious soft tissue calcifications.? ? IMPRESSION:? Interval reduction with good anatomic positioning noted in single AP view only.? No visualized acute fracture or dislocation. However, if clinical concern and/or pain persist, short interval imaging followup in 7-10 days is recommended, as occult injury cannot be definitively excluded. ? Dictated by: Vicky Artis M.D. on 08/10/2022 at 19:06 ? ? 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 She is appointment with her orthopedic surgeon tomorrow 3:30 p.m.. Called and spoken with Dr. Jacinto she understands that this is a frustrating process unfortunately not emergent she states does not need surgery immediately and needs to follow-up. Recommends in abduction pillow. Patient required 2 attempts at reduction it was relatively easy however just did not work the 1st time she tolerated sedation well. Dill catheter has been placed to help prevent her from getting up and going to the restroom abduction pillow is placed. Patient is obviously hesitant to go home. Blood work is overall reassuring mild leukocytosis no evidence of UTI electrolytes are okay and no DUY. Social work has been into evaluate patient. Patient does not really back to rehab. Social work was in to evaluate patient. Patient has a caregiver at home. Patient does not necessarily want to go back to a retirement facility it also does not make sense for her if she is going to require a surgery revision she will need rehab after that. At this time will keep patient in the emergency department pain controlled. Will have PTC her in the morning and assess the situation. I briefly discussed the case with Dr. Jacinto who would be happy to consult if patient were admitted but states no immediate surgery to be expected. I discussed case with Dr. Pruett the hospitalist who reports really does not meet any admission criteria no point in admitting if there will be no surgery. Patient has extremely unstable hip which dislocates very easily. She will need a revision however not emergent. Getting pain medications now attempted ambulation today she previously ambulated each time she was discharged however today having increased pain. 3rd x-ray was done concern for possible dislocation however it is not dislocated. Patient signed out to Dr. Sarabia for management and disposition <Doron Sarabia, DO - Last Filed: 08/11/22 18:12> Lab Data Labs: Lab Results 04/24/23 04/24/23 04/24/23 Range/Units 17:20 17:44 17:44 WBC 11.5 H (4.5-11.0) X10^3/uL RBC 3.83 L (4.0-5.2) X10^6/uL Hgb 11.6 L (12.0-16.0) g/dL Hct 34.7 L (36-46) % MCV 90.5 (80-100) fL MCH 30.3 (26-34) PG MCHC 33.4 (30-36) % RDW 16.0 H (11.6-14.8) % Plt Count 176 (150-400) X10^3/uL Neut % (Auto) 72.9 (50-75) % Lymph % (Auto) 14.5 L (25-40) % [place] % (Auto) 11.5 (3-14) % Eos % (Auto) 0.5 L (2-4) % Baso % (Auto) 0.6 (0-2) % Neut # (Auto) 8400 H (3677-7032) /uL Lymph # (Auto) 1700 (0027-5991) /uL [place] # (Auto) 1300 H (0-900) /uL Eos # (Auto) 100 (0-450) /uL Baso # (Auto) 100 (0-100) /uL Sodium 136 L (137-145) mmol/L Potassium 4.4 (3.4-5.1) mmol/L Chloride 102 (98-107) mmol/L Carbon Dioxide 28 (22-32) mmol/L BUN 22 H (7-17) mg/dL Creatinine 0.54 (0.52-1.04) mg/dL Estimated GFR > 60 (>60) mL/min BUN/Creatinine Ratio 40.7 H (6-22) Glucose 100 (80-110) mg/dL Calcium 9.6 (8.4-10.2) mg/dL Total Bilirubin 0.9 (0.2-1.3) mg/dL AST 60 H (14-36) IU/L ALT 26 (<35) IU/L Alkaline Phosphatase 50 (38-126) U/L Total Protein 6.4 (6.3-8.2) g/dL Albumin 3.6 (3.5-5.0) g/dL Globulin 2.8 (1.7-4.1) g/dL Albumin/Globulin Ratio 1.3 (1.0-2.8) Procalcitonin (<0.5) ng/mL Urine Color Urine Appearance Urine pH (4.5-8.0) Ur Specific [place] (1.000-1.035) Urine Protein (Negative) Urine Glucose (UA) (Negative) g/dL Urine Ketones (NEGATIVE) Urine Occult Blood (Negative) Urine Nitrate (Negative) Urine Bilirubin (NEGATIVE) Urine Urobilinogen (0.2) E.U./dL Ur Leukocyte Esterase (NEGATIVE) Urine RBC (0-5/HPF) Urine WBC (0-5/HPF) Urine Bacteria (None) Ur Culture Indicated? SARS-CoV-2 (PCR) Negative (Negative) 08/10/22 08/10/22 Range/Units 17:44 17:44 WBC (4.5-11.0) X10^3/uL RBC (4.0-5.2) X10^6/uL Hgb (12.0-16.0) g/dL Hct (36-46) % MCV (80-100) fL MCH (26-34) PG MCHC (30-36) % RDW (11.6-14.8) % Plt Count (150-400) X10^3/uL Neut % (Auto) (50-75) % Lymph % (Auto) (25-40) % [place] % (Auto) (3-14) % Eos % (Auto) (2-4) % Baso % (Auto) (0-2) % Neut # (Auto) (1340-2572) /uL Lymph # (Auto) (7250-6378) /uL [place] # (Auto) (0-900) /uL Eos # (Auto) (0-450) /uL Baso # (Auto) (0-100) /uL Sodium (137-145) mmol/L Potassium (3.4-5.1) mmol/L Chloride (98-107) mmol/L Carbon Dioxide (22-32) mmol/L BUN (7-17) mg/dL Creatinine (0.52-1.04) mg/dL Estimated GFR (>60) mL/min BUN/Creatinine Ratio (6-22) Glucose (80-110) mg/dL Calcium (8.4-10.2) mg/dL Total Bilirubin (0.2-1.3) mg/dL AST (14-36) IU/L ALT (<35) IU/L Alkaline Phosphatase (38-126) U/L Total Protein (6.3-8.2) g/dL Albumin (3.5-5.0) g/dL Globulin (1.7-4.1) g/dL Albumin/Globulin Ratio (1.0-2.8) Procalcitonin 0.06 (<0.5) ng/mL Urine Color Yellow Urine Appearance Clear Urine pH 6.0 (4.5-8.0) Ur Specific [place] <=1.005 (1.000-1.035) Urine Protein 1+ H (Negative) Urine Glucose (UA) Negative (Negative) g/dL Urine Ketones Negative (NEGATIVE) Urine Occult Blood Negative (Negative) Urine Nitrate Negative (Negative) Urine Bilirubin Negative (NEGATIVE) Urine Urobilinogen 0.2 (0.2) E.U./dL Ur Leukocyte Esterase Negative (NEGATIVE) Urine RBC None seen (0-5/HPF) Urine WBC None seen (0-5/HPF) Urine Bacteria None seen (None) Ur Culture Indicated? Cult not indicated SARS-CoV-2 (PCR) (Negative) Point of Care Testing Test Results Not applicable MDM Narrative Medical decision making narrative: Patient 82-year-old female with recurrent left hip dislocation. She is appointment with her orthopedic surgeon tomorrow 3:30 p.m.. Called and spoken with Dr. Jacinto she understands that this is a frustrating process unfortunately not emergent she states does not need surgery immediately and needs to follow-up. Recommends in abduction pillow. Patient required 2 attempts at reduction it was relatively easy however just did not work the 1st time she tolerated sedation well. Dill catheter has been placed to help prevent her from getting up and going to the restroom abduction pillow is placed. Patient is obviously hesitant to go home. Blood work is overall reassuring mild leukocytosis no evidence of UTI electrolytes are okay and no DUY. Social work has been into evaluate patient. Patient does not really back to rehab. Social work was in to evaluate patient. Patient has a caregiver at home. Patient does not necessarily want to go back to a retirement facility it also does not make sense for her if she is going to require a surgery revision she will need rehab after that. At this time will keep patient in the emergency department pain controlled. Will have PTC her in the morning and assess the situation. I briefly discussed the case with Dr. Jacinto who would be happy to consult if patient were admitted but states no immediate surgery to be expected. I discussed case with Dr. Pruett the hospitalist who reports really does not meet any admission criteria no point in admitting if there will be no surgery. Patient has extremely unstable hip which dislocates very easily. She will need a revision however not emergent. Getting pain medications now attempted ambulation today she previously ambulated each time she was discharged however today having increased pain. 3rd x-ray was done concern for possible dislocation however it is not dislocated. Patient signed out to Dr. Sarabia for management and disposition Dr sarabia: Received turned over. I am aware of the patient as reviewed the events of this visit. Patient has been resting comfortably. Care turned over to Dr. Shore to continue to evaluate. A PT consult has been ordered. Most likely will have discussion with operative orthopedic surgeon later today to discuss further management of her recurrent dislocations <Ramin Shore, DO - Last Filed: 08/12/22 05:58> Lab Data Labs: Lab Results 08/10/22 08/10/22 08/10/22 Range/Units 17:20 17:44 17:44 WBC 11.5 H (4.5-11.0) X10^3/uL RBC 3.83 L (4.0-5.2) X10^6/uL Hgb 11.6 L (12.0-16.0) g/dL Hct 34.7 L (36-46) % MCV 90.5 (80-100) fL MCH 30.3 (26-34) PG MCHC 33.4 (30-36) % RDW 16.0 H (11.6-14.8) % Plt Count 176 (150-400) X10^3/uL Neut % (Auto) 72.9 (50-75) % Lymph % (Auto) 14.5 L (25-40) % [place] % (Auto) 11.5 (3-14) % Eos % (Auto) 0.5 L (2-4) % Baso % (Auto) 0.6 (0-2) % Neut # (Auto) 8400 H (2478-7035) /uL Lymph # (Auto) 1700 (7984-3745) /uL [place] # (Auto) 1300 H (0-900) /uL Eos # (Auto) 100 (0-450) /uL Baso # (Auto) 100 (0-100) /uL Sodium 136 L (137-145) mmol/L Potassium 4.4 (3.4-5.1) mmol/L Chloride 102 (98-107) mmol/L Carbon Dioxide 28 (22-32) mmol/L BUN 22 H (7-17) mg/dL Creatinine 0.54 (0.52-1.04) mg/dL Estimated GFR > 60 (>60) mL/min BUN/Creatinine Ratio 40.7 H (6-22) Glucose 100 (80-110) mg/dL Calcium 9.6 (8.4-10.2) mg/dL Total Bilirubin 0.9 (0.2-1.3) mg/dL AST 60 H (14-36) IU/L ALT 26 (<35) IU/L Alkaline Phosphatase 50 (38-126) U/L Total Protein 6.4 (6.3-8.2) g/dL Albumin 3.6 (3.5-5.0) g/dL Globulin 2.8 (1.7-4.1) g/dL Albumin/Globulin Ratio 1.3 (1.0-2.8) Procalcitonin (<0.5) ng/mL Urine Color Urine Appearance Urine pH (4.5-8.0) Ur Specific [place] (1.000-1.035) Urine Protein (Negative) Urine Glucose (UA) (Negative) g/dL Urine Ketones (NEGATIVE) Urine Occult Blood (Negative) Urine Nitrate (Negative) Urine Bilirubin (NEGATIVE) Urine Urobilinogen (0.2) E.U./dL Ur Leukocyte Esterase (NEGATIVE) Urine RBC (0-5/HPF) Urine WBC (0-5/HPF) Urine Bacteria (None) Ur Culture Indicated? SARS-CoV-2 (PCR) Negative (Negative) 08/10/22 08/10/22 Range/Units 17:44 17:44 WBC (4.5-11.0) X10^3/uL RBC (4.0-5.2) X10^6/uL Hgb (12.0-16.0) g/dL Hct (36-46) % MCV (80-100) fL MCH (26-34) PG MCHC (30-36) % RDW (11.6-14.8) % Plt Count (150-400) X10^3/uL Neut % (Auto) (50-75) % Lymph % (Auto) (25-40) % [place] % (Auto) (3-14) % Eos % (Auto) (2-4) % Baso % (Auto) (0-2) % Neut # (Auto) (6182-1049) /uL Lymph # (Auto) (9552-3152) /uL [place] # (Auto) (0-900) /uL Eos # (Auto) (0-450) /uL Baso # (Auto) (0-100) /uL Sodium (137-145) mmol/L Potassium (3.4-5.1) mmol/L Chloride (98-107) mmol/L Carbon Dioxide (22-32) mmol/L BUN (7-17) mg/dL Creatinine (0.52-1.04) mg/dL Estimated GFR (>60) mL/min BUN/Creatinine Ratio (6-22) Glucose (80-110) mg/dL Calcium (8.4-10.2) mg/dL Total Bilirubin (0.2-1.3) mg/dL AST (14-36) IU/L ALT (<35) IU/L Alkaline Phosphatase (38-126) U/L Total Protein (6.3-8.2) g/dL Albumin (3.5-5.0) g/dL Globulin (1.7-4.1) g/dL Albumin/Globulin Ratio (1.0-2.8) Procalcitonin 0.06 (<0.5) ng/mL Urine Color Yellow Urine Appearance Clear Urine pH 6.0 (4.5-8.0) Ur Specific [place] <=1.005 (1.000-1.035) Urine Protein 1+ H (Negative) Urine Glucose (UA) Negative (Negative) g/dL Urine Ketones Negative (NEGATIVE) Urine Occult Blood Negative (Negative) Urine Nitrate Negative (Negative) Urine Bilirubin Negative (NEGATIVE) Urine Urobilinogen 0.2 (0.2) E.U./dL Ur Leukocyte Esterase Negative (NEGATIVE) Urine RBC None seen (0-5/HPF) Urine WBC None seen (0-5/HPF) Urine Bacteria None seen (None) Ur Culture Indicated? Cult not indicated SARS-CoV-2 (PCR) (Negative) Point of Care Testing Test Results Not applicable MDM Narrative Medical decision making narrative: Patient 82-year-old female with recurrent left hip dislocation. She is appointment with her orthopedic surgeon tomorrow 3:30 p.m.. Called and spoken with Dr. Jacinto she understands that this is a frustrating process unfortunately not emergent she states does not need surgery immediately and needs to follow-up. Recommends in abduction pillow. Patient required 2 attempts at reduction it was relatively easy however just did not work the 1st time she tolerated sedation well. Dill catheter has been placed to help prevent her from getting up and going to the restroom abduction pillow is placed. Patient is obviously hesitant to go home. Blood work is overall reassuring mild leukocytosis no evidence of UTI electrolytes are okay and no DUY. Social work has been into evaluate patient. Patient does not really back to rehab. Social work was in to evaluate patient. Patient has a caregiver at home. Patient does not necessarily want to go back to a retirement facility it also does not make sense for her if she is going to require a surgery revision she will need rehab after that. At this time will keep patient in the emergency department pain controlled. Will have PTC her in the morning and assess the situation. I briefly discussed the case with Dr. Jacinto who would be happy to consult if patient were admitted but states no immediate surgery to be expected. I discussed case with Dr. Pruett the hospitalist who reports really does not meet any admission criteria no point in admitting if there will be no surgery. Patient has extremely unstable hip which dislocates very easily. She will need a revision however not emergent. Getting pain medications now attempted amb ulation today she previously ambulated each time she was discharged however today having increased pain. 3rd x-ray was done concern for possible dislocation however it is not dislocated. Patient signed out to Dr. Sarabia for management and disposition Dr sarabia: Received turned over. I am aware of the patient as reviewed the events of this visit. Patient has been resting comfortably. Care turned over to Dr. Shore to continue to evaluate. A PT consult has been ordered. Most likely will have discussion with operative orthopedic surgeon later today to discuss further management of her recurrent dislocations [0700] (Silviano) Patient received in sign out from [[place]]. I have reviewed the clinical course and performed an independent history and physical exam. Patient currently awaiting PT and TURPENTINE DISTILLER consult. I have discussed the case with the patient's primary orthopedist, Dr. Thomas. We have reviewed the prescription for the splint as well as his recommendation that she be discharged, there is no surgical intervention needed at this time as the patient is currently in reduction. Lengthy discussions between nursing, TURPENTINE DISTILLER, PT. We have called the orthopedic device company who has delivered the brace and it is fit to the patient with PT help. We have arranged for BLS transport both from our department to the orthopedic office and then a 2nd transport to pick her up from the orthopedic office to get her home. <Ramin Shore, DO - Last Filed: 08/12/22 05:58> Critical Care Time Critical Care Time: Yes Total Critical Care Time: 45 Attestation: The high probability of a clinically significant, sudden or life threatening deterioration of the [MSK] system(s) required my full and direct attention, intervention and personal management. The aggregate critical care time was [45] minutes. This time is in addition to time spent performing reported procedures but includes the following: [x] Data Review and interpretation [x] Patient assessment and monitoring of vital signs [x] Documentation [x] Medication orders and management Discharge Plan Departure Patient Disposition: Home Clinical Impression: Closed dislocation of left hip Instructions: DI for Hip Dislocation -- Adult, How to Care for Your Dill Catheter -- Female Activity Restrictions/Additional Instructions: *You have been diagnosed with [ Left hip dislocation status post reduction with splint application ] *What to do: *Please continue to take your regular medications as directed. *Please follow up with Dr. Thomas as planned *If you do not have a primary care provider please contact the [facility] Resource line at [phone]. They will ask some questions about your medical history and help get you set up with a doctor in the community. *Return to Emergency Department if you should have any new, worsening or conc erning symptoms, such as [fever greater than 101 F, shaking chills, worsening pain, persistent vomiting or other bothersome symptoms] Prescriptions: No Action atenolol 25 mg tablet 25 mg PO DAILY losartan 25 mg tablet 25 mg PO DAILY diclofenac sodium [Voltaren] 1 % gel 2 gram TOP QID estradiol [Vagifem] 10 mcg tablet 10 mcg vaginal 2XW Qty: 24 3RF prednisone 5 mg tablet 5 mg PO DAILY multivitamin tablet 1 tab PO DAILY ascorbic acid (vitamin C) 500 mg capsule 500 mg PO DAILY calcium carbonate [Calci-Mix] 500 mg calcium (1,250 mg) capsule 500 mg PO BID cholecalciferol (vitamin D3) 2,000 unit capsule 2,000 unit PO DAILY omega 5-cob-ive-fish oil [Fish Oil] 300-1,000 mg capsule 1 cap PO DAILY lidocaine 4 % adhesive patch,medicated 1 patch topical DAILY PRN (Reason: Pain (Scale Score 4-6)) naproxen 500 mg tablet 500 mg PO DAILY PRN (Reason: Pain (Scale Score 1-3)) aspirin 81 mg Capsule 81 mg PO DAILY PRN (Reason: Headache) docusate sodium 100 mg Capsule 100 mg PO BID Qty: 30 0RF polyethylene glycol 3350 17 gram Powder In Packet 17 g PO DAILY PRN (Reason: Constipation) Qty: 14 0RF ibuprofen 400 mg Tablet 400 mg PO Q6HR Qty: 30 0RF oxycodone 5 mg capsule 5 mg PO Q6H PRN (Reason: pain) Qty: 20 0RF tramadol 50 mg tablet 50 mg PO Q8H PRN (Reason: pain) Qty: 30 0RF Deep Sea Nasal 0.65 % Aerosol,Freer 1 spray INTRANASAL BID PRN (Reason: Congestion) acetaminophen 325 mg tablet 650 mg PO Q6HR PRN (Reason: Pain (Scale Score 4-6)) Referrals: Paras Thomas MD [Physician] - Lainey Martins ARNP [Primary Care Provider] - Stand Alone Forms: Patient Portal/API
[2022-08-10] MEDS: MORPHINE 2 MG/ML INJ IV ×2 (17:45→20:29)
[2022-08-10 17:56] LABS: Appearance Urine UA CLEAR; Bilirubin Urine UA NEGATIVE (NEGATIVE); Color Urine UA YELLOW; Glucose Urine UA NEGATIVE (Negative); Ketones Urine UA NEGATIVE (NEGATIVE); Leukocyte Esterase Urine UA NEGATIVE (NEGATIVE); Nitrite Urine UA NEGATIVE (Negative); Occult Blood Urine UA NEGATIVE (Negative); Protein Urine UA 1+ (Negative); Specific Gravity Urine UA <=1.005 (1.000-1.035); Urobilinogen Urine UA 0.2 E.U./dL (0.2)
[2022-08-10 17:57] LABS: Add Manual Diff / Slide Review NO; Basophils Absolute Auto 100 /uL (0-100); Basophils Percent Auto 0.6 % (0-2); Eosinophils Absolute Auto 100 /uL (0-450); Eosinophils Percent Auto 0.5 % (2-4); Hematocrit 34.7 % (36-46); Hemoglobin 11.6 g/dL (12.0-16.0); Lymphocytes Absolute Auto 1700 /uL (1100-4500); Lymphocytes Percent Auto 14.5 % (25-40); Mean Corpuscular HGB Conc 33.4 % (30-36); Mean Corpuscular Hemoglobin 30.3 PG (26-34); Mean Corpuscular Volume 90.5 fL (80-100); Monocytes Absolute Auto 1300 /uL (0-900); Monocytes Percent Auto 11.5 % (3-14); Neutrophils Absolute Auto 8400 /uL (1500-7000); Neutrophils Percent Auto 72.9 % (50-75); Platelet Count 176 X10^3/uL (150-400); Red Blood Cell Count 3.83 X10^6/uL (4.0-5.2); White Blood Cell Count 11.5 X10^3/uL (4.5-11.0)
[2022-08-10 18:09] LABS: Alanine Aminotransferase 26 IU/L (<35); Albumin 3.6 g/dL (3.5-5.0); Albumin Globulin Ratio 1.3 (1.0-2.8); Alkaline Phosphatase 50 U/L (38-126); Aspartate Aminotransferase 60 IU/L (14-36); BUN Creatinine Ratio 40.7 (6-22); Bacteria Urine None Seen; Bilirubin Total 0.9 mg/dL (0.2-1.3); Blood Urea Nitrogen 22 mg/dL (7-17); Calcium 9.6 mg/dL (8.4-10.2); Carbon Dioxide 28 mmol/L (22-32); Chloride 102 mmol/L (98-107); Estimated Glomerular Filt Rate > 60 mL/min (>60); Globulin 2.8 g/dL (1.7-4.1); Glucose 100 mg/dL (80-110); HEMOLYSIS 22 (0-50); Potassium 4.4 mmol/L (3.4-5.1); RBC Urine None Seen (0-5/HPF); Sodium 136 mmol/L (137-145); Total Protein 6.4 g/dL (6.3-8.2); WBC Urine None Seen (0-5/HPF)
[2022-08-10 18:10] LABS: Culture Indicated Urine Cult Not Indicated
[2022-08-10] MEDS: propofoL 200 MG/20 ML VIAL 60 MG IV ×2 (18:27→18:40)
[2022-08-10 18:28] LABS: Procalcitonin 0.06 ng/mL (<0.5)
--- NOTE | 2022-08-10 18:32 | DI.RAD.S_ITS ---
PROCEDURE: XR PELVIS 1-2V INDICATIONS: reduction TECHNIQUE: 1 view(s) of the pelvis acquired. COMPARISON: [facility], CR, XR PELVIS 1-2V, 07/10/2022, 17:59. [facility], CR, XR HIP W PEL IF DONE LT 2V, 08/10/2022, 15:21. FINDINGS: Bones: No fractures or dislocations. No suspicious bony lesions. There has been interval reduction of previously left hip dislocation. There appears to be good anatomic alignment in single AP view. Severe right hip arthritic changes present. Soft tissues: Visualized bowel gas pattern is normal. No suspicious soft tissue calcifications. IMPRESSION: Interval reduction with good anatomic positioning noted in single AP view only. No visualized acute fracture or dislocation. However, if clinical concern and/or pain persist, short interval imaging followup in 7-10 days is recommended, as occult injury cannot be definitively excluded. Dictated by: Vicky Artis M.D. on 08/10/2022 at 19:06 Approved by: Vicky Artis M.D. on 08/10/2022 at 19:07
[2022-08-10] MEDS: KETOROLAC 30 MG/ML VIAL 15 MG IV (19:13)
--- NOTE | 2022-08-10 19:55 | CM.SWNOTE ---
ED DCP Note Patient is 82 y/o female who presents to ED via EMS for the third time in three days due to hip dislocation. Patient had left total hip arthroplasty on 07/10/[address] Thomas, Patient was transferred to [facility] rehab on 07/13/22. Per [place], Patient has new [facility] referral as of 08/05/22. It is reported that patient has labor and delivery nurse since 3 days ago and patient has seen two [facility] service providers since d/c to home from SNF. Patient's PCP is Lainey Martins, Patient has [facility]. Patient has hx of recent GLFs, Parkinson's disease followed by Dr. Pacheco Neurology, lupus, remote breast cancer, & hypertension. BOAT AND PLANT UTILITY SUPERVISOR enters room to meet with patient. Patient endorses recent GLFs and states that she has not been able to ambulate in the last day or so. Patient endorses she uses a FWW since surgery. Patient endorses caregiver has been attending to all of patient's ADL needs. Patient endorses she has not driven since before the surgery. BOAT AND PLANT UTILITY SUPERVISOR calls patient's former Bernard/SREEDHAR who endorses he requested sooner appt with Dr. Thomas regarding patient's hip dislocation issue. Patient has scheduled appt with Dr. Thomas tomorrow at 3:30pm. It is reported that patient has difficulty riding in the car and may need another form of transport. Bernard states he will plan to attend Dr. Thomas appt due to patient's recall issues. BOAT AND PLANT UTILITY SUPERVISOR discusses SNF rehab if needed, patient endorses preference to d/c to home if appropriate but patient endorses preference to go to [facility] if needed since [facility] is not accepting new patient's at this time. Patient endorses issue with incontinence, ED RNs inserted cath to address patient's urination needs. Per ED providers, patient has been able to ambulate the last 2 days upon d/c with FWW. Today, patient fails ambulation trial with technical cable jointer because patient is unable to get out of bed due to pain and fear of dislocation and pain. BOAT AND PLANT UTILITY SUPERVISOR reviews patient with ED provider, it is reported that Dr. Thomas cannot come to ED to meet patient. Patient is not appropriate for transfer to SNF rehab if there is a potential patient will have surgery again, there is no medical need for admission at this time. Plan: PT to evaluate patient in AM, ED team to set up BLS to Dr. Thomas appt if needed/assess appropriate level of transport to ortho appt. Patient likely to d/c to home after appt with labor and delivery nurse and [facility] in place. Nelda Peters, CONNECTION WORKER
--- NOTE | 2022-08-10 20:15 | DI.RAD.S_ITS ---
PROCEDURE: XR PELVIS 1-2V INDICATIONS: left hip pain TECHNIQUE: Single-view of the pelvis acquired. COMPARISON: [facility], CR, XR PELVIS 1-2V, 08/10/2022, 18:28. FINDINGS: Bones: No fractures or dislocations. A left hip prosthesis is redemonstrated. The bony pelvis appears intact. There is moderate to severe axial joint space narrowing in the right hip with subchondral sclerosis and mild collar osteophytosis. No suspicious bony lesions. Soft tissues: Visualized bowel gas pattern is normal. No suspicious soft tissue calcifications. IMPRESSION: 1. No definite acute fracture or dislocation. Dictated by: Phil Edwards M.D. on 08/10/2022 at 21:07 Approved by: Phil Edwards M.D. on 08/10/2022 at 21:08
--- NOTE | 2022-08-10 20:18 | PC.NURSE ---
CABLE ARMORER OPERATOR note: Attempted to get patient out of bed at 1950. Patient was hesitant to move, fearful, saying it will hurt. I've had 3 procedures. Have you looked at the chart? Explained to her that I understand she's scared it'll hurt, but we need to attempt to get up. She said she hadn't been up in two days and she wants to stay in bed. Moving her was extremely difficult because patient was refusing to move herself saying she hurts. Got her to the edge of the bed and she said she couldn't go any further.
[2022-08-10] MEDS: HYDROMORPHONE 0.5 MG INJ IV (21:16)
--- NOTE | 2022-08-10 22:20 | PC.NURSE ---
Pt cleared to eat by Dr. Sarabia. Pt ate a sandwich, pudding, cheese stick and water
[2022-08-10 22:39] LABS: COVID19 -Nasal RAPID Negative (Negative)
[2022-08-11] VITALS (74 sets, daily range): BP systolic 113–155; BP diastolic 56–75; PULSE 66–85; RESP 14–39; O2SAT 93–97
--- NOTE | 2022-08-11 06:01 | PC.NURSE ---
Patient awake, drinking fluids. Denies any immediate needs. Lights dimmed for comfort. Patient has call light within reach and allowed to rest.
--- NOTE | 2022-08-11 08:08 | PC.NURSE ---
Patient alert, speaking in clear and coherent sentences. Pt reports disappointment r/t staying in bed and not able to get up. Educated pt on plan of care, plan for physical therapy evaluation. Pt requesting to get out of bed, re-educated pt on wait for physical therapy evaluation r/t pt repeated hip displacements. Hip pillow in place between legs. CMS intact, dorsalis pedis pulse normal in bilateral lower extremities.
[2022-08-11] MEDS: HYDROMORPHONE 0.5 MG INJ IV (08:23)
[2022-08-11] MEDS: LOSARTAN 25 MG TABLET PO (08:24)
[2022-08-11] MEDS: atenoloL 25 MG TABLET PO (08:25)
--- NOTE | 2022-08-11 08:35 | PC.NURSE ---
Pt states she is only here to see her surgeon for her appointment at 1530. Educated pt she was brought here r/t dislocation and ER providers have been in contact with general surgeons. Pt verbalizes understanding.
--- NOTE | 2022-08-11 11:10 | PC.NURSE ---
Hip abductor brace placed by Kathia from [facility]. PT currently working with patient. Pt states ex- Aldo will take her to appointment today, voicemail left to his phone.
--- NOTE | 2022-08-11 11:45 | PC.NURSE ---
SENIOR PL SQL DEVELOPER Note: Call hernandez was answered and pt stated that their brace is pinching her breast. This SENIOR PL SQL DEVELOPER tried smoothing the gown from underneath the brace and placed a hand towel to try and alleviate the pinching. Pt frequently uses call hernandez after that stating that the pain was still irritating their breast and that they want the brace off.
--- NOTE | 2022-08-11 13:04 | DI.RAD.S_ITS ---
PROCEDURE: XR HIP W PEL IF DONE LT 2V INDICATIONS: left hip pain, mutliple dislocations TECHNIQUE: AP pelvis and lateral view of the left hip acquired. COMPARISON: [facility], CR, XR PELVIS 1-2V, 08/10/2022, 18:28. [facility], CR, XR HIP W PEL IF DONE LT 2V, 08/10/2022, 15:21. FINDINGS: Bones: Patient is status post left hip shola-arthroplasty, with hardware components in expected positions. The hip joint appears congruent. The visualized bony structures appear intact. Severe right hip osteoarthritic degenerative changes. Soft tissues: Overlying postoperative changes are noted. No suspicious soft tissue densities. IMPRESSION: Prior left hip hemiarthroplasty. No fracture. No acute osseous lesion. If symptoms and/or clinical suspicion for pathology persists, further assessment with repeat radiographs (7-10 days) or advanced imaging (e.g. CT, MRI or bone scan) should be considered. Dictated by: Desirae Nicole MD, PhD on 08/11/2022 at 13:38 Approved by: Desirae Nicole MD, PhD on 08/11/2022 at 13:40
--- NOTE | 2022-08-11 13:21 | PT.IIE ---
Surgical History (Last Reviewed 08/09/22 @ 07:51 by Umm Motta DO) History of cataract removal with insertion of prosthetic lens Status post laparoscopic cholecystectomy (12/2014) Status post total knee replacement, left Medical History (Last Reviewed 08/09/22 @ 07:51 by Umm Motta DO) Breast cancer Dizziness Lupus Osteopenia Parkinson disease Physical Therapy Inpatient Evaluation/Re-Eval M1 PT/OT-IP Prior Functional Status Start: 08/11/22 12:58 Freq: Status: Active Protocol: Document 08/11/22 12:58 ES (Rec: 08/11/22 13:20 ES [id number]) Medical Review Prior Functional Status Medical History Reviewed Yes Diet/Fluid Consistency Regular Communication WFL Mobility and Gait Recently d/c home from SNF, was ambulatory at that time with FWW for household distances. In the past 3 days, has needed help in/out of bed and up to commode only with caregiver assist. Activities of Daily Living and IADL's Was performing indep until the past 3 days has been needing caregiver assist. Prior Functional Level (Other details) Patient reported her ex- hired a 09/11 caregiver who lives downstairs. Patient recently diagnosed with PD. Social History Household Members caregiver,none Living Arrangements House Number of Floors (Floors) One Floor Number of Stairs To Enter/Railing? 0 Home Equipment Front Wheel Walker,Manual Wheelchair,Bedside Commode Employment Status Retired Additional Social History Comment 09/11 caregiver; caregiver does not drive. Ex- lives in [place] and is involved in her care. M2 PT-IP Current Condition Start: 08/11/22 12:58 Freq: Status: Active Protocol: Document 08/11/22 12:58 ES (Rec: 08/11/22 13:20 ES [id number]) Physical Therapy Current Condition Current Condition Evaluation Date 08/11/22 Treatment Diagnosis s/p relocation L superior hip dislocation in setting of MERCEDES Onset Date 08/10/22 M3 PT-IP Subjective Start: 08/11/22 12:58 Freq: Status: Active Protocol: Document 08/11/22 12:58 ES (Rec: 08/11/22 13:20 ES [id number]) Subjective Physical Therapy Visit Type Type Initial Evaluation Visit Start Time 10:23 Visit Stop Time 11:16 Total Visit Minutes 53 Physical Therapy Visit Comments Patient Comments Patient alert in bed, c/o pain in L hip. Manufacturing Manager present to fit hip abductor brace prior to treatment. Patient agreeable to try getting out of bed with PT. Therapy Pain Assessment Pain When Pain Assessed During Mobility Pain Present Pain Present Pain Reported Location left hip Pain Behaviors Guarding Pain Management Techniques Apply Cold,Distraction,Re- positioning M4 PT-IP Mobility and Gait Start: 08/11/22 12:58 Freq: Status: Active Protocol: Document 08/11/22 12:58 ES (Rec: 08/11/22 13:20 ES [id number]) PT-Bed Mobility Assessment Supine to Sit Supine to Sit Moderate Assistance Sit to Supine Sit to Supine Moderate Assistance Scooting Scooting to Edge of Bed Minimal Assistance Scooting Up and Down in Bed Moderate Assistance PT-Transfer Assessment Sit to and From Stand Sit to and from Stand Contact Guard Assistance Equipment Transfer Assistive Device Gait Belt,Front Wheeled Walker Orthotic/Prosthetic Devices or Brace: Yes Comments Mobility Comments Cues for hip dislocation precautions and for awareness of hip brace. Assisted with repositioning of hip brace to reduce pressure on chest/side. Gait Assessment Gait Gait Assistance Required: Minimum Assistance Distance (Feet) 6 Able to Maintain Weight Bearing Status Yes During Gait Assistive Devices Assistive Device Gait Belt,Front Wheeled Walker Orthotic/Prosthetic Devices or Brace: Yes Gait Deviations General Gait Pattern Antalgic,Decreased Stride Length,Decreased Feet Clearance Factors Limiting Gait Function Factors Limiting Gait Function Decreased Strength,Pain,Poor Balance Comments Gait Comments Initially had posterior lean, improved with further standing and taking steps. Distance limited due to pain. Able to turn with min A and cues for keeping LLE from turning/ pivoting. Stair Climbing Assessment Comments Stair Climbing Comments Did not attempt; patient does not have stairs at home. PT-Balance Assessment Sitting Balance and Reactions Static Sitting Balance Ability Good Dynamic Sitting Balance Ability Good Standing Balance and Reactions Static Standing Balance Ability Fair Dynamic Standing Balance Ability Fair Device Used FWW M5 PT-IP Objective Assessments Start: 08/11/22 12:58 Freq: Status: Active Protocol: Document 08/11/22 12:58 ES (Rec: 08/11/22 13:20 ES [id number]) Orientation Orientation/Cognition Level of Alertness Alert Orientation Name,Birthday,Place Language Function Ability No Deficits Noted Safety Awareness Decreased Safety Awareness Memory Description Short Term Impaired Comments Baseline dementia Gross Range of Motion Upper Extremity ROM Assessment Within Functional Limits Lower Extremity ROM Assessment Left Impaired Impairments 2/2 pain, precautions, and abduction brace Strength Upper Extremity Strength Assessment Bilaterally Impaired Lower Extremity Strength Assessment Bilaterally Impaired Comments Strength Comments Grossly 4-/5 B UE and RLE, grossly 3+/5 L hip otherwise 4 -/5 Coordination Assessment Gross Coordination Gross Coordination WNL M6 PT-IP Treatment Start: 08/11/22 12:58 Freq: Status: Active Protocol: Document 08/11/22 12:58 ES (Rec: 08/11/22 13:20 ES [id number]) Physical Therapy Treatment Education Education Provided Precautions,Weight Bearing Status,Safety Brace Education [place],Patient M7 PT-IP Assessment and Plan Start: 08/11/22 12:58 Freq: Status: Active Protocol: Document 08/11/22 12:58 ES (Rec: 08/11/22 13:20 ES [id number]) PT Summary Assessment and Plan Potential Rehabilitation Potential Good Status of Condition at Evaluation Stable Summary Impairments Pain,ROM,Strength,Balance, Cognition,Bed Mobility, Transfers,Gait,Activity Tolerance Assessment Summary Patient is a 82 year old female with multiple recent L hip dislocations in the setting of MERCEDES, recently discharged home from SNF who presents with impaired functional mobility due to the above problems. She was able to transfer to EOB and walk up to 6 ft with assistance, limited primarily by pain as well as weakness. She demonstrated decreased awareness of precautions and needed education on abduction brace. Recommend HHPT to progress mobility at home and for caregiver education on precautions and donning/ doffing brace, as patient's memory is impaired. Frequency of Treatment Frequency Of Treatment Discharge Precautions Posterior Hip Precautions No Hip Flexion > 90 degrees,No Hip Internal Rotation,No Hip Adduction Brace Hip abduction brace at all times. Weight Bearing Status Weight Bearing Status Weight Bear as Tolerated Recommendations To Nursing Amount of Assist Needed 1 Person Assist Discharge Recommendations PT Discharge Recommendations Home with 09/11 Assist Available,Home Health Transportation Needs at Discharge Wheelchair/Cabulance
[2022-08-11] MEDS: OXYCODONE IR 5 MG TABLET PO (13:28)
--- NOTE | 2022-08-11 14:39 | PC.NURSE ---
Late entry: 1300: had discussion with pt and ex who is POA. Pt is upset at brace. States it is tight on her. I am able to put my whole hand between her and the brace and demonstrated to both pt and POA. Discussed benefits of brace and risks of not wearing it. Pt and POA agree to wear brace to Dr. Thomas appointment and then will ask him to adjust. Both POA and pt requesting hospital admission. Discussed that pt does not have admitable diagnosis. Discussed caregiving concerns. Pt has 24 hour caregiver at home. She refused offer of SNF exploration / options x 3 during the conversation. Requesting urinary catheter stays in place as it is when she is getting onto the commode is when she has dislocated in the past. Pt and POA verbalized understanding of risks of leaving catheter in place. Nelda FELICIANO has consulted. Pt / poa aware that patient may be financially responsible for cost of BLS transport to Dr. Thomas appointment and home.
--- NOTE | 2022-08-11 15:03 | CM.SWNOTE ---
ED DCP Note continued Patient continued to board in ED over night. Patient was evaluated by PT, patient was min-mod assist, able to ambulate 5 feet with FWW. PT recommends home with HH and caregiver. Patient has both services set up with a delivery man and current referral with [facility]. DESIGN ENGINEERING SPECIALIST calls [facility] and leaves VM regarding patient's presentation to ED. DESIGN ENGINEERING SPECIALIST to fax ED records if needed. Patient continues to deny preference for SNF. [facility] was consulted by ED provider and meets with patient in ED providing patient with brace to prevent further hip dislocation. Patient endorses discomfort with new brace. Patient endorses preference to go to Dr. Thomas appt via [facility]. [facility] sets up transport from ED to [facility] appt. Patient's DPOA/former spouse arrives to ED and states he will come to appt as well. BLS was contacted to prepare for transport back to home for patient as well if needed. Plan: Patient d/c'd upon medical clearance to Dr. Thomas Ortho f/u appt. Patient has [facility] and rehabilitation physician caregiver in place. BREE Jamison
--- NOTE | 2022-08-11 16:02 | CM.DPC ---
MICHEL received call from Ortho Dr. Thomas stating pt is currently in his office after having multiple hip dislocations after recent MERCEDES. Dr. Thomas feels pt needs SNF again as she has failed at home or will continue to dislocate and be further injured. Due to the time of day, almost 1600, informed Dr. Thomas that SNF likely not found to accept right from his office this evening and discussed admission from the community/home and Dr. Thomas does not feel safe for pt to d/c home while awaiting for SNF and will attempt direct admit under [facility] for SNF placement and states pt's preference is [facility] SNF. Pt with hip surgery from 07/10/22 to 07/13/22 and discharged to [facility] rehab and from there discharged home on 08/05 with [facility] and a person staying with her to assist 09/11 and pt has still failed home. Pt still within the time frame of 30 days from hospital discharge with already a 3 night qualifying stay for coverage of SNF under her Medicare. MICHEL called [facility] admissions and left long detailed message with update and request for review and faxed pt's last admission and her 3 ED physician notes to review. MICHEL called [facility] with update since pt was recently there and requested they review and they confirm if pt seems appropriate they may have a bed tomorrow Wed but will need to review her clinicals first. MICHEL updated Director Jeanne who will also assist if needed tomorrow if pt direct admit or in the ED. MICHEL updated ED YARD WORKER who also met with pt in the ED. Plan: SW to follow for likely direct admit by Dr. Thomas for SNF placement and [facility] and [facility] review of pt and possible need of additional SNF referrals for hopeful d/c Wed to SNF under her previous 3 night qualifying stay under Medicare. PASRR will be needed. BRADEN Chahal
--- NOTE | 2022-08-11 16:18 | PC.NURSE ---
See printed vital sign sheet
== END 2022-08-11 14:50 | disposition home or self-care (01) ==
PROVIDERS: Emergency Medicine; Emergency Provider Emergency Medicine; Family Provider Family Medicine; PCP Nurse Practitioner Family
DX: M24.352 Pathological dislocation of left hip, not elsewhere classified (principal)
CPT/HCPCS: 36415; 72170; 73502; 80053; 81001; 84145; 85025; 87635; 97162; 99285; C9803; J1170; J1885; J2270; J2704

== ENCOUNTER 2022-08-11 16:32 | Inpatient (IN) | payer MEDICARE, SELFPAY ==
[2022-07-10 17:32] VITALS: BMI 26.9
[2022-08-11 16:36] VITALS: BMI 27.3
--- NOTE | 2022-08-11 16:42 | CM.IDA ---
Initial DCP Assessment Patient is direct admit from Orthopedic provider Dr. Thomas after f/u appt today. Patient has hx of 3 ED encounters due to hip dislocations after recent MERCEDES on 07/11/22. Patient was a [facility] until 08/05/22 and discharged with [facility] referral. Dr. Thomas is admitting patient due to failed outpatient with HH and time checker caregiver. Patient previously endorsed she was not interested in SNF and now reports interest due to Ortho recommendation. Patient's PCP is Lainey Martins, Patient has [facility] medicare insurance. Patient has hx of recent GLFs, Parkinson's disease followed by Dr. Pacheco Neurology, lupus, remote breast cancer, & hypertension. This RESIDENT IN DIAGNOSTIC RADIOLOGY met with patient on 08/10/22 and 08/11/22, prior to patient's BLS transfer to Dr. Thomas appt. Patient endorses recent GLFs and states that she has not been able to ambulate in the last day or so. Patient endorses she uses a FWW since surgery. Patient endorses caregiver has been attending to all of patient's ADL needs. Patient endorses she has not driven since before the surgery. Patient endorsed if SNF was recommended she has preference for [facility] or [facility]. See BRADEN Chow's note from today and this polytechnic teacher notes from recent ED visit. [facility] and [facility] SNFs are currently reviewing. RESIDENT IN DIAGNOSTIC RADIOLOGY calls Kathia at [facility] and provides update in regards to patient's new plan of care. Plan: Patient admitted by Dr. Thomas for SNF rehab search, DCP to f/u with [facility] and [facility] currently reviewing patient. BREE Jamison Discharge Planning/Care Management CM Discharge Assessment Start: 08/11/22 16:41 Freq: Status: Active Protocol: Document 08/11/22 16:47 LN (Rec: 08/11/22 16:51 LN [id number]) Discharge Planning Assessment Assigned Bird Sitter BREE Lutz DPOA/Assigned Designee Name former spouse/ Bernard Joseph Contact Information [phone] Advance Directives? Yes Advance Directives on File No History Provided By Patient,Family Member,Medical Record Has Patient been admitted in last 30 Yes days? Comment 07/10/22-07/13/22 Prior Living Arrangements House Household Members caregiver,none Type of transporation used prior to Relies on Others admit Comment Patient was able to drive prior to surgery Independent with ADL's No Is patient alert and oriented? Yes Needs Assistance With Bathing,Grooming,Meal Prep, Toileting,Managing Medications ,Home Chores / Shopping Community Services used prior to Physical Therapy,Occupational admission: Therapy,Home Health Aid,Home Health Nurse Comment Patient has current [facility] referral DME Already Rented / Owned Wheelchair,FWW / Walker Patient/Family Preference [facility] Facility Comment Patient has hx of GLFs, and has current rental car deliverer Discharge Plan [facility] Facility Transportation Arrangement Facility Referrals Initiated [facility] If patient plan is SNF: Has PASSR been No completed? SNF/HH Preference [facility] Has Agency SNF been contacted Yes Review Status In Process Please Provide Date Initial DC 08/11/22 Assessment Was Performed Next Review Type Continued Stay Review
[2022-08-11 17:11] VITALS: BP 143/57; PULSE 71; RESP 17; TEMP 36.7; O2SAT 97
--- NOTE | 2022-08-11 17:15 | PC.NURSE ---
Patient brought in via [facility] transport in [facility]. Per coordinator patient is a direct admit from Dr. Diaz's office and was placed in room 224, waiting to be seen by MD. She arrived with a brace in place to left hip extending from under breast to left thigh. Patient has a zendejas catheter in place draining clear yellow urine. Patient states they put it in in the ER this morning. Waiting for admission orders for this patient.
--- NOTE | 2022-08-11 17:17 | P.HP_ITS ---
History of Present Illness History of Present Illness Date Patient Seen: 08/11/22 Time Patient Seen: 17:00 Chief complaint: Dislocated Hip Narrative: Tri is an 82-year-old woman with a history of Parkinson's and an inoperable brain tumor with mild dementia who underwent a left hip hemiarthroplasty for femoral neck fracture on July 10, 2022. She initially did well and was discharged to a care home facility. Approximately 3 days ago she was discharged to home and since that discharge she has had 3 dislocations of her prosthetic. These were reduced and she was sent home each time. When she was sent home from the care home facility she was not provided with a raised toilet seat or any other aids to help her follow hip precautions. She says she sits on a low stool with her legs together ?all the time?. One of the dislocations occurred as she was bending forward to try to clean her cat litter box. [facility] Medical History Breast cancer Dizziness Lupus Osteopenia Parkinson disease Surgical History History of cataract removal with insertion of prosthetic lens Status post laparoscopic cholecystectomy (12/2014) Status post total knee replacement, left Family History Mother Hypertension Father Heart disease Brother Heart disease Social History household members: caregiver and none Smoking Status: Never smoker alcohol intake: never substance use type: does not use Meds Home Medications and Allergies Home Medications Medication Instructions Recorded Confirmed Type atenolol 25 mg tablet 25 mg PO DAILY 09/17/17 03/19/22 History ascorbic acid (vitamin C) 500 mg 500 mg PO DAILY 11/22/17 03/19/22 History capsule calcium carbonate 500 mg calcium 500 mg PO BID 11/22/17 03/19/22 History (1,250 mg) capsule (Calci-Mix) cholecalciferol (vitamin D3) 50 2,000 unit PO DAILY 11/22/17 03/19/22 History mcg (2,000 unit) capsule multivitamin 1 tab PO DAILY 11/22/17 03/19/22 History prednisone 5 mg tablet 5 mg PO DAILY 11/22/17 03/19/22 History diclofenac sodium 1 % topical gel 2 gram topical QID 09/28/18 03/19/22 History (Voltaren) losartan 25 mg tablet 25 mg PO DAILY 09/28/18 03/19/22 History lidocaine 4 % topical patch 1 patch topical DAILY PRN Pain 12/15/21 03/19/22 History (Scale Score 4-6) omega 0-ydi-xui-fish oil 300 1 cap PO DAILY 12/15/21 03/19/22 History mg-1,000 mg capsule (Fish Oil) naproxen 500 mg tablet 500 mg PO DAILY PRN Pain (Scale 12/16/21 03/19/22 History Score 1-3) tramadol 50 mg tablet 50 mg PO BID PRN Pain (Scale Score 12/16/21 03/19/22 History 4-6) aspirin 81 mg capsule 81 mg PO DAILY PRN Headache 01/06/22 03/19/22 History estradiol 10 mcg vaginal tablet 10 mcg vaginal 2XW #24 tabs 03/19/22 03/19/22 Rx (Vagifem) acetaminophen 325 mg tablet 650 mg PO Q6HR #30 tabs 07/13/22 Rx docusate sodium 100 mg capsule 100 mg PO BID #30 caps 07/13/22 Rx ibuprofen 400 mg tablet 400 mg PO Q6HR #30 tabs 07/13/22 Rx oxycodone 5 mg capsule 5 mg PO Q6H PRN pain #20 caps 07/13/22 Rx polyethylene glycol 3350 17 gram 17 g PO DAILY PRN Constipation #14 07/13/22 Rx oral powder packet ea sodium chloride 0.65 % nasal spray 1 spray intranasal PRN PRN 07/13/22 Rx aerosol (Deep Sea Nasal) Congestion #44 mL tramadol 50 mg tablet 50 mg PO Q8H PRN pain #30 tabs 07/13/22 Rx hydrocodone 5 mg-acetaminophen 325 1 tab PO Q6H PRN pain #10 tabs 08/09/22 Rx mg tablet Allergies Allergy/AdvReac Type Severity Reaction Status Date / Time ciprofloxacin [From Cipro] Allergy Verified 08/10/22 15:18 doxycycline Allergy Verified 08/10/22 15:18 gabapentin Allergy Verified 08/10/22 15:18 mirabegron [From Myrbetriq] Allergy Verified 08/10/22 15:18 primidone Allergy Verified 08/10/22 15:18 propranolol Allergy Verified 08/10/22 15:18 oxybutynin AdvReac Intermediate Facial Verified 08/10/22 15:18 redness and swelling nitrofurantoin AdvReac Mild Dizziness Verified 08/10/22 15:18 [From Macrobid] Review of Systems Review of Systems Narrative: The patient has a history of systemic lupus erythematosus, a small brain tumor, Parkinson's, and hypertension. She was in her normal general state of health prior to the dislocations. Objective Labs Labs: Radiographs from the emergency room today are reviewed and independently interpreted. There is a well-positioned cemented left hip hemiarthroplasty with slight lengthening of the leg relative to the opposite side and increased offset relative to the opposite side. The size of the femoral head appears appropriate for the acetabulum. Assessment & Plan Assessment & Plan narrative: The patient has multiple medical problems with Parkinson's, SLE, a small brain tumor, hypertension, and history of breast cancer. She was clearly failing at home which is the reason she fell and had a hip fracture in the 1st place. Placement back at her home with a non medical professional as a full-time caregiver is unfortunately failing with 3 dislocations in the short period of time since she was discharged from the care home facility. From a surgical standpoint, her hip already has increased offset and increased length compared to the other side. Revision with a longer sleeve is possible but is best avoided. We will readmit her to the hospital and prepare for her to be transitioned to a care home facility for additional care there. We will continue the abduction splint as she has clearly weakened the closure of her capsule posteriorly. When she was eventually discharged from the care home facility I have discussed with the family that it would be best for her to go to assisted living facility rather than to the home environment which is causing his trouble at this point. She should be discharged with the appropriate aids such as a raised toilet seat which was not provided to her the 1st time she was discharged from care home. Time Spent With Patient Time with patient: 50 to 69 minutes with 50% spent counseling/coordinating care Quality VTE Deep Vein Thrombosis/Pulmonary Embolism Present on Admission: No
[2022-08-11 18:22] LABS: COVID19 -Nasal RAPID Negative (Negative)
--- NOTE | 2022-08-11 18:42 | PC.NURSE ---
This RN unable to obtain IV for patient. Marin RN attempted and was also unable to obtain PIV. Patient states she was poked 7 times in the ER today already. Call out to MD at this time.
[2022-08-11 20:00] VITALS: BP 139/60; PULSE 74; RESP 18; TEMP 36.9; O2SAT 96
[2022-08-11] MEDS: LORazepam 0.5 MG TABLET PO (20:17)
[2022-08-11] MEDS: DOCUSATE 100 MG CAPSULE PO (20:17)
[2022-08-11] MEDS: ASPIRIN EC 81 MG TABLET PO (20:17)
[2022-08-12 04:00] VITALS: BP 156/68; PULSE 78; RESP 14; TEMP 36.8; O2SAT 97
[2022-08-12 05:19] LABS: Hemoglobin 11.4 g/dL (12.0-16.0); Mean Corpuscular HGB Conc 33.5 % (30-36); Mean Corpuscular Hemoglobin 30.2 PG (26-34); Mean Corpuscular Volume 90.2 fL (80-100); Platelet Count 161 X10^3/uL (150-400); Red Blood Cell Count 3.77 X10^6/uL (4.0-5.2); White Blood Cell Count 9.8 X10^3/uL (4.5-11.0)
--- NOTE | 2022-08-12 06:52 | PC.NURSE ---
1900: pt states agitation and wanting staff to 'leave her alone'. Pt also states a dr told her she can walk to bathroom to urinate. Day RN and this RN explained to pt that it is not recommended, will be painful and has zendejas in place. Pt was actively trying to get to edge of bed to stand, was unable to d/t pain and splint. Pt continued to pull on zendejas, yell at staff and unable to calm down. Oncall dr. Dickinson called, ativan PO ordered and given. Pt slept throughout night, sometimes waking up and shifting self in bed, pulling on zendejas and splint. Pt had unhooked splint and twisted it to where it is now making indentations on leg. Splint was shifted as much as possible, rehooked with a washcloth to relieve pressure off leg. 0700: pt screaming for help, stating 'I need to get out of this bed'. Pt had pulled off splint completely. C/o of pain, 5mg oxycodone given.
[2022-08-12] MEDS: OXYCODONE IR 5 MG TABLET PO ×2 (07:08→13:23)
[2022-08-12 08:00] VITALS: BP 142/74; PULSE 84; RESP 18; TEMP 36.1; O2SAT 98
--- NOTE | 2022-08-12 08:41 | PM.PN.1 ---
Subjective Subjective Date Patient Seen: 08/12/22 Time Patient Seen: 08:41 Interval history: Rhonda is complaining of difficulty sleeping and is irritable that I just woke her up. Her brace is off and at the foot of her bed. Her pain is moderate to severe in the left hip. Denies numbness or tingling. Exam Vital Signs (past 8 hours): - 08/12/22 04:00 Temperature 98.2 F Pulse Rate 78 Respiratory Rate 14 Blood Pressure 156/68 H Pulse Oximetry 97 Oxygen Delivery Method Room Air Oxygen Flow Rate 0 Narrative Exam Narrative: 82-year-old female, resting comfortably in bed, no acute distress. Hip abduction brace is at her feet. Bilateral lower extremity: Motor functions are grossly intact, sensation is grossly intact to light touch, calves are soft but bilaterally tender to palpation. Objective Labs 08/12/22 05:00 Labs: Laboratory Results - last 24 hr 08/11/22 08/12/22 17:46 05:00 WBC 9.8 RBC 3.77 L Hgb 11.4 L Hct 34.0 L MCV 90.2 MCH 30.2 MCHC 33.5 RDW 16.0 H Plt Count 161 SARS-CoV-2 (PCR) Negative PFSH Medical History Breast cancer Dizziness Lupus Osteopenia Parkinson disease Surgical History History of cataract removal with insertion of prosthetic lens Status post laparoscopic cholecystectomy (12/2014) Status post total knee replacement, left Family History Mother Hypertension Father Heart disease Brother Heart disease Social History household members: caregiver and none Smoking Status: Never smoker alcohol intake: never substance use type: does not use Assessment & Plan Assessment & Plan narrative: The patient has multiple medical problems with Parkinson's, SLE, a small brain tumor, hypertension, and history of breast cancer.? She was clearly failing at home which is the reason she fell and had a hip fracture in the 1st place.? Placement back at her home with a non medical professional as a full-time caregiver is unfortunately failing with 3 dislocations in the short period of time since she was discharged from the [facility] facility.? From a surgical standpoint, her hip already has increased offset and increased length compared to the other side.? Revision with a longer sleeve is possible but is best avoided.? -continue Abduction splint at all times, minimum of [address] Thomas, an abduction pillow is not appropriate at this time. He placed a consult with the maintainer plant yesterday and discussed the case. The maintainer plant needs to reasses the brace fitting. -continue with multimodal pain management -aspirin 81 mg b.i.d. x6 weeks for DVT prophylaxis -disposition to [facility] facility.? She should be discharged with the appropriate aids such as a raised toilet seat which was not provided to her the 1st time she was discharged from [facility]. Quality VTE Deep Vein Thrombosis/Pulmonary Embolism Present on Admission: No
[2022-08-12] MEDS: ASPIRIN EC 81 MG TABLET PO ×2 (09:13→20:32)
[2022-08-12] MEDS: atenoloL 25 MG TABLET PO (09:13)
[2022-08-12] MEDS: DOCUSATE 100 MG CAPSULE PO ×2 (09:13→20:32)
[2022-08-12] MEDS: predniSONE 5 MG TABLET PO (09:14)
[2022-08-12] MEDS: LOSARTAN 25 MG TABLET PO (09:14)
--- NOTE | 2022-08-12 11:25 | CM.DPNOTE ---
Addendum entered by BRADEN Quevedo 08/13/22 09:06: ADD: Patient's prior inpatient stay (in June after her initial hip surgery) is just out of the 30 day window needed for SNF to use today. If a SNF accepts, it will be either COVID waiver vs MCR benefit admission 4. after this current inpatient stay (3 nights) GEORGE Original Note: DCP Note [facility] - No [facility]- No Spoke w/patient about broadening SNF search, brother in room. 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 Patient does not want a referral to [facility] at this time [facility] and [facility] reviewing JW
[2022-08-12] MEDS: polyethylene glycoL 3350 17 GM POWD.PACK PO (12:54)
--- NOTE | 2022-08-12 14:35 | PC.NURSE ---
Addendum entered by Dang Johnson R.N. 08/12/22 18:59: pt sitting on commode, wearing her leg brace. Original Note: catheter feels uncomfortable, feeling buring sensation. notified PA. UA ordered.
[2022-08-12 14:36] VITALS: BP 130/68; PULSE 78; RESP 17; TEMP 36.6; O2SAT 97
[2022-08-12 14:53] LABS: Appearance Urine UA CLEAR; Bilirubin Urine UA NEGATIVE (NEGATIVE); Color Urine UA YELLOW; Glucose Urine UA NEGATIVE (Negative); Ketones Urine UA NEGATIVE (NEGATIVE); Leukocyte Esterase Urine UA NEGATIVE (NEGATIVE); Nitrite Urine UA NEGATIVE (Negative); Occult Blood Urine UA NEGATIVE (Negative); Protein Urine UA NEGATIVE (Negative); Specific Gravity Urine UA 1.015 (1.000-1.035)
[2022-08-12 15:00] LABS: Amorphous Sediment Urine 2+; Bacteria Urine Moderate (10-30); Calcium Oxalate Crystals Urine Few; RBC Urine 1-5/HPF (0-5/HPF); Squamous Epithelial Cell Urine 1-5 /HPF (0-5/HPF); WBC Urine 1-5/HPF (0-5/HPF)
[2022-08-12 15:01] LABS: Culture Indicated Urine Cult Not Indicated
--- NOTE | 2022-08-12 15:17 | OT.IP.EVAL ---
Past Medical History (Last Reviewed 08/12/22 @ 08:42 by Patt Johnson PA-C) Breast cancer Dizziness Lupus Osteopenia Parkinson disease Surgical History (Last Reviewed 08/12/22 @ 08:42 by Patt Johnson PA-C) History of cataract removal with insertion of prosthetic lens Status post laparoscopic cholecystectomy (12/2014) Status post total knee replacement, left Occupational Therapy Inpatient Evaluation/Re-Eval M2 OT-IP Current Condition Start: 08/12/22 15:43 Freq: Status: Active Protocol: Document 08/12/22 13:17 [facility] (Rec: 08/12/22 16:04 [facility] [id number]) Occupational Therapy Current Condition Current Condition Evaluation Date 08/12/22 Treatment Diagnosis S/P relocation of left superior hip dislocation Diagnosis Onset Date 08/11/22 Post Operative Precautions Posterior Hip Precautions No Hip Flexion > 90 degrees,No Hip Internal Rotation,No Hip Adduction Other Precautions Pt to have abduction brace on at all times. M3 OT- IP Subjective and Pain Start: 08/12/22 15:43 Freq: Status: Active Protocol: Document 08/12/22 13:17 [facility] (Rec: 08/12/22 16:04 [facility] [id number]) OT- Subjective Occupational Therapy Visit Type Type Initial Evaluation Visit Start Time 13:17 Visit Stop Time 14:00 Total Visit Minutes 43 Occupational Therapy Visit Comments Patient Comments Pt agreed to have the abductor brace put on and she had taken it off earlier. In addition able to educate pt's nurse how to patricio/doff the brace. Patient/Caregiver Goals To get better. OT Pain Assessment Pain When Pain Assessed During Mobility Pain Present Pain Present Pain Reported M4 OT- IP ADL's Start: 08/12/22 15:43 Freq: Status: Active Protocol: Document 08/12/22 13:17 [facility] (Rec: 08/12/22 16:04 [facility] [id number]) OT DUE-[id number] Comments OT Self-Feeding Comments NO issues anticipated OT ADL-Grooming Comments OT Grooming Comments Not performed. OT ADL-Oral Care Comments Oral Care Comments Not performed. OT ADL-Dressing General Eval Lower Body Dressing Ability Total Assistance Areas Needing Assistance Orthosis/Prosthesis Comments OT Dressing Comments Total assist x1-2 to be able to get the abductor brace on the pt in supine. Having to pad the brace with towel as the brace tends to slide up to her breast. Suggested to pt' s niece that is may be helpful to get a front fastener bra/ sports bra to help lift her up and away from the brace. OT ADL-Toileting General Evaluation Toileting Ability Total Assistance Comments OT Toileting Comments Dill in place OT ADL-Bathing Comments OT Bathing Comments Sponge bath more appropriate at this time. M5 OT- IP IADL's Start: 08/12/22 15:43 Freq: Status: Active Protocol: Document 08/12/22 13:17 [facility] (Rec: 08/12/22 16:04 [facility] [id number]) OT-Instrumental Activities of Daily Living Home Safety Awareness Home Safety Comments Pt has 09/11 caregiver that has been assisting pt for all ADL and mobility needs , however pt having more difficulty to mobilize since her last dislocation. Medication Management Medication Management Caregiver Administers Money Management Money Management Caregiver Provides Assistance Meal Preparation Meal Preparation Caregiver Provides Assist Broiler Chef Or Cook Broiler Chef Or Cook Caregiver Provides Assist Driving Driving Caregiver Provides Assist M6 OT- IP Functional Cognition Start: 08/12/22 15:43 Freq: Status: Active Protocol: Document 08/12/22 13:17 [facility] (Rec: 08/12/22 16:04 [facility] [id number]) Cognitive Factors Limiting Selfcare Function Cognitive Ability Level of Alertness Alert Patient Orientation Name,Place,Situation Attention Span Ability Capable of Focused Attention Ability to Follow Commands Able to Follow One Step Commands with Increased Time, Able to Follow One Step Commands with Repetition Safety Awareness Decreased Recall of Precautions,Decreased Ability to Apply Precautions Cognitive Comments Cognitive Assessment Comments Pt needing reminders to recall her hip precautions during ADL and mobility needs. M7 OT- IP Mobility and Balance Start: 08/12/22 15:43 Freq: Status: Active Protocol: Document 08/12/22 13:17 [facility] (Rec: 08/12/22 16:04 [facility] [id number]) OT- Bed Mobility Assessment Supine to Sit Supine to Sit Assist Maximum Assistance,2 Person Assistance Sit to Supine Sit to Supine Assist Maximum Assistance,2 Person Assistance OT-Transfer Assessment Sit to and From Stand Sit to and from Stand Minimal Assistance,Moderate Assistance,2 Person Assistance Comments Mobility Comments PARTHA x1 and MODA x1 to side step a few times to the head of the bed with FWW. MAX Ax2 with head of bed up and assist for her trunk and legs. OT- Balance Assessment Sitting Balance and Reactions Static Sitting Balance Ability Fair Comments Other Balance Tests/Deviations/Treatment Pt needing PARTHA to MODA for : balance and vc to keep from leaning forwards. M8 OT- IP Objective Assessments Start: 08/12/22 15:43 Freq: Status: Active Protocol: Document 08/12/22 13:17 [facility] (Rec: 08/12/22 16:04 [facility] [id number]) OT Gross Range of Motion Upper Extremity Range of Motion Assessment Within Functional Limits OT Strength Comments Strength Comments Not formally tested but at least 3-/5 as pt able to assist for mobility needs. OT-Muscle Tone Assessment Muscle Tone WNL Yes M9 OT- IP Assessment and Plan Start: 08/12/22 15:43 Freq: Status: Active Protocol: Document 08/12/22 13:17 [facility] (Rec: 08/12/22 16:04 [facility] [id number]) OT Summary Assessment and Plan Potential Rehabilitation Potential Good Analytic Complexity at Evaluation Moderate Summary OT Impairments Pain,Strength,Balance, Functional Mobility,Self- Feeding,Grooming,Dressing, Toileting,Bathing,Toilet Transfers,Shower Transfers, Activity Tolerance Progress Towards Goals Slow Progress due to Pain,Slow Progress due to Medical Issues,Slow Progress due to Activity Tolerance Assessment Summary Pt MOD complexity and main barriers are pain, decreased activity tolerance, and needing assist for all ADl and mobility needs. Pt at this time needing two person assist to move and will greatly benefit from skilled rehab and has a 24/7 caregiver at home to assist if able to mobilize better to one person assist. Goals Self-Feeding Goal Independent Grooming Goal Standby Assistance Dressing Goal Moderate Assistance Toileting Goal Moderate Assistance Bathing Goal Moderate Assistance Toilet Transfer Goal Minimal Assistance Shower Transfer Goal Moderate Assistance Patient/Caregiver Education Goal Demonstrate Post-Op Precautions Days to Meet Goals 20 Frequency of Treatment Frequency Of Treatment Once a Day Treatment Plan OT Treatment Plan ADL Training,Functional Cognition Training,Functional Mobility,Patient/Family Education,Discharge Planning Other Treatment Recommendations and Next Transfer to [facility] with MODA X2 Treatment Focus and FWW. Discharge Recommendations OT Discharge Recommendations SNF Rehab Transportation Needs at Discharge Stretcher/Ambulance
--- NOTE | 2022-08-12 17:46 | PT.IIE ---
Surgical History (Last Reviewed 08/12/22 @ 08:42 by Patt Johnson PA-C) History of cataract removal with insertion of prosthetic lens Status post laparoscopic cholecystectomy (12/2014) Status post total knee replacement, left Medical History (Last Reviewed 08/12/22 @ 08:42 by Patt Johnson PA-C) Breast cancer Dizziness Lupus Osteopenia Parkinson disease Physical Therapy Inpatient Evaluation/Re-Eval M1 PT/OT-IP Prior Functional Status Start: 08/12/22 15:43 Freq: NEEDED Status: Active Protocol: Document 08/12/22 17:31 [facility] (Rec: 08/12/22 17:45 [facility] [id number]) Medical Review Prior Functional Status Medical History Reviewed Yes Communication WFL Mobility and Gait Recently d/c home from SNF and was ambulatory at that time with FWW for household distances. Activities of Daily Living and IADL's Was performing with caregiver assistance since returning home from SNF. Prior Functional Level (Other details) Recently diagnosed with PD. Social History Household Members caregiver,none Living Arrangements House Number of Floors (Floors) One Floor Number of Stairs To Enter/Railing? 0 Home Equipment Front Wheel Walker,Manual Wheelchair,Bedside Commode Employment Status Retired Additional Social History Comment 09/11 caregiver lives downstairs. Caregiver does not drive. Ex- lives in [place] and is involved in her care. M2 PT-IP Current Condition Start: 08/12/22 17:30 Freq: NEEDED Status: Active Protocol: Document 08/12/22 17:31 [facility] (Rec: 08/12/22 17:45 [facility] [id number]) Physical Therapy Current Condition Current Condition Evaluation Date 08/12/22 Treatment Diagnosis s/p reduction of L hip dislocation in presence of MERCEDES Onset Date 08/11/22 M3 PT-IP Subjective Start: 08/12/22 17:30 Freq: NEEDED Status: Active Protocol: Document 08/12/22 17:31 [facility] (Rec: 08/12/22 17:45 ES [id number]) Subjective Physical Therapy Visit Type Type Initial Evaluation Visit Start Time 13:20 Visit Stop Time 14:00 Total Visit Minutes 40 Notes OT present during eval Physical Therapy Visit Comments Patient Comments Patient alert in bed, niece present. Patient initially refused to wear abduction brace, but was agreeable when offered adjustments/padding to make it more comfortable and with agreement to remove when back in bed if still too uncomfortable. M4 PT-IP Mobility and Gait Start: 08/12/22 17:30 Freq: NEEDED Status: Active Protocol: Document 08/12/22 17:31 [facility] (Rec: 08/12/22 17:45 ES [id number]) PT-Bed Mobility Assessment Rolling Type of Rolling Roll to Left Level of Assist Moderate Assistance,1 Person Assistance Supine to Sit Supine to Sit Maximum Assistance,2 Person Assistance,Head of Bed Elevated,Bedrails Sit to Supine Sit to Supine Maximum Assistance,2 Person Assistance,Head of Bed Elevated,Bedrails Scooting Scooting to Edge of Bed Maximum Assistance Scooting Up and Down in Bed Maximum Assistance PT-Transfer Assessment Sit to and From Stand Sit to and from Stand Moderate Assistance,2 Person Assistance,Use of Upper Extremities Equipment Transfer Assistive Device Gait Belt,Front Wheeled Walker Orthotic/Prosthetic Devices or Brace: Yes Comments Mobility Comments Attempted taking steps at EOB but unable to support weight on LLE so returned to bed. Gait Assessment Comments Gait Comments Unable due to pain, weakness. PT-Balance Assessment Sitting Balance and Reactions Static Sitting Balance Ability Fair Dynamic Sitting Balance Ability Fair Standing Balance and Reactions Static Standing Balance Ability Fair Dynamic Standing Balance Ability Poor Device Used FWW M5 PT-IP Objective Assessments Start: 08/12/22 17:30 Freq: NEEDED Status: Active Protocol: Document 08/12/22 17:31 [facility] (Rec: 08/12/22 17:45 ES [id number]) Orientation Orientation/Cognition Level of Alertness Alert Language Function Ability No Deficits Noted Safety Awareness Decreased Safety Awareness Memory Description Short Term Impaired,Long-Term Impaired Gross Range of Motion Upper Extremity ROM Assessment Within Functional Limits Lower Extremity ROM Assessment Left Impaired Impairments 2/2 precautions Strength Upper Extremity Strength Assessment Bilaterally Impaired Lower Extremity Strength Assessment Bilaterally Impaired Comments Strength Comments Grossly 4-/5 BUE's and RLE, grossly 3-/5 L hip otherwise 4 -/5 Coordination Assessment Gross Coordination Gross Coordination WNL M6 PT-IP Treatment Start: 08/12/22 17:30 Freq: NEEDED Status: Active Protocol: Document 08/12/22 17:31 [facility] (Rec: 08/12/22 17:45 [facility] [id number]) Physical Therapy Treatment Education Education Provided Precautions,Weight Bearing Status,Safety Brace Education Rj,Patient M7 PT-IP Assessment and Plan Start: 08/12/22 17:30 Freq: NEEDED Status: Active Protocol: Document 08/12/22 17:31 [facility] (Rec: 08/12/22 17:45 [facility] [id number]) PT Summary Assessment and Plan Potential Rehabilitation Potential Fair Status of Condition at Evaluation Evolving Summary Impairments Pain,ROM,Strength,Balance, Cognition,Bed Mobility, Transfers,Gait,Activity Tolerance Assessment Summary Patient is a 82 year old female with a hx of multiple L hip dislocations in setting of MERCEDES who presents with impaired functional mobility due to the above problems. She demonstrated limited comprehension and recall of precautions, rationale for hip abduction brace, and reason for her multiple dislocations. She required 2-person assist for all mobility, and was unable to ambulate due to pain and weakness of LLE. She is well below her baseline function and requires a higher level of care than what she has been receiving at home. She will benefit from SNF placement for further rehab, reinforcement of precautions, and patient/caregiver training . She is unsafe to return home at her current state. Goals Bed Mobility Goal Minimal Assistance Transfer Goal Minimal Assistance,Front Wheeled Walker Gait Goal Contact Guard Assistance,Front Wheel Walker Gait Distance 50 Days to Meet Goals 5 Frequency of Treatment Frequency Of Treatment Once a Day Treatment Plan Physical Therapy Treatment Plan Bed Mobility Training,Transfer Training,Gait Training, Therapeutic Exercise,Balance Retraining,Discharge Planning, Hot or Cold Pack,Neuromuscular Re-ed Other Recommendations and Next Treatment Progress transfers and gait as Focus indicated. Review posterior precautions. Introduce ex's as tolerated. Precautions Posterior Hip Precautions No Hip Flexion > 90 degrees,No Hip Internal Rotation,No Hip Adduction Brace L hip abduction brace at all times Weight Bearing Status Weight Bearing Status Weight Bear as Tolerated Recommendations To Nursing Amount of Assist Needed 2 Person Assist Discharge Recommendations PT Discharge Recommendations SNF Rehab Transportation Needs at Discharge Stretcher/Ambulance
[2022-08-12 20:00] VITALS: BP 146/67; PULSE 72; RESP 18; TEMP 36.9; O2SAT 97
[2022-08-12] MEDS: LORazepam 0.5 MG TABLET PO (20:32)
[2022-08-12] MEDS: MAGNESIUM HYDROXIDE 30 ML UDC PO (20:32)
[2022-08-12] MEDS: METOCLOPRAMIDE HCL 5 MG TABLET 10 MG PO (23:21)
[2022-08-13] VITALS (8 sets, daily range): BP systolic 106–145; BP diastolic 49–83; PULSE 75–85; RESP 16–20; TEMP 36.6–36.9; O2SAT 93–95
[2022-08-13] MEDS: ASPIRIN EC 81 MG TABLET PO ×2 (08:57→21:00)
[2022-08-13] MEDS: atenoloL 25 MG TABLET PO (08:57)
[2022-08-13] MEDS: DOCUSATE 100 MG CAPSULE PO ×2 (08:58→21:00)
[2022-08-13] MEDS: LOSARTAN 25 MG TABLET PO (08:59)
[2022-08-13] MEDS: OXYCODONE IR 5 MG TABLET PO ×2 (09:00→21:00)
[2022-08-13] MEDS: predniSONE 5 MG TABLET PO (09:00)
--- NOTE | 2022-08-13 11:13 | PT.IPTN ---
Physical Therapy Treatment Note M2 PT-IP Current Condition Start: 08/12/22 17:30 Freq: NEEDED Status: Active Protocol: Document 08/12/22 17:31 ES (Rec: 08/12/22 17:45 ES [id number]) Physical Therapy Current Condition Current Condition Evaluation Date 08/12/22 Treatment Diagnosis s/p reduction of L hip dislocation in presence of MERCEDES Onset Date 08/11/22 M3 PT-IP Subjective Start: 08/12/22 17:30 Freq: NEEDED Status: Active Protocol: Document 08/13/22 13:48 [facility] (Rec: 08/13/22 13:58 [facility] [id number]) Subjective Physical Therapy Visit Type Type Treatment Note Visit Start Time 10:46 Visit Stop Time 11:13 Total Visit Minutes 27 Number of MESH WORKER Visits 1 Physical Therapy Visit Comments Patient Comments Pt refused abduction brace initially but then agreed to wear it for transfer only. Demanded removal when in bed. M4 PT-IP Mobility and Gait Start: 08/12/22 17:30 Freq: NEEDED Status: Active Protocol: Document 08/13/22 13:48 [facility] (Rec: 08/13/22 13:58 [facility] [id number]) PT-Bed Mobility Assessment Supine to Sit Supine to Sit Moderate Assistance,1 Person Assistance,Head of Bed Elevated,Bedrails Sit to Supine Sit to Supine Moderate Assistance,1 Person Assistance,Head of Bed Elevated Scooting Scooting to Edge of Bed Maximum Assistance PT-Transfer Assessment Sit to and From Stand Sit to and from Stand Moderate Assistance,1 Person Assistance,Use of Upper Extremities Equipment Transfer Assistive Device Gait Belt,Front Wheeled Walker Orthotic/Prosthetic Devices or Brace: Yes Transfers Transfer Destination Bed,Chair Transfer Technique Stand Step Pivot Transfer Ability Level of Assist Minimal Assistance,1 Person Assistance,Use of Upper Extremities Comments Mobility Comments Pt in bed upon arrival, not wearing brace but w/ pillow positioned between legs to prevent adduction. Able to recall all hip precautions today. Mod A for sup<>sit, Max A for scooting EOB. Mod A for sit<>stand w/ FWW. Able to maintain all hip precautions throughout treatment. Pt initially relying on bed frame for support but was then able to stand up straight and transfer to chair w/ FWW Mod A . Max A for slow descent to prevent hip flexion past 90. Pt refused brace multiple times however then did agree to wear it for transfer back to bed. Abduction brace wet and soiled with pts fecal matter. RN aware. Pillow cases and towels placed to prevent brace touching skin. Mod A for transfer back to bed and Mod A x2 for repositioning. Pt demanded brace be removed. Pt left in bed w/ pillow between legs and INVESTMENT SALES ASSISTANT in room. Gait Assessment Gait Gait Assistance Required: Moderate Assistance,1 Person Assist Distance (Feet) 2 Able to Maintain Weight Bearing Status Yes During Gait Assistive Devices Assistive Device Gait Belt,Front Wheeled Walker Gait Deviations General Gait Pattern Decreased Stride Length, Decreased Feet Clearance, Flexed Trunk Factors Limiting Gait Function Factors Limiting Gait Function Decreased Activity Tolerance, Decreased Strength,Difficulty Following Directions, Incoordination,Limited Range of Motion,Pain,Poor Balance, Poor Safety Awareness Comments Gait Comments Transferred only. PT-Balance Assessment Sitting Balance and Reactions Static Sitting Balance Ability Fair Dynamic Sitting Balance Ability Fair Standing Balance and Reactions Static Standing Balance Ability Fair Dynamic Standing Balance Ability Fair Device Used FWW M5 PT-IP Objective Assessments Start: 08/12/22 17:30 Freq: NEEDED Status: Active Protocol: Document 08/12/22 17:31 [facility] (Rec: 08/12/22 17:45 ES [id number]) Orientation Orientation/Cognition Level of Alertness Alert Language Function Ability No Deficits Noted Safety Awareness Decreased Safety Awareness Memory Description Short Term Impaired,Halfway Impaired Gross Range of Motion Upper Extremity ROM Assessment Within Functional Limits Lower Extremity ROM Assessment Left Impaired Impairments 2/2 precautions Strength Upper Extremity Strength Assessment Bilaterally Impaired Lower Extremity Strength Assessment Bilaterally Impaired Comments Strength Comments Grossly 4-/5 BUE's and RLE, grossly 3-/5 L hip otherwise 4 -/5 Coordination Assessment Gross Coordination Gross Coordination WNL M6 PT-IP Treatment Start: 08/12/22 17:30 Freq: NEEDED Status: Active Protocol: Document 08/13/22 13:48 [facility] (Rec: 08/13/22 13:58 [facility] [id number]) Physical Therapy Treatment Education Education Provided Precautions,Weight Bearing Status,Safety Brace Education Donning,Patient Other Treatments Other Treatment Performed Discussed importance of brace and following hip precautions. M7 PT-IP Assessment and Plan Start: 08/12/22 17:30 Freq: NEEDED Status: Active Protocol: Document 08/13/22 13:48 [facility] (Rec: 08/13/22 13:58 [facility] [id number]) PT Summary Assessment and Plan Potential Rehabilitation Potential Fair Summary Impairments Pain,ROM,Strength,Balance, Cognition,Bed Mobility, Transfers,Gait,Activity Tolerance Progress Towards Goals Slow Progress due to Activity Tolerance Assessment Summary Pt able to recall and maintain hip precautions today. Able to complete transfers w/ FWW and mod A, bed mobility required Mod to Max A. She refuses to wear brace, but can sometimes be convinced if it is for short periods of time. Brace needs to be cleaned or replaced as there is fecal matter present d/t pt diarrhea . RN aware. At this time, pt will require SNF to improve strength and stability. Goals Bed Mobility Goal Minimal Assistance Transfer Goal Minimal Assistance,Front Wheeled Walker Gait Goal Contact Guard Assistance,Front Wheel Walker Gait Distance 50 Days to Meet Goals 5 Frequency of Treatment Frequency Of Treatment Once a Day Treatment Plan Physical Therapy Treatment Plan Bed Mobility Training,Transfer Training,Gait Training, Therapeutic Exercise,Balance Retraining,Discharge Planning, Hot or Cold Pack,Neuromuscular Re-ed Other Recommendations and Next Treatment Progress transfers and gait as Focus indicated. Review posterior precautions. Introduce ex's as tolerated. Precautions Posterior Hip Precautions No Hip Flexion > 90 degrees,No Hip Internal Rotation,No Hip Adduction Brace L hip abduction brace at all times Weight Bearing Status Weight Bearing Status Weight Bear as Tolerated Recommendations To Nursing Amount of Assist Needed 2 Person Assist Discharge Recommendations PT Discharge Recommendations SNF Rehab Transportation Needs at Discharge Stretcher/Ambulance
--- NOTE | 2022-08-13 11:26 | PC.NURSE ---
Patient educated on wearing brace, patient refused multiple times to wear brace. Patient wore SCD for breakfast called later on to have them removed.
--- NOTE | 2022-08-13 16:48 | OT.IP.TRT ---
Occupational Therapy Treatment Note M2 OT-IP Current Condition Start: 08/12/22 15:43 Freq: Status: Active Protocol: Document 08/12/22 13:17 [facility] (Rec: 08/12/22 16:04 [facility] [id number]) Occupational Therapy Current Condition Current Condition Evaluation Date 08/12/22 Treatment Diagnosis S/P relocation of left superior hip dislocation Diagnosis Onset Date 08/11/22 Post Operative Precautions Posterior Hip Precautions No Hip Flexion > 90 degrees,No Hip Internal Rotation,No Hip Adduction Other Precautions Pt to have abduction brace on at all times. M3 OT- IP Subjective and Pain Start: 08/12/22 15:43 Freq: Status: Active Protocol: Document 08/13/22 17:27 [facility] (Rec: 08/13/22 17:47 [facility] [id number]) OT- Subjective Occupational Therapy Visit Type Type Treatment Note Visit Start Time 13:31 Visit Stop Time 16:49 Total Visit Minutes 98 Notes Pt seen for split treatment [id number] and 1605 to 1648. Pt's ex- present and Kathia from [facility] there. Occupational Therapy Visit Comments Patient Comments Per pt the brace was off due to it being soiled and that it was not comfortable for her. Pt states Dr. Betts states to get a more comfortable one for her. Pt's nurse able to call Kathia WASHBURN to come and adjust the abductor brace at 4pm. Patient/Caregiver Goals TO get better. OT Pain Assessment Pain When Pain Assessed At Rest Pain Present Pain Present Pain Reported M4 OT- IP ADL's Start: 08/12/22 15:43 Freq: Status: Active Protocol: Document 08/13/22 17:27 [facility] (Rec: 08/13/22 17:47 [facility] [id number]) OT [id number] Comments OT Self-Feeding Comments NO issues anticipated OT ADL-Grooming Comments OT Grooming Comments Not performed. OT ADL-Oral Care Comments Oral Care Comments Not performed. OT ADL-Dressing General Eval Lower Body Dressing Ability Total Assistance Areas Needing Assistance Orthosis/Prosthesis Comments OT Dressing Comments Pt needing 2 person assist to help adjust the brace at this time. Kathia from [facility] able to come readjust the brace. It is suggested that pt wear a camisole underneath and to wear loose clothing and disposable brief on top of the brief to keep from having to take on and off the brace. Per doctor's note , pt need to wear the brace at all times. OT ADL-Toileting General Evaluation Toileting Ability Total Assistance Comments OT Toileting Comments Dill in place OT ADL-Bathing Comments OT Bathing Comments Sponge bath more appropriate at this time. Cord Splicer states the brace in not allowed to be wet and therefore best to wear it in the shower and then take in off and then put in back on when the pt is dried. At this time best to just sponge bath for safety. M5 OT- IP IADL's Start: 08/12/22 15:43 Freq: Status: Active Protocol: Document 08/12/22 13:17 [facility] (Rec: 08/12/22 16:04 [facility] [id number]) OT-Instrumental Activities of Daily Living Home Safety Awareness Home Safety Comments Pt has 09/11 caregiver that has been assisting pt for all ADL and mobility needs , however pt having more difficulty to mobilize since her last dislocation. Medication Management Medication Management Caregiver Administers Money Management Money Management Caregiver Provides Assistance Meal Preparation Meal Preparation Caregiver Provides Assist Inclusion Special Education Teacher Inclusion Special Education Teacher Caregiver Provides Assist Driving Driving Caregiver Provides Assist M6 OT- IP Functional Cognition Start: 08/12/22 15:43 Freq: Status: Active Protocol: Document 08/13/22 17:27 [facility] (Rec: 08/13/22 17:47 [facility] [id number]) Cognitive Factors Limiting Selfcare Function Cognitive Ability Level of Alertness Alert,Confusional State Patient Orientation Name,Place,Situation Attention Span Ability Capable of Focused Attention, Unable to Sustain Attention Ability to Follow Commands Able to Follow One Step Commands with Increased Time, Able to Follow One Step Commands with Repetition Safety Awareness Decreased Recall of Precautions,Decreased Ability to Apply Precautions Cognitive Comments Cognitive Assessment Comments Pt is very forgetful and needing constant reminders to follow her hip precautions and for reassurance. M7 OT- IP Mobility and Balance Start: 08/12/22 15:43 Freq: Status: Active Protocol: Document 08/13/22 17:27 [facility] (Rec: 08/13/22 17:47 [facility] [id number]) OT- Bed Mobility Assessment Supine to Sit Supine to Sit Assist Maximum Assistance,2 Person Assistance Sit to Supine Sit to Supine Assist Maximum Assistance,2 Person Assistance OT-Transfer Assessment Sit to and From Stand Sit to and from Stand Moderate Assistance,2 Person Assistance Comments Mobility Comments MAXA X2 with use of green pad and hospital bed to assist to get to the edge of the bed. In addition pt needing MODA X2 to come to stand to FWW and able to take a few side steps with PARTHA x1 eventually, once on her feet. OT- Balance Assessment Sitting Balance and Reactions Static Sitting Balance Ability Fair Standing Balance and Reactions Static Standing Balance Ability Poor Comments Other Balance Tests/Deviations/Treatment PARTHA for sitting balance and : reminders to not lean too far forwards. M8 OT- IP Objective Assessments Start: 08/12/22 15:43 Freq: Status: Active Protocol: Document 08/12/22 13:17 [facility] (Rec: 08/12/22 16:04 [facility] [id number]) OT Gross Range of Motion Upper Extremity Range of Motion Assessment Within Functional Limits OT Strength Comments Strength Comments Not formally tested but at least 3-/5 as pt able to assist for mobility needs. OT-Muscle Tone Assessment Muscle Tone WNL Yes M9 OT- IP Assessment and Plan Start: 08/12/22 15:43 Freq: Status: Active Protocol: Document 08/13/22 17:27 [facility] (Rec: 08/13/22 17:47 [facility] [id number]) OT Summary Assessment and Plan Potential Rehabilitation Potential Fair Analytic Complexity at Evaluation Moderate Summary OT Impairments Pain,Strength,Balance, Functional Mobility,Self- Feeding,Grooming,Dressing, Toileting,Bathing,Toilet Transfers,Shower Transfers, Activity Tolerance Progress Towards Goals Slow Progress due to Pain,Slow Progress due to Medical Issues,Slow Progress due to Activity Tolerance,Slow Progress due to Cognition Assessment Summary Pt needing constant reminders and reassurance for hip precautions and two person assist to help get the abductor brace on. At this time pt would greatly benefit from skilled rehab. At this time there are no accepting facilities for the pt and if having to go home would benefit from a hospital bed , bsc, recliner wc, reclining shower chair Goals Self-Feeding Goal Independent Grooming Goal Standby Assistance Dressing Goal Moderate Assistance Toileting Goal Moderate Assistance Bathing Goal Moderate Assistance Toilet Transfer Goal Minimal Assistance Shower Transfer Goal Moderate Assistance Patient/Caregiver Education Goal Demonstrate Post-Op Precautions Days to Meet Goals 20 Frequency of Treatment Frequency Of Treatment Once a Day Treatment Plan OT Treatment Plan ADL Training,Functional Cognition Training,Functional Mobility,Patient/Family Education,Discharge Planning Other Treatment Recommendations and Next Caregiver training Treatment Focus Discharge Recommendations OT Discharge Recommendations SNF Rehab Other Discharge Recommendations At this time home with 09/11 may not be enough assist at pt will 2+ person assist for bed mobility needs. Transportation Needs at Discharge Stretcher/Ambulance
--- NOTE | 2022-08-13 18:44 | PC.NURSE ---
all documentations by student RN was reviewed by this nurse. at this time patient removed her hip brace again. pt laying in bed with pillow in between legs.
--- NOTE | 2022-08-13 19:48 | PM.PN.1 ---
Subjective Subjective Date Patient Seen: 08/13/22 Time Patient Seen: 07:00 Interval history: Patient is resting comfortably in bed this morning. She is irritated that I have come to see her and woke her up this morning asking her questions. Patient notes that she was up all night with diarrhea, nausea and vomiting. She attributes the diarrhea to laxatives she is been taking for constipation and she is unsure why she had nausea and vomiting. She states that she does not know the plan for her discharge. Stops answering my questions midway through our conversation. Exam Vital Signs (past 8 hours): - 08/13/22 17:00 Temperature 97.9 F Pulse Rate 77 Respiratory Rate 17 Blood Pressure 106/62 Pulse Oximetry 95 Oxygen Flow Rate 0 Oxygen Delivery Method Room Air Oxygen Flow Rate 0 Narrative Exam Narrative: Irritable, uncooperative 82 year old female. No obvious swelling or bruising to either hip. Tender to palpation of left hip. Strength and sensation intact to bilateral lower extremities. Bilateral calves soft, compressible, nontender with no palpable cords or masses. Objective Labs 08/12/22 05:00 [facility] Medical History Breast cancer Dizziness Lupus Osteopenia Parkinson disease Surgical History History of cataract removal with insertion of prosthetic lens Status post laparoscopic cholecystectomy (12/2014) Status post total knee replacement, left Family History Mother Hypertension Father Heart disease Brother Heart disease Social History household members: caregiver and none Smoking Status: Never smoker alcohol intake: never substance use type: does not use Assessment & Plan Assessment & Plan narrative: The patient has multiple medical problems with Parkinson's, SLE, a small brain tumor, hypertension, and history of breast cancer.? She was clearly failing at home which is the reason she fell and had a hip fracture in the 1st place.? Placement back at her home with a non medical professional as a full-time caregiver is unfortunately failing with 3 dislocations in the short period of time since she was discharged from the retirement facility.? From a surgical standpoint, her hip already has increased offset and increased length compared to the other side.? Revision with a longer sleeve is possible but is best avoided.? -Continue abduction splint at all times, minimum of [address] Thomas, an abduction pillow is not appropriate at this time. He placed a consult with the after school driver yesterday and discussed the case. The after school driver needs to reasses the brace fitting. -Continue with multimodal pain management -Aspirin 81 mg b.i.d. x6 weeks for DVT prophylaxis -Disposition to retirement facility.? She should be discharged with the appropriate aids such as a raised toilet seat which was not provided to her the 1st time she was discharged from retirement. Quality VTE Deep Vein Thrombosis/Pulmonary Embolism Present on Admission: No
[2022-08-14] VITALS: BP 112/59; PULSE 66; RESP 18; TEMP 36.3; O2SAT 95
--- NOTE | 2022-08-14 08:46 | PM.PN.1 ---
Subjective Subjective Date Patient Seen: 08/14/22 Time Patient Seen: 08:46 Interval history: Patient is complaining of moderate left hip pain this morning. She denies any numbness or tingling. Her nonmedical caregiver is coming in today for caregiver training. SNF placement looks highly unlikely this point. She is refusing to wear her hip abduction brace, stating she will ? if she wears it. Notes it is causing pain on her ribcage, underneath her breast and also making it difficult to breathe. She does note the oil field equipment mechanic supervisor came yesterday to refit her. Exam Vital Signs (past 8 hours): - 08/14/22 08:03 Temperature 97.9 F Pulse Rate 70 Respiratory Rate 16 Blood Pressure 118/62 Pulse Oximetry 97 Oxygen Flow Rate 0 Oxygen Delivery Method Room Air Oxygen Flow Rate 0 Narrative Exam Narrative: 82-year-old female, resting comfortably in bed, no acute distress. Brace is completely off and on the chair across the room. Bilateral lower extremity: Motor functions are grossly intact, sensation is grossly intact to light touch, calves are soft and nontender to palpation. Objective Labs 08/12/22 05:00 [facility] Medical History Breast cancer Dizziness Lupus Osteopenia Parkinson disease Surgical History History of cataract removal with insertion of prosthetic lens Status post laparoscopic cholecystectomy (12/2014) Status post total knee replacement, left Family History Mother Hypertension Father Heart disease Brother Heart disease Social History household members: caregiver and none Smoking Status: Never smoker alcohol intake: never substance use type: does not use Assessment & Plan Assessment & Plan narrative: The patient has multiple medical problems with Parkinson's, SLE, a small brain tumor, hypertension, and history of breast cancer.? She was clearly failing at home which is the reason she fell and had a hip fracture in the 1st place.? Placement back at her home with a non medical professional as a full-time caregiver is unfortunately failing with 3 dislocations in the short period of time since she was [facility] from the [facility] facility.? From a surgical standpoint, her hip already has increased offset and increased length compared to the other side.? Revision with a longer sleeve is possible but is best avoided.? Discussed with patient that SNF placement is unlikely and at this point, the best option is to higher additional caregiving help at home. The patient is amenable to this. -Dr. Thomas and I have both had a very long discussions with the patient that she needs to continue abduction splint at all times, minimum of 6 weeks. She is very high risk due to her cognitive impairment and multiple dislocations in such a short amount of time. The patient refuses to wear her brace and states she ?will -Discussed with Dr. Thomas, an abduction pillow is better than nothing, although hip abduction splint is what we are recommending. We will order Abduction foam pillow -Continue with multimodal pain management -Aspirin 81 mg b.i.d. x6 weeks for DVT prophylaxis -DC urinary catheter once mobilizing sufficiently -Disposition to prison facility versus home with additional medically trained caregiver.? She should be discharged with the appropriate aids such as a raised toilet seat which was not provided to her the 1st time she was discharged from prison. I will recheck on her today to evaluate her progress. Quality VTE Deep Vein Thrombosis/Pulmonary Embolism Present on Admission: No
[2022-08-14] MEDS: OXYCODONE IR 5 MG TABLET PO ×3 (09:32→17:28)
[2022-08-14] MEDS: LOSARTAN 25 MG TABLET PO (09:32)
[2022-08-14] MEDS: DOCUSATE 100 MG CAPSULE PO ×2 (09:32→21:45)
[2022-08-14] MEDS: predniSONE 5 MG TABLET PO (09:32)
[2022-08-14] MEDS: ASPIRIN EC 81 MG TABLET PO ×2 (09:33→21:45)
--- NOTE | 2022-08-14 10:09 | PT.IPTN ---
Physical Therapy Treatment Note M2 PT-IP Current Condition Start: 08/12/22 17:30 Freq: NEEDED Status: Active Protocol: Document 08/12/22 17:31 ES (Rec: 08/12/22 17:45 ES [id number]) Physical Therapy Current Condition Current Condition Evaluation Date 08/12/22 Treatment Diagnosis s/p reduction of L hip dislocation in presence of MERCEDES Onset Date 08/11/22 M3 PT-IP Subjective Start: 08/12/22 17:30 Freq: NEEDED Status: Active Protocol: Document 08/14/22 11:07 TS (Rec: 08/14/22 11:31 TS [id number]) Subjective Physical Therapy Visit Type Type Treatment Note Visit Start Time 10:09 Visit Stop Time 11:06 Total Visit Minutes 57 Notes Caregiver training. Number of SCREEN WRITER Visits 2 Physical Therapy Visit Comments Patient Comments Pt reports pain in neck/left shoulder, burning with her catheter, agreeable to wear brace for mobility. M4 PT-IP Mobility and Gait Start: 08/12/22 17:30 Freq: NEEDED Status: Active Protocol: Document 08/14/22 11:07 TS (Rec: 08/14/22 11:31 TS [id number]) PT-Bed Mobility Assessment Supine to Sit Supine to Sit Maximum Assistance,2 Person Assistance,Bedrails Scooting Scooting to Edge of Bed Maximum Assistance PT-Transfer Assessment Sit to and From Stand Sit to and from Stand Moderate Assistance,1 Person Assistance,Use of Upper Extremities Equipment Transfer Assistive Device Gait Belt,Front Wheeled Walker Orthotic/Prosthetic Devices or Brace: Yes Transfers Transfer Destination Chair Transfer Technique Stand Step Pivot Transfer Ability Level of Assist Minimal Assistance,1 Person Assistance,Use of Upper Extremities Comments Mobility Comments Pt found resting in bed, agreeable to PT session. Donned brace prior to mobility . Supine to sit MaxA x2 from flat bed, requires cues for BUE support and LLE assistance to EOB. Pt sat on EOB with Anel and BUE support, pt appearing lethargic, reported some dizziness. Sit to stand x1 ModA x1 caregiver assist, required cues for BUE support on bed to push into standing. Stand step pivot transfer to chair with Anel x1 from caregiver, provided cues for step sequencing. Pt was left in chair with call light nearby, caregivers/family in room, RN notified. Gait Assessment Gait Gait Assistance Required: Minimum Assistance,1 Person Assist Distance (Feet) 2 Able to Maintain Weight Bearing Status Yes During Gait Assistive Devices Assistive Device Gait Belt,Front Wheeled Walker Orthotic/Prosthetic Devices or Brace: Yes Gait Deviations General Gait Pattern Decreased Stride Length, Decreased Feet Clearance, Flexed Trunk Factors Limiting Gait Function Factors Limiting Gait Function Decreased Activity Tolerance, Decreased Strength,Difficulty Following Directions, Incoordination,Limited Range of Motion,Pain,Poor Balance, Poor Safety Awareness Comments Gait Comments Stand step pivot transfer. PT-Balance Assessment Sitting Balance and Reactions Static Sitting Balance Ability Fair Dynamic Sitting Balance Ability Fair Standing Balance and Reactions Static Standing Balance Ability Poor Dynamic Standing Balance Ability Fair Device Used FWW M5 PT-IP Objective Assessments Start: 08/12/22 17:30 Freq: NEEDED Status: Active Protocol: Document 08/12/22 17:31 ES (Rec: 08/12/22 17:45 ES [id number]) Orientation Orientation/Cognition Level of Alertness Alert Language Function Ability No Deficits Noted Safety Awareness Decreased Safety Awareness Memory Description Short Term Impaired,Shelter Impaired Gross Range of Motion Upper Extremity ROM Assessment Within Functional Limits Lower Extremity ROM Assessment Left Impaired Impairments 2/2 precautions Strength Upper Extremity Strength Assessment Bilaterally Impaired Lower Extremity Strength Assessment Bilaterally Impaired Comments Strength Comments Grossly 4-/5 BUE's and RLE, grossly 3-/5 L hip otherwise 4 -/5 Coordination Assessment Gross Coordination Gross Coordination WNL M6 PT-IP Treatment Start: 08/12/22 17:30 Freq: NEEDED Status: Active Protocol: Document 08/14/22 11:07 TS (Rec: 08/14/22 11:31 TS [id number]) Physical Therapy Treatment Education Education Provided Precautions,Weight Bearing Status,Safety Brace Education Donning,Patient Other Treatments Other Treatment Performed Discussed importance of brace, pt recalled 2/3 hip precautions. M7 PT-IP Assessment and Plan Start: 08/12/22 17:30 Freq: NEEDED Status: Active Protocol: Document 08/14/22 11:07 TS (Rec: 08/14/22 11:31 TS [id number]) PT Summary Assessment and Plan Potential Rehabilitation Potential Fair Status of Condition at Evaluation Evolving Summary Impairments Pain,ROM,Strength,Balance, Cognition,Bed Mobility, Transfers,Gait,Activity Tolerance Progress Towards Goals Slow Progress due to Activity Tolerance Assessment Summary Pt continues to need education on importance of brace, initally refusing but did agree. Pt reports it is uncomfortable and she has a hard time breathing with it on . Pt is requiring MaxA x2 from flat for supine to sit, discussed possible use of hospital bed at home, family/ caregivers will look into getting bed. Pt performed sit to stand with Anel x1, she requires consistent cueing for sit to stand sequencing and motivation. Her mobility in standing requires decreased assistance, she performed stand step pivot transfer Anel with minimal cueing for sequence. PT continues to recommend SNF at this time. Pt is requiring MaxA x2 for bed mobility, pt would require MaxA x2 24/7 to go home at this time. If family/ caregivers can get access to hospital bed and increased 24/ 7 assistance pt may be able to return home. Goals Bed Mobility Goal Minimal Assistance Transfer Goal Minimal Assistance,Front Wheeled Walker Gait Goal Contact Guard Assistance,Front Wheel Walker Gait Distance 50 Days to Meet Goals 5 Frequency of Treatment Frequency Of Treatment Once a Day Treatment Plan Physical Therapy Treatment Plan Bed Mobility Training,Transfer Training,Gait Training, Therapeutic Exercise,Balance Retraining,Discharge Planning, Hot or Cold Pack,Neuromuscular Re-ed Other Recommendations and Next Treatment Progress transfers and gait as Focus indicated. Review posterior precautions. Introduce ex's as tolerated. Precautions Posterior Hip Precautions No Hip Flexion > 90 degrees,No Hip Internal Rotation,No Hip Adduction Brace L hip abduction brace at all times Weight Bearing Status Weight Bearing Status Weight Bear as Tolerated Recommendations To Nursing Amount of Assist Needed 2 Person Assist Discharge Recommendations PT Discharge Recommendations SNF Rehab Transportation Needs at Discharge Stretcher/Ambulance
[2022-08-14 11:03] VITALS: BP 118/62; PULSE 70; RESP 16; TEMP 36.6; O2SAT 97
--- NOTE | 2022-08-14 11:04 | OT.IP.TRT ---
Occupational Therapy Treatment Note M2 OT-IP Current Condition Start: 08/12/22 15:43 Freq: Status: Active Protocol: Document 08/12/22 13:17 [facility] (Rec: 08/12/22 16:04 [facility] [id number]) Occupational Therapy Current Condition Current Condition Evaluation Date 08/12/22 Treatment Diagnosis S/P relocation of left superior hip dislocation Diagnosis Onset Date 08/11/22 Post Operative Precautions Posterior Hip Precautions No Hip Flexion > 90 degrees,No Hip Internal Rotation,No Hip Adduction Other Precautions Pt to have abduction brace on at all times. 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 Patient/Caregiver Goals Pt's family wanting pt to go to skilled rehab. OT Pain Assessment Pain When Pain Assessed At Rest Pain Present Pain Present Pain Reported M4 OT- IP ADL's Start: 08/12/22 15:43 Freq: Status: Active Protocol: Document 08/14/22 10:25 [facility] (Rec: 08/14/22 13:24 [facility] [id number]) OT [id number] Comments OT Self-Feeding Comments not at meal time OT ADL-Grooming Comments OT Grooming Comments not performed OT ADL-Oral Care Comments Oral Care Comments NOt performed. OT ADL-Dressing General Eval Lower Body Dressing Ability Total Assistance Areas Needing Assistance Orthosis/Prosthesis Comments OT Dressing Comments Able to show pt's caregiver how to patricio/doff the abductor brace and that she will need another person to assist especially for bed mobility, dressing, toileting , and bathing needs. OT ADL-Toileting General Evaluation Toileting Ability Total Assistance Areas Needing Assistance Manage Clothing,Perform Perineal Hygiene Comments OT Toileting Comments Spoke of pt wearing an extra large disposable brief over her brace would be beneficial OT ADL-Bathing Comments OT Bathing Comments Sponge bathing more appropriate at this time. M5 OT- IP IADL's Start: 08/12/22 15:43 Freq: Status: Active Protocol: Document 08/12/22 13:17 [facility] (Rec: 08/12/22 16:04 [facility] [id number]) OT-Instrumental Activities of Daily Living Home Safety Awareness Home Safety Comments Pt has 09/11 caregiver that has been assisting pt for all ADL and mobility needs , however pt having more difficulty to mobilize since her last dislocation. Medication Management Medication Management Caregiver Administers Money Management Money Management Caregiver Provides Assistance Meal Preparation Meal Preparation Caregiver Provides Assist Binder Fixer Binder Fixer Caregiver Provides Assist Driving Driving Caregiver Provides Assist M6 OT- IP Functional Cognition Start: 08/12/22 15:43 Freq: Status: Active Protocol: Document 08/14/22 10:25 [facility] (Rec: 08/14/22 13:24 [facility] [id number]) Cognitive Factors Limiting Selfcare Function Cognitive Ability Level of Alertness Alert Patient Orientation Name,Place,Situation Attention Span Ability Capable of Focused Attention, Capable of Sustained Attention Ability to Follow Commands Able to Follow One Step Commands with Increased Time, Able to Follow One Step Commands with Repetition Safety Awareness Decreased Recall of Precautions,Decreased Ability to Apply Precautions Cognitive Comments Cognitive Assessment Comments Pt is cooperative, but still needing reminders of her hip precautions especially during bed mobility needs. M7 OT- IP Mobility and Balance Start: 08/12/22 15:43 Freq: Status: Active Protocol: Document 08/14/22 10:25 [facility] (Rec: 08/14/22 13:24 [facility] [id number]) OT- Bed Mobility Assessment Supine to Sit Supine to Sit Assist Maximum Assistance,2 Person Assistance Sit to Supine Sit to Supine Assist Maximum Assistance,2 Person Assistance OT-Transfer Assessment Sit to and From Stand Sit to and from Stand Moderate Assistance,1 Person Assistance Transfers Transfer Ability Moderate Assistance,1 Person Assistance Comments Mobility Comments MAX AX 2 assist to move her legs and help raise her trunk up. Continue to suggest use of a hospital bed. MODA 1 to stand from the high bed and MODA to transfer with FWW and needing cues to reach back with her right hand and slide her left leg out first before sitting down to the recliner. OT- Balance Assessment Sitting Balance and Reactions Static Sitting Balance Ability Fair Standing Balance and Reactions Static Standing Balance Ability Fair Comments Other Balance Tests/Deviations/Treatment Pt has difficulty to sit due : to pain and the angle of the brace in which pt is sitting and needing close SBA to CGA and at times MODA due to pt too tired. M8 OT- IP Objective Assessments Start: 08/12/22 15:43 Freq: Status: Active Protocol: Document 08/12/22 13:17 [facility] (Rec: 08/12/22 16:04 [facility] [id number]) OT Gross Range of Motion Upper Extremity Range of Motion Assessment Within Functional Limits OT Strength Comments Strength Comments Not formally tested but at least 3-/5 as pt able to assist for mobility needs. OT-Muscle Tone Assessment Muscle Tone WNL Yes M9 OT- IP Assessment and Plan Start: 08/12/22 15:43 Freq: Status: Active Protocol: Document 08/14/22 10:25 [facility] (Rec: 08/14/22 13:24 [facility] [id number]) OT Summary Assessment and Plan Potential Rehabilitation Potential Good Analytic Complexity at Evaluation Moderate Summary OT Impairments Pain,Strength,Balance, Functional Mobility,Self- Feeding,Grooming,Dressing, Toileting,Bathing,Toilet Transfers,Shower Transfers, Activity Tolerance Progress Towards Goals Slow Progress due to Pain,Slow Progress due to Medical Issues,Slow Progress due to Activity Tolerance,Slow Progress due to Cognition Assessment Summary Pt's family and caregiver present for caregiver training . Pt's caregiver states feels comfortable to be able to assist pt for brace, ADL, and mobility needs. However it is suggested that pt has two person assist at this time for mobility and most of her ADL needs. Pt would greatly benefit from skilled rehab. Goals Grooming Goal Standby Assistance Dressing Goal Moderate Assistance Toileting Goal Moderate Assistance Bathing Goal Moderate Assistance Toilet Transfer Goal Minimal Assistance Shower Transfer Goal Moderate Assistance Patient/Caregiver Education Goal Demonstrate Post-Op Precautions Days to Meet Goals 19 Frequency of Treatment Frequency Of Treatment Once a Day Treatment Plan OT Treatment Plan ADL Training,Functional Cognition Training,Functional Mobility,Patient/Family Education,Discharge Planning Discharge Recommendations OT Discharge Recommendations SNF Rehab Other Discharge Recommendations At this time home with 09/11 may not be enough assist at pt will 2+ person assist for bed mobility needs. Transportation Needs at Discharge Stretcher/Ambulance
[2022-08-14] MEDS: atenoloL 25 MG TABLET PO (13:45)
[2022-08-14] MEDS: ACETAMINOPHEN 325 MG TABLET 650 MG PO (17:28)
[2022-08-14 20:05] VITALS: BP 110/49; PULSE 73; RESP 18; TEMP 36.5; O2SAT 93
[2022-08-15 04:10] VITALS: BP 129/59; PULSE 75; RESP 18; TEMP 36.3; O2SAT 94
[2022-08-15] MEDS: ACETAMINOPHEN 325 MG TABLET 650 MG PO ×2 (06:45→12:49)
[2022-08-15] MEDS: LOSARTAN 25 MG TABLET PO (09:03)
[2022-08-15] MEDS: OXYCODONE IR 5 MG TABLET PO ×2 (09:03→12:49)
[2022-08-15] MEDS: DOCUSATE 100 MG CAPSULE PO (09:03)
[2022-08-15] MEDS: atenoloL 25 MG TABLET PO (09:03)
[2022-08-15] MEDS: TRIMETH/SULFA 160/800 (DS) TABLET 1 TAB PO (09:03)
[2022-08-15] MEDS: PHENAZOPYRIDINE 100 MG TABLET PO ×2 (09:03→12:48)
[2022-08-15] MEDS: ASPIRIN EC 81 MG TABLET PO (09:03)
[2022-08-15] MEDS: predniSONE 5 MG TABLET PO (09:04)
--- NOTE | 2022-08-15 09:26 | P.DS_ITS ---
History of Present Illness History of Present Illness Date Patient Seen: 08/15/22 Time Patient Seen: 09:26 Chief complaint: Dislocated Hip Narrative: Tri is an 82-year-old woman with a history of Parkinson's and an inoperable brain tumor with mild dementia who underwent a left hip hemiarthroplasty for femoral neck fracture on July 10, 2022. She initially did well and was [facility] a [facility]. Approximately 3 days ago she was discharged to home and since that discharge she has had 3 dislocations of her prosthetic. These were reduced and she was sent home each time. When she was sent home from the penitentiary facility she was not provided with a raised toilet seat or any other aids to help her follow hip precautions. She says she sits on a low stool with her legs together ?all the time?. One of the dislocations occurred as she was bending forward to try to clean her cat litter box. Discharge Providers Provider Date of admission: 08/12/22 08:23 Discharge Date: 08/15/22 Primary care physician: TOMAS Daigle Consults: 08/11/22 17:12 Consult to Discharge Planning Routine Comment: Failed d/c home from rehab. Needs placement. Consult to Physical Therapy Evaluate & Treat Comment: Posterior hip precautions, assist with brace Physician Instructions: Evaluate and Treat 08/12/22 11:27 Consult to Occupational Therapy Evaluate & Treat Comment: Physician Instructions: Evaluate and treat Discharge provider: Paras Thomas MD Summary Hospital Course Discharge Diagnosis: 1. Status post hemiarthroplasty placement for left femoral neck fracture. 2. Unstable left hip hemiarthroplasty. 3. Dementia. 4. Parkinson's disease. 5. Intracranial tumor. Hospital Course: The patient was admitted to the hospital on August 12, 2022 due to having 3 dislocations of her hip over the prior weekend. The original plan had been to secure a place in a penitentiary facility to allow for a higher level of care than was available at her home. Unfortunately, no penitentiary facility with in her acceptable surface area was willing to accept her. Our discharge planning team has extensively worked with the family to increase the available care level at her home. We have also engaged in an extensive education program for those caregivers so they can help prevent her from violating her hip precautions. She has been given a hip abduction orthosis, although she is intermittently noncompliant with wearing it. At this point no additional intervention in the hospital will be helpful. She has developed a Gram-negative urinary tract infection which will be treated with oral Septra DS. Status at Discharge Cognitive/behavioral status at discharge: at baseline, confused Functional status at discharge: uses cane/walker Overall status at discharge: patient is progressing back to baseline Time Spent with Patient Time spent: Greater than 30 minutes Exam Vital Signs (past 8 hours): - 08/15/22 04:10 Temperature 97.3 F L Pulse Rate 75 Respiratory Rate 18 Blood Pressure 129/59 L Pulse Oximetry 94 Oxygen Delivery Method Room Air Oxygen Flow Rate 0 Narrative Exam Narrative: The patient is lying in bed with her hip abduction orthosis in place. Leg length and rotation are appropriate on the left. There is mild pain with inte rnal and external rotation of the leg. Objective Labs 08/12/22 05:00 PFSH Medical History Breast cancer Dizziness Lupus Osteopenia Parkinson disease Surgical History History of cataract removal with insertion of prosthetic lens Status post laparoscopic cholecystectomy (12/2014) Status post total knee replacement, left Family History Mother Hypertension Father Heart disease Brother Heart disease Social History household members: caregiver and none Smoking Status: Never smoker alcohol intake: never substance use type: does not use Discharge Assessment & Plan Assessment and Plan Assessment: Unfortunately the patient is in a difficult social position. Despite extensive attempts by our foster care social worker team we have been unable to secure penitentiary facility placement for her. As of yet her family has not obtained assisted living placement for her. She will need to go home to an environment of caregiving from non medically trained caregivers. We have trained them to the best of our abilities in the care of her hip. Her financial resources exceed the minimum for state assistance in obtaining medically trained home care. This will need to be an [id number] expense born by the family. She is currently medically stable enough that she can not remain in the hospital. Plan of Treatment: Discharge to home with beefed up home care from her family resources. We have encouraged her to wear her abduction splint to help with compliance with hip precautions. Her family caregivers have been educated multiple times on hip precautions. Follow-up in 2 weeks. Discharge medications are given below. Discharge Plan Discharge Plan Patient Disposition: Home Discharge orders & Medications Prescriptions: New aspirin 81 mg Tablet,Delayed Release (Dr/Ec) 81 mg PO BID Qty: 84 0RF phenazopyridine 100 mg Tablet 100 mg PO TID Qty: 30 0RF oxycodone 5 mg Tablet 5 mg PO Q3HR PRN (Reason: Pain, Mild (1-3)) Qty: 20 0RF sulfamethoxazole-trimethoprim 800-160 mg Tablet 1 tab PO BID Qty: 20 0RF Continued atenolol 25 mg tablet 25 mg PO DAILY losartan 25 mg tablet 25 mg PO DAILY diclofenac sodium [Voltaren] 1 % gel 2 gram TOP QID estradiol [Vagifem] 10 mcg tablet 10 mcg vaginal 2XW Qty: 24 3RF prednisone 5 mg tablet 5 mg PO DAILY multivitamin tablet 1 tab PO DAILY ascorbic acid (vitamin C) 500 mg capsule 500 mg PO DAILY calcium carbonate [Calci-Mix] 500 mg calcium (1,250 mg) capsule 500 mg PO BID cholecalciferol (vitamin D3) 2,000 unit capsule 2,000 unit PO DAILY omega 1-ius-yhd-fish oil [Fish Oil] 300-1,000 mg capsule 1 cap PO DAILY lidocaine 4 % adhesive patch,medicated 1 patch topical DAILY PRN (Reason: Pain (Scale Score 4-6)) naproxen 500 mg tablet 500 mg PO DAILY PRN (Reason: Pain (Scale Score 1-3)) docusate sodium 100 mg Capsule 100 mg PO BID Qty: 30 0RF polyethylene glycol 3350 17 gram Powder In Packet 17 g PO DAILY PRN (Reason: Constipation) Qty: 14 0RF ibuprofen 400 mg Tablet 400 mg PO Q6HR Qty: 30 0RF tramadol 50 mg tablet 50 mg PO Q8H PRN (Reason: pain) Qty: 30 0RF Deep Sea Nasal 0.65 % Aerosol,Campus 1 spray INTRANASAL BID PRN (Reason: Congestion) acetaminophen 325 mg tablet 650 mg PO Q6HR PRN (Reason: Pain (Scale Score 4-6)) Discontinued aspirin 81 mg Capsule 81 mg PO DAILY PRN (Reason: Headache) oxycodone 5 mg capsule 5 mg PO Q6H PRN (Reason: pain) Qty: 20 0RF Medication counseling provided by Pharmacist: No Follow up/Referrals: Paras Thomas MD [Physician] - As previously scheduled (Patient or family to call for appointment in 2 weeks.) Lainey Martins ARNP [Primary Care Provider] - Discharge Health Status Multidrug resistant organism: No MDRO Diet/Activity/Treatments Diet: Diet as Tolerated and Regular Activity: You may walk as you tolerate in your brace. You MUST follow hip precautions by avoiding turning your toe in, not flexing your hip beyond 70? and not crossing your legs. If you fail to follow these precautions, your hip WILL dislocate. Cold/Heat Therapy: You may apply ice to the left hip for 15 minutes of every hour as needed for pain control. Skin/Wound/Dressing Care Report to your healthcare provider any signs of infection, such as:: chills, fever, night sweats, increased pain, unusual drainage and unusual redness Visit Report/Discharge Packet Stand Alone Forms: Patient Portal/API, Stroke Signs & Symptoms Discharge Data Primary Care Provider: Lainey Martins Quality VTE Deep Vein Thrombosis/Pulmonary Embolism Present on Admission: No
[2022-08-15 09:42] VITALS: BP 132/66; PULSE 78; RESP 14; TEMP 36.8; O2SAT 93
[2022-08-15] MEDS: LORazepam 0.5 MG TABLET PO (12:48)
--- NOTE | 2022-08-15 14:51 | CM.DPNOTE ---
DC Note Multiple attempts at SNF placement over the last 24-48 hours failed and so this SENIOR SALES REPRESENTATIVE began discussion with patient and family yesterday about planning for return home w/HH services Planned throughout the day yesterday with patient's ex spouse Bernard, pattie García P [phone] and pick up and delivery driver. Caregiver training was conducted by PT/OT and patient had improved functionally. Family disappointed that SNF could not be secured however agreed to look into DME needs and hiring addtl care giving. Strongly suggested a respite stay at [facility] (?) as patient and family had discussed this during our visits Senior resource guide provided to ex spouse Bernard and number provided for [facility] as a hospital bed was suggested by OT. Family secured a hospital bed for patient's DC today 4.29.23 Patient remained somewhat confused throughout this planning process but was inevitably agreeable to returning home and continued to tell this SENIOR SALES REPRESENTATIVE that finances are not an issue BLS arranged for transport home today, discussed the likelihood that there would be out of pocket cost r/t BLS sinarose mary and Bernard, spouse, stated agreement and said that won't be a problem HH referral made to [facility] per the request from patient's family- full referral faxed and TC placed to [facility] [address] w/e rep to discuss referral and patient's DC Plan: Discharge home w/family, in home caregiving, [facility] RN/PT/OT/INTEGRATED PROGRAM TEACHER/aashish FELICIANO in (family aware) via BLS JW
--- NOTE | 2022-08-15 18:17 | PC.NURSE ---
Discharge: Pt d/c to home, she is very anxious about same, she spoke with both and SS several times. In the end she did go home. Tolerates diet, po pain meds are effective. Still has zendejas in to gravity and pt wants zendejas left in until she is more mobile. To painful for her to get up. shown how to empty zendejas bag and given a new drainage bag. Given pain meds prior to trip home, was having some pain in her Labia area from infection. She was started on an antibiotic and pyridium which seemed to help. Pt d/c to home with [facility] crew.
== END 2022-08-15 14:20 | disposition home health service (06) | DRG 560 ==
PROVIDERS: Physician Assistant; Admitting Provider Orthopaedic Surgery; Family Provider Family Medicine; PCP Nurse Practitioner Family; Referring Provider Orthopaedic Surgery; Visit Provider Orthopaedic Surgery
DX: T84.89XA Other specified complication of internal orthopedic prosthetic devices, implants and grafts, initial encounter (principal); S73.005A Unspecified dislocation of left hip, initial encounter; M24.452 Recurrent dislocation, left hip; T84.021A Dislocation of internal left hip prosthesis, initial encounter; G20 Parkinson's disease; F02.80 Dementia in other diseases classified elsewhere, unspecified severity, without behavioral disturbance, psychotic disturbance, mood disturbance, and anxiety; Z20.822 Contact with and (suspected) exposure to COVID-19; W18.30XA Fall on same level, unspecified, initial encounter
CPT/HCPCS: 27250; 36415; 72170; 73502; 80053; 81001; 84145; 85025; 85027; 87077; 87086; 87186; 87635; 96361; 96374; 96375; 96376; 97162; 97163; 97166; 97530; 97535; 99152; 99284; 99285; 99291; C9803; G0378; G0379; J1170; J1885; J2270; J2704

== ENCOUNTER 2022-09-03 12:47 | Emergency (ER) | payer MEDICARE, SELFPAY ==
[2022-09-03] VITALS (23 sets, daily range): BP systolic 165–216; BP diastolic 70–93; PULSE 59–68; RESP 15–18; TEMP 36.8; O2SAT 95–97; BMI 24.7
--- NOTE | 2022-09-03 15:16 | PC.NURSE ---
IT AUDITOR Note: This IT AUDITOR went into the room to answer pt's call light. Pt stated that she wanted her harness and hardware moved because it was making her uncomfortable. This IT AUDITOR mentioned to the pt that it would be more appropriate to wait for the doctor and nurse to help with the hardware and that I would pass along the message to their nurse. Helped the patient in a more comfortable state by straightening out their sheets before leaving their room.
[2022-09-03 15:41] LABS: Appearance Urine UA CLEAR; Bilirubin Urine UA NEGATIVE (NEGATIVE); Color Urine UA YELLOW; Glucose Urine UA NEGATIVE (Negative); Ketones Urine UA NEGATIVE (NEGATIVE); Leukocyte Esterase Urine UA 3+ (NEGATIVE); Nitrite Urine UA NEGATIVE (Negative); Occult Blood Urine UA 1+ (Negative); Protein Urine UA NEGATIVE (Negative); Urobilinogen Urine UA 0.2 E.U./dL (0.2)
[2022-09-03 15:59] LABS: Bacteria Urine Occasional (0-1); Culture Indicated Urine Specimen Cultured; RBC Urine 0-1/HPF (0-5/HPF); Squamous Epithelial Cell Urine None Seen (0-5/HPF); WBC Urine 1-5/HPF (0-5/HPF)
--- NOTE | 2022-09-03 17:12 | ED_ITS ---
HPI - Female Genitourinary <Sakina Morganalexa - Last Filed: 09/04/22 19:12> General Chief complaint: Urogenital-Female Stated complaint: Out of ABX; sore throat, SOB, abd Time Seen by Provider: 09/03/22 14:01 Source: patient and EMS Mode of arrival: EMS Limitations: no limitations History of Present Illness HPI Narrative: This is an 82-year-old female with history of Parkinson's followed by Dr. Pacheco with Neurology, lupus, remote breast cancer, hypertension, and left hip hemiarthroplasty with recurrent femoral neck fracture. Patient presents with complaint of at the vaginal opening and where her urinary catheters in place. Patient had catheter placed after having a hip fracture, recurrent hip dislocation and subsequent surgical repair. Patient notes some irritation with urination. She states that she is been prescribed medication and presents with a prescription for nystatin and Keflex. She states she is been taking them but appears to be the actual prescription that she presents with. Discussed with patient no fevers or chills. She describes some nausea but no active vomiting. Denies active chest pain or shortness of breath. She states that she was not having bowel movements but had a bit of a blow out yesterday after some milk of magnesia. She is been stooling since. She notes that she did not have a catheter before she broke her for had any of her interventions. She states that she has to wear a brace to keep her from moving her hip. She states she is on medication for pain but does not recall what it is. Patient states she has a caregiver at home 24 hours a day, they are supposed to be attempting wheelchair with PT in the upcoming several days. She knows she takes multiple medications she is unsure what all of them are. She states she is been off her Parkinson's medications and her neurologist is waiting to restart them. Related Data Home Medications Medication Instructions Recorded Confirmed atenolol 25 mg tablet 25 mg PO DAILY 09/17/17 08/11/22 ascorbic acid (vitamin C) 500 mg 500 mg PO DAILY 11/22/17 08/11/22 capsule calcium carbonate 500 mg calcium 500 mg PO BID 11/22/17 08/11/22 (1,250 mg) capsule (Calci-Mix) cholecalciferol (vitamin D3) 50 2,000 unit PO DAILY 11/22/17 08/11/22 mcg (2,000 unit) capsule multivitamin 1 tab PO DAILY 11/22/17 08/11/22 prednisone 5 mg tablet 5 mg PO DAILY 11/22/17 08/11/22 diclofenac sodium 1 % topical gel 2 gram topical QID 09/28/18 08/11/22 (Voltaren) losartan 25 mg tablet 25 mg PO DAILY 09/28/18 08/11/22 lidocaine 4 % topical patch 1 patch topical DAILY PRN Pain 12/15/21 08/11/22 (Scale Score 4-6) omega 8-mvt-ece-fish oil 300 1 cap PO DAILY 12/15/21 08/11/22 mg-1,000 mg capsule (Fish Oil) naproxen 500 mg tablet 500 mg PO DAILY PRN Pain (Scale 12/16/21 08/11/22 Score 1-3) acetaminophen 325 mg tablet 650 mg PO Q6HR PRN Pain (Scale 08/11/22 08/11/22 Score 4-6) sodium chloride 0.65 % nasal spray 1 spray intranasal BID PRN 08/11/22 08/11/22 aerosol (Deep Sea Nasal) Congestion Previous Rx's Medication Instructions Recorded estradiol 10 mcg vaginal tablet 10 mcg vaginal 2XW #24 tabs 03/19/22 (Vagifem) docusate sodium 100 mg capsule 100 mg PO BID #30 caps 07/13/22 ibuprofen 400 mg tablet 400 mg PO Q6HR #30 tabs 07/13/22 polyethylene glycol 3350 17 gram 17 g PO DAILY PRN Constipation #14 07/13/22 oral powder packet ea tramadol 50 mg tablet 50 mg PO Q8H PRN pain #30 tabs 07/13/22 aspirin 81 mg tablet,delayed 81 mg PO BID #84 tabs 08/15/22 release oxycodone 5 mg tablet 5 mg PO Q3HR PRN Pain, Mild (1-3) 08/15/22 #20 tabs phenazopyridine 100 mg tablet 100 mg PO TID #30 tabs 08/15/22 sulfamethoxazole 800 1 tab PO BID #20 tabs 08/15/22 mg-trimethoprim 160 mg tablet fluconazole 150 mg tablet 150 mg PO DAILY #6 tabs 09/03/22 (Diflucan) Allergies Allergy/AdvReac Type Severity Reaction Status Date / Time ciprofloxacin [From Cipro] Allergy Verified 09/03/22 12:59 doxycycline Allergy Verified 09/03/22 12:59 gabapentin Allergy Verified 09/03/22 12:59 mirabegron [From Myrbetriq] Allergy Verified 09/03/22 12:59 primidone Allergy Verified 09/03/22 12:59 propranolol Allergy Verified 09/03/22 12:59 oxybutynin AdvReac Intermediate Facial Verified 09/03/22 12:59 redness and swelling nitrofurantoin AdvReac Mild Dizziness Verified 09/03/22 12:59 [From Macrobid] Review of Systems <Sakina Hou DO - Last Filed: 09/04/22 19:12> Review of Systems ROS Unobtainable: All systems reviewed & are unremarkable except as noted in HPI and below Patient History <Sakina Hou DO - Last Filed: 09/04/22 19:12> Medical History Breast cancer Dizziness Lupus Osteopenia Parkinson disease Surgical History History of cataract removal with insertion of prosthetic lens Status post laparoscopic cholecystectomy (12/2014) Status post total knee replacement, left Family History Mother Hypertension Father Heart disease Brother Heart disease alcohol intake frequency: 0-2 drinks per day Substance Use Type: does not use Exam <Sakina Hou DO - Last Filed: 09/04/22 19:12> Narrative Exam Narrative: GEN: Elderly female, alert and oriented, patient appears to be in mild distress. HEENT: Atraumatic, pupils are equal round reactive to light, extraocular moveme nts are intact, nares are clear, there is no conjunctival pallor. Throat is clear without any exudates, erythema, tonsillar enlargement or uvular deviation HEART: Regular rate and rhythm without murmur, clicks, rubs. pulses are equal in upper and lower extremities LUNGS:Lungs clear to auscultation, no wheezes, rales, crackles, chest moves symmetrically ABD:bowel sounds normal, soft, non-tender, no guarding, rebound, rigidity, no masses noted, no hepatosplenomegaly, nondistended. :No CVA tenderness, patient has Dill catheter in place, there is some erythema of the labia majora, small amount of excoriation but no skin breakdown. No induration, swelling or changes. Catheter appears in place and is draining yellow urine. MSCL: Non-tender, patient has full range of motion upper extremities. Patient has a brace of her left hip extending up to her torso. She has good motion of her right lower extremity at the hip. NEURO:CN 2-12 intact, sensation normal. SKIN: No rash, erythema or other skin changes appreciated than noted above. Initial Vital Signs Initial Vital Signs: Vital Signs Pulse Rate 61 09/03/22 12:51 Pulse Oximetry 95 09/03/22 12:51 <Garett Dover MD - Last Filed: 09/14/22 09:03> Initial Vital Signs Initial Vital Signs: Vital Signs Pulse Rate 61 09/03/22 12:51 Pulse Oximetry 95 09/03/22 12:51 Course <Sakina Hou DO - Last Filed: 09/04/22 19:12> Orders Ordered: Discontinued Medications Fluconazole (Fluconazole 100 Mg Tablet) 150 mg PO NOW ONE Stop: 09/03/22 20:10 Last Admin: 09/03/22 20:46 Dose: 150 mg Documented By: NGUYỄN Tramadol HCl (Tramadol 50 Mg Tablet) 50 mg PO NOW ONE Stop: 09/03/22 17:39 Last Admin: 09/03/22 17:54 Dose: 50 mg Documented By: OSITO Vital Signs Vital signs: Vital Signs - 8 hr 09/03/22 12:54 09/03/22 12:51 09/03/22 12:53 Temperature 98.3 F Pulse Rate 61 61 60 Respiratory Rate 15 Blood Pressure 167/70 H Pulse Oximetry 96 95 96 Oxygen Delivery Method Room Air 09/03/22 12:53 09/03/22 13:00 09/03/22 13:00 Temperature Pulse Rate 60 Respiratory Rate Blood Pressure 167/72 H 167/76 H Pulse Oximetry 96 Oxygen Delivery Method 09/03/22 13:30 09/03/22 13:30 09/03/22 14:00 Temperature Pulse Rate 63 68 Respiratory Rate Blood Pressure 167/81 H Pulse Oximetry 96 95 Oxygen Delivery Method 09/03/22 14:30 09/03/22 15:00 09/03/22 15:30 Temperature Pulse Rate 67 65 67 Respiratory Rate Blood Pressure Pulse Oximetry 95 95 96 Oxygen Delivery Method 09/03/22 16:00 09/03/22 16:30 09/03/22 17:00 Temperature Pulse Rate 64 67 66 Respiratory Rate Blood Pressure Pulse Oximetry 95 97 96 Oxygen Delivery Method 09/03/22 17:30 09/03/22 17:37 09/03/22 17:37 Temperature Pulse Rate 66 66 Respiratory Rate Blood Pressure 216/93 H Pulse Oximetry 97 97 Oxygen Delivery Method 09/03/22 17:39 09/03/22 17:39 09/03/22 18:00 Temperature Pulse Rate 63 63 Respiratory Rate Blood Pressure 189/82 H Pulse Oximetry 97 96 Oxygen Delivery Method 09/03/22 18:30 09/03/22 19:00 09/03/22 19:30 Temperature Pulse Rate 63 61 61 Respiratory Rate Blood Pressure Pulse Oximetry 97 96 95 Oxygen Delivery Method 09/03/22 20:00 Temperature Pulse Rate 61 Respiratory Rate Blood Pressure 192/80 H Pulse Oximetry 96 Oxygen Delivery Method <Garett Dover MD - Last Filed: 09/14/22 09:03> Course Course Narrative: 7:00 p.m.. Sign out from Dr. hou, patient will likely be discharged home. Laboratory studies pending. Will need Diflucan prescription. Patient already has nystatin prescription she needs to get filled. Patient is on Keflex for UTI. Orders Ordered: Discontinued Medications Fluconazole (Fluconazole 100 Mg Tablet) 150 mg PO NOW ONE Stop: 09/03/22 20:10 Last Admin: 09/03/22 20:46 Dose: 150 mg Documented By: NGYUỄN Tramadol HCl (Tramadol 50 Mg Tablet) 50 mg PO NOW ONE Stop: 09/03/22 17:39 Last Admin: 09/03/22 17:54 Dose: 50 mg Documented By: OSITO Vital Signs Vital signs: Vital Signs - 8 hr 09/03/22 12:54 09/03/22 12:51 09/03/22 12:53 Temperature 98.3 F Pulse Rate 61 61 60 Respiratory Rate 15 Blood Pressure 167/70 H Pulse Oximetry 96 95 96 Oxygen Delivery Method Room Air 09/03/22 12:53 09/03/22 13:00 09/03/22 13:00 Temperature Pulse Rate 60 Respiratory Rate Blood Pressure 167/72 H 167/76 H Pulse Oximetry 96 Oxygen Delivery Method 09/03/22 13:30 09/03/22 13:30 09/03/22 14:00 Temperature Pulse Rate 63 68 Respiratory Rate Blood Pressure 167/81 H Pulse Oximetry 96 95 Oxygen Delivery Method 09/03/22 14:30 09/03/22 15:00 09/03/22 15:30 Temperature Pulse Rate 67 65 67 Respiratory Rate Blood Pressure Pulse Oximetry 95 95 96 Oxygen Delivery Method 09/03/22 16:00 09/03/22 16:30 09/03/22 17:00 Temperature Pulse Rate 64 67 66 Respiratory Rate Blood Pressure Pulse Oximetry 95 97 96 Oxygen Delivery Method 09/03/22 17:30 09/03/22 17:37 09/03/22 17:37 Temperature Pulse Rate 66 66 Respiratory Rate Blood Pressure 216/93 H Pulse Oximetry 97 97 Oxygen Delivery Method 09/03/22 17:39 09/03/22 17:39 09/03/22 18:00 Temperature Pulse Rate 63 63 Respiratory Rate Blood Pressure 189/82 H Pulse Oximetry 97 96 Oxygen Delivery Method 09/03/22 18:30 09/03/22 19:00 09/03/22 19:30 Temperature Pulse Rate 63 61 61 Respiratory Rate Blood Pressure Pulse Oximetry 97 96 95 Oxygen Delivery Method 09/03/22 20:00 Temperature Pulse Rate 61 Respiratory Rate Blood Pressure 192/80 H Pulse Oximetry 96 Oxygen Delivery Method MDM - Female Genitourinary <Sakina Hou, - Last Filed: 09/04/22 19:12> Lab Data 09/03/22 18:45 09/03/22 18:45 Labs: Lab Results 09/03/22 09/03/22 09/03/22 Range/Units 15:00 18:45 18:45 WBC 8.8 (4.5-11.0) X10^3/uL RBC 4.45 (4.0-5.2) X10^6/uL Hgb 13.2 (12.0-16.0) g/dL Hct 40.2 (36-46) % MCV 90.4 (80-100) fL MCH 29.8 (26-34) PG MCHC 32.9 (30-36) % RDW 15.6 H (11.6-14.8) % Plt Count 201 (150-400) X10^3/uL Neut % (Auto) 74.7 (50-75) % Lymph % (Auto) 16.1 L (25-40) % [place] % (Auto) 7.4 (3-14) % Eos % (Auto) 1.0 L (2-4) % Baso % (Auto) 0.8 (0-2) % Neut # (Auto) 6500 (6438-9248) /uL Lymph # (Auto) 1400 (2590-6119) /uL [place] # (Auto) 600 (0-900) /uL Eos # (Auto) 100 (0-450) /uL Baso # (Auto) 100 (0-100) /uL Sodium 137 (137-145) mmol/L Potassium 4.1 (3.4-5.1) mmol/L Chloride 103 (98-107) mmol/L Carbon Dioxide 27 (22-32) mmol/L BUN 12 (7-17) mg/dL Creatinine 0.54 (0.52-1.04) mg/dL Estimated GFR > 60 (>60) mL/min BUN/Creatinine Ratio 22.2 H (6-22) Glucose 103 (80-110) mg/dL Calcium 9.7 (8.4-10.2) mg/dL Total Bilirubin 0.7 (0.2-1.3) mg/dL AST 32 (14-36) IU/L ALT 15 (<35) IU/L Alkaline Phosphatase 61 (38-126) U/L Total Protein 6.5 (6.3-8.2) g/dL Albumin 3.7 (3.5-5.0) g/dL Globulin 2.8 (1.7-4.1) g/dL Albumin/Globulin Ratio 1.3 (1.0-2.8) Lipase (23-300) U/L Urine Color Yellow Urine Appearance Clear Urine pH 7.0 (4.5-8.0) Ur Specific [place] 1.010 (1.000-1.035) Urine Protein Negative (Negative) Urine Glucose (UA) Negative (Negative) g/dL Urine Ketones Negative (NEGATIVE) Urine Occult Blood 1+ H (Negative) Urine Nitrate Negative (Negative) Urine Bilirubin Negative (NEGATIVE) Urine Urobilinogen 0.2 (0.2) E.U./dL Ur Leukocyte Esterase 3+ H (NEGATIVE) Urine RBC 0-1/hpf (0-5/HPF) Urine WBC 1-5/hpf (0-5/HPF) Ur Squamous Epith Cells None seen (0-5/HPF) Urine Bacteria Occasional (0-1) (None) Ur Culture Indicated? Specimen cultured 09/03/22 Range/Units 18:45 WBC (4.5-11.0) X10^3/uL RBC (4.0-5.2) X10^6/uL Hgb (12.0-16.0) g/dL Hct (36-46) % MCV (80-100) fL MCH (26-34) PG MCHC (30-36) % RDW (11.6-14.8) % Plt Count (150-400) X10^3/uL Neut % (Auto) (50-75) % Lymph % (Auto) (25-40) % [place] % (Auto) (3-14) % Eos % (Auto) (2-4) % Baso % (Auto) (0-2) % Neut # (Auto) (7511-7617) /uL Lymph # (Auto) (0978-9304) /uL [place] # (Auto) (0-900) /uL Eos # (Auto) (0-450) /uL Baso # (Auto) (0-100) /uL Sodium (137-145) mmol/L Potassium (3.4-5.1) mmol/L Chloride (98-107) mmol/L Carbon Dioxide (22-32) mmol/L BUN (7-17) mg/dL Creatinine (0.52-1.04) mg/dL Estimated GFR (>60) mL/min BUN/Creatinine Ratio (6-22) Glucose (80-110) mg/dL Calcium (8.4-10.2) mg/dL Total Bilirubin (0.2-1.3) mg/dL AST (14-36) IU/L ALT (<35) IU/L Alkaline Phosphatase (38-126) U/L Total Protein (6.3-8.2) g/dL Albumin (3.5-5.0) g/dL Globulin (1.7-4.1) g/dL Albumin/Globulin Ratio (1.0-2.8) Lipase 82 (23-300) U/L Urine Color Urine Appearance Urine pH (4.5-8.0) Ur Specific [place] (1.000-1.035) Urine Protein (Negative) Urine Glucose (UA) (Negative) g/dL Urine Ketones (NEGATIVE) Urine Occult Blood (Negative) Urine Nitrate (Negative) Urine Bilirubin (NEGATIVE) Urine Urobilinogen (0.2) E.U./dL Ur Leukocyte Esterase (NEGATIVE) Urine RBC (0-5/HPF) Urine WBC (0-5/HPF) Ur Squamous Epith Cells (0-5/HPF) Urine Bacteria (None) Ur Culture Indicated? MDM Narrative Medical decision making narrative: This is an 82-year-old female with history of Parkinson's followed by Dr. Pacheco with Neurology, lupus, remote breast cancer, hypertension, and left hip hemiarthroplasty with recurrent femoral neck fracture. Patient presents with complaint of at the vaginal opening and where her urinary catheters in place. Patient had catheter placed after having a hip fracture, recurrent hip dislocation and subsequent surgical repair. Patient notes some irritation with urination. She states that she is been prescribed medication and presents with a prescription for nystatin and Keflex. She states she is been taking them but appears to be the actual prescription that she presents with. Discussed with jadiel lock no fevers or chills. She describes some nausea but no active vomiting. Denies active chest pain or shortness of breath. She states that she was not having bowel movements but had a bit of a blow out yesterday after some milk of magnesia. She is been stooling since. She notes that she did not have a catheter before she broke her for had any of her interventions. She states that she has to wear a brace to keep her from moving her hip. She states she is on medication for pain but does not recall what it is. Patient states she has a caregiver at home 24 hours a day, they are supposed to be attempting wheelchair with PT in the upcoming several days. She knows she takes multiple medications she is unsure what all of them are. She states she is been off her Parkinson's medications and her neurologist is waiting to restart them. After history and exam CBC CMP urinalysis werer ordered and pendnig. Patient signed out to DR. Dover while awaiting results of labs. Noted that patient has a nystatin and Keflex prescription in the room but they appear to have not been filled so was encouraged to fill these and use these as well as likely add Diflucan to her treatment. MDM CC: Vaginitis Complicating co-morbidities: UTI chronic hip pain lupus Data collected from: Patient Patient has original prescription for Keflex and nystatin interposition which she states her care provider made copies and got it filled because she is getting cream applied to the vaginal area. Differential considered: Includes but not limited to [place] UTI Exam documented above, pertinent findings include: Irritation at the catheter site Lab Test results independently reviewed as above. Pertinent findings: Urinalysis positive leuk esterase WBC 8.8 BUN 12 creatinine 0.5 GFR greater than 60 Treatments: Diflucan Re-evaluations: 8:00 p.m.. Reviewed results with patient. At this time she states she had her prescription made a copy and her care provider got it filled and is getting nystatin cream. Nurses going to call care provider and see if these are truly failed. I will give Diflucan here and a prescription for another pill to be taken daily 7 days. Discussion: Appropriate for discharge home. Patient will need additional Diflucan. Patient needs to continue her nystatin and Keflex return precautions reviewed with her. She desires discharge home. Diagnosis: Acute vaginitis <Garett Dover MD - Last Filed: 09/14/22 09:03> Lab Data Labs: Lab Results 09/03/22 09/03/22 09/03/22 Range/Units 15:00 18:45 18:45 WBC 8.8 (4.5-11.0) X10^3/uL RBC 4.45 (4.0-5.2) X10^6/uL Hgb 13.2 (12.0-16.0) g/dL Hct 40.2 (36-46) % MCV 90.4 (80-100) fL MCH 29.8 (26-34) PG MCHC 32.9 (30-36) % RDW 15.6 H (11.6-14.8) % Plt Count 201 (150-400) X10^3/uL Neut % (Auto) 74.7 (50-75) % Lymph % (Auto) 16.1 L (25-40) % [place] % (Auto) 7.4 (3-14) % Eos % (Auto) 1.0 L (2-4) % Baso % (Auto) 0.8 (0-2) % Neut # (Auto) 6500 (5289-6528) /uL Lymph # (Auto) 1400 (7974-1908) /uL [place] # (Auto) 600 (0-900) /uL Eos # (Auto) 100 (0-450) /uL Baso # (Auto) 100 (0-100) /uL Sodium 137 (137-145) mmol/L Potassium 4.1 (3.4-5.1) mmol/L Chloride 103 (98-107) mmol/L Carbon Dioxide 27 (22-32) mmol/L BUN 12 (7-17) mg/dL Creatinine 0.54 (0.52-1.04) mg/dL Estimated GFR > 60 (>60) mL/min BUN/Creatinine Ratio 22.2 H (6-22) Glucose 103 (80-110) mg/dL Calcium 9.7 (8.4-10.2) mg/dL Total Bilirubin 0.7 (0.2-1.3) mg/dL AST 32 (14-36) IU/L ALT 15 (<35) IU/L Alkaline Phosphatase 61 (38-126) U/L Total Protein 6.5 (6.3-8.2) g/dL Albumin 3.7 (3.5-5.0) g/dL Globulin 2.8 (1.7-4.1) g/dL Albumin/Globulin Ratio 1.3 (1.0-2.8) Lipase (23-300) U/L Urine Color Yellow Urine Appearance Clear Urine pH 7.0 (4.5-8.0) Ur Specific [place] 1.010 (1.000-1.035) Urine Protein Negative (Negative) Urine Glucose (UA) Negative (Negative) g/dL Urine Ketones Negative (NEGATIVE) Urine Occult Blood 1+ H (Negative) Urine Nitrate Negative (Negative) Urine Bilirubin Negative (NEGATIVE) Urine Urobilinogen 0.2 (0.2) E.U./dL Ur Leukocyte Esterase 3+ H (NEGATIVE) Urine RBC 0-1/hpf (0-5/HPF) Urine WBC 1-5/hpf (0-5/HPF) Ur Squamous Epith Cells None seen (0-5/HPF) Urine Bacteria Occasional (0-1) (None) Ur Culture Indicated? Specimen cultured 09/03/22 Range/Units 18:45 WBC (4.5-11.0) X10^3/uL RBC (4.0-5.2) X10^6/uL Hgb (12.0-16.0) g/dL Hct (36-46) % MCV (80-100) fL MCH (26-34) PG MCHC (30-36) % RDW (11.6-14.8) % Plt Count (150-400) X10^3/uL Neut % (Auto) (50-75) % Lymph % (Auto) (25-40) % [place] % (Auto) (3-14) % Eos % (Auto) (2-4) % Baso % (Auto) (0-2) % Neut # (Auto) (5676-5964) /uL Lymph # (Auto) (7811-6375) /uL [place] # (Auto) (0-900) /uL Eos # (Auto) (0-450) /uL Baso # (Auto) (0-100) /uL Sodium (137-145) mmol/L Potassium (3.4-5.1) mmol/L Chloride (98-107) mmol/L Carbon Dioxide (22-32) mmol/L BUN (7-17) mg/dL Creatinine (0.52-1.04) mg/dL Estimated GFR (>60) mL/min BUN/Creatinine Ratio (6-22) Glucose (80-110) mg/dL Calcium (8.4-10.2) mg/dL Total Bilirubin (0.2-1.3) mg/dL AST (14-36) IU/L ALT (<35) IU/L Alkaline Phosphatase (38-126) U/L Total Protein (6.3-8.2) g/dL Albumin (3.5-5.0) g/dL Globulin (1.7-4.1) g/dL Albumin/Globulin Ratio (1.0-2.8) Lipase 82 (23-300) U/L Urine Color Urine Appearance Urine pH (4.5-8.0) Ur Specific [place] (1.000-1.035) Urine Protein (Negative) Urine Glucose (UA) (Negative) g/dL Urine Ketones (NEGATIVE) Urine Occult Blood (Negative) Urine Nitrate (Negative) Urine Bilirubin (NEGATIVE) Urine Urobilinogen (0.2) E.U./dL Ur Leukocyte Esterase (NEGATIVE) Urine RBC (0-5/HPF) Urine WBC (0-5/HPF) Ur Squamous Epith Cells (0-5/HPF) Urine Bacteria (None) Ur Culture Indicated? [facility] Narrative Medical decision making narrative: This is an 82-year-old female with history of Parkinson's followed by Dr. Pacheco with Neurology, lupus, remote breast cancer, hypertension, and left hip hemiarthroplasty with recurrent femoral neck fracture. Patient presents with complaint of at the vaginal opening and where her urinary catheters in place. Patient had catheter placed after having a hip fracture, recurrent hip dislocation and subsequent surgical repair. Patient notes some irritation with urination. She states that she is been prescribed medication and presents with a prescription for nystatin and Keflex. She states she is been taking them but appears to be the actual prescription that she presents with. Discussed with patient no fevers or chills. She describes some nausea but no active vomiting. Denies active chest pain or shortness of breath. She states that she was not having bowel movements but had a bit of a blow out yesterday after some milk of magnesia. She is been stooling since. She notes that she did not have a catheter before she broke her for had any of her interventions. She states that she has to wear a brace to keep her from moving her hip. She states she is on medication for pain but does not recall what it is. Patient states she has a caregiver at home 24 hours a day, they are supposed to be attempting wheelchair with PT in the upcoming several days. She knows she takes multiple medications she is unsure what all of them are. She states she is been off her Parkinson's medications and her neurologist is waiting to restart them. After history and exam CBC CMP urinalysis [facility] CC: Vaginitis Complicating co-morbidities: UTI chronic hip pain lupus Data collected from: Patient Patient has original prescription for Keflex and nystatin interposition which she states her care provider made copies and got it filled because she is getting cream applied to the vaginal area. Differential considered: Includes but not limited to [place] UTI Exam documented above, pertinent findings include: Irritation at the catheter site Lab Test results independently reviewed as above. Pertinent findings: Urinalysis positive leuk esterase WBC 8.8 BUN 12 creatinine 0.5 GFR greater than 60 Treatments: Diflucan Re-evaluations: 8:00 p.m.. Reviewed results with patient. At this time she states she had her prescription made a copy and her care provider got it filled and is getting nystatin cream. Nurses going to call care provider and see if these are truly failed. I will give Diflucan here and a prescription for an other pill to be taken daily 7 days. Discussion: Appropriate for discharge home. Patient will need additional Diflucan. Patient needs to continue her nystatin and Keflex return precautions reviewed with her. She desires discharge home. Diagnosis: Acute vaginitis Discharge Plan Departure Patient Disposition: Home Clinical Impression: Acute vaginitis Activity Restrictions/Additional Instructions: Please follow-up for recheck. Take your keflex until gone. Continue using nystatin topically as directed. You may take Diflucan 1 tablet times 7 days. Prescription sent to [facility] Please return for fevers, new or worsening pain, swelling, new abdominal, back or flank pain, persistent vomiting, for catheter is not draining urine or other new or concerning changes. Prescriptions: New fluconazole [Diflucan] 150 mg tablet 150 mg PO DAILY Qty: 6 0RF No Action atenolol 25 mg tablet 25 mg PO DAILY losartan 25 mg tablet 25 mg PO DAILY diclofenac sodium [Voltaren] 1 % gel 2 gram TOP QID estradiol [Vagifem] 10 mcg tablet 10 mcg vaginal 2XW Qty: 24 3RF prednisone 5 mg tablet 5 mg PO DAILY multivitamin tablet 1 tab PO DAILY ascorbic acid (vitamin C) 500 mg capsule 500 mg PO DAILY calcium carbonate [Calci-Mix] 500 mg calcium (1,250 mg) capsule 500 mg PO BID cholecalciferol (vitamin D3) 2,000 unit capsule 2,000 unit PO DAILY omega 0-zer-shw-fish oil [Fish Oil] 300-1,000 mg capsule 1 cap PO DAILY lidocaine 4 % adhesive patch,medicated 1 patch topical DAILY PRN (Reason: Pain (Scale Score 4-6)) naproxen 500 mg tablet 500 mg PO DAILY PRN (Reason: Pain (Scale Score 1-3)) docusate sodium 100 mg Capsule 100 mg PO BID Qty: 30 0RF polyethylene glycol 3350 17 gram Powder In Packet 17 g PO DAILY PRN (Reason: Constipation) Qty: 14 0RF ibuprofen 400 mg Tablet 400 mg PO Q6HR Qty: 30 0RF tramadol 50 mg tablet 50 mg PO Q8H PRN (Reason: pain) Qty: 30 0RF Deep Sea Nasal 0.65 % Aerosol,[place] 1 spray INTRANASAL BID PRN (Reason: Congestion) acetaminophen 325 mg tablet 650 mg PO Q6HR PRN (Reason: Pain (Scale Score 4-6)) aspirin 81 mg Tablet,Delayed Release (Dr/Ec) 81 mg PO BID Qty: 84 0RF phenazopyridine 100 mg Tablet 100 mg PO TID Qty: 30 0RF oxycodone 5 mg Tablet 5 mg PO Q3HR PRN (Reason: Pain, Mild (1-3)) Qty: 20 0RF sulfamethoxazole-trimethoprim 800-160 mg Tablet 1 tab PO BID Qty: 20 0RF Referrals: Lainey Martins ARNP [Primary Care Provider] - Stand Alone Forms: Patient Portal/API
[2022-09-03] MEDS: TRAMADOL 50 MG TABLET PO (17:54)
[2022-09-03 18:55] LABS: Add Manual Diff / Slide Review NO; Basophils Absolute Auto 100 /uL (0-100); Basophils Percent Auto 0.8 % (0-2); Eosinophils Absolute Auto 100 /uL (0-450); Hematocrit 40.2 % (36-46); Hemoglobin 13.2 g/dL (12.0-16.0); Lymphocytes Absolute Auto 1400 /uL (1100-4500); Lymphocytes Percent Auto 16.1 % (25-40); Mean Corpuscular HGB Conc 32.9 % (30-36); Mean Corpuscular Hemoglobin 29.8 PG (26-34); Mean Corpuscular Volume 90.4 fL (80-100); Monocytes Absolute Auto 600 /uL (0-900); Monocytes Percent Auto 7.4 % (3-14); Neutrophils Absolute Auto 6500 /uL (1500-7000); Neutrophils Percent Auto 74.7 % (50-75); Platelet Count 201 X10^3/uL (150-400); Red Blood Cell Count 4.45 X10^6/uL (4.0-5.2); Red Cell Distribution Width 15.6 % (11.6-14.8); White Blood Cell Count 8.8 X10^3/uL (4.5-11.0)
[2022-09-03 19:20] LABS: Alanine Aminotransferase 15 IU/L (<35); Albumin 3.7 g/dL (3.5-5.0); Albumin Globulin Ratio 1.3 (1.0-2.8); Alkaline Phosphatase 61 U/L (38-126); Aspartate Aminotransferase 32 IU/L (14-36); BUN Creatinine Ratio 22.2 (6-22); Bilirubin Total 0.7 mg/dL (0.2-1.3); Blood Urea Nitrogen 12 mg/dL (7-17); Calcium 9.7 mg/dL (8.4-10.2); Carbon Dioxide 27 mmol/L (22-32); Chloride 103 mmol/L (98-107); Estimated Glomerular Filt Rate > 60 mL/min (>60); Globulin 2.8 g/dL (1.7-4.1); Glucose 103 mg/dL (80-110); HEMOLYSIS 41 (0-50); Potassium 4.1 mmol/L (3.4-5.1); Sodium 137 mmol/L (137-145); Total Protein 6.5 g/dL (6.3-8.2)
[2022-09-03 19:21] LABS: Lipase 82 U/L (23-300)
[2022-09-03] MEDS: FLUCONAZOLE 100 MG TABLET 150 MG PO (20:46)
== END 2022-09-03 23:58 | disposition home or self-care (01) ==
PROVIDERS: Emergency Medicine; Emergency Provider Emergency Medicine; Family Provider Family Medicine; PCP Nurse Practitioner Family
DX: N76.0 Acute vaginitis (principal); G20 Parkinson's disease
CPT/HCPCS: 36415; 80053; 81001; 83690; 85025; 87086; 99283

== ENCOUNTER 2022-09-27 07:36 | Emergency (ER) | payer MEDICARE, SELFPAY ==
[2022-09-27] VITALS (23 sets, daily range): BP systolic 132–199; BP diastolic 60–88; PULSE 69–83; RESP 8–18; TEMP 36.6; O2SAT 87–97; BMI 26.4
--- NOTE | 2022-09-27 07:38 | DI.RAD.S_ITS ---
PROCEDURE: XR HIP W PEL IF DONE LT 2V INDICATIONS: left hip pain, multiple prior dislocations TECHNIQUE: AP pelvis with lateral view(s) of the left hip(s). COMPARISON: [facility], RAMO, XR HIP W PEL IF DONE LT 2V, 08/11/2022, 13:11. [facility], CR, XR HIP W PEL IF DONE LT 2V, 08/10/2022, 15:21. FINDINGS: Bones: Left hip arthroplasty with superior dislocation. Moderate right degenerative changes. Soft tissues: The visualized bowel gas pattern is normal. No suspicious soft tissue calcifications. IMPRESSION: Dislocated left hip arthroplasty. Dictated by: Nitin Lehman M.D. on 09/27/2022 at 8:47 Approved by: Nitin Lehman M.D. on 09/27/2022 at 8:47
--- NOTE | 2022-09-27 07:39 | ED_ITS ---
HPI - General Adult General Chief complaint: Extremity Injury, Lower Stated complaint: Lt hip/leg pain Time Seen by Provider: 09/27/22 07:38 History of Present Illness HPI narrative: 82-year-old female nonsmoker with history of AFib on Eliquis, Parkinson's, hypertension and fall with left hip fracture in the end of June and multiple dislocations in the aftermath presents by EMS for evaluation of left hip pain. She lives at home with home nursing and is in a hospital bed. There was a new nurse last night who reports she was unable to find the patient's pain medication. She is been out of pain meds throughout the night and woke up in significant pain. She denies any falls or injuries. She has no headache, neck pain, chest pain or shortness of breath. She denies nausea or vomiting. She has significant pain from her hip all the way down her leg with any palpation or range of motion. She denies numbness, tingling or weakness. EMS provided Zofran 4 mg and fentanyl [address] up Related Data Home Medications Medication Instructions Recorded Confirmed atenolol 25 mg tablet 25 mg PO DAILY 09/17/17 08/11/22 ascorbic acid (vitamin C) 500 mg 500 mg PO DAILY 11/22/17 08/11/22 capsule calcium carbonate 500 mg calcium 500 mg PO BID 11/22/17 08/11/22 (1,250 mg) capsule (Calci-Mix) cholecalciferol (vitamin D3) 50 2,000 unit PO DAILY 11/22/17 08/11/22 mcg (2,000 unit) capsule multivitamin 1 tab PO DAILY 11/22/17 08/11/22 prednisone 5 mg tablet 5 mg PO DAILY 11/22/17 08/11/22 diclofenac sodium 1 % topical gel 2 gram topical QID 09/28/18 08/11/22 (Voltaren) losartan 25 mg tablet 25 mg PO DAILY 09/28/18 08/11/22 lidocaine 4 % topical patch 1 patch topical DAILY PRN Pain 12/15/21 08/11/22 (Scale Score 4-6) omega 9-unu-czi-fish oil 300 1 cap PO DAILY 12/15/21 08/11/22 mg-1,000 mg capsule (Fish Oil) naproxen 500 mg tablet 500 mg PO DAILY PRN Pain (Scale 12/16/21 08/11/22 Score 1-3) acetaminophen 325 mg tablet 650 mg PO Q6HR PRN Pain (Scale 08/11/22 08/11/22 Score 4-6) sodium chloride 0.65 % nasal spray 1 spray intranasal BID PRN 08/11/22 08/11/22 aerosol (Deep Sea Nasal) Congestion Previous Rx's Medication Instructions Recorded estradiol 10 mcg vaginal tablet 10 mcg vaginal 2XW #24 tabs 03/19/22 (Vagifem) docusate sodium 100 mg capsule 100 mg PO BID #30 caps 07/13/22 ibuprofen 400 mg tablet 400 mg PO Q6HR #30 tabs 07/13/22 polyethylene glycol 3350 17 gram 17 g PO DAILY PRN Constipation #14 07/13/22 oral powder packet ea tramadol 50 mg tablet 50 mg PO Q8H PRN pain #30 tabs 07/13/22 aspirin 81 mg tablet,delayed 81 mg PO BID #84 tabs 08/15/22 release oxycodone 5 mg tablet 5 mg PO Q3HR PRN Pain, Mild (1-3) 08/15/22 #20 tabs phenazopyridine 100 mg tablet 100 mg PO TID #30 tabs 08/15/22 sulfamethoxazole 800 1 tab PO BID #20 tabs 08/15/22 mg-trimethoprim 160 mg tablet fluconazole 150 mg tablet 150 mg PO DAILY #6 tabs 09/03/22 (Diflucan) cephalexin 500 mg capsule 500 mg PO BID #10 caps 09/27/22 Allergies Allergy/AdvReac Type Severity Reaction Status Date / Time ciprofloxacin [From Cipro] Allergy Verified 09/03/22 12:59 doxycycline Allergy Verified 09/03/22 12:59 gabapentin Allergy Verified 09/03/22 12:59 mirabegron [From Myrbetriq] Allergy Verified 09/03/22 12:59 primidone Allergy Verified 09/03/22 12:59 propranolol Allergy Verified 09/03/22 12:59 oxybutynin AdvReac Intermediate Facial Verified 09/03/22 12:59 redness and swelling nitrofurantoin AdvReac Mild Dizziness Verified 09/03/22 12:59 [From Macrobid] Review of Systems Review of Systems Narrative: GENERAL: Denies chills, fatigue, malaise, fever, sweats. HEENT: Denies sinus pain, ear pain, sore throat, difficulty swallowing, dizziness. RESPIRATORY: Denies dyspnea, cough, wheezing, hemoptysis, sputum. CARDIOVASCULAR: Denies chest pain, palpitations, orthopnea, edema, GASTROINTESTINAL: Denies nausea, vomiting, abdominal pain, diarrhea, constipation, melena. : Denies dysuria, frequency, incontinence, hematuria, urinary retention. MUSCULOSKELETAL: See HPI SKIN: Denies rash, skin lesions, or other NEUROLOGIC: Denies weakness, headache, numbness, change in speech, confusion, seizures, incoordination. PSYCHIATRIC: No concerning psychosocial issues. 12 point review of systems is negative except for those stated above Patient History Medical History Breast cancer Dizziness Lupus Osteopenia Parkinson disease Surgical History History of cataract removal with insertion of prosthetic lens Status post laparoscopic cholecystectomy (12/2014) Status post total knee replacement, left Family History Mother Hypertension Father Heart disease Brother Heart disease Social History household members: caregiver and none Smoking Status: Never smoker alcohol intake: never substance use type: does not use Smoking Status: Never smoker alcohol intake frequency: 0-2 drinks per day Substance Use Type: does not use Exam Narrative Exam Narrative: GENERAL: [82] year old patient appears stated age. Well-developed patient, in mild distress. HEAD: Atraumatic. Normocephalic. EYES: Pupils equal round and reactive. Extraocular motions intact. No scleral icterus. No injection or drainage. ENT: Nose without bleeding, purulent drainage. Throat without erythema, tonsillar hypertrophy or exudate. Airway patent. NECK: Trachea midline. Non tender CARDIOVASCULAR: Regular rate and rhythm without murmurs, gallops, or rubs. RESPIRATORY: Clear to auscultation. Breath sounds equal bilaterally. No wheezes, rales, or rhonchi. GASTROINTESTINAL: Abdomen soft, non-tender, nondistended. EXTREMITIES: Severe tenderness to left hip, some shortening and possible internal rotation, closed, isolated and neurovascularly intact BACK: Nontender without deformity or crepitance. No flank tenderness. NEURO: AOx3. SKIN: No rash or erythema of visible areas Initial Vital Signs Initial Vital Signs: Vital Signs Pulse Rate 76 09/27/22 07:39 Pulse Oximetry 93 09/27/22 07:39 Procedures Orthopedic Joint Reduction Joint #1: Time Out Performed: Yes Side: left Joint Reduction Location: hip Technique used: traction/counter-traction and direct manipulation Post-reduction neuro exam: intact Post-reduction vascular: intact Post Reduction X-Ray Obtained: Yes Post Reduction X-Ray Results: reduced Splint Applied: Yes Patient Tolerated Procedure: Well Orthopedic Splinting/Casting Injury #1: Side: left Lower Extremity Immobilizer: knee immobilizer Post splinting neuro exam: intact Post splinting vascular exam: intact Placed by: Nursing Additional Comments: placed for ROM with hip dislocation Procedural Sedation Consent signed: Yes Time out performed: Yes Indication: fracture/dislocation reduction Preparation: telemetry monitor applied, pulse oximeter, capnometry used, supplemental O2 applied, suction/airway equipment at bedside and IV secured IV Propofol dose (mg): 60 Intraservice time/total sedation time (min): 12 ED Sedation Level: Moderate (Concious) Patient Tolerated Procedure: Well Complications: none Course Orders Ordered: ED Orders 09/27/22 07:38 XR hip w pel if done LT 2V Stat 09/27/22 08:46 EKG-12 Lead Routine 09/27/22 08:56 XR pelvis 1-2V Stat 09/27/22 09:47 Urine Culture Stat Urine Microscopic Stat Sodium Chloride (Normal Saline 0.9%) 1,000 mls @ 1,000 mls/hr IV BOLUS PRN PRN Reason: Fluid replacement Last Infusion: 09/27/22 09:20 Dose: Infused Discontinued Medications Oxycodone/Acetaminophen (Oxycodone/Acetaminophen 5/325 Tablet) 1 tab PO NOW ONE Stop: 09/27/22 10:43 Last Admin: 09/27/22 10:46 Dose: 1 tab Oxycodone/Acetaminophen (Oxycodone/Apap 5/325 Prepack) 1 bottle MISC SEEINSTR ONE Stop: 09/27/22 10:58 Propofol (Propofol 200 Mg/20 Ml Vial) 100 mg IV NOW ONE Stop: 09/27/22 08:23 Last Admin: 09/27/22 09:19 Dose: 60 mg Documented By: OSVALDO Vital Signs Vital signs: Vital Signs - 8 hr 09/27/22 07:44 09/27/22 08:39 09/27/22 08:50 Temperature 97.8 F 97.8 F Pulse Rate 76 78 76 Respiratory Rate 12 14 10 L Blood Pressure 169/83 H 174/73 H 164/73 H Pulse Oximetry 93 95 89 L Oxygen Delivery Method Room Air Oxygen Flow Rate 09/27/22 09:00 09/27/22 09:02 09/27/22 09:04 Temperature Pulse Rate 77 74 74 Respiratory Rate 10 L 14 12 Blood Pressure 132/61 150/60 H 153/65 H Pulse Oximetry 95 95 96 Oxygen Delivery Method Oxygen Flow Rate 4 09/27/22 09:21 09/27/22 07:39 09/27/22 07:46 Temperature Pulse Rate 76 76 75 Respiratory Rate 16 Blood Pressure Pulse Oximetry 93 93 Oxygen Delivery Method Oxygen Flow Rate 09/27/22 07:46 09/27/22 07:51 09/27/22 07:51 Temperature Pulse Rate 74 Respiratory Rate Blood Pressure 185/88 H 169/83 H Pulse Oximetry 93 Oxygen Delivery Method Oxygen Flow Rate 09/27/22 08:00 09/27/22 08:30 09/27/22 08:39 Temperature Pulse Rate 75 77 78 Respiratory Rate 16 Blood Pressure Pulse Oximetry 93 94 95 Oxygen Delivery Method Oxygen Flow Rate 09/27/22 08:39 09/27/22 08:44 09/27/22 08:44 Temperature Pulse Rate 77 Respiratory Rate 15 Blood Pressure 199/79 H 174/73 H Pulse Oximetry 95 Oxygen Delivery Method Oxygen Flow Rate 09/27/22 08:46 09/27/22 08:46 09/27/22 08:50 Temperature Pulse Rate 76 79 Respiratory Rate 11 L 16 Blood Pressure 164/73 H Pulse Oximetry 94 93 Oxygen Delivery Method Oxygen Flow Rate 09/27/22 08:50 09/27/22 08:55 09/27/22 08:55 Temperature Pulse Rate 83 Respiratory Rate 18 Blood Pressure 164/76 H 150/60 H Pulse Oximetry 87 L Oxygen Delivery Method Oxygen Flow Rate 09/27/22 09:00 09/27/22 09:00 09/27/22 09:05 Temperature Pulse Rate 77 75 Respiratory Rate 17 8 L Blood Pressure 132/61 Pulse Oximetry 95 96 Oxygen Delivery Method Oxygen Flow Rate 09/27/22 09:05 09/27/22 09:10 09/27/22 09:10 Temperature Pulse Rate 74 Respiratory Rate 12 Blood Pressure 162/74 H 152/72 H Pulse Oximetry 96 Oxygen Delivery Method Oxygen Flow Rate 09/27/22 09:15 09/27/22 09:15 09/27/22 09:20 Temperature Pulse Rate 72 71 Respiratory Rate 12 16 Blood Pressure 153/65 H Pulse Oximetry 93 94 Oxygen Delivery Method Oxygen Flow Rate 09/27/22 09:20 09/27/22 09:25 09/27/22 09:25 Temperature Pulse Rate 69 Respiratory Rate 16 Blood Pressure 155/70 H 150/71 H Pulse Oximetry 93 Oxygen Delivery Method Oxygen Flow Rate 09/27/22 09:30 09/27/22 10:00 Temperature Pulse Rate 72 71 Respiratory Rate 17 17 Blood Pressure Pulse Oximetry 96 95 Oxygen Delivery Method Oxygen Flow Rate Medical Decision Making Lab Data Labs: Lab Results 09/27/22 Range/Units 09:47 Urine RBC 0-1/hpf (0-5/HPF) Urine WBC 30-100/hpf H (0-5/HPF) Ur Squamous Epith Cells 0-1 /hpf (0-5/HPF) Urine Bacteria Many (>30) H (None) Ur Culture Indicated? Specimen cultured Urine Dip Bedside Urine Glucose Negative Bedside Urine Bilirubin - Negative Bedside Urine Ketone - Negative Urine Specific [place] 1.005 Bedside Urine Occult Blood - Negative Bedside Urine pH 7.0 Bedside Urine Protein - Negative Bedside Urine Urobilinogen - Negative Bedside Urine Nitrite + Positive Bedside Urine Leukocytes ++ 125 Esterase Point of care testing: Urine Dip Bedside Urine Glucose Negative Bedside Urine Bilirubin - Negative Bedside Urine Ketone - Negative Urine Specific [place] 1.005 Bedside Urine Occult Blood - Negative Bedside Urine pH 7.0 Bedside Urine Protein - Negative Bedside Urine Urobilinogen - Negative Bedside Urine Nitrite + Positive Bedside Urine Leukocytes ++ 125 Esterase [facility] Narrative Medical decision making narrative: [82] year old patient presents with Hip pain in the absence of injury or neurologic symptoms Multiple etiologies for patient's symptoms considered including, but not limited to: [ fracture versus dislocation versus other] Prior Charts reviewed in our EMR Primary Historian: patient Labs reviewed and interpreted by myself: urine concerning for UTI Imaging reviewed: hip x-ray confirms dislocation, repeat confirms reduction Patient's symptoms improved over duration of stay with above-stated therapies. Findings and discharge diagnosis discussed with patient/family followed by verbalization of understanding Return precautions discussed with patient/family whom verbalize understanding of diagnosis and plan Discharge Plan Departure Patient Disposition: Home Clinical Impression: Dislocation, hip, Acute UTI Instructions: DI for Hip Dislocation -- Adult, DI for Urinary Tract Infection (UTI) Activity Restrictions/Additional Instructions: *You have been diagnosed with [ urinary tract infection and hip dislocation ] *What to do: *Please continue to take your regular medications as directed. [x ] New medication prescriptions sent to your pharmacy: [[facility] ] *Please follow up with your primary care provider in 2-3 days, call for an appointment. Let them know you were seen in the Emergency Department and that we ask that you be seen in follow up. We will electronically transmit a record of today's note if your PCP is in our system *Please follow up with Dr. Thomas at [facility]. Please call tomorrow, let them know you were in the emergency department and we would like you seen in follow up. I will electronially transmit a copy of today's note. *Return to Emergency Department if you should have any new, worsening or concerning symptoms, such as [fever greater than 101 F, shaking chills, worsening pain, persistent vomiting or other bothersome symptoms] Instructions: Hip Dislocation Activity Restrictions/Additional Instructions: Please follow-up with orthopedic surgery, call to set up an appointment in the next week or so. You are going to want to avoid movements such as bending at the hip with flexion of the knee and/or rotation at the same time. Continue your knee immobilizer until you follow-up with orthopedic surgery. This is to prevent you from bending at the knee which will make you less likely to have recurrent dislocation. If the doctor gave you a sedative: For 24 hours, don't do anything that requires attention to detail. This includes going to work, making important decisions, or signing any legal documents. It takes time for the medicine's effects to completely wear off. For your safety, do not drive or operate any machinery that could be dangerous. Wait until the medicine wears off and you can think clearly and react easily. Your doctor will give you safety precautions to keep your hip centred in its socket during the healing period. Be sure to follow these precautions. Keep your knees and toes pointed forward when you sit in a chair, walk, or stand. Do not sit with your legs crossed. Do not bend at the waist more than 90?. Be careful when leaning or when moving in bed to keep your legs as straight ahead as possible. If you have a hip brace, wear it as directed. Do not remove it unless your doctor says you can. If you remove the brace to shower, be extremely careful. Follow hip precautions to limit hip movement. Rest your hip as much as you can. You will need to change your activities to avoid movements that irritate the hip. If your hip is swollen, put ice or a cold pack on it for 10 to 20 minutes at a time. Try to do this every 1 to 2 hours for the next 3 days (when you are awake) or until the swelling goes down. Put a thin cloth between the ice and your skin. Prescriptions: New cephalexin 500 mg capsule 500 mg PO BID Qty: 10 0RF No Action atenolol 25 mg tablet 25 mg PO DAILY losartan 25 mg tablet 25 mg PO DAILY diclofenac sodium [Voltaren] 1 % gel 2 gram TOP QID estradiol [Vagifem] 10 mcg tablet 10 mcg vaginal 2XW Qty: 24 3RF prednisone 5 mg tablet 5 mg PO DAILY multivitamin tablet 1 tab PO DAILY ascorbic acid (vitamin C) 500 mg capsule 500 mg PO DAILY calcium carbonate [Calci-Mix] 500 mg calcium (1,250 mg) capsule 500 mg PO BID cholecalciferol (vitamin D3) 2,000 unit capsule 2,000 unit PO DAILY omega 2-cvk-kiz-fish oil [Fish Oil] 300-1,000 mg capsule 1 cap PO DAILY lidocaine 4 % adhesive patch,medicated 1 patch topical DAILY PRN (Reason: Pain (Scale Score 4-6)) naproxen 500 mg tablet 500 mg PO DAILY PRN (Reason: Pain (Scale Score 1-3)) fluconazole [Diflucan] 150 mg tablet 150 mg PO DAILY Qty: 6 0RF docusate sodium 100 mg Capsule 100 mg PO BID Qty: 30 0RF polyethylene glycol 3350 17 gram Powder In Packet 17 g PO DAILY PRN (Reason: Constipation) Qty: 14 0RF ibuprofen 400 mg Tablet 400 mg PO Q6HR Qty: 30 0RF tramadol 50 mg tablet 50 mg PO Q8H PRN (Reason: pain) Qty: 30 0RF Deep Sea Nasal 0.65 % Aerosol,[place] 1 spray INTRANASAL BID PRN (Reason: Congestion) acetaminophen 325 mg tablet 650 mg PO Q6HR PRN (Reason: Pain (Scale Score 4-6)) aspirin 81 mg Tablet,Delayed Release (Dr/Ec) 81 mg PO BID Qty: 84 0RF phenazopyridine 100 mg Tablet 100 mg PO TID Qty: 30 0RF oxycodone 5 mg Tablet 5 mg PO Q3HR PRN (Reason: Pain, Mild (1-3)) Qty: 20 0RF sulfamethoxazole-trimethoprim 800-160 mg Tablet 1 tab PO BID Qty: 20 0RF Referrals: Lainey Martins ARNP [Primary Care Provider] - Stand Alone Forms: Patient Portal/API
[2022-09-27] MEDS: SODIUM CHLORIDE 0.9% 1,000 ML 1000 ML IV (08:50)
--- NOTE | 2022-09-27 08:56 | DI.RAD.S_ITS ---
PROCEDURE: XR PELVIS 1-2V INDICATIONS: post reduction TECHNIQUE: 1 view(s) of the pelvis acquired. COMPARISON: [facility], CR, XR HIP W PEL IF DONE LT 2V, 09/27/2022, 8:00. [facility], RAMO, XR PELVIS 1-2V, 08/10/2022, 20:15. [facility], [facility]O, XR PELVIS 1-2V, 08/10/2022, 18:28. FINDINGS: Bones: Relocation of the displaced left hip arthroplasty. Soft tissues: Visualized bowel gas pattern is normal. No suspicious soft tissue calcifications. IMPRESSION: Left hip arthroplasty is congruent with the acetabulum. Dictated by: Nitin Lehman M.D. on 09/27/2022 at 9:22 Approved by: Nitin Lehman M.D. on 09/27/2022 at 9:22
[2022-09-27] MEDS: propofoL 200 MG/20 ML VIAL 100 MG IV (09:19)
[2022-09-27 09:57] LABS: Bacteria Urine Many (>30); Culture Indicated Urine Specimen Cultured; RBC Urine 0-1/HPF (0-5/HPF); Squamous Epithelial Cell Urine 0-1 /HPF (0-5/HPF); WBC Urine 30-100/HPF (0-5/HPF)
[2022-09-27] MEDS: OXYCODONE/ACETAMINOPHEN 5/325 TABLET 1 TAB PO (10:46)
[2022-09-27] MEDS: OXYCODONE/APAP 5/325 PREPACK 1 BOTTLE MISC (11:02)
== END 2022-09-27 11:27 | disposition home or self-care (01) ==
PROVIDERS: Emergency Provider Emergency Medicine; Family Provider Family Medicine; PCP Nurse Practitioner Family
DX: T84.021A Dislocation of internal left hip prosthesis, initial encounter (principal); N39.0 Urinary tract infection, site not specified
CPT/HCPCS: 72170; 73502; 81003; 81015; 87077; 87086; 87186; 93005; 99285; J2704

== ENCOUNTER 2022-09-29 17:58 | Inpatient (IN) | payer MEDICARE, SELFPAY ==
[2022-09-29] VITALS (22 sets, daily range): BP systolic 170–225; BP diastolic 70–113; PULSE 61–91; RESP 11–32; TEMP 36.2–36.3; O2SAT 89–100; BMI 22.3; BMI 25.9
--- NOTE | 2022-09-29 18:25 | DI.RAD.S_ITS ---
PROCEDURE: XR HIP W PEL IF DONE LT 2V INDICATIONS: hip pain,concerned she dislocated it TECHNIQUE: AP pelvis with lateral view(s) of the left hip(s). COMPARISON: [facility], , XR HIP W PEL IF DONE LT 2V, 09/27/2022, 8:00. FINDINGS: Bones: Patient is status post prior left hip arthroplasty. There is superior dislocation at left hip joint. No gross acute fracture is seen. Moderate right hip joint osteoarthritic changes are noted. No evidence of avascular necrosis of femoral head. No suspicious bony lesions. Soft tissues: The visualized bowel gas pattern is normal. No suspicious soft tissue calcifications. IMPRESSION: Dislocated left hip prosthesis as above. No gross fracture is seen. Dictated by: Torres Adame M.D. on 09/29/2022 at 19:17 Approved by: Torres Adame M.D. on 09/29/2022 at 19:18
--- NOTE | 2022-09-29 19:36 | ED.LOWEXIN ---
HPI - Extremity Injury (Lower) General Chief Complaint: Extremity Injury, Lower Stated Complaint: brace on Lknee and pop L hip in Time Seen by Provider: 09/29/22 18:08 Source: patient Mode of arrival: Wheelchair History of Present Illness HPI Narrative: Patient is an 82-year-old female who was sent to the emergency department from the orthopedic clinic for left hip dislocation. Several months ago she had a left hemiarthroplasty performed of her left hip. Since that time she is had multiple dislocations. Has been seen here in the emergency department multiple times. Most recently just over 48 hours ago where she was sedated and had the hip relocated. She thinks that maybe the hip dislocated later that day after she was discharged home but she is not 100% sure. She would a follow-up in the orthopedic clinic today. They performed x-rays (which are not available for my review) which apparently showed a left hip dislocation so she was sent to the emergency department. She does have some discomfort in the left hip/left leg. Related Data Home Medications Medication Instructions Recorded Confirmed atenolol 25 mg tablet 25 mg PO DAILY 09/17/17 09/29/22 ascorbic acid (vitamin C) 500 mg 500 mg PO DAILY 11/22/17 09/29/22 capsule calcium carbonate 500 mg calcium 500 mg PO BID 11/22/17 09/29/22 (1,250 mg) capsule (Calci-Mix) cholecalciferol (vitamin D3) 50 2,000 unit PO DAILY 11/22/17 09/29/22 mcg (2,000 unit) capsule multivitamin 1 tab PO DAILY 11/22/17 09/29/22 prednisone 5 mg tablet 5 mg PO DAILY 11/22/17 09/29/22 diclofenac sodium 1 % topical gel 2 gram topical QID 09/28/18 09/29/22 (Voltaren) lidocaine 4 % topical patch 1 patch topical DAILY PRN Pain 12/15/21 09/29/22 (Scale Score 4-6) omega 7-pyl-ylo-fish oil 300 1 cap PO DAILY 12/15/21 09/29/22 mg-1,000 mg capsule (Fish Oil) naproxen 500 mg tablet 500 mg PO DAILY PRN Pain (Scale 12/16/21 09/29/22 Score 1-3) acetaminophen 325 mg tablet 650 mg PO Q6HR PRN Pain (Scale 08/11/22 09/29/22 Score 4-6) sodium chloride 0.65 % nasal spray 1 spray intranasal BID PRN 08/11/22 09/29/22 aerosol (Deep Sea Nasal) Congestion Previous Rx's Medication Instructions Recorded ibuprofen 400 mg tablet 400 mg PO Q6HR #30 tabs 07/13/22 tramadol 50 mg tablet 50 mg PO Q8H PRN pain #30 tabs 07/13/22 aspirin 81 mg tablet,delayed 81 mg PO BID #84 tabs 08/15/22 release phenazopyridine 100 mg tablet 100 mg PO TID #30 tabs 08/15/22 fluconazole 150 mg tablet 150 mg PO DAILY #6 tabs 09/03/22 (Diflucan) Allergies Allergy/AdvReac Type Severity Reaction Status Date / Time ciprofloxacin [From Cipro] Allergy Verified 09/29/22 18:05 doxycycline Allergy Verified 09/29/22 18:05 gabapentin Allergy Verified 09/29/22 18:05 mirabegron [From Myrbetriq] Allergy Verified 09/29/22 18:05 primidone Allergy Verified 09/29/22 18:05 propranolol Allergy Verified 09/29/22 18:05 oxybutynin AdvReac Intermediate Facial Verified 09/29/22 18:05 redness and swelling nitrofurantoin AdvReac Mild Dizziness Verified 09/29/22 18:05 [From Macrobid] Review of Systems Constitutional Constitutional: Reports system reviewed and no additional complaints, except as documented Musculoskeletal Musculoskeletal: Reports system reviewed and no additional complaints, except as documented Integumentary/Breasts Skin/Breast: Reports system reviewed and no additional complaints, except as documented Neurologic Neurologic: Reports system reviewed and no additional complaints, except as documented Patient History Medical History Breast cancer Dizziness Lupus Osteopenia Parkinson disease Surgical History History of cataract removal with insertion of prosthetic lens Status post laparoscopic cholecystectomy (12/2014) Status post total knee replacement, left Family History Mother Hypertension Father Heart disease Brother Heart disease Social History household members: caregiver and none Smoking Status: Never smoker alcohol intake: never substance use type: does not use Smoking Status: Never smoker alcohol intake frequency: holidays/special occasions only Substance Use Type: does not use Exam Initial Vital Signs Initial Vital Signs: Vital Signs Temperature 97.1 F L 09/29/22 18:03 Pulse Rate 65 09/29/22 18:03 Respiratory Rate 14 09/29/22 18:03 Blood Pressure 170/83 H 09/29/22 18:03 Pulse Oximetry 96 09/29/22 18:03 Oxygen Delivery Method Room Air 09/29/22 18:03 [facility] Head: normal to inspection and normocephalic Skin General: no rashes or lesions noted Neuro General: patient alert and patient awake Extrem Other: Discomfort with palpation of the left shola pelvis Procedures Orthopedic Joint Reduction Joint #1: Time Out Performed: Yes Side: left Joint Reduction Location: hip Analgesia: procedural sedation Technique used: direct manipulation Post-reduction neuro exam: no change Post-reduction vascular: no change Post Reduction X-Ray Obtained: Yes Post Reduction X-Ray Results: not reduced Patient Tolerated Procedure: No complications Procedural Sedation Consent signed: Yes Time out performed: Yes Indication: fracture/dislocation reduction ASA Class: III Mallampati Airway Classification: Class II Preparation: quality assurance monitor applied, pulse oximeter, capnometry used, supplemental O2 applied, suction/airway equipment at bedside and IV secured IV Propofol dose (mg): 70 Intraservice time/total sedation time (min): 20 ED Sedation Level: Moderate (Concious) Patient Tolerated Procedure: No complications Complications: none Course Orders Ordered: ED Orders 09/29/22 18:25 XR hip w pel if done LT 2V Stat 09/29/22 19:51 XR hip LT 1V Stat Acetaminophen (Acetaminophen 325 Mg Tablet) 650 mg PO Q6H [facility] Last Admin: 09/29/22 22:46 Dose: 650 mg Documented By: [facility] Heparin Sodium (Porcine) (Heparin 5,000 Unit/Ml Vial) 5,000 unit SUBCUT BID [facility] Last Admin: 09/29/22 22:45 Dose: 5,000 unit Documented By: MAY Dextrose/Sodium Chloride (Dextrose 5%-0.45% Ns) 1,000 mls @ 100 mls/hr IV CONT [facility] Last Admin: 09/29/22 22:39 Dose: 100 mls/hr Documented By: MAY Magnesium Hydroxide (Magnesium Hydroxide 30 Ml Udc) 30 ml PO DAILY PRN PRN Reason: Constipation Morphine Sulfate (Morphine 2 Mg/Ml Inj) 2 mg IV Q1HR PRN PRN Reason: pain Naloxone HCl (Naloxone 0.4 Mg/Ml Vial) 0.2 mg IV Q2MIN PRN PRN Reason: Opiate Reversal Discontinued Medications Sodium Chloride (Normal Saline 0.9%) 1,000 mls @ 125 mls/hr IV CONT RICK Last Infusion: 09/29/22 22:40 Dose: 0 mls/hr Documented By: Admin: 09/29/22 21:15 Dose: 125 mls/hr Documented By: SPF Morphine Sulfate (Morphine 2 Mg/Ml Inj) 2 mg IV NOW ONE Stop: 09/29/22 21:53 Last Admin: 09/29/22 21:59 Dose: 2 mg Documented By: SPF Morphine Sulfate (Morphine 4 Mg/Ml Inj) 2 mg IV Q4HR PRN PRN Reason: Pain, Severe (7-10) Last Admin: 09/29/22 23:12 Dose: 2 mg Documented By: MAY Morphine Sulfate (Morphine 4 Mg/Ml Inj) 2 mg IV Q1HR PRN PRN Reason: pain Propofol (Propofol 200 Mg/20 Ml Vial) 100 mg IV NOW ONE Stop: 09/29/22 18:57 Last Admin: 09/29/22 21:24 Dose: 70 mg Documented By: HAROON Vital Signs Vital signs: Vital Signs - 8 hr 09/29/22 18:03 09/29/22 19:57 09/29/22 20:00 Temperature 97.1 F L Pulse Rate 65 63 62 Respiratory Rate 14 14 20 Blood Pressure 170/83 H Pulse Oximetry 96 96 97 Oxygen Delivery Method Room Air Room Air Oxygen Flow Rate 09/29/22 20:00 09/29/22 20:30 09/29/22 21:23 Temperature Pulse Rate 64 65 91 H Respiratory Rate 14 14 Blood Pressure 195/85 H 187/92 H Pulse Oximetry 96 95 97 Oxygen Delivery Method Room Air Room Air Oxygen Flow Rate 09/29/22 21:29 09/29/22 20:34 09/29/22 20:34 Temperature Pulse Rate 69 62 Respiratory Rate 21 13 Blood Pressure 201/95 H 177/78 H Pulse Oximetry 100 96 Oxygen Delivery Method Room Air Oxygen Flow Rate 09/29/22 21:00 09/29/22 21:00 09/29/22 21:21 Temperature Pulse Rate 66 Respiratory Rate 11 L Blood Pressure 179/81 H 187/92 H Pulse Oximetry 94 Oxygen Delivery Method Room Air Oxygen Flow Rate 09/29/22 21:21 09/29/22 21:26 09/29/22 21:26 Temperature Pulse Rate 69 82 Respiratory Rate 19 29 H Blood Pressure 170/113 H Pulse Oximetry 96 92 Oxygen Delivery Method Room Air Nasal Cannula Oxygen Flow Rate 2 09/29/22 21:29 09/29/22 21:29 09/29/22 21:30 Temperature Pulse Rate 76 73 Respiratory Rate 24 32 H Blood Pressure 197/94 H Pulse Oximetry 89 L 100 Oxygen Delivery Method Ambu Bag Ambu Bag Oxygen Flow Rate 15 15 09/29/22 21:31 09/29/22 21:31 09/29/22 21:36 Temperature Pulse Rate 65 63 Respiratory Rate 21 21 Blood Pressure 201/95 H Pulse Oximetry 98 96 Oxygen Delivery Method Nasal Cannula Room Air Oxygen Flow Rate 6 09/29/22 21:36 09/29/22 21:36 09/29/22 21:45 Temperature Pulse Rate 62 61 Respiratory Rate 22 18 Blood Pressure 181/81 H 186/80 H Pulse Oximetry 96 97 Oxygen Delivery Method Room Air Oxygen Flow Rate 09/29/22 21:40 09/29/22 21:40 09/29/22 21:45 Temperature Pulse Rate 66 64 Respiratory Rate 21 18 Blood Pressure 185/84 H Pulse Oximetry 96 96 Oxygen Delivery Method Room Air Room Air Oxygen Flow Rate 09/29/22 21:45 Temperature Pulse Rate Respiratory Rate Blood Pressure 186/80 H Pulse Oximetry Oxygen Delivery Method Oxygen Flow Rate MDM - Extremity Injury (Lower) Medical Records Attestation: I reviewed the patient's medical records. Lab Data 09/29/22 23:35 09/29/22 23:35 Imaging Data Extremity x-ray #1: Radiologist's Impression: PROCEDURE:? XR HIP W PEL IF DONE LT 2V ? INDICATIONS:? hip pain,concerned she dislocated it ? TECHNIQUE:? AP pelvis with lateral view(s) of the left hip(s).? ? COMPARISON:? [facility], CR, XR HIP W PEL IF DONE LT 2V, 09/27/2022, 8:00. ? FINDINGS:? ? Bones:? Patient is status post prior left hip arthroplasty.? There is superior dislocation at left hip joint.? No gross acute fracture is seen.? Moderate right hip joint osteoarthritic changes are noted.? No evidence of avascular necrosis of femoral head.? No suspicious bony lesions.? ? Soft tissues:? The visualized bowel gas pattern is normal.? No suspicious soft tissue calcifications.? ? ? IMPRESSION:? Dislocated left hip prosthesis as above.? No gross fracture is seen Extremity x-ray #2: Radiologist's Impression: PROCEDURE:? XR HIP LT 1V ? INDICATIONS:? hip reduction ? TECHNIQUE:? 1 view of the hip were acquired.? ? COMPARISON:? [facility], CT, CT PEL WO CON, 07/10/2022, 10:06.? [facility], CR, XR HIP W PEL IF DONE LT 2V, 07/10/2022, 8:16.? [facility], CR, XR PELVIS 1-2V, 07/10/2022, 17:59.? [facility], CR, XR HIP W PEL IF DONE LT 2V, 08/09/2022, 0:03.? [facility], CR, XR PELVIS 1-2V, 08/10/2022, 20:15.? [facility], CR, XR PELVIS 1-2V, 08/10/2022, 18:28.? [facility], CR, XR HIP W PEL IF DONE LT 2V, 09/29/2022, 18:29. ? FINDINGS:? ? Bones:? There is persistent superior dislocation of patient's left hip prosthesis.? There is a curvilinear periprosthetic lucency medially in the region of the lesser trochanter suggestive of a nondisplaced periprosthetic fracture which appears slightly increased in prominence compared to previous studies.? The visualized pelvic ring appears intact.? ? Soft tissues:? No suspicious soft tissue calcifications or masses.? ? IMPRESSION:? ? 1. Persistent superior dislocation of left hip prosthesis. ? 2. Suspected small nondisplaced periprosthetic fracture in the region of the lesser trochanter. MDM Narrative Medical decision making narrative: The attempted reduction of the left hip dislocation was unsuccessful here in the emergency department. I did discuss the case with Dr. Dickinson on-call for Orthopedic surgery who asked that the patient be admitted to the medicine service and kept NPO after midnight and he will take the patient to the operating room tomorrow for closed reduction. I then discussed the case with hospitalist who will admit. I discussed the need for admission with the patient who expressed understanding and agreement. Discharge Plan Departure Patient Disposition: Admitted as Observation Clinical Impression: Hip dislocation, left Admit Date/Time: 09/29/22 21:47 Admit Provider: Rajesh Mendoza
--- NOTE | 2022-09-29 19:51 | DI.RAD.S_ITS ---
PROCEDURE: XR HIP LT 1V INDICATIONS: hip reduction TECHNIQUE: 1 view of the hip were acquired. COMPARISON: [facility], CT, CT PEL WO CON, 07/10/2022, 10:06. [facility], CR, XR HIP W PEL IF DONE LT 2V, 07/10/2022, 8:16. [facility], CR, XR PELVIS 1-2V, 07/10/2022, 17:59. [facility], CR, XR HIP W PEL IF DONE LT 2V, 08/09/2022, 0:03. [facility], CR, XR PELVIS 1-2V, 08/10/2022, 20:15. [facility], CR, XR PELVIS 1-2V, 08/10/2022, 18:28. [facility], CR, XR HIP W PEL IF DONE LT 2V, 09/29/2022, 18:29. FINDINGS: Bones: There is persistent superior dislocation of patient's left hip prosthesis. There is a curvilinear periprosthetic lucency medially in the region of the lesser trochanter suggestive of a nondisplaced periprosthetic fracture which appears slightly increased in prominence compared to previous studies. The visualized pelvic ring appears intact. Soft tissues: No suspicious soft tissue calcifications or masses. IMPRESSION: 1. Persistent superior dislocation of left hip prosthesis. 2. Suspected small nondisplaced periprosthetic fracture in the region of the lesser trochanter. Dictated by: Phil Edwards M.D. on 09/29/2022 at 22:32 Approved by: Phil Edwards M.D. on 09/29/2022 at 22:35
[2022-09-29] MEDS: SODIUM CHLORIDE 0.9% 1,000 ML 125 ML IV (21:15)
[2022-09-29] MEDS: propofoL 200 MG/20 ML VIAL 100 MG IV (21:24)
[2022-09-29] MEDS: MORPHINE 2 MG/ML INJ IV (21:59)
--- NOTE | 2022-09-29 22:17 | PM.HP.1 ---
History of Present Illness History of Present Illness Date Patient Seen: 09/29/22 Time Patient Seen: 22:17 Chief complaint: brace on Lknee and pop L hip in Narrative: The patient is an 82-year-old female with a history of Parkinson's and paroxysmal atrial fibrillation who is on chronic warfarin. She presents with a recurrent left hip dislocation. This follows a partial hip replacement in June of this year. She was seen in the emergency department on September 28 which time she had a reduction. Was seen at the Orthopedic Clinic today where it firmed recurrent dislocation. And has been unable to walk on the left lower extremity since last Wednesday, 3 days ago. The patient notes constant pain and denies radiation of pain. She is the pain. Falls or injury. Her hip dislocation, the patient had an emergency department with propofol but this was not successful. The patient denies recent palpitations, or dyspnea. There is no report of orthopnea or leg edema right can not specify but the quality of her several weeks. She denies any nausea, or recent URI symptoms including rhinorrhea, sore throat or cough. She notes that she lives alone and has a caregiver who is leaving in the next day or so to return to [facility] [address]. The patient notes that she takes no medications for Parkinson's because her doctor told her that none active. She has never been asked about resuscitation wishes and has not thought about it before [facility] Medical History Breast cancer Dizziness Lupus Osteopenia Parkinson disease Surgical History History of cataract removal with insertion of prosthetic lens Status post laparoscopic cholecystectomy (12/2014) Status post total knee replacement, left Family History Mother Hypertension Father Heart disease Brother Heart disease Social History household members: caregiver and none Smoking Status: Never smoker alcohol intake: never substance use type: does not use Meds Home Medications and Allergies Home Medications Medication Instructions Recorded Confirmed Type atenolol 25 mg tablet 25 mg PO DAILY 09/17/17 08/11/22 History ascorbic acid (vitamin C) 500 mg 500 mg PO DAILY 11/22/17 08/11/22 History capsule calcium carbonate 500 mg calcium 500 mg PO BID 11/22/17 08/11/22 History (1,250 mg) capsule (Calci-Mix) cholecalciferol (vitamin D3) 50 2,000 unit PO DAILY 11/22/17 08/11/22 History mcg (2,000 unit) capsule multivitamin 1 tab PO DAILY 11/22/17 08/11/22 History prednisone 5 mg tablet 5 mg PO DAILY 11/22/17 08/11/22 History diclofenac sodium 1 % topical gel 2 gram topical QID 09/28/18 08/11/22 History (Voltaren) losartan 25 mg tablet 25 mg PO DAILY 09/28/18 08/11/22 History lidocaine 4 % topical patch 1 patch topical DAILY PRN Pain 12/15/21 08/11/22 History (Scale Score 4-6) omega 1-npg-rhn-fish oil 300 1 cap PO DAILY 12/15/21 08/11/22 History mg-1,000 mg capsule (Fish Oil) naproxen 500 mg tablet 500 mg PO DAILY PRN Pain (Scale 12/16/21 08/11/22 History Score 1-3) estradiol 10 mcg vaginal tablet 10 mcg vaginal 2XW #24 tabs 03/19/22 08/11/22 Rx (Vagifem) docusate sodium 100 mg capsule 100 mg PO BID #30 caps 07/13/22 08/11/22 Rx ibuprofen 400 mg tablet 400 mg PO Q6HR #30 tabs 07/13/22 08/11/22 Rx polyethylene glycol 3350 17 gram 17 g PO DAILY PRN Constipation #14 07/13/22 08/11/22 Rx oral powder packet ea tramadol 50 mg tablet 50 mg PO Q8H PRN pain #30 tabs 07/13/22 08/11/22 Rx acetaminophen 325 mg tablet 650 mg PO Q6HR PRN Pain (Scale 08/11/22 08/11/22 History Score 4-6) sodium chloride 0.65 % nasal spray 1 spray intranasal BID PRN 08/11/22 08/11/22 History aerosol (Deep Sea Nasal) Congestion aspirin 81 mg tablet,delayed 81 mg PO BID #84 tabs 08/15/22 Rx release oxycodone 5 mg tablet 5 mg PO Q3HR PRN Pain, Mild (1-3) 08/15/22 Rx #20 tabs phenazopyridine 100 mg tablet 100 mg PO TID #30 tabs 08/15/22 Rx sulfamethoxazole 800 1 tab PO BID #20 tabs 08/15/22 Rx mg-trimethoprim 160 mg tablet fluconazole 150 mg tablet 150 mg PO DAILY #6 tabs 09/03/22 Rx (Diflucan) cephalexin 500 mg capsule 500 mg PO BID #10 caps 09/27/22 Rx Allergies Allergy/AdvReac Type Severity Reaction Status Date / Time ciprofloxacin [From Cipro] Allergy Verified 09/29/22 18:05 doxycycline Allergy Verified 09/29/22 18:05 gabapentin Allergy Verified 09/29/22 18:05 mirabegron [From Myrbetriq] Allergy Verified 09/29/22 18:05 primidone Allergy Verified 09/29/22 18:05 propranolol Allergy Verified 09/29/22 18:05 oxybutynin AdvReac Intermediate Facial Verified 09/29/22 18:05 redness and swelling nitrofurantoin AdvReac Mild Dizziness Verified 09/29/22 18:05 [From Macrobid] Review of Systems Review of Systems Narrative: She notes urinary problems recently. She denies any constipation or diarrhea also denies any chest pain or dyspnea. No recent nausea. She denies abdominal pain. No recent episodes of confusion. All else reviewed and otherwise unremarkable. Exam Vital Signs (past 8 hours): - 09/29/22 18:03 09/29/22 19:57 09/29/22 20:00 Temperature 97.1 F L Pulse Rate 65 63 62 Respiratory Rate 14 14 20 Blood Pressure 170/83 H Pulse Oximetry 96 96 97 Oxygen Delivery Method Room Air Room Air Oxygen Flow Rate 09/29/22 20:00 09/29/22 20:30 09/29/22 21:23 Temperature Pulse Rate 64 65 91 H Respiratory Rate 14 14 Blood Pressure 195/85 H 187/92 H Pulse Oximetry 96 95 97 Oxygen Delivery Method Room Air Room Air Oxygen Flow Rate 09/29/22 21:29 09/29/22 20:34 09/29/22 20:34 Temperature Pulse Rate 69 62 Respiratory Rate 21 13 Blood Pressure 201/95 H 177/78 H Pulse Oximetry 100 96 Oxygen Delivery Method Room Air Oxygen Flow Rate 09/29/22 21:00 09/29/22 21:00 09/29/22 21:21 Temperature Pulse Rate 66 Respiratory Rate 11 L Blood Pressure 179/81 H 187/92 H Pulse Oximetry 94 Oxygen Delivery Method Room Air Oxygen Flow Rate 09/29/22 21:21 09/29/22 21:26 09/29/22 21:26 Temperature Pulse Rate 69 82 Respiratory Rate 19 29 H Blood Pressure 170/113 H Pulse Oximetry 96 92 Oxygen Delivery Method Room Air Nasal Cannula Oxygen Flow Rate 2 09/29/22 21:29 09/29/22 21:29 09/29/22 21:30 Temperature Pulse Rate 76 73 Respiratory Rate 24 32 H Blood Pressure 197/94 H Pulse Oximetry 89 L 100 Oxygen Delivery Method Ambu Bag Ambu Bag Oxygen Flow Rate 15 15 09/29/22 21:31 09/29/22 21:31 09/29/22 21:36 Temperature Pulse Rate 65 63 Respiratory Rate 21 21 Blood Pressure 201/95 H Pulse Oximetry 98 96 Oxygen Delivery Method Nasal Cannula Room Air Oxygen Flow Rate 6 09/29/22 21:36 09/29/22 21:36 09/29/22 21:45 Temperature Pulse Rate 62 61 Respiratory Rate 22 18 Blood Pressure 181/81 H 186/80 H Pulse Oximetry 96 97 Oxygen Delivery Method Room Air Oxygen Flow Rate 09/29/22 21:50 09/29/22 21:55 09/29/22 21:40 Temperature Pulse Rate 70 65 66 Respiratory Rate 12 16 21 Blood Pressure 199/96 H 225/87 H Pulse Oximetry 96 96 Oxygen Delivery Method Room Air Oxygen Flow Rate 09/29/22 21:40 09/29/22 21:45 09/29/22 21:45 Temperature Pulse Rate 64 Respiratory Rate 18 Blood Pressure 185/84 H 186/80 H Pulse Oximetry 96 Oxygen Delivery Method Room Air Oxygen Flow Rate 09/29/22 21:51 09/29/22 21:51 09/29/22 21:55 Temperature Pulse Rate 67 69 Respiratory Rate 14 22 Blood Pressure 199/96 H Pulse Oximetry 97 97 Oxygen Delivery Method Room Air Oxygen Flow Rate 09/29/22 21:55 09/29/22 22:00 09/29/22 22:01 Temperature Pulse Rate 63 Respiratory Rate 24 Blood Pressure 225/87 H 199/92 H Pulse Oximetry 97 Oxygen Delivery Method Oxygen Flow Rate 09/29/22 22:01 09/29/22 22:06 09/29/22 22:06 Temperature Pulse Rate 66 75 Respiratory Rate 22 17 Blood Pressure 200/106 H Pulse Oximetry 97 97 Oxygen Delivery Method Room Air Oxygen Flow Rate Oxygen Delivery Method Room Air Oxygen Flow Rate 6 Narrative Exam Narrative: No acute distress, fluent speech. HENMT Other: Pupils are symmetric, EOMI. Sclera is unremarkable. Oropharynx is unremarkable. No facial droop. Eyes Other: Normal conjunctiva Neck Other: Normal range motion, no adenopathy. Chest Other: Are clear to auscultation, normal respiratory effort.. Cardio Other: Regular and without gallop or murmur. Skin Other: No skin rash or lesions. Neuro Other: Moves all extremities other than left lower extremity. This is slightly shortened and internally rotated. She had thought content. Cranial nerves are grossly intact. Extrem Other: No leg edema. Psych Other: She appears to be in a pleasant mood, she has relatively engaged affect and normal. She has normal appearance. Objective Imaging Left hip x-ray: My impression: Dislocated Radiologist's impression: Dislocated hip Labs Labs: WBC 8.8, 2. Platelets 201. Potassium 4.1, sodium 137, creatinine 0.54. Glucose 103. Normal liver function tests. INR pending. Assessment & Plan Assessment & Plan narrative: -Recurrent left hip dislocation. Present on admission and active. The patient was discussed with Orthopedics, and the plan is nothing to eat after midnight. Maintenance IV fluids. Pain medication is needed. The patient will be taken for both reduction in the operating room tomorrow -Parkinson's disease. Present on admission and active. The patient denies medications that she is taking and continue any appropriate home medications. -Paroxysmal atrial fibrillation, present on admission and not currently at and check INR tonight. -Possible urinary tract infection and hematuria with Dill catheter in place upon presentation. Present on admission and possibly active. We will run a urinalysis with culture as indicated. -Possible chronic corticosteroid therapy, the has prednisone 5 mg daily listed, this needs to be confirmed with her. The indicate unclear to me at the time of admission. -Full resuscitation. Time Spent With Patient Time with patient: 30 to 49 minutes with 50% spent counseling/coordinating care
[2022-09-29] MEDS: DEXTROSE 5%-0.45% NS 1,000 ML 100 ML IV (22:39)
[2022-09-29] MEDS: HEPARIN 5,000 UNIT/ML VIAL 5000 UNIT SUBCUT (22:45)
[2022-09-29] MEDS: ACETAMINOPHEN 325 MG TABLET 650 MG PO (22:46)
[2022-09-29] MEDS: MORPHINE 4 MG/ML INJ 2 MG IV (23:12)
[2022-09-29 23:20] LABS: Bilirubin Urine UA NEGATIVE (NEGATIVE); Glucose Urine UA NEGATIVE (Negative); Ketones Urine UA 1+ (NEGATIVE); Leukocyte Esterase Urine UA 2+ (NEGATIVE); Nitrite Urine UA POSITIVE (Negative); Occult Blood Urine UA NEGATIVE (Negative); Protein Urine UA 1+ (Negative)
[2022-09-29 23:21] LABS: Appearance Urine UA Slightly Cloudy; Bacteria Urine Moderate (10-30); Color Urine UA Dark Yellow; Mucus Urine 2+ (Negative); RBC Urine None Seen (0-5/HPF); Squamous Epithelial Cell Urine 1-5 /HPF (0-5/HPF); WBC Urine 10-30/HPF (0-5/HPF); pH Urine UA 5.5 (4.5-8.0)
[2022-09-29 23:22] LABS: Culture Indicated Urine Specimen Cultured
[2022-09-29 23:51] LABS: Add Manual Diff / Slide Review NO; Basophils Absolute Auto 100 /uL (0-100); Basophils Percent Auto 0.7 % (0-2); Eosinophils Absolute Auto 100 /uL (0-450); Eosinophils Percent Auto 0.9 % (2-4); Hematocrit 34.8 % (36-46); Hemoglobin 11.5 g/dL (12.0-16.0); Lymphocytes Absolute Auto 1200 /uL (1100-4500); Lymphocytes Percent Auto 10.8 % (25-40); Mean Corpuscular Hemoglobin 29.9 PG (26-34); Mean Corpuscular Volume 90.4 fL (80-100); Monocytes Absolute Auto 800 /uL (0-900); Neutrophils Absolute Auto 8900 /uL (1500-7000); Neutrophils Percent Auto 80.6 % (50-75); Platelet Count 203 X10^3/uL (150-400); Red Blood Cell Count 3.85 X10^6/uL (4.0-5.2); Red Cell Distribution Width 15.2 % (11.6-14.8); White Blood Cell Count 11.1 X10^3/uL (4.5-11.0)
[2022-09-29 23:56] LABS: INR 1.1 (0.9-1.3)
--- NOTE | 2022-09-30 | DI.CT.S_ITS ---
PROCEDURE: CT HIP LEFT WITHOUT CON INDICATIONS: Hip pain TECHNIQUE: Noncontrast 3 mm axial sections acquired through the bony pelvis. Additional 3 mm axial sections acquired through the symptomatic hip joint, with coronal and sagittal reformats. COMPARISON: None. FINDINGS: Image quality: Excellent. Bones: Left hip arthroplasty with no evidence of hardware failure or loosening. No periprosthetic fractures identified. No pelvic fractures. Soft tissues: Left gluteus medius hematoma measuring 3.3 x 8.2 cm on image 35/5. IMPRESSION: 1. Expected appearance of left hip arthroplasty. 2. No periprosthetic fractures, no pelvic fractures. 3. Left gluteus medius muscle hematoma. Dictated by: Alverto Tejada M.D. on 09/30/2022 at 14:03 Approved by: Alverto Tejada M.D. on 09/30/2022 at 14:06
[2022-09-30 00:01] LABS: Blood Urea Nitrogen 17 mg/dL (7-17); Calcium 8.6 mg/dL (8.4-10.2); Carbon Dioxide 30 mmol/L (22-32); Chloride 102 mmol/L (98-107); Estimated Glomerular Filt Rate > 60 mL/min (>60); Glucose 143 mg/dL (80-110); HEMOLYSIS < 15 (0-50); Potassium 3.7 mmol/L (3.4-5.1); Sodium 135 mmol/L (137-145)
[2022-09-30] MEDS: MORPHINE 2 MG/ML INJ IV ×4 (00:16→13:30)
[2022-09-30 04:47] VITALS: BP 122/54; PULSE 63; RESP 18; TEMP 36.1; O2SAT 95
[2022-09-30] MEDS: DEXTROSE 5%-0.45% NS 1,000 ML 100 ML IV (08:26)
--- NOTE | 2022-09-30 09:32 | CM.DANOTE ---
Addendum entered by Irina Gamez R.N. 09/30/22 15:55: Spoke to Libia at [facility], she is aware of patient, received an email from family and [facility] in [place], and can accept. If patient is not ready by Wednesday, will need to order [employer] Me, to transport on Sat, and bill [facility], which care management can do. Addendum entered by Irina Gamez R.N. 09/30/22 14:28: Spoke to Camelia, stated, she wants to ensure that patient has a plan for home, since her caregiver is moving out of the country. Initially attempted to reach Bernard, patient's ex spouse. Met him in the room with patient. Introduced self and role. 'Is aware patient will need skilled, would like to attempt [facility] in [place] first, [facility] second. Patient has a niece that works there. Plan after is to move patient into [facility] in [place]. Updated September, to use her as back up, that there is a systems test engineer plan. Called Libia at [facility] of [facility] and left her a message regarding referral, and systems test engineer plan. Found out that patient may not be able to have his surgery until Wednesday. Left this update with Libia as well, patient may not be ready until Wednesday, depending upon how she does with surgery. Original Note: DCP: Case received, EMR reviewed and met with patient. Introduced self and role. Was able to obtain some limited information from patient regarding her baseline activity status and current living situation. Was able to review last note from [facility] when she was here in July. DCP assessment completed with information currently available. Patient is n 82 year old female who admitted yesterday evening to the care of the hospitalist team. PCP: Dr. Martins. Payer: confirmed: Medicare/AARP. Patient came to the hospital via private vehicle secondary to hip pain, feels that her hip was dislocated. Notes indicate that the patient has been here in the ER multiple times. She was sedated 48 hours ago, had the hip relocated. Patient went home, was supposed to follow up with orthopedics today. Notes also indicate left hip dislocation was unsuccessful, was admitted for surgery for closed reduction. Patient has history of Parkinson's, a-fib. Patient has a caregiver, but it is noted that her caregiver is moving to [facility]. Met briefly with patient. Confirmed that she resides in [place]. Brief conversation, patient in pain. She indicated that she lives alone now, her caregiver is moving away. Stated, she has not been able to walk since being home, and does not drive. Asked her about Aldo Gomez), who is listed as spouse, gave permission to contact. Asked UR to review to see if she can make inpatient. Asked Camelia at [facility] to review, she has had patient before. P: DCP to continue to follow. Surgery may not happen until tomorrow. UR has sent to EHR to verify if inpatient, she has had several doses of pain meds. [facility] is reviewing. May attempt to contact spouse later today. Irina Gamez RN/Proposal Analyst Discharge Planning/Care Management CM Discharge Assessment Start: 09/30/22 09:30 Freq: Status: Active Protocol: Document 09/30/22 09:30 (Rec: 09/30/22 09:32 [id number]) Discharge Planning Assessment Assigned Loan Servicing Representative Irina Gamez RN/Proposal Analyst Advance Directives? Yes: Yes-DPOA Advance Directives on File Yes History Provided By Patient,Family Member,Medical Record Prior Living Arrangements House Household Members caregiver,none Type of transporation used prior to Relies on Others admit Independent with ADL's No Is patient alert and oriented? Yes Needs Assistance With Bathing,Meal Prep,Toileting, Managing Medications,Home Chores / Shopping Caregiver for Another No DME Already Rented / Owned Wheelchair Patient/Family Preference Longterm Facility Barriers to Discharge Yes Comment Patient indicated that she will no longer have her caregiver. Discharge Plan Longterm Facility Transportation Arrangement Facility Referrals Initiated Longterm Additional Comment Will have to see if patient makes inpatient status, and most likely will need snf. If patient plan is SNF: Has PASSR been No completed? Whiteboard Updated in Patient Room with Yes name and ext. # of Loan Servicing Representative Review Status In Process Next Review Type Continued Stay Review
[2022-09-30 09:56] VITALS: BP 112/54; PULSE 70; RESP 16; TEMP 36.5; O2SAT 95
[2022-09-30] MEDS: hydrOXYzine pamoate 25 MG CAPSULE PO (13:30)
--- NOTE | 2022-09-30 15:39 | P.PN_ITS ---
Subjective Subjective Interval history: continues to have pain today, have been told no OR until Wednesday due to need to order appropriate equipment. Diet re-ordered, home medications restarted. Added oral pain medications. Exam Vital Signs (past 8 hours): - 09/30/22 09:56 Temperature 97.7 F Pulse Rate 70 Respiratory Rate 16 Blood Pressure 112/54 L Pulse Oximetry 95 Oxygen Flow Rate 0 Oxygen Delivery Method Room Air Oxygen Flow Rate 0 Narrative Exam Narrative: GEN: no acute distress, appears in pain, elderly female HEENT: moist mucous membranes, PERRL NECK: trachea midline, no JVD CV: regular rate and rhythm, no murmurs PULM: clear bilaterally ABD: soft, nontender, nondistended, no organomegaly EXT: no edema NEURO: awake, alert, oriented, no focal deficits Objective Labs 09/29/22 23:35 09/29/22 23:35 Labs: Laboratory Results - last 24 hr 09/29/22 09/29/22 09/29/22 23:03 23:35 23:35 WBC 11.1 H RBC 3.85 L Hgb 11.5 L Hct 34.8 L MCV 90.4 MCH 29.9 MCHC 33.0 RDW 15.2 H Plt Count 203 Neut % (Auto) 80.6 H Lymph % (Auto) 10.8 L [place] % (Auto) 7.0 Eos % (Auto) 0.9 L Baso % (Auto) 0.7 Neut # (Auto) 8900 H Lymph # (Auto) 1200 [place] # (Auto) 800 Eos # (Auto) 100 Baso # (Auto) 100 PT INR Sodium 135 L Potassium 3.7 Chloride 102 Carbon Dioxide 30 BUN 17 Creatinine 0.50 L Estimated GFR > 60 BUN/Creatinine Ratio 34.0 H Glucose 143 H Calcium 8.6 Urine Color Dark yellow Urine Appearance Slightly cloudy Urine pH 5.5 Ur Specific [place] 1.020 Urine Protein 1+ H Urine Glucose (UA) Negative Urine Ketones 1+ H Urine Occult Blood Negative Urine Nitrate Positive H Urine Bilirubin Negative Urine Urobilinogen 2.0 H Ur Leukocyte Esterase 2+ H Urine RBC None seen Urine WBC 10-30/hpf H Ur Squamous Epith Cells 1-5 /hpf Urine Bacteria Moderate (10-30) H Urine Mucus 2+ H Ur Culture Indicated? Specimen cultured 09/29/22 23:35 WBC RBC Hgb Hct MCV MCH MCHC RDW Plt Count Neut % (Auto) Lymph % (Auto) [place] % (Auto) Eos % (Auto) Baso % (Auto) Neut # (Auto) Lymph # (Auto) [place] # (Auto) Eos # (Auto) Baso # (Auto) PT 13.0 H INR 1.1 Sodium Potassium Chloride Carbon Dioxide BUN Creatinine Estimated GFR BUN/Creatinine Ratio Glucose Calcium Urine Color Urine Appearance Urine pH Ur Specific [place] Urine Protein Urine Glucose (UA) Urine Ketones Urine Occult Blood Urine Nitrate Urine Bilirubin Urine Urobilinogen Ur Leukocyte Esterase Urine RBC Urine WBC Ur Squamous Epith Cells Urine Bacteria Urine Mucus Ur Culture Indicated? [facility] Medical History Breast cancer Dizziness Lupus Osteopenia Parkinson disease Surgical History History of cataract removal with insertion of prosthetic lens Status post laparoscopic cholecystectomy (12/2014) Status post total knee replacement, left Family History Mother Hypertension Father Heart disease Brother Heart disease Social History household members: caregiver and none Smoking Status: Never smoker alcohol intake: never substance use type: does not use Assessment & Plan Assessment & Plan narrative: -Recurrent left hip dislocation. Present on admission and active. Plan for OR on Wednesday per orthopedics. -Parkinson's disease. Present on admission and active. The patient denies medications that she is taking -Paroxysmal atrial fibrillation, present on admission not on AC. -Possible urinary tract infection and hematuria with Dill catheter in place upon presentation. Present on admission and possibly active. UA with 10-30 WBC but some sqamous cells as well. Awaiting culture results. Start ceftriaxone 1g q24h x 3 days. Code: Full, surrogate is patient's spouse Dispo: probable SNF after orthopedic interventions, likely ready over the weekend if OR is indeed on Wednesday. Time Spent With Patient Time with patient: 30 to 49 minutes with 50% spent counseling/coordinating care Quality MIPS - Admit I confirm the patient?s Advance Care Plan is present, Code status is documented, Surrogate decision maker is in patient?s record [If Yes, STOP here]: Yes
[2022-09-30] MEDS: ACETAMINOPHEN 325 MG TABLET 650 MG PO ×2 (16:34→22:42)
[2022-09-30] MEDS: cefTRIAXone 1,000 MG in SODIUM CHLORIDE 0.9% 100 ML 200 MG IV (16:34)
[2022-09-30] MEDS: LIDOCAINE PATCH 1 EACH ADH..PATCH TOP (16:34)
[2022-09-30] MEDS: OXYCODONE IR 10 MG TABLET PO (16:35)
[2022-09-30] MEDS: HEPARIN 5,000 UNIT/ML VIAL 5000 UNIT SUBCUT (16:36)
[2022-09-30] MEDS: ASPIRIN EC 81 MG TABLET PO (20:52)
[2022-09-30] MEDS: CALCIUM CARBONATE 500 MG TAB PO (20:52)
[2022-09-30] MEDS: DICLOFENAC 1% GEL 100 GM 1 APPLIC TOP (20:58)
--- NOTE | 2022-09-30 21:18 | PM.HP.1 ---
History of Present Illness History of Present Illness Date Patient Seen: 09/30/22 Time Patient Seen: 21:19 Chief complaint: brace on Lknee and pop L hip in Narrative: This is a pleasant 82-year-old female who has a history of Parkinson's disease and multiple medical problems including lupus. Unfortunately she fell and sustained a left femoral neck fracture. She is previously been treated with a left hip hemiarthroplasty. She went on to develop problems with recurrent instability and multiple dislocations. She had a dislocation over the weekend which was reduced at [facility]. She returned to clinic on 09/29/2022 and was noted to be dislocated when she came into the orthopedic clinic. She was sent to the emergency room for a closed reduction. Unfortunately the hip was noted to not be reducible in the emergency room. She also has a UTI. She was admitted to the medicine service for evaluation with orthopedic consultation. [facility] Medical History Breast cancer Dizziness Lupus Osteopenia Parkinson disease Surgical History History of cataract removal with insertion of prosthetic lens Status post laparoscopic cholecystectomy (12/2014) Status post total knee replacement, left Family History Mother Hypertension Father Heart disease Brother Heart disease Social History household members: caregiver and none Smoking Status: Never smoker alcohol intake: never substance use type: does not use Meds Home Medications and Allergies Home Medications Medication Instructions Recorded Confirmed Type atenolol 25 mg tablet 25 mg PO DAILY 09/17/17 09/29/22 History ascorbic acid (vitamin C) 500 mg 500 mg PO DAILY 11/22/17 09/29/22 History capsule calcium carbonate 500 mg calcium 500 mg PO BID 11/22/17 09/29/22 History (1,250 mg) capsule (Calci-Mix) cholecalciferol (vitamin D3) 50 2,000 unit PO DAILY 11/22/17 09/29/22 History mcg (2,000 unit) capsule multivitamin 1 tab PO DAILY 11/22/17 09/29/22 History prednisone 5 mg tablet 5 mg PO DAILY 11/22/17 09/29/22 History diclofenac sodium 1 % topical gel 2 gram topical QID 09/28/18 09/29/22 History (Voltaren) lidocaine 4 % topical patch 1 patch topical DAILY PRN Pain 12/15/21 09/29/22 History (Scale Score 4-6) omega [id number] oil 300 1 cap PO DAILY 12/15/21 09/29/22 History mg-1,000 mg capsule (Fish Oil) naproxen 500 mg tablet 500 mg PO DAILY PRN Pain (Scale 12/16/21 09/29/22 History Score 1-3) ibuprofen 400 mg tablet 400 mg PO Q6HR #30 tabs 07/13/22 09/29/22 Rx tramadol 50 mg tablet 50 mg PO Q8H PRN pain #30 tabs 07/13/22 09/29/22 Rx acetaminophen 325 mg tablet 650 mg PO Q6HR PRN Pain (Scale 08/11/22 09/29/22 History Score 4-6) sodium chloride 0.65 % nasal spray 1 spray intranasal BID PRN 08/11/22 09/29/22 History aerosol (Deep Sea Nasal) Congestion aspirin 81 mg tablet,delayed 81 mg PO BID #84 tabs 08/15/22 09/29/22 Rx release phenazopyridine 100 mg tablet 100 mg PO TID #30 tabs 08/15/22 Rx fluconazole 150 mg tablet 150 mg PO DAILY #6 tabs 09/03/22 09/29/22 Rx (Diflucan) Allergies Allergy/AdvReac Type Severity Reaction Status Date / Time ciprofloxacin [From Cipro] Allergy Verified 09/29/22 18:05 doxycycline Allergy Verified 09/29/22 18:05 gabapentin Allergy Verified 09/29/22 18:05 mirabegron [From Myrbetriq] Allergy Verified 09/29/22 18:05 primidone Allergy Verified 09/29/22 18:05 propranolol Allergy Verified 09/29/22 18:05 oxybutynin AdvReac Intermediate Facial Verified 09/29/22 18:05 redness and swelling nitrofurantoin AdvReac Mild Dizziness Verified 09/29/22 18:05 [From Macrobid] Review of Systems Review of Systems Narrative: She denies recent new dizziness she does have a history of Parkinson's. She has a history of intermittent muscle spasms. She notes she is having some difficulty writing. She is not had any recent heart problems or respiratory problems. She does note some issues related to her memory and states that her health is somewhat poor. Exam Vital Signs (past 8 hours): Oxygen Delivery Method Room Air Oxygen Flow Rate 0 Narrative Exam Narrative: She is alert she is resting comfortably in bed. She has supple range of motion of her neck. Her facial expression is somewhat flattened. Cor regular rate and rhythm, lungs clear, abdomen is soft and benign, she is able to fire toe flexors and extensors bilaterally, she has some mild numbness in bilateral lower extremities, her calves are soft bilaterally, there is evidence of shortening of her left leg, she does have pain with attempted range of motion in her left hip Objective Labs 09/29/22 23:35 09/29/22 23:35 Labs: Laboratory Results - last 24 hr 09/29/22 09/29/22 09/29/22 23:03 23:35 23:35 WBC 11.1 H RBC 3.85 L Hgb 11.5 L Hct 34.8 L MCV 90.4 MCH 29.9 MCHC 33.0 RDW 15.2 H Plt Count 203 Neut % (Auto) 80.6 H Lymph % (Auto) 10.8 L [place] % (Auto) 7.0 Eos % (Auto) 0.9 L Baso % (Auto) 0.7 Neut # (Auto) 8900 H Lymph # (Auto) 1200 [place] # (Auto) 800 Eos # (Auto) 100 Baso # (Auto) 100 PT INR Sodium 135 L Potassium 3.7 Chloride 102 Carbon Dioxide 30 BUN 17 Creatinine 0.50 L Estimated GFR > 60 BUN/Creatinine Ratio 34.0 H Glucose 143 H Calcium 8.6 Urine Color Dark yellow Urine Appearance Slightly cloudy Urine pH 5.5 Ur Specific [place] 1.020 Urine Protein 1+ H Urine Glucose (UA) Negative Urine Ketones 1+ H Urine Occult Blood Negative Urine Nitrate Positive H Urine Bilirubin Negative Urine Urobilinogen 2.0 H Ur Leukocyte Esterase 2+ H Urine RBC None seen Urine WBC 10-30/hpf H Ur Squamous Epith Cells 1-5 /hpf Urine Bacteria Moderate (10-30) H Urine Mucus 2+ H Ur Culture Indicated? Specimen cultured 09/29/22 23:35 WBC RBC Hgb Hct MCV MCH MCHC RDW Plt Count Neut % (Auto) Lymph % (Auto) [place] % (Auto) Eos % (Auto) Baso % (Auto) Neut # (Auto) Lymph # (Auto) [place] # (Auto) Eos # (Auto) Baso # (Auto) PT 13.0 H INR 1.1 Sodium Potassium Chloride Carbon Dioxide BUN Creatinine Estimated GFR BUN/Creatinine Ratio Glucose Calcium Urine Color Urine Appearance Urine pH Ur Specific [place] Urine Protein Urine Glucose (UA) Urine Ketones Urine Occult Blood Urine Nitrate Urine Bilirubin Urine Urobilinogen Ur Leukocyte Esterase Urine RBC Urine WBC Ur Squamous Epith Cells Urine Bacteria Urine Mucus Ur Culture Indicated? X-rays show a high left hip dislocation posteriorly, there is no obvious loosening of the femoral stem, CT scan suggests some slight retroversion of the femoral component, it does not include the knee. The hip is noted to still be dislocated. Assessment & Plan Assessment and plan (1) Closed left hip fracture: Status: Acute (2) Dislocation, hip: Status: Acute (3) Acute UTI: Status: Acute (4) Hip dislocation, left: Status: Acute (5) Neuropathy: Status: Acute Plan We discussed her symptoms and her history in great detail. She has a history of left hip unipolar. She is now had multiple multiple dislocations. She is already been treated with a knee immobilizer as well as a hip abduction brace. She is clearly having ongoing substantial problems with instability. After extensive consideration and discussion today I have recommended revision of her left hip surgery to a left total hip arthroplasty. She had a fairly small femoral head. Plan is to place an acetabular component and then consider dual mobility versus possible constrained liner option. She has a fairly small femoral head and we need to get to a 52 acetabulum in order to used constrained technology. Risks her persistent instability despite satisfactory hip surgery, infection, intraoperative fracture, recurrent dislocation and multiple complications discussed with the patient. She understands and agrees. Options risks benefits and complications discussed in detail.
[2022-09-30 21:40] VITALS: BP 121/57; PULSE 69; RESP 18; TEMP 36.5; O2SAT 92
--- NOTE | 2022-10-01 00:03 | PC.NURSE ---
Patient is alert and oriented except did not know day of the month; is also vague on details of past events and current situation. Breath sounds CTA with RA sat of 92%; placed back on continuous oximetry. HRR. Denies nausea. BT present and abdomen is soft but has not had a BM since 09/25 so plan to give MOM in a.m. Indwelling catheter is patent; urine is clear, orange. Is being repositioned q2h by using Edith bed tilt function so as not to exacerbate pain related to dislocated left hip. At start of shift stated pain was 7/10 but tolerable and when tylenol given around 2200 stated pain was better at 5/10 and is currently asleep. Declines use of SCD's so reminded to ankle wave. Is able to flex at ankles but unable to move left leg otherwise; denies tingling/numbness and has good pedal pulses. Fall risk score is high and bed alarm is activated.
[2022-10-01 05:12] VITALS: BP 120/63; PULSE 60; RESP 16; TEMP 36; O2SAT 97
[2022-10-01] MEDS: MAGNESIUM HYDROXIDE 30 ML UDC PO (06:29)
[2022-10-01 07:25] LABS: Add Manual Diff / Slide Review NO; Basophils Absolute Auto 100 /uL (0-100); Basophils Percent Auto 1.3 % (0-2); Eosinophils Absolute Auto 200 /uL (0-450); Eosinophils Percent Auto 2.7 % (2-4); Hematocrit 34.4 % (36-46); Hemoglobin 11.4 g/dL (12.0-16.0); Lymphocytes Absolute Auto 1200 /uL (1100-4500); Lymphocytes Percent Auto 20.8 % (25-40); Mean Corpuscular Volume 90.9 fL (80-100); Monocytes Absolute Auto 600 /uL (0-900); Neutrophils Absolute Auto 3700 /uL (1500-7000); Neutrophils Percent Auto 64.2 % (50-75); Platelet Count 153 X10^3/uL (150-400); Red Blood Cell Count 3.79 X10^6/uL (4.0-5.2); Red Cell Distribution Width 15.2 % (11.6-14.8); White Blood Cell Count 5.8 X10^3/uL (4.5-11.0)
--- NOTE | 2022-10-01 07:29 | P.PN_ITS ---
Subjective Subjective Date Patient Seen: 10/01/22 Time Patient Seen: 07:30 Interval history: Pt resting comfortably in bed, c/o being tired. Plan is for surgery tomorrow. Exam Vital Signs (past 8 hours): - 10/01/22 05:12 Temperature 96.8 F L Pulse Rate 60 Respiratory Rate 16 Blood Pressure 120/63 Pulse Oximetry 97 Oxygen Flow Rate 0 Oxygen Delivery Method Room Air Oxygen Flow Rate 0 Narrative Exam Narrative: 5/5 strength in DF, PF, quadriceps, hamstrings. Sensation to light touch intact throughout LLE. Objective Labs 10/01/22 06:40 09/29/22 23:35 Labs: Laboratory Results - last 24 hr 10/01/22 06:40 WBC 5.8 RBC 3.79 L Hgb 11.4 L Hct 34.4 L MCV 90.9 MCH 30.0 MCHC 33.0 RDW 15.2 H Plt Count 153 Neut % (Auto) 64.2 Lymph % (Auto) 20.8 L [place] % (Auto) 11.0 Eos % (Auto) 2.7 Baso % (Auto) 1.3 Neut # (Auto) 3700 Lymph # (Auto) 1200 [place] # (Auto) 600 Eos # (Auto) 200 Baso # (Auto) 100 PFSH Medical History Breast cancer Dizziness Lupus Osteopenia Parkinson disease Surgical History History of cataract removal with insertion of prosthetic lens Status post laparoscopic cholecystectomy (12/2014) Status post total knee replacement, left Family History Mother Hypertension Father Heart disease Brother Heart disease Social History household members: caregiver and none Smoking Status: Never smoker alcohol intake: never substance use type: does not use Assessment & Plan Assessment and plan (1) Dislocation, hip: Status: Acute Plan: Plan for revision from hemiarthroplasty to total hip arthroplasty tomorrow. NPO after midnight, preop meds ordered.
[2022-10-01 07:57] LABS: BUN Creatinine Ratio 28.1 (6-22); Blood Urea Nitrogen 16 mg/dL (7-17); Calcium 9.4 mg/dL (8.4-10.2); Carbon Dioxide 30 mmol/L (22-32); Chloride 104 mmol/L (98-107); Estimated Glomerular Filt Rate > 60 mL/min (>60); Glucose 88 mg/dL (80-110); HEMOLYSIS < 15 (0-50); Magnesium 2.1 mg/dL (1.6-2.3); Potassium 3.8 mmol/L (3.4-5.1); Sodium 137 mmol/L (137-145)
[2022-10-01 08:39] VITALS: BP 143/65; PULSE 67; RESP 15; TEMP 36.7; O2SAT 96
[2022-10-01] MEDS: CHOLECALCIFEROL (VITAMIN D3) 1,000 UNIT TABLET 2000 UNIT PO (08:49)
[2022-10-01] MEDS: HEPARIN 5,000 UNIT/ML VIAL 5000 UNIT SUBCUT (08:49)
[2022-10-01] MEDS: ASPIRIN EC 81 MG TABLET PO ×2 (08:49→20:07)
[2022-10-01] MEDS: MULTIVITAMIN 1 TABLET 1 TAB PO (08:49)
[2022-10-01] MEDS: FLUCONAZOLE 100 MG TABLET 150 MG PO (08:50)
[2022-10-01] MEDS: OXYCODONE IR 10 MG TABLET PO ×2 (08:50→20:07)
[2022-10-01] MEDS: CALCIUM CARBONATE 500 MG TAB PO ×2 (08:50→20:07)
[2022-10-01] MEDS: predniSONE 5 MG TABLET PO (08:50)
[2022-10-01] MEDS: atenoloL 25 MG TABLET PO (08:50)
[2022-10-01] MEDS: ASCORBIC ACID 500 MG TABLET PO (08:50)
[2022-10-01] MEDS: SODIUM CHLORIDE 0.9% FLUSH 10 ML IV ×2 (08:52→20:26)
[2022-10-01] MEDS: DICLOFENAC 1% GEL 100 GM 1 APPLIC TOP ×4 (08:52→20:08)
--- NOTE | 2022-10-01 14:26 | PM.PN.1 ---
Subjective Subjective Interval history: Pain control improved today, surgery planned for tomorrow. No complaints today. Exam Vital Signs (past 8 hours): - 10/01/22 08:39 Temperature 98.0 F Pulse Rate 67 Respiratory Rate 15 Blood Pressure 143/65 H Pulse Oximetry 96 Oxygen Flow Rate 0 Oxygen Delivery Method Room Air Oxygen Flow Rate 0 Narrative Exam Narrative: GEN: no acute distress, appears in pain, elderly female HEENT: moist mucous membranes, PERRL NECK: trachea midline, no JVD CV: regular rate and rhythm, no murmurs PULM: clear bilaterally ABD: soft, nontender, nondistended, no organomegaly EXT: no edema NEURO: awake, alert, oriented, no focal deficits Objective Labs 10/01/22 06:40 10/01/22 06:40 Labs: Laboratory Results - last 24 hr 10/01/22 10/01/22 06:40 06:40 WBC 5.8 RBC 3.79 L Hgb 11.4 L Hct 34.4 L MCV 90.9 MCH 30.0 MCHC 33.0 RDW 15.2 H Plt Count 153 Neut % (Auto) 64.2 Lymph % (Auto) 20.8 L [place] % (Auto) 11.0 Eos % (Auto) 2.7 Baso % (Auto) 1.3 Neut # (Auto) 3700 Lymph # (Auto) 1200 [place] # (Auto) 600 Eos # (Auto) 200 Baso # (Auto) 100 Sodium 137 Potassium 3.8 Chloride 104 Carbon Dioxide 30 BUN 16 Creatinine 0.57 Estimated GFR > 60 BUN/Creatinine Ratio 28.1 H Glucose 88 Calcium 9.4 Magnesium 2.1 PFSH Medical History Breast cancer Dizziness Lupus Osteopenia Parkinson disease Surgical History History of cataract removal with insertion of prosthetic lens Status post laparoscopic cholecystectomy (12/2014) Status post total knee replacement, left Family History Mother Hypertension Father Heart disease Brother Heart disease Social History household members: caregiver and none Smoking Status: Never smoker alcohol intake: never substance use type: does not use Assessment & Plan Assessment & Plan narrative: -Recurrent left hip dislocation. Present on admission and active. Plan for OR on Wednesday per orthopedics for revision to [place] from hemiarthoplasty. -Parkinson's disease. Present on admission and active. The patient denies medications that she is taking -Paroxysmal atrial fibrillation, present on admission not on AC. -Urinary tract infection and hematuria with Dill catheter in place upon presentation. Present on admission and possibly active. UA with 10-30 WBC but some sqamous cells as well. Cultures with klebsiella will complete 3 days of ceftriaxone, today day 2/3. Code: Full, surrogate is patient's spouse Dispo: probable SNF after orthopedic interventions, likely ready over the weekend Time Spent With Patient Time with patient: 30 to 49 minutes with 50% spent counseling/coordinating care
[2022-10-01] MEDS: BENZOCAINE/MENTHOL 1 LOZ PKT 1 EACH PO (14:34)
[2022-10-01] MEDS: cefTRIAXone 1,000 MG in SODIUM CHLORIDE 0.9% 100 ML 200 MG IV (15:32)
[2022-10-01] MEDS: SODIUM CHLORIDE 0.9% 250 ML 21 ML IV (16:03)
[2022-10-01] MEDS: ACETAMINOPHEN 325 MG TABLET 650 MG PO (16:03)
[2022-10-01] MEDS: hydrOXYzine pamoate 25 MG CAPSULE PO (20:07)
[2022-10-01] MEDS: TRAMADOL 50 MG TABLET PO (20:07)
[2022-10-01 20:30] VITALS: BP 133/60; PULSE 68; RESP 17; TEMP 35.8; O2SAT 94
[2022-10-02] VITALS (14 sets, daily range): BP systolic 109–152; BP diastolic 54–72; PULSE 55–94; RESP 15–20; TEMP 35.6–36.4; O2SAT 90–100; BMI 25.9
--- NOTE | 2022-10-02 06:00 | DI.RAD.S_ITS ---
PROCEDURE: XR PELVIS 1-2V INDICATIONS: INNER OP TECHNIQUE: 1 view(s) of the pelvis acquired. COMPARISON: [facility], CT, CT HIP LEFT WITHOUT CON, 09/30/2022, 13:37. [facility], CR, XR HIP LT 1V, 09/29/2022, 21:10. [facility], CR, XR PELVIS 1-2V, 09/27/2022, 8:53. [facility], CR, XR PELVIS 1-2V, 08/10/2022, 20:15. FINDINGS: Bones: Left hip arthroplasty projects in the expected location. No periprosthetic lucency to suggest loosening or infection. Possible nondisplaced fracture at the left inferior pubic ramus. No dislocations. No suspicious bony lesions. Soft tissues: Visualized bowel gas pattern is normal. No suspicious soft tissue calcifications. IMPRESSION: Expected appearance of the left hip arthroplasty. Possible nondisplaced fracture of the left inferior pubic ramus. This is not seen on prior CT. Recommend clinical correlation. Recommend attention on follow-up imaging. Dictated by: Taj Baxter M.D. on 10/02/2022 at 10:03 Approved by: Taj Baxter M.D. on 10/02/2022 at 10:06
[2022-10-02 06:16] LABS: Add Manual Diff / Slide Review NO; Basophils Absolute Auto 100 /uL (0-100); Basophils Percent Auto 1.3 % (0-2); Eosinophils Absolute Auto 200 /uL (0-450); Eosinophils Percent Auto 2.7 % (2-4); Hematocrit 30.3 % (36-46); Hemoglobin 10.1 g/dL (12.0-16.0); Lymphocytes Absolute Auto 1500 /uL (1100-4500); Mean Corpuscular HGB Conc 33.4 % (30-36); Mean Corpuscular Hemoglobin 30.2 PG (26-34); Mean Corpuscular Volume 90.5 fL (80-100); Monocytes Absolute Auto 700 /uL (0-900); Monocytes Percent Auto 10.8 % (3-14); Neutrophils Absolute Auto 3900 /uL (1500-7000); Neutrophils Percent Auto 61.2 % (50-75); Platelet Count 180 X10^3/uL (150-400); Red Blood Cell Count 3.35 X10^6/uL (4.0-5.2); Red Cell Distribution Width 15.5 % (11.6-14.8); White Blood Cell Count 6.3 X10^3/uL (4.5-11.0)
[2022-10-02] MEDS: ACETAMINOPHEN 325 MG TABLET 975 MG PO (06:17)
[2022-10-02] MEDS: CELECOXIB 200 MG CAPSULE PO (06:17)
[2022-10-02 06:25] LABS: BUN Creatinine Ratio 30.2 (6-22); Blood Urea Nitrogen 16 mg/dL (7-17); Carbon Dioxide 31 mmol/L (22-32); Chloride 104 mmol/L (98-107); Estimated Glomerular Filt Rate > 60 mL/min (>60); Glucose 89 mg/dL (80-110); HEMOLYSIS 16 (0-50); Magnesium 2.2 mg/dL (1.6-2.3); Potassium 3.8 mmol/L (3.4-5.1); Sodium 137 mmol/L (137-145)
--- NOTE | 2022-10-02 06:49 | DI.RAD.S_ITS ---
PROCEDURE: XR HIP W PEL IF DONE LT 2V INDICATIONS: Postop TECHNIQUE: AP pelvis and lateral view of the left hip acquired. COMPARISON: [facility], CR, XR HIP W PEL IF DONE LT 2V, 09/29/2022, 18:29. [facility], CR, XR HIP W PEL IF DONE LT 2V, 09/27/2022, 8:00. FINDINGS: Bones: Patient is status post left hip arthroplasty, with hardware components in expected positions. The hip joint appears congruent. The visualized bony structures appear intact. Severe right hip DJD. Soft tissues: Overlying postoperative changes are noted. Skin staple line. No suspicious soft tissue densities. Arterial vascular calcifications. IMPRESSION: Expected postoperative appearance of the left hip arthroplasty revision. Dictated by: Taj Baxter M.D. on 10/02/2022 at 11:13 Approved by: Taj Baxter M.D. on 10/02/2022 at 11:14
[2022-10-02] MEDS: VANCOMYCIN 1,000 MG/200 ML PIGGYBACK 200 MG IV (06:51)
[2022-10-02] MEDS: LACTATED RINGERS 1,000 ML 42 ML IV (06:51)
--- NOTE | 2022-10-02 07:32 | PM.PREOP ---
Pre-operative Note Interval Note History & Physical reviewed/Exam performed by Physician: Yes Changes to H&P: No
--- NOTE | 2022-10-02 07:33 | PM.OP.1 ---
Operative Date/Time/Diagnoses Date of procedure: 10/02/22 Time of procedure: 08:00 Pre-op diagnosis: left femoral neck fracture with h/o partial hip replacement, recurrent dislocation left hip Post-op diagnosis: same Procedure & Clinicians Procedure: Conversion of prior left hip surgery to a total hip arthroplasty with placement of a dual mobility femoral head and acetabulum with multiple locking screws, posterior approach Same procedure as scheduled: Yes Indications: She has a history of a femoral neck fracture which was complicated by multiple recurrent dislocations after a left hip hemiarthroplasty. She also has a known history of Parkinson's and is steroid dependent. She is brought to the operating room for revision of her left hip to a left total hip arthroplasty. The risks, benefits and alternatives to surgery were discussed with the patient prior to proceeding. Risks discussed included, but were not limited to, failure to relieve pain, leg length discrepancy, dislocation, stiffness, infection, nerve damage, deep venous thrombosis, pulmonary embolism, stroke, coma, heart attack, permanent paralysis and , as well as the potential need for eventual revision of the prosthetic. Surgeon: Khushi Callahan Clinical Documentation Consultant: Annabel Juarez Anesthesia Type: General Operative Notes Findings: No evidence of infection, significant hematoma in the joint capsule, obvious instability at 45? with internal rotation to about 45?, acceptable version of the femoral component, soft acetabular bone, adequate stability after reconstruction Closure Type: primary Specimen(s): none sent Prosthetic devices, grafts, tissues, transplants, or devices: Read out 48 mm cup, dual mobility liner 36 by 30, dual mobility head +4 neck 22 mm head by 36. four 6.5 mm screws, 3 locking and 1 nonlocking Estimated Blood Loss (mL): 250 Blood products transfused: none Procedure in detail: The patient was seen in the pre-operative area, where the patient identified the left hip as the operative site and this was marked with my initials. The patient received pre-operative antibiotics and was taken to the operating room and placed on the operative table in the right lateral decubitus position after satisfactory anesthesia. A radio time sales supervisor out was performed. The left leg was prepared from the ankle to the iliac crest with ChloroPrep in the usual fashion and draped through sterile drapes. A PA was used throughout the procedure was essential for retraction and adequate positioning of the femur. The hip was approached through an approximately 20 cm incision centered over the greater trochanter and curving gently posteriorly as it went proximally. The patient's previous skin excision was excised. This was carried sharply to the fascia abhilash, which was divided and retracted with a self retaining retractor. The skin and subcutaneous tissues was resected back to a clean margin. The fascia was incised. There was a large hematoma in the hip capsule and deep to the fascia. It was removed and cultures were sent of the hematoma, deep synovial tissue, and also from the acetabulum. The sciatic nerve, which was identified and protected throughout the case. The short external rotators and the capsulomuscular flap was identified and tagged for later repair. There was a fairly large pocket in the posterior aspect of the hip where the capsule and soft tissues had been stripped from the acetabulum. This was carefully cleaned and freshened in order to allow healing and repeat soft tissue stabilization. The hip was dislocated, and the femoral head was removed. A pocket was developed anteriorly for placement of the femoral neck during work on the acetabulum. The version of the femur was checked it was noted that it was probably about 10? of anteversion. Retractors were placed to expose the acetabulum. The labrum and central soft tissues were removed. Reaming was performed initially going up in 2 mm increments, then 1 mm increments until good bite was obtained with an odd sized reamer. The cup 1 mm larger than the last reamer was then inserted using the appropriate anteversion guides. It was initially stabilized with a single screw. A trial neutral liner was placed. A trial head was then placed and the hip relocated and checked for leg length and stability. An intraoperative film confirmed the component position and no evidence of fracture. The patient was stable in the position of sleep, of squatting, and could be put through a range of motion with 45 degrees internal rotation without dislocation. At 90 degrees flexion, internal rotation to 70? was possible before dislocation. The acetabular position was felt to be satisfactory. She had extremely soft bone. I further stabilized the cup with a total of 3 locking screws. A dual mobility liner was placed. This was felt to be satisfactory and the appropriate components were opened, and the trials were removed. A brief Betadine soak was performed while trialing with head options. The hip was meticulously irrigated with normal saline. Finally the femoral head was impacted onto the stem. The acetabulum was cleared of all material and the hip relocated one final time. The capsulomuscular flap was then repaired to the greater trochanter though an awl hole using the tag sutures. The short external rotators were repaired with a nonabsorbable suture. The fascia abhilash was closed with Vicryl. The subcutaneous layer was closed with barbed sutures and skin bebe. A reinaldo Dressing was applied and the patient was taken to recovery having tolerated the procedure well. Complications: none Post-operative Condition: stable Disposition: Acute Care Plan for aftercare: The patient will be maintained on a standard total hip replacement protocol with weight bearing as tolerated and posterior hip precautions. The patient will receive Aspirin and sequential compression devices for DVT prophylaxis. The patient will be discharged home when safe for the home environment. She had normal to slightly more than normal postoperative stability. I would like her to take her hip abduction brace home with her but not use it unless we have recurrent problems with instability. She will follow up in the office with a PA in about 14 days. She likely will require rehab due to combination of her hip problem as well as her multiple medical problems including Parkinson's.
[2022-10-02] MEDS: CEFAZOLIN 2 GM/100 ML PREMIX 100 ML IV ×2 (08:15→16:10)
--- NOTE | 2022-10-02 08:38 | SUR.OPER ---
Lateral on a sheffield bag, head on pillow, gel axillary roll in place, bottom leg bent with gel pad under knee to foot, upper leg straight and supported with pillows. Upper arm supported by pillows and secured over bottom arm to padded arm board. Safety belt at hip, tape over blanket lower legs.
--- NOTE | 2022-10-02 08:55 | CM.DPNOTE ---
Called [facility] and spoke to Norberto to arrange 1300 pickup on Wednesday, 10/03 to [facility]. requested by Diamante. Norberto confirmed this and will call Libia for payment. Evon Aldridge CM Project Safety Manager.
[2022-10-02] MEDS: BUPIVACAINE LIPOSOME 266 MG/20 ML VIAL INJ (09:49)
[2022-10-02] MEDS: BUPIVACAINE 0.25% (PF) 60 ML, EPINEPHrine 0.3 MG INJ (09:50)
--- NOTE | 2022-10-02 11:03 | SUR.PHASEI ---
pt CO right hand pain, is able to move fingers, but limited in first two. ice applied.
[2022-10-02] MEDS: IBUPROFEN 400 MG TABLET PO ×3 (12:10→20:44)
[2022-10-02] MEDS: ACETAMINOPHEN 325 MG TABLET 650 MG PO ×2 (12:10→19:00)
[2022-10-02] MEDS: LACTATED RINGERS 1,000 ML 100 ML IV ×2 (12:14→21:54)
--- NOTE | 2022-10-02 12:26 | PC.NURSE ---
Pt in Preop this a.m. at 0700 during shift change. She returns to the floor from PACU at 1125 this a.m. VSS, afebrile 2 L NC She is lethargic but awakens easily and answers questions appropriately. She occasionally asks where am I? She is able to take her po scheduled medications with applesauce. She c/o R hand soreness, examined IV site RUE in forearm not associated with R hand pain. She is able to wiggle fingers but drifting off to sleep and doesn't grasp my hand. She is able to wiggle her toes, but reports dull sensation and heaviness to BLE. She denies nause. LR IVF running at 100 ml/hr. Dill catheter in place draining adequate clear yellow urine. Incision site C/D/I to posterior hip. BJ dressing intact with flashing green light. Frequent rounding with q 2hr repositioning.
--- NOTE | 2022-10-02 12:39 | CM.DPC ---
Addendum entered by Irina Gamez R.N. 10/02/22 13:00: Libia from [facility] called back, is aware of potential admission for tomorrow, she will have the cell phone on her for any updates. Original Note: DCP Cont: Patient had her surgery this morning. Patient is in her room, currently sleeping. She has given permission to contact Bernard, with any questions or updates, per recent conversation, Bernard is patient's ex spouse. Did set up transportation for [employer], in case patient is ready for discharge tomorrow (Wednesday), at 1300. Left Libia at [facility] a message. Updated Bernard, stated, do you really think she will be ready?. Let him know that it is uncertain, but wanted to set up time in case she is, since [facility] does not have transportation on the weekend. Let him know that transportation can always be cancelled if she is not ready. P: DCP to continue to follow. Plan is [facility], set up transportation for 1300 tomorrow, but will ensure that she is medically ready, and will cancel if needed. Irina Gamez RN/Commercial Stripper
[2022-10-02] MEDS: OXYCODONE IR 5 MG TABLET PO ×4 (13:18→21:53)
--- NOTE | 2022-10-02 13:58 | OT.IPNOTE ---
OT not able to fully feel her left foot at this time, wait to do OT eval.
--- NOTE | 2022-10-02 14:30 | P.PN_ITS ---
Subjective Subjective Interval history: Seen after surgery today, patient has a lot of pain and feels cold. She does not feel short of breath, no chest pain, or nausea /vomiting. Exam Vital Signs (past 8 hours): - 10/02/22 06:57 10/02/22 10:36 10/02/22 10:41 Temperature 97.5 F L 97.4 F L Pulse Rate 63 86 94 H Respiratory Rate 16 18 20 Blood Pressure 133/64 115/72 118/70 Pulse Oximetry 96 90 L 97 Oxygen Delivery Method Room Air Room Air Room Air Oxygen Flow Rate 10/02/22 10:46 10/02/22 10:51 10/02/22 10:56 Temperature Pulse Rate 69 68 69 Respiratory Rate 16 16 16 Blood Pressure 121/68 115/64 111/66 Pulse Oximetry 100 100 100 Oxygen Delivery Method Room Air Room Air Room Air Oxygen Flow Rate 10/02/22 11:01 10/02/22 11:20 10/02/22 11:50 Temperature 96.3 F L Pulse Rate 66 58 L 55 L Respiratory Rate 16 16 15 Blood Pressure 109/68 117/60 122/57 L Pulse Oximetry 100 95 96 Oxygen Delivery Method Room Air Oxygen Flow Rate 1 1 10/02/22 12:20 10/02/22 07:00 Temperature Pulse Rate 61 Respiratory Rate 15 Blood Pressure 124/57 L Pulse Oximetry 99 Oxygen Delivery Method Nasal Cannula Oxygen Flow Rate 0 Oxygen Delivery Method Room Air Oxygen Flow Rate 0 Narrative Exam Narrative: GEN: no acute distress, appears in pain, elderly female HEENT: moist mucous membranes, PERRL NECK: trachea midline, no JVD CV: regular rate and rhythm, no murmurs PULM: clear bilaterally ABD: soft, nontender, nondistended, no organomegaly EXT: no edema NEURO: awake, alert, oriented, no focal deficits Objective Labs 10/02/22 05:39 10/02/22 05:39 Labs: Laboratory Results - last 24 hr 10/02/22 10/02/22 05:39 05:39 WBC 6.3 RBC 3.35 L Hgb 10.1 L Hct 30.3 L MCV 90.5 MCH 30.2 MCHC 33.4 RDW 15.5 H Plt Count 180 Neut % (Auto) 61.2 Lymph % (Auto) 24.0 L [place] % (Auto) 10.8 Eos % (Auto) 2.7 Baso % (Auto) 1.3 Neut # (Auto) 3900 Lymph # (Auto) 1500 [place] # (Auto) 700 Eos # (Auto) 200 Baso # (Auto) 100 Sodium 137 Potassium 3.8 Chloride 104 Carbon Dioxide 31 BUN 16 Creatinine 0.53 Estimated GFR > 60 BUN/Creatinine Ratio 30.2 H Glucose 89 Calcium 9.0 Magnesium 2.2 PFSH Medical History Breast cancer Dizziness Lupus Osteopenia Parkinson disease Surgical History History of cataract removal with insertion of prosthetic lens Status post laparoscopic cholecystectomy (12/2014) Status post total knee replacement, left Family History Mother Hypertension Father Heart disease Brother Heart disease Social History household members: caregiver and none Smoking Status: Never smoker alcohol intake: never substance use type: does not use Assessment & Plan Assessment & Plan narrative: -Recurrent left hip dislocation. Present on admission and active.' - s/p revision to L MERCEDES on 10/02. - continue PT/OT, and pain control - appreciate orthopedic involvement. -Parkinson's disease. Present on admission and active. The patient denies medications that she is taking -Paroxysmal atrial fibrillation, present on admission not on AC. -Urinary tract infection and hematuria with Dill catheter in place upon presentation. Present on admission and possibly active. UA with 10-30 WBC but some sqamous cells as well. Cultures with klebsiella will complete 3 days of ceftriaxone, today day 3/3. Code: Full, surrogate is patient's spouse Dispo: probable SNF after orthopedic interventions, likely ready over the weekend Time Spent With Patient Time with patient: 30 to 49 minutes with 50% spent counseling/coordinating care
[2022-10-02] MEDS: PHENAZOPYRIDINE 100 MG TABLET PO ×2 (16:09→20:44)
--- NOTE | 2022-10-02 16:32 | PT.IIE ---
Current Diagnoses Polyneuropathy, unspecified (09/29/22) Urinary tract infection, site not specified (09/29/22) Fracture of unspecified part of neck of left femur, initial encounter for closed fracture (09/29/22) Unspecified dislocation of left hip, initial encounter (09/29/22) Unspecified dislocation of unspecified hip, initial encounter (09/29/22) Surgery Performed Operation Date: 10/02/22 07:45 Actual Procedures p Total Hip Arthroplasty Revision - Acetabular Component(Left) - Khushi Callahan MD Surgical History (Last Reviewed 09/30/22 @ 21:21 by Khushi Callahan MD) History of cataract removal with insertion of prosthetic lens Status post laparoscopic cholecystectomy (12/2014) Status post total knee replacement, left Medical History (Last Reviewed 09/30/22 @ 21:21 by Khushi Callahan MD) Breast cancer Dizziness Lupus Osteopenia Parkinson disease Physical Therapy Inpatient Evaluation/Re-Eval M1 PT/OT-IP Prior Functional Status Start: 10/02/22 16:07 Freq: NEEDED Status: Active Protocol: Document 10/02/22 16:08 ES (Rec: 10/02/22 16:32 ES [id number]) Medical Review Prior Functional Status Medical History Reviewed Yes Communication Indep Mobility and Gait Has been essentially w/c bound since prior hospital admission with multiple hip dislocations. Activities of Daily Living and IADL's Caregiver assists with bathing /dressing. Social History Household Members caregiver,none Living Arrangements House Home Equipment Manual Wheelchair Additional Social History Comment Patient has a full-time hired caregiver; however, patient stated that the caregiver is moving to [facility]. M2 PT-IP Current Condition Start: 10/02/22 16:07 Freq: NEEDED Status: Active Protocol: Document 10/02/22 16:08 ES (Rec: 10/02/22 16:32 ES [id number]) Physical Therapy Current Condition Current Condition Evaluation Date 10/02/22 Treatment Diagnosis s/p L MERCEDES revision, difficulty walking Onset Date 10/02/22 M3 PT-IP Subjective Start: 10/02/22 16:07 Freq: NEEDED Status: Active Protocol: Document 10/02/22 16:08 ES (Rec: 10/02/22 16:32 ES [id number]) Subjective Physical Therapy Visit Type Type Initial Evaluation Visit Start Time 15:35 Visit Stop Time 16:06 Total Visit Minutes 41 Physical Therapy Visit Comments Patient Comments Patient resting in bed, agreeable to try sitting EOB with PT. C/o pain/tenderness in L leg, no numbness. Therapy Pain Assessment Pain When Pain Assessed During Mobility Pain Present Pain Present Pain Reported Location left hip Description Tender,With Movement Pain Behaviors Calling Out,Facial Grimacing Pain Management Techniques Apply Cold,Distraction, Modification of Treatment,Re- positioning M4 PT-IP Mobility and Gait Start: 10/02/22 16:07 Freq: NEEDED Status: Active Protocol: Document 10/02/22 16:08 ES (Rec: 10/02/22 16:32 ES [id number]) PT-Bed Mobility Assessment Supine to Sit Supine to Sit Maximum Assistance,2 Person Assistance,Head of Bed Elevated Sit to Supine Sit to Supine Maximum Assistance,2 Person Assistance,Head of Bed Elevated Scooting Scooting to Edge of Bed Maximum Assistance Scooting Up and Down in Bed Dependent PT-Transfer Assessment Sit to and From Stand Sit to and from Stand Minimal Assistance,Use of Upper Extremities Equipment Transfer Assistive Device Gait Belt,Front Wheeled Walker Orthotic/Prosthetic Devices or Brace: No Comments Mobility Comments Max A x2 for all bed mobility to ensure compliance with hip precautions. Able to sit EOB with SBA, cues for not leaning forward. Stood at EOB with FWW for <30 seconds; patient c /o dizziness with standing so returned to supine. Gait Assessment Comments Gait Comments Not appropriate due to dizziness. PT-Balance Assessment Sitting Balance and Reactions Static Sitting Balance Ability Fair Dynamic Sitting Balance Ability Fair Standing Balance and Reactions Static Standing Balance Ability Fair Device Used FWW M5 PT-IP Objective Assessments Start: 10/02/22 16:07 Freq: NEEDED Status: Active Protocol: Document 10/02/22 16:08 ES (Rec: 10/02/22 16:32 ES [id number]) Orientation Orientation/Cognition Level of Alertness Alert Orientation Name,Year,Day of Week,Place, Situation Language Function Ability No Deficits Noted Safety Awareness Decreased Safety Awareness Gross Range of Motion Lower Extremity ROM Assessment Left Impaired Impairments 2/2 hip precautions Strength Upper Extremity Strength Assessment Bilaterally Impaired Lower Extremity Strength Assessment Bilaterally Impaired Comments Strength Comments Able to move foot against gravity, weak quad and glute set on L. M6 PT-IP Treatment Start: 10/02/22 16:07 Freq: NEEDED Status: Active Protocol: Document 10/02/22 16:08 ES (Rec: 10/02/22 16:32 ES [id number]) Physical Therapy Treatment Education Education Provided Precautions,Weight Bearing Status,Safety M7 PT-IP Assessment and Plan Start: 10/02/22 16:07 Freq: NEEDED Status: Active Protocol: Document 10/02/22 16:08 ES (Rec: 10/02/22 16:32 ES [id number]) PT Summary Assessment and Plan Potential Rehabilitation Potential Fair Status of Condition at Evaluation Unstable Summary Impairments Pain,ROM,Strength,Balance,Bed Mobility,Transfers,Gait, Activity Tolerance Assessment Summary Patient is a 82 year old POD # 0 s/p L MERCEDES revision. She was able to sit and stand EOB with 2-person assistance this visit, with increased pain during transitional movements. She was dizzy in standing so was returned to supine and this resolved. She demonstrates decreased safety awareness and body awareness for maintaining precautions, requiring frequent cueing. She is at high risk for falls. She has been essentially non- ambulatory for the past 3 weeks and is deconditioned. She is currently without a caregiver at home. She will benefit from subacute rehab to gain independence with mobility as she is not currently safe to d/c home alone. Goals Bed Mobility Goal Minimal Assistance Transfer Goal Contact Guard Assistance,Front Wheeled Walker Gait Goal Contact Guard Assistance,Front Wheel Walker Gait Distance 50 ft Other Goals Patient will demonstrate good understanding of hip precautions. Patient will be indep with MERCEDES HEP. Days to Meet Goals 7 Frequency of Treatment Frequency Of Treatment Twice a Day Treatment Plan Physical Therapy Treatment Plan Bed Mobility Training,Transfer Training,Gait Training, Therapeutic Exercise,Post Op Education,Discharge Planning, Hot or Cold Pack Precautions Posterior Hip Precautions No Hip Internal Rotation,No Hip Adduction Other Precautions No hip flexion > 70 degrees Weight Bearing Status Weight Bearing Status Weight Bear as Tolerated Allowed Weight Bearing Amount (enter % WBAT LLE or #) (%) Recommendations To Nursing Amount of Assist Needed 2 Person Assist Discharge Recommendations PT Discharge Recommendations SNF Rehab Transportation Needs at Discharge Wheelchair/Cabulance
[2022-10-02] MEDS: DOCUSATE 100 MG CAPSULE PO (20:44)
[2022-10-02] MEDS: BENZOCAINE/MENTHOL 1 LOZ PKT 1 EACH PO (20:44)
[2022-10-02] MEDS: ASPIRIN EC 81 MG TABLET PO (20:45)
[2022-10-03] MEDS: CEFAZOLIN 2 GM/100 ML PREMIX 100 ML IV (01:10)
[2022-10-03 05:22] VITALS: BP 144/55; PULSE 67; RESP 18; TEMP 36.6; O2SAT 93
[2022-10-03] MEDS: SODIUM CHLORIDE 0.9% 1,000 ML 100 ML IV (06:29)
[2022-10-03] MEDS: OXYCODONE IR 5 MG TABLET PO (06:35)
[2022-10-03] MEDS: ACETAMINOPHEN 325 MG TABLET 650 MG PO ×2 (06:36→12:54)
[2022-10-03 08:00] VITALS: BP 124/67; PULSE 80; RESP 17; TEMP 36.2; O2SAT 94
[2022-10-03 08:44] LABS: BUN Creatinine Ratio 29.4 (6-22); Blood Urea Nitrogen 15 mg/dL (7-17); Calcium 8.8 mg/dL (8.4-10.2); Carbon Dioxide 29 mmol/L (22-32); Chloride 102 mmol/L (98-107); Estimated Glomerular Filt Rate > 60 mL/min (>60); Glucose 125 mg/dL (80-110); HEMOLYSIS 22 (0-50); Magnesium 2.1 mg/dL (1.6-2.3); Potassium 4.4 mmol/L (3.4-5.1); Sodium 135 mmol/L (137-145)
[2022-10-03] MEDS: IBUPROFEN 400 MG TABLET PO ×2 (08:50→12:57)
[2022-10-03] MEDS: FISH OIL 1,000 MG CAPSULE 1000 MG PO (09:14)
[2022-10-03] MEDS: DOCUSATE 100 MG CAPSULE PO (09:14)
[2022-10-03] MEDS: PHENAZOPYRIDINE 100 MG TABLET PO (09:14)
[2022-10-03] MEDS: ASPIRIN EC 81 MG TABLET PO (09:14)
[2022-10-03] MEDS: OXYCODONE IR 10 MG TABLET PO ×2 (09:14→12:55)
--- NOTE | 2022-10-03 09:59 | P.PN_ITS ---
Subjective Subjective Date Patient Seen: 10/03/22 Time Patient Seen: 09:59 Interval history: Sitting up in bed, c/o cold, says hip 'hurts like hell.' Upset that no one has talked to her since surgery. Per CM notes, plan is to d/c to SNF today but pt states she was not aware of this. Exam Vital Signs (past 8 hours): - 10/03/22 05:22 Temperature 97.8 F Pulse Rate 67 Respiratory Rate 18 Blood Pressure 144/55 H Pulse Oximetry 93 Oxygen Flow Rate 0 Oxygen Delivery Method Room Air Oxygen Flow Rate 0 Narrative Exam Narrative: 5/5 strength in DF, PF, EHL; 4/5 hip flexors, quadriceps, hamstrings on left. Sensation to light touch intact throughout LLE. Calf soft, compressible, nontender and without palpable cords or masses. BJ dressing functioning and w/ scant bloody drainage. Objective Labs 10/02/22 05:39 10/03/22 08:15 Labs: Laboratory Results - last 24 hr 10/03/22 10/03/22 08:15 08:15 WBC Cancelled RBC Cancelled Hgb Cancelled Hct Cancelled MCV Cancelled MCH Cancelled MCHC Cancelled RDW Cancelled Plt Count Cancelled Neut % (Auto) Cancelled Lymph % (Auto) Cancelled [place] % (Auto) Cancelled Eos % (Auto) Cancelled Baso % (Auto) Cancelled Neut # (Auto) Cancelled Lymph # (Auto) Cancelled [place] # (Auto) Cancelled Eos # (Auto) Cancelled Baso # (Auto) Cancelled Sodium 135 L Potassium 4.4 Chloride 102 Carbon Dioxide 29 BUN 15 Creatinine 0.51 L Estimated GFR > 60 BUN/Creatinine Ratio 29.4 H Glucose 125 H Calcium 8.8 Magnesium 2.1 PFSH Medical History Breast cancer Dizziness Lupus Osteopenia Parkinson disease Surgical History History of cataract removal with insertion of prosthetic lens Status post laparoscopic cholecystectomy (12/2014) Status post total knee replacement, left Family History Mother Hypertension Father Heart disease Brother Heart disease Social History household members: caregiver and none Smoking Status: Never smoker alcohol intake: never substance use type: does not use Assessment & Plan Post-op Assessment and plan (1) Hip dislocation, left: (2) S/P total hip arthroplasty: Assessment and Plan narrative: s/p revision from hip hemiarthroplasty to total hip arthroplasty d/t recurrent dislocations. WBAT to LLE w/ posterior hip precautions. She should keep her abduction brace with her, but she does not need to wear it unless the hip becomes unstable. ASA 81mg BID x 6 weeks for VTE prophylaxis. Follow up w/ PA in orthopedic office in 2 weeks for wound check and imaging; f/u w/ Dr Callahan in 6 weeks for symptom check. Postoperative Procedures: Procedures Operation Date: 10/02/22 07:45 Actual Procedure Side Surgeon p Total Hip Arthroplasty Revision - Acetabular Component Left Khushi Callahan MD Postoperative day: 1
--- NOTE | 2022-10-03 11:00 | CM.DPC ---
DCP continues. Plan for DC to [facility]. Discussed DCP with Dr. Edward, bedside RN Ayde, patient and her who is at bedside. Patient reluctant to get OOB, but agrees to SNF level rehab plan. Plan relayed to NICKOLAS Norman who will create packet for DCP with transport via [facility] scheduled for 1300 today. Call to Libia at [phone] who confirms there is a bed and facility can receive today. She offers number to call report at [phone] East marketing account manager. PASRR completed and will add to packet for facility. CM will fax orders, PAS[facility] as soon as available.
--- NOTE | 2022-10-03 11:27 | P.DS_ITS ---
History of Present Illness History of Present Illness Date Patient Seen: 10/03/22 Chief complaint: brace on Lknee and pop L hip in Narrative: Ready for transition to SNF. Discharge Providers Provider Date of admission: 09/29/22 21:47 Discharge Date: 10/03/22 Primary care physician: OTMAS Daigle Consults: 09/30/22 08:29 Consult to Orthopedic Surgery Routine Comment: Consulting Provider: Chase Dickinson Reason for consultation: dislocated hip Has provider been notified: Yes 10/02/22 06:00 Consult to Anesthesiology Routine Comment: Consulting Provider: Anesthesiologist Reason for consultation: Regional block for post operative pain control 10/02/22 06:49 Consult to Anesthesiology Routine Comment: Consulting Provider: Anesthesiologist Reason for consultation: Regional block for post operative pain control 10/02/22 11:51 Consult to Discharge Planning Routine Comment: Consult to Occupational Therapy Evaluate & Treat Comment: Physician Instructions: Evaluate and treat Consult to Physical Therapy Evaluate & Treat Comment: Physician Instructions: post op MERCEDES protocol Discharge provider: Tisha Jacome MD Summary Hospital Course Discharge Diagnosis: Recurrent dislocation left hip Recent history of left hip partial arthroplasty Currently postop left hip arthroplasty Paroxysmal atrial fibrillation, present on admission Urinary tract infection - positive for klebsiella, treated with ceftriaxone Hematuria Dill catheter in place upon presentation.? Continue on discharge. Chronic medical problems: Breast cancer Dizziness Lupus Osteopenia Parkinson disease History of cataract removal with insertion of prosthetic lens Status post laparoscopic cholecystectomy (12/2014) Status post total knee replacement, left Hospital Course: Tri Joseph is an 82-year-old female with a history of Parkinson's and paroxysmal atrial fibrillation who is on chronic warfarin.? She presented with a recurrent left hip dislocation.? This follows a partial hip replacement in June of this year.? She was seen in the emergency department on September 28 which time she had a reduction.? Was seen [facility] today where it was confirmed there was a recurrent dislocation.? And has been unable to walk on the left lower extremity since last SEPTEMBER 27, 3 days prior to presentation.? The patient noted constant pain and denied radiation of pain.?Due to her hip dislocation, the patient had treatment with propofol but this was not successful for relocation in the ER. Patient underwent a left total hip arthroplasty. Patient requiring further rehabilitation post left hip arthroplasty. Exam Vital Signs (past 8 hours): - 10/03/22 05:22 10/03/22 08:00 Temperature 97.8 F 97.1 F L Pulse Rate 67 80 Respiratory Rate 18 17 Blood Pressure 144/55 H 124/67 Pulse Oximetry 93 94 Oxygen Flow Rate 0 0 Oxygen Delivery Method Room Air Oxygen Flow Rate 0 Narrative Exam Narrative: GEN: no acute distress, appears in pain, elderly female HEENT: moist mucous membranes, PERRL NECK: trachea midline, no JVD CV: regular rate and rhythm, no murmurs PULM: clear bilaterally ABD: soft, nontender, nondistended, no organomegaly EXT: no edema NEURO: awake, alert, oriented, no focal deficits Objective Labs 10/02/22 05:39 10/03/22 08:15 Labs: Laboratory Results - last 24 hr 10/03/22 10/03/22 08:15 08:15 WBC Cancelled RBC Cancelled Hgb Cancelled Hct Cancelled MCV Cancelled MCH Cancelled MCHC Cancelled RDW Cancelled Plt Count Cancelled Neut % (Auto) Cancelled Lymph % (Auto) Cancelled [place] % (Auto) Cancelled Eos % (Auto) Cancelled Baso % (Auto) Cancelled Neut # (Auto) Seed Service Advisor Lymph # (Auto) Cancelled [place] # (Auto) Cancelled Eos # (Auto) Seed Service Advisor Baso # (Auto) Cancelled Sodium 135 L Potassium 4.4 Chloride 102 Carbon Dioxide 29 BUN 15 Creatinine 0.51 L Estimated GFR > 60 BUN/Creatinine Ratio 29.4 H Glucose 125 H Calcium 8.8 Magnesium 2.1 PFSH Medical History Breast cancer Dizziness Lupus Osteopenia Parkinson disease Surgical History History of cataract removal with insertion of prosthetic lens Status post laparoscopic cholecystectomy (12/2014) Status post total knee replacement, left Family History Mother Hypertension Father Heart disease Brother Heart disease Social History household members: caregiver and none Smoking Status: Never smoker alcohol intake: never substance use type: does not use Discharge Plan Discharge Plan Patient Disposition: SNF Other facility: [facility] Provider Discharge Comment: Diet: general diet. Discharge orders & Medications Prescriptions: New docusate sodium 100 mg Capsule 100 mg PO BID Qty: 60 0RF polyethylene glycol 3350 17 gram Powder In Packet 17 g PO DAILY PRN (Reason: Constipation) Qty: 30 0RF oxycodone 5 mg Tablet 5 mg PO Q3H PRN (Reason: Pain, Moderate (4-6)) Qty: 30 0RF oxycodone 10 mg Tablet 10 mg PO Q3H PRN (Reason: Pain, Severe (7-10)) Qty: 30 0RF Continued atenolol 25 mg tablet 25 mg PO DAILY diclofenac sodium [Voltaren] 1 % gel 2 gram TOP QID prednisone 5 mg tablet 5 mg PO DAILY multivitamin tablet 1 tab PO DAILY ascorbic acid (vitamin C) 500 mg capsule 500 mg PO DAILY calcium carbonate [Calci-Mix] 500 mg calcium (1,250 mg) capsule 500 mg PO BID cholecalciferol (vitamin D3) 2,000 unit capsule 2,000 unit PO DAILY omega 6-bts-dpg-fish oil [Fish Oil] 300-1,000 mg capsule 1 cap PO DAILY lidocaine 4 % adhesive patch,medicated 1 patch topical DAILY PRN (Reason: Pain (Scale Score 4-6)) naproxen 500 mg tablet 500 mg PO DAILY PRN (Reason: Pain (Scale Score 1-3)) fluconazole [Diflucan] 150 mg tablet 150 mg PO DAILY Qty: 6 0RF ibuprofen 400 mg Tablet 400 mg PO Q6HR Qty: 30 0RF tramadol 50 mg tablet 50 mg PO Q8H PRN (Reason: pain) Qty: 30 0RF [place] Nasal 0.65 % Aerosol,[place] 1 spray INTRANASAL BID PRN (Reason: Congestion) acetaminophen 325 mg tablet 650 mg PO Q6HR PRN (Reason: Pain (Scale Score 4-6)) aspirin 81 mg Tablet,Delayed Release (Dr/Ec) 81 mg PO BID Qty: 84 0RF phenazopyridine 100 mg Tablet 100 mg PO TID Qty: 30 0RF Follow up/Referrals: Khushi Callahan MD [Physician] - 2 Weeks (Follow up w/ PA in ortho office in 2 weeks for wound check and imaging. F/u w/ Dr Callahan in 6 weeks for symptom c heck.) Lainey Martins ARNP [Primary Care Provider] - Diet/Activity/Treatments Diet: Diet as Tolerated and Regular Food texture: Regular Activity: Weightbearing as tolerated to left leg. Posterior hip precautions. Keep abduction brace with pt, but she does not need to wear it unless hip become s unstable. Cold/Heat Therapy: Ice to hip as needed for pain. Catheter comment: Dill in place, present prior to admission, chronic Skin/Wound/Dressing Care Dressing: May shower. Leave BJ dressing in place until follow up in office. Batteries will in 5-7 days, at which point you can cut off battery pack and dispose of it. No bathing or otherwise soaking incision. Call the office i f the dressing becomes saturated inside. Visit Report/Discharge Packet Stand Alone Forms: Patient Portal/API Discharge Data Primary Care Provider: Lainey Martins
--- NOTE | 2022-10-03 12:05 | PT.IPTN ---
Current Diagnoses Polyneuropathy, unspecified (09/29/22) Urinary tract infection, site not specified (09/29/22) Fracture of unspecified part of neck of left femur, initial encounter for closed fracture (09/29/22) Unspecified dislocation of left hip, initial encounter (09/29/22) Unspecified dislocation of unspecified hip, initial encounter (09/29/22) Presence of unspecified artificial hip joint (09/29/22) Surgery Performed Operation Date: 10/02/22 07:45 Actual Procedures p Total Hip Arthroplasty Revision - Acetabular Component(Left) - Khushi Callahan MD Physical Therapy Treatment Note M2 PT-IP Current Condition Start: 10/02/22 16:07 Freq: NEEDED Status: Active Protocol: Document 10/02/22 16:08 ES (Rec: 10/02/22 16:32 ES [id number]) Physical Therapy Current Condition Current Condition Evaluation Date 10/02/22 Treatment Diagnosis s/p L MERCEDES revision, difficulty walking Onset Date 10/02/22 M3 PT-IP Subjective Start: 10/02/22 16:07 Freq: NEEDED Status: Active Protocol: Document 10/03/22 13:05 TS (Rec: 10/03/22 13:28 TS [id number]) Subjective Physical Therapy Visit Type Type Treatment Note Visit Start Time 12:05 Visit Stop Time 13:31 Total Visit Minutes 26 Number of EARLY CHILDHOOD EDUCATION SPECIALIST Visits 1 Physical Therapy Visit Comments Patient Comments Pt in bed, reports pain is 8/ 10 with mobility, agreeable to PT. Therapy Pain Assessment Pain When Pain Assessed During Mobility Pain Present Pain Present Pain Reported Location left hip Intensity 8 Scale Used Numeric (0 - 10) Description With Movement Pain Behaviors Calling Out,Facial Grimacing, Guarding,Wincing Pain Management Techniques Modification of Treatment,Re- positioning,Timing of Activity with Medications M4 PT-IP Mobility and Gait Start: 10/02/22 16:07 Freq: NEEDED Status: Active Protocol: Document 10/03/22 13:05 TS (Rec: 10/03/22 13:28 TS [id number]) PT-Bed Mobility Assessment Supine to Sit Supine to Sit Maximum Assistance,1 Person Assistance,Head of Bed Elevated Scooting Scooting to Edge of Bed Maximum Assistance PT-Transfer Assessment Sit to and From Stand Sit to and from Stand Minimal Assistance,Use of Upper Extremities Equipment Transfer Assistive Device Gait Belt,Front Wheeled Walker Orthotic/Prosthetic Devices or Brace: No Transfers Transfer Destination Chair Transfer Technique Stand Pivot Transfer Ability Level of Assist Moderate Assistance Comments Mobility Comments Pt recalled 1/3 posterior hip precautions prior to mobility (no hip flexion past 70D, no internal rotation). Supine to sit MaxA x1 for uprighting trunk and LLE assist, pt slow to move with increasing pain. Pt scooted to EOB MaxA with bed sheet, provided cues for handrail assist. Sit to stand Anel with FWW, slight retrolean in standing required cues for weight forward on toes and upright posture. Stand pivot transfer to chair ModA for retrolean and tactile /VC for FWW management. Stand to sit in chair ModA for slow eccentric control, provided cues for LLE extended out. Pt was left in chair with call light nearby, RN notified. Gait Assessment Comments Gait Comments Stand pivot transfer to chair. PT-Balance Assessment Sitting Balance and Reactions Static Sitting Balance Ability Fair Dynamic Sitting Balance Ability Fair Standing Balance and Reactions Static Standing Balance Ability Fair Dynamic Standing Balance Ability Fair Device Used FWW M5 PT-IP Objective Assessments Start: 10/02/22 16:07 Freq: NEEDED Status: Active Protocol: Document 10/02/22 16:08 ES (Rec: 10/02/22 16:32 ES [id number]) Orientation Orientation/Cognition Level of Alertness Alert Orientation Name,Year,Day of Week,Place, Situation Language Function Ability No Deficits Noted Safety Awareness Decreased Safety Awareness Gross Range of Motion Lower Extremity ROM Assessment Left Impaired Impairments 2/2 hip precautions Strength Upper Extremity Strength Assessment Bilaterally Impaired Lower Extremity Strength Assessment Bilaterally Impaired Comments Strength Comments Able to move foot against gravity, weak quad and glute set on L. M6 PT-IP Treatment Start: 10/02/22 16:07 Freq: NEEDED Status: Active Protocol: Document 10/03/22 13:05 TS (Rec: 10/03/22 13:28 TS [id number]) Physical Therapy Treatment Education Education Provided Precautions,Weight Bearing Status,Safety M7 PT-IP Assessment and Plan Start: 10/02/22 16:07 Freq: NEEDED Status: Active Protocol: Document 10/03/22 13:05 TS (Rec: 10/03/22 13:28 TS [id number]) PT Summary Assessment and Plan Potential Rehabilitation Potential Fair Summary Impairments Pain,ROM,Strength,Balance,Bed Mobility,Transfers,Gait, Activity Tolerance Progress Towards Goals Progressing Toward Goals Assessment Summary Pt is requiring MaxA for all bed mobility this session. Her mobility improves in standing with decreased asssist for sit to stands and pivot transfer to chair. She can follow single step instructions well but does need some redirecting to tasks and requires Max cueing for all mobility. She recalled 1/3 posterior hip precautions this session, could not recall hip flexion past 70D and internal hip rotation. PT is recommending SNF rehab to progress functional mobility and activity tolerance. Goals Bed Mobility Goal Minimal Assistance Transfer Goal Contact Guard Assistance,Front Wheeled Walker Gait Goal Contact Guard Assistance,Front Wheel Walker Gait Distance 50 ft Other Goals Patient will demonstrate good understanding of hip precautions. Patient will be indep with MERCEDES HEP. Days to Meet Goals 7 Frequency of Treatment Frequency Of Treatment Twice a Day Treatment Plan Physical Therapy Treatment Plan Bed Mobility Training,Transfer Training,Gait Training, Therapeutic Exercise,Post Op Education,Discharge Planning, Hot or Cold Pack Other Recommendations and Next Treatment Progress transfers and gait as Focus indicated. Review posterior precautions. Introduce ex's as tolerated. Precautions Posterior Hip Precautions No Hip Internal Rotation,No Hip Adduction Other Precautions No hip flexion > 70 degrees Weight Bearing Status Weight Bearing Status Weight Bear as Tolerated Allowed Weight Bearing Amount (enter % WBAT LLE or #) (%) Recommendations To Nursing Amount of Assist Needed 2 Person Assist Discharge Recommendations PT Discharge Recommendations SNF Rehab Transportation Needs at Discharge Wheelchair/Cabulance
--- NOTE | 2022-10-03 13:38 | PC.NURSE ---
Pt med for comfort x 2 w/good relief. HL discontinued intact, Dlil cath emptied indy urine prior to discharge, Pt transportation, [facility], here to transport to [facility] Escorted via w/c to waiting vehicle, D/C in stable condition.
== END 2022-10-03 13:25 | DRG 467 ==
LOC: ED 21:48 → AC 09-30 06:31
PROVIDERS: Internal Medicine; Orthopaedic Surgery; Admitting Provider Hospitalist; Emergency Provider Emergency Medicine; Family Provider Family Medicine; PCP Nurse Practitioner Family; Referring Provider Emergency Medicine; Visit Provider Hospitalist
PROC: 0SRB0JA Replacement of Left Hip Joint with Synthetic Substitute, Uncemented, Open Approach (ICD-10-PCS; principal; 2022-10-02 07:45)
DX: M24.452 Recurrent dislocation, left hip (principal); N39.0 Urinary tract infection, site not specified; T84.021A Dislocation of internal left hip prosthesis, initial encounter; I48.0 Paroxysmal atrial fibrillation; G20 Parkinson's disease; B96.1 Klebsiella pneumoniae [K. pneumoniae] as the cause of diseases classified elsewhere; Z79.52 Long term (current) use of systemic steroids; Z20.822 Contact with and (suspected) exposure to COVID-19; Z79.01 Long term (current) use of anticoagulants
CPT/HCPCS: 27265; 36415; 72170; 73501; 73502; 73700; 80048; 81001; 81003; 81015; 83735; 85025; 85610; 87070; 87075; 87077; 87086; 87116; 87176; 87186; 87205; 87206; 93005; 96374; 97163; 97530; 99152; 99285; C1776; A9270; C9290; J0171; J0690; J0696; J1644; J2270; J2704; J3010

== ENCOUNTER 2022-11-18 19:51 | Inpatient (IN) | payer MEDICARE, SELFPAY ==
[2022-09-29 22:50] VITALS: BMI 25.9
[2022-11-18 20:03] VITALS: BMI 21.4
[2022-11-18 21:04] VITALS: BP 164/76; PULSE 75; RESP 16; TEMP 36.8; O2SAT 97
[2022-11-18] MEDS: OXYCODONE IR 5 MG TABLET PO (21:27)
[2022-11-19] VITALS (14 sets, daily range): BP systolic 133–158; BP diastolic 63–95; PULSE 60–91; RESP 13–18; TEMP 35.9–37.2; O2SAT 94–100; BMI 21.4
--- NOTE | 2022-11-19 | DI.CT.S_ITS ---
PROCEDURE: CT HIP LEFT WITHOUT CON INDICATIONS: Left hip pain. TECHNIQUE: Noncontrast 3 mm axial sections acquired through the bony pelvis. Additional 3 mm axial sections acquired through the symptomatic hip joint, with coronal and sagittal reformats. COMPARISON: [facility], CT, CT HIP LEFT WITHOUT CON, 09/30/2022, 13:37. FINDINGS: Image quality: Excellent. Bones: Patient is status post left total hip arthroplasty. Left hip alignment is anatomic and is unchanged from previous studies. No gross hardware loosening or failure. No acute periprosthetic fracture. Pelvic ring is intact. No suspicious bony lesions. Degenerative disc disease in visualized lower lumbar spine is seen. Soft tissues: Compared to previous study, there is interval decrease in density of patient's known left gluteus medius intramuscular hematoma now measures up to 9.2 x 3.1 cm in largest transverse and AP dimension compared to 3.3 x 8.2 cm in size on previous study series 5, image 46. No pelvic free fluid or free air. No acute appearing intramuscular hematoma or soft tissue mass. IMPRESSION: 1. Stable anatomic left hip alignment. No periprosthetic fracture or dislocation. No gross hardware loosening or failure. 2. Interval significant decrease in density of patient's known left gluteus medius intramuscular hematoma suggestive of evolving postop seroma. No new fluid collection or soft tissue mass is seen. No pelvic free fluid or free air. Dictated by: Torres Adame M.D. on 11/19/2022 at 9:21 Approved by: Torres Adame M.D. on 11/19/2022 at 9:25
--- NOTE | 2022-11-19 06:56 | PC.NURSE ---
Admit/NOC Shift Note- Patient arrived to room via EMS transport from [facility]. Direct admit per Dr. Callahan. Admit questions done with patient and thru prior admit info, physical assessment done, medications reviewed, and skin check competed. patient forgetfull. Attempted to orient patient to bed and bed controls, room, lights, phone, and call hernandez/TV remote. Patient will need frequent reorienting. Safety measures in place. Bed alarm activated. Call hernandez within reach. Will coninue to monitor.
--- NOTE | 2022-11-19 07:21 | DI.RAD.S_ITS ---
PROCEDURE: XR HIP W PEL IF DONE LT 2V INDICATIONS: total hip h/o dislocation TECHNIQUE: AP pelvis with lateral view(s) of the left hip(s). COMPARISON: [facility], [facility], XR HIP W PEL IF DONE LT 2V, 10/02/2022, 10:35. FINDINGS: Bones: Patient is status post left total hip arthroplasty. Left hip alignment is anatomic and is unchanged from prior study. No evidence of hardware loosening or failure. No fractures or dislocations. Pelvic ring appears intact. No suspicious bony lesions. Soft tissues: The visualized bowel gas pattern is normal. No suspicious soft tissue calcifications. IMPRESSION: Stable and anatomic left hip alignment. No evidence of hardware loosening or failure. No acute fracture or dislocation. Dictated by: Torres Adame M.D. on 11/19/2022 at 9:20 Approved by: Torres Adame M.D. on 11/19/2022 at 9:21
--- NOTE | 2022-11-19 10:12 | PC.NURSE ---
Addendum entered by Enedina Casarez R.N. 11/19/22 11:33: Patient has wedge between her hips to prevent crossing over and bending of extremities. She is resting and will wake up to talk. Original Note: Patient is groggy but alert and oriented, she is answering questions appropriately. She has a wedge pillow between her hips and she is using a pure wick to void. Down for ct scan earlier. To surgery this afternoon.
[2022-11-19 11:41] LABS: Add Manual Diff / Slide Review NO; Basophils Absolute Auto 100 /uL (0-100); Basophils Percent Auto 1.1 % (0-2); Eosinophils Absolute Auto 100 /uL (0-450); Eosinophils Percent Auto 1.3 % (2-4); Hemoglobin 12.5 g/dL (12.0-16.0); Lymphocytes Absolute Auto 900 /uL (1100-4500); Lymphocytes Percent Auto 12.8 % (25-40); Mean Corpuscular HGB Conc 32.9 % (30-36); Mean Corpuscular Hemoglobin 29.6 PG (26-34); Mean Corpuscular Volume 89.8 fL (80-100); Monocytes Absolute Auto 600 /uL (0-900); Neutrophils Absolute Auto 5400 /uL (1500-7000); Neutrophils Percent Auto 76.8 % (50-75); Platelet Count 243 X10^3/uL (150-400); Red Blood Cell Count 4.23 X10^6/uL (4.0-5.2); Red Cell Distribution Width 15.6 % (11.6-14.8); White Blood Cell Count 7.1 X10^3/uL (4.5-11.0)
[2022-11-19 13:15] LABS: Alanine Aminotransferase 16 IU/L (<35); Albumin 3.5 g/dL (3.5-5.0); Albumin Globulin Ratio 1.1 (1.0-2.8); Alkaline Phosphatase 58 U/L (38-126); BUN Creatinine Ratio 28.1 (6-22); Bilirubin Total 0.5 mg/dL (0.2-1.3); Blood Urea Nitrogen 16 mg/dL (7-17); Calcium 9.3 mg/dL (8.4-10.2); Carbon Dioxide 26 mmol/L (22-32); Chloride 103 mmol/L (98-107); Estimated Glomerular Filt Rate > 60 mL/min (>60); Globulin 3.1 g/dL (1.7-4.1); Glucose 76 mg/dL (80-110); HEMOLYSIS < 15 (0-50); Potassium 4.2 mmol/L (3.4-5.1); Sodium 137 mmol/L (137-145); Total Protein 6.6 g/dL (6.3-8.2)
[2022-11-19 13:57] LABS: Aspartate Aminotransferase 35 IU/L (14-36)
--- NOTE | 2022-11-19 15:49 | CM.DPNOTE ---
DCP Note Chart reviewed. Patient familiar to this BIOMEDICAL ANALYTICAL SCIENTIST from multiple admissions. Hx Parkinsons, dementia, hip repair and multiple hip dislocations. 6 ER visits and 4 hospital admissions since June 2022 Discharged to [facility] in September 2022 No H+P available for review. Direct admit from [facility] per Dr Callahan . patient scheduled for addtl left hip repair this afternoon w/Dr Callahan CM team will plan to follow closely for coordination of DCP Shani Price P [phone]
--- NOTE | 2022-11-19 15:49 | PT-IP ANOTE ---
PT eval received and EMR reviewed. pt scheduled for surgery today. ortho doctor ordered abductor brace. checked on pt and pt has brace on and was about to go for surgery. will have to f/u after surgery for PT eval.
--- NOTE | 2022-11-19 16:59 | PT-IP ANOTE ---
1549: PT payal received. ortho MD ordered abductor hip brace for pt. checked on pt and pt was about to be transferred to OR for surgery. asked pt if she has her hip brace on and stated that she has it on all day. unable to check the brace as pt was going for surgery. Later on today at 430pm, Dr. Garzon informed PT regarding abductor hip brace order and informed that pt stated that she has it on. Dr. garzon stated that she does not have it and has an abductor pillow. checked with pt again and pt does not have the brace on and has an abductor pillow. stated that her brace is at home. Called pt's primary contact but stated that he is more or less home bound. ortho doctor contacted pt's other brother who is pt's emergency contact and doctor iinformed PT that he might be able to bring the brace if it is at the pt's house. this PT called pt's emergency contact brother to confirm. Talked to brother's and stated that pt's brother will try to get the brace if it is at the house because of pt's memory issues and not sure if brace is really at pt's house. Attempted to call [facility] where pt d/c'd after last hospitalization to inquire regarding pt's hip brace but unsuccessful. Attempted x 2 but went to voice mail. Will need to f/u tomorrow but if not able to obtain previous brace, will contact [facility] for a new brace.
--- NOTE | 2022-11-19 17:11 | P.HP_ITS ---
History of Present Illness History of Present Illness Date Patient Seen: 11/19/22 Time Patient Seen: 14:00 Chief complaint: REVISION LT HIP/HX OF PARKINSONS Narrative: This is a very unfortunate 82-year-old female with a history that started initially with a left femoral neck fracture. This was complicated by recurrent instability after a cemented unipolar arthroplasty. She does have known history of multiple medical problems including dementia and a history of Parkinson's. She failed extensive conservative treatment for instability and ultimately was taken to an operating the operating room and underwent implantation of an acetabular component with a revision of a unipolar to a total hip arthroplasty. Intraoperative findings were of marked stripping of the posterior tissue off of the acetabulum but hindu of relatively normal postoperative stability. Unfortunately she red[facility]located [facility]. 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 She then went [facility] where she underwent a closed reduction. She is had episodes of recurrent instability after the closed reduction. She appears to be grossly unstable and was transferred to [facility] for further evaluation and possible revision. [facility] Medical History Breast cancer Dizziness Lupus Osteopenia Parkinson disease Surgical History History of cataract removal with insertion of prosthetic lens Status post laparoscopic cholecystectomy (12/2014) Status post total knee replacement, left Family History Mother Hypertension Father Heart disease Brother Heart disease Social History household members: caregiver and none Smoking Status: Never smoker alcohol intake: never substance use type: does not use Meds Home Medications and Allergies Home Medications Medication Instructions Recorded Confirmed Type atenolol 25 mg tablet (Tenormin) 25 mg PO DAILY 09/17/17 11/19/22 History ascorbic acid (vitamin C) 500 mg 500 mg PO DAILY 11/22/17 11/19/22 History capsule calcium carbonate 500 mg calcium 500 mg PO BID 11/22/17 11/19/22 History (1,250 mg) capsule (Calci-Mix) cholecalciferol (vitamin D3) 50 1,000 unit PO DAILY BONES 11/22/17 11/19/22 History mcg (2,000 unit) capsule multivitamin 1 tab PO DAILY 11/22/17 11/19/22 History prednisone 5 mg tablet 5 mg PO DAILY 11/22/17 11/19/22 History diclofenac sodium 1 % topical gel 2 g topical 4XD PRN Pain (Scale 09/28/18 11/19/22 History (Voltaren) Score 4-6) lidocaine 4 % topical patch 1 patch topical DAILY PRN Pain 12/15/21 11/19/22 History (Scale Score 4-6) omega 3-rhq-qri-fish oil 300 1 cap PO DAILY 12/15/21 11/19/22 History mg-1,000 mg capsule (Fish Oil) naproxen 500 mg tablet 500 mg PO DAILY PRN Pain (Scale 12/16/21 11/19/22 History Score 1-3) tramadol 50 mg tablet 50 mg PO Q8H PRN pain #30 tabs 07/13/22 11/19/22 Rx acetaminophen 325 mg tablet 650 mg PO Q6HR PRN Pain (Scale 08/11/22 11/19/22 History (Tylenol) Score 4-6) sodium chloride 0.65 % nasal spray 1 spray intranasal BID PRN 08/11/22 11/19/22 History aerosol (Deep Sea Nasal) Congestion phenazopyridine 100 mg tablet 100 mg PO TID #30 tabs 08/15/22 11/19/22 Rx oxycodone 10 mg tablet 10 mg PO Q3H PRN Pain, Severe 10/03/22 11/19/22 Rx (7-10) #30 tabs oxycodone 5 mg tablet 5 mg PO Q3H PRN Pain, Moderate 10/03/22 11/19/22 Rx (4-6) #30 tabs polyethylene glycol 3350 17 gram 17 g PO DAILY PRN Constipation #30 10/03/22 11/19/22 Rx oral powder packet ea aspirin 81 mg tablet,delayed 81 mg PO 1XD 11/19/22 11/19/22 History release (Valencia Aspirin) bisacodyl 10 mg rectal suppository 10 mg NM DAILY PRN Constipation 11/19/22 11/19/22 History calcium citrate 500 mg PO BID BONES 11/19/22 11/19/22 History docusate sodium 100 mg capsule 100 mg PO BID CONSTIPATIONS 11/19/22 11/19/22 History ibuprofen 400 mg tablet (IBU) 400 mg PO Q6HR PRN Pain (Scale 11/19/22 11/19/22 History Score 4-6) Allergies Allergy/AdvReac Type Severity Reaction Status Date / Time ciprofloxacin [From Cipro] Allergy Verified 09/29/22 18:05 doxycycline Allergy Verified 09/29/22 18:05 gabapentin Allergy Verified 09/29/22 18:05 mirabegron [From Myrbetriq] Allergy Verified 09/29/22 18:05 primidone Allergy Verified 09/29/22 18:05 propranolol Allergy Verified 09/29/22 18:05 oxybutynin AdvReac Intermediate Facial Verified 09/29/22 18:05 redness and swelling nitrofurantoin AdvReac Mild Dizziness Verified 09/29/22 18:05 [From Macrobid] Review of Systems Review of Systems Narrative: No recent fever chills, Parkinson's but does not note specific increased episodes, baseline dementia with slight worsening, no recent chest pain leg swelling or shortness of breath Exam Vital Signs (past 8 hours): - 11/19/22 16:00 Temperature 98.1 F Pulse Rate 85 Respiratory Rate 18 Blood Pressure 140/84 Pulse Oximetry 97 Oxygen Delivery Method Room Air Oxygen Flow Rate 0 Narrative Exam Narrative: HEENT is benign, she is resting comfortably in bed, neck is supple, lungs are clear, cor regular rate and rhythm, abdomen soft benign, slight shortening of the left leg, able to fire toe flexors and extensors, healed left hip incision, calf soft bilaterally, some pain with range of motion, hip abduction brace in place Objective Labs 11/19/22 11:15 11/19/22 11:15 Labs: Laboratory Results - last 24 hr 11/19/22 11/19/22 11:15 11:15 WBC 7.1 RBC 4.23 Hgb 12.5 Hct 38.0 MCV 89.8 MCH 29.6 MCHC 32.9 RDW 15.6 H Plt Count 243 Neut % (Auto) 76.8 H Lymph % (Auto) 12.8 L [place] % (Auto) 8.0 Eos % (Auto) 1.3 L Baso % (Auto) 1.1 Neut # (Auto) 5400 Lymph # (Auto) 900 L [place] # (Auto) 600 Eos # (Auto) 100 Baso # (Auto) 100 Sodium 137 Potassium 4.2 Chloride 103 Carbon Dioxide 26 BUN 16 Creatinine 0.57 Estimated GFR > 60 BUN/Creatinine Ratio 28.1 H Glucose 76 L Calcium 9.3 Total Bilirubin 0.5 AST 35 ALT 16 Alkaline Phosphatase 58 Total Protein 6.6 Albumin 3.5 Globulin 3.1 Albumin/Globulin Ratio 1.1 plain x-rays show slight eccentricity of the left hip in comparison to the right hip, left total hip arthroplasty acceptable positioning of the components, no specific evidence of fracture, cemented femoral stem, there is a radiolucency consistent with possible polyethylene liner which is not in the acetabulum and is in the soft tissues CT scan shows evidence of displacement of the polyethylene liner with the metallic femoral head is in the acetabulum with an eccentric reduction and the liner is posteriorly dislocated. Acetabulum appears to be in an acceptable position, no evidence of femoral loosening Assessment & Plan Assessment and plan (1) S/P total hip arthroplasty: Status: Acute (2) Hip dislocation, left: Status: Acute (3) Failed total hip arthroplasty with dislocation: Status: Acute (4) Dizziness: Status: Acute (5) Neuropathy: Status: Acute Plan She is a very complicated problem. She has recurrent instability after a total hip arthroplasty. She had severe instability after a unipolar hip replacement. With her recent dislocation she has dissociated the polyethylene from her femoral head which is a dual mobility type prosthesis. Unfortunately she has a very small acetabulum. She clearly needs revision hip arthroplasty. Polyethylene is dislocated posteriorly in her soft tissues. I have recommended revision hip arthroplasty. She had very soft bone and a very small acetabulum. There is not a constrained liner option available. She needs revision of her dual mobility liner possible repair of the soft tissues as possible. Risk for recurrent instability despite satisfactory operation is felt to be substantial. I anticipate she will need to be in a hip abduction brace for at least 6 weeks postoperatively. Extremely serious nature of the procedure was discussed in with her some and previously with her medical power of contact and service clerks supervisor. They both consent to revision hip arthroplasty. The only other possible option is potentially a [place] which I think likely would commit her to a wheelchair based on her other comorbidities. That remains a salvage option if we are unable to get her hip that has adequate stability. Procedure options risks benefits and complications were discussed in detail. Quality VTE Deep Vein Thrombosis/Pulmonary Embolism Present on Admission: No
--- NOTE | 2022-11-19 17:32 | PM.OP.1 ---
Operative Date/Time/Diagnoses Date of procedure: 11/19/22 Time of procedure: 18:30 Pre-op diagnosis: Left hip dislocation dislocation of the polyethylene from a dual mobility total hip arthroplasty, history of total hip arthroplasty, recurrent instability Post-op diagnosis: same Procedure & Clinicians Procedure: Revision left total hip arthroplasty Same procedure as scheduled: Yes Indications: She is a very complicated problem. She has a history of a hip fracture treated with a unipolar which was complicated by recurrent instability. She failed very extensive conservative treatment and ultimately underwent a revision hip arthroplasty with placement of a cup position to avoid instability. She then has been doing okay but recently leaned over to pick Kleenex off the floor and dislocated her total hip. She has a history of Parkinson's and some dementia. She has undergone a closed reduction but had recurrent instability after closed reduction and has displacement of her polyethylene liner. She has a very small cup is not a candidate for constrained liner. Her polyethylene is noted to be displaced. She was brought to the operating room for revision hip arthroplasty. Non-operative management has failed and the patient has requested revision total hip replacement. The risks, benefits and alternatives to surgery were discussed with the patient prior to proceeding. Risks discussed included, but were not limited to, failure to relieve pain, leg length discrepancy, dislocation, stiffness, infection, nerve damage, deep venous thrombosis, pulmonary embolism, stroke, coma, heart attack, permanent paralysis and , as well as the potential need for eventual revision of the prosthetic. Surgeon: Khushi Callahan [employer] T[employer] Builder: Aroldo Castano Click Yes if Unassisted: Yes Anesthesia Type: General and Spinal Operative Notes Findings: Dissociated dual mobility liner with the polyethylene displaced posteriorly, fairly large pocket posteriorly, no evidence of femoral stem loosening, no evidence of acetabular loosening, adequate stability Closure Type: primary Specimen(s): none sent Prosthetic devices, grafts, tissues, transplants, or devices: Callahan and nephew size 22 x 36 dual mobility insert, OR 30, Oxinium +4 head, 2.7 mm suture anchor Estimated Blood Loss (mL): 250 Tourniquet time (min): 250 Procedure in detail: The patient was seen in the pre-operative area, where the patient identified the left hip as the operative site and this was marked with my initials. The patient received pre-operative antibiotics and was taken to the operating room and placed on the operative table in the right lateral decubitus position after satisfactory anesthesia. A endless track vehicle supervisor out was performed. The left leg was prepared from the ankle to the iliac crest with ChloroPrep in the usual fashion and draped through sterile drapes. A PA was used throughout the procedure was essential for retraction and safe implantation of the components as well as assisting in establishing adequate hemostasis. The hip was approached through an approximately 20 cm incision centered over the greater trochanter and curving gently posteriorly as it went proximally. The patient's previous surgical incision was carefully resected. This was carried sharply to the fascia abhilash, which was divided and retracted with a self retaining retractor. The polyethylene liner was noted to be dissociated from the femoral head and was displaced posteriorly. It was carefully removed. The head was brought up. There was no scratching on the dual mobility Oxinium liner, the femoral head had a minimal amount of wear. The femoral head was removed after dislocating the hip. I meticulously checked all around the rim of the cup. And we specifically checked the position of the cup was noted that it was in a good position with about 3-4 mm of elevation of the rim outside the bone posteriorly. The tissue had been stripped from the posterior aspect of the acetabulum and there was a fairly large pocket. I specifically roughened the bone on the posterior aspect I in order to try and get a flap to stick down for posterior coverage. Did a trial reduction after cleaning some bone and soft tissue from the anterior aspect of the acetabulum. There was no evidence of impingement of the components on the acetabulum. A trial reduction showed acceptable leg lengths stent was good stability in maximum extension external rotation, at 45? she was stable to about 80-90 degrees of internal rotation even with maximum adduction, at 90? she was stable to 70? of internal rotation. We checked the stability multiple different ways and I specifically attempted to thin and free the soft tissue from and scar tissue from the anterior aspect of the acetabulum and used an osteotome to remove any anterior bone which potentially was causing impingement. Some of the most superior soft tissue was then carefully mobilized released and then attempted to transfer a component of the posterior capsule more posteriorly in order to provide additional stability. The patient was stable in the position of sleep, of squatting, and could be put through a range of motion with 45 degrees internal rotation without dislocation. At 90 degrees flexion, internal rotation to 70? was possible before dislocation. This was felt to be satisfactory and the appropriate components were opened, and the trials were removed. A brief Betadine soak was performed while trialing with head options. The hip was meticulously irrigated with normal saline. Finally the femoral head was impacted onto the stem. The acetabulum was cleared of all material and the hip relocated one final time. The tissue that had been mobilized in order to transfer it more posteriorly was mobilized and then I used suture anchor along the posterior aspect of the acetabulum where the soft tissue had been stripped and where the track was noted where the hip had dislocated I placed a suture anchor and then tacked the tissue down to this area as well as using multiple sutures to tack the area down. I then mobilized as much residual capsule and soft tissue was possible in order to pull it more anteriorly and further stabilize the posterior aspect of the capsule and femur. There was better than usual stability with range of motion. The capsulomuscular flap was then repaired to the greater trochanter. The fascia abhilash was closed with Vicryl. There was some area of soft tissue abnormality which looked like a potential seroma pouch. I carefully resected tissue back to normal subcutaneous tissue in order to expedite healing decrease the risk for wound healing issues. Deep cultures were sent both fluid and soft tissue. The subcutaneous layer was closed with barbed sutures and skin bebe. A reinaldo dressing was applied and the patient was taken to recovery having tolerated the procedure well. Complications: none Post-operative Condition: stable Disposition: Acute Care Plan for aftercare: The patient will be maintained on a total hip replacement protocol with weight bearing as tolerated and posterior hip precautions. She will be placed in a hip abduction brace. She is clearly showed an extremely low level of compliance. I would like to attempt to the best of our ability to get the soft tissues to adequately heal so that she does not develop recurrent instability. I have recommended a full-time abduction brace with hip range of motion 0 to 60 ? with 20? of abduction. The patient will receive Aspirin and sequential compression devices for DVT prophylaxis. The patient will be discharged back to rehab when safe.
[2022-11-19] MEDS: LACTATED RINGERS 1,000 ML 42 ML IV ×2 (18:32→21:13)
[2022-11-19] MEDS: VANCOMYCIN 1,000 MG/200 ML PIGGYBACK 200 MG IV (18:33)
--- NOTE | 2022-11-19 18:37 | SUR.HOLD ---
Verbal consent obtained for anesthesia via telephone from LUIS E Elder.
--- NOTE | 2022-11-19 18:45 | DI.RAD.S_ITS ---
PROCEDURE: XR HIP W PEL IF DONE LT 2V INDICATIONS: hip revision left TECHNIQUE: AP pelvis and lateral view of the left hip acquired. COMPARISON: [facility], [facility], XR HIP W PEL IF DONE LT 2V, 11/19/2022, 7:55. FINDINGS: Bones: Patient is status post left total hip arthroplasty revision, with hardware components in expected positions. The hip joint appears congruent. The visualized bony structures appear intact. Soft tissues: Overlying postoperative changes are noted. Previously noted dislodged femoral head prosthesis is no longer seen. No suspicious soft tissue densities. IMPRESSION: Postsurgical changes from left hip arthroplasty revision with anatomic left hip alignment. Dictated by: Torres Adame M.D. on 11/20/2022 at 9:55 Approved by: Torres Adame M.D. on 11/20/2022 at 9:55
[2022-11-19] MEDS: CEFAZOLIN 2 GM/100 ML PREMIX 100 ML IV (19:14)
[2022-11-19] MEDS: BUPIVACAINE LIPOSOME 266 MG/20 ML VIAL INJ (19:36)
[2022-11-19] MEDS: BUPIVACAINE 0.5% W/ EPI (PF) 30 ML VIAL INJ (19:40)
--- NOTE | 2022-11-19 22:23 | PC.NURSE ---
Addendum entered by Raquel Blake R.N. 11/20/22 01:54: Patient awake and begging and making statements of wanting to be shoot me, stab me, I don't want to live anymore. Patient very difficult to redirect. Also attempting to remove wedge, refused all oral medications, refused SCD's (scd's on but not plugged in.) Original Note: Readmitted from PACU at 2150 via rney. VSS. Patient sleeping and appears comfortable. BJ drain, dressing CDI. CMS intact. Cap refill < 3 seconds. LSCTA.
[2022-11-19] MEDS: LACTATED RINGERS 1,000 ML 100 ML IV (22:35)
[2022-11-20 00:57] VITALS: BP 130/72; PULSE 75; RESP 16; TEMP 35.7; O2SAT 97
[2022-11-20] MEDS: CEFAZOLIN 2 GM/100 ML PREMIX 100 ML IV ×2 (01:37→10:52)
[2022-11-20 01:57] VITALS: BP 117/60; PULSE 72; RESP 16; TEMP 36.4; O2SAT 98
[2022-11-20] MEDS: ACETAMINOPHEN 325 MG TABLET 650 MG PO ×2 (04:24→10:53)
[2022-11-20 05:17] VITALS: BP 135/75; PULSE 78; RESP 16; TEMP 35.9; O2SAT 96
[2022-11-20] MEDS: IBUPROFEN 400 MG TABLET PO ×4 (06:00→21:28)
[2022-11-20] MEDS: OXYCODONE IR 5 MG TABLET PO (06:15)
[2022-11-20 08:00] VITALS: BP 135/63; PULSE 85; RESP 17; TEMP 36.2; O2SAT 95
[2022-11-20] MEDS: DOCUSATE 100 MG CAPSULE PO ×3 (08:00→21:21)
[2022-11-20] MEDS: TRAMADOL 50 MG TABLET PO ×2 (08:00→21:28)
--- NOTE | 2022-11-20 08:02 | PT-IP ANOTE ---
PT checked in pt room this morning and pt only has hip abduction pillow and no abductor brace. Will check back later this date to see if it arrives. PT read notes from PT last date and many calls were made in efforts to coordinate family bringing in the pt's brace.
[2022-11-20] MEDS: LORazepam 0.5 MG TABLET PO ×2 (08:39→21:28)
--- NOTE | 2022-11-20 10:50 | PM.PNPO.1 ---
Subjective Subjective Date Patient Seen: 11/20/22 Time Patient Seen: 10:50 Interval history: Patient states she has [id number] pain. She denies fever or chills. Denies nausea or vomiting. Exam Vital Signs (past 8 hours): - 11/20/22 05:17 11/20/22 08:00 Temperature 96.7 F L 97.1 F L Pulse Rate 78 85 Respiratory Rate 16 17 Blood Pressure 135/75 135/63 Pulse Oximetry 96 95 Oxygen Flow Rate 0 0 Oxygen Delivery Method Room Air Oxygen Flow Rate 0 Narrative Exam Narrative: 82-year-old female resting comfortably in bed in no apparent distress. Patient is alert and oriented x2. Motor functions intact bilateral lower extremities. Sensation grossly intact to light touch bilateral lower extremities brisk dressing is clean, dry and intact. Wedge pillow in place. Const General: comfortable Resp Effort & Inspection: normal respiratory effort and able to speak in complete sentences Objective Labs 11/19/22 11:15 11/19/22 11:15 Labs: Laboratory Results - last 24 hr 11/19/22 11/19/22 11:15 11:15 WBC 7.1 RBC 4.23 Hgb 12.5 Hct 38.0 MCV 89.8 MCH 29.6 MCHC 32.9 RDW 15.6 H Plt Count 243 Neut % (Auto) 76.8 H Lymph % (Auto) 12.8 L [place] % (Auto) 8.0 Eos % (Auto) 1.3 L Baso % (Auto) 1.1 Neut # (Auto) 5400 Lymph # (Auto) 900 L [place] # (Auto) 600 Eos # (Auto) 100 Baso # (Auto) 100 Sodium 137 Potassium 4.2 Chloride 103 Carbon Dioxide 26 BUN 16 Creatinine 0.57 Estimated GFR > 60 BUN/Creatinine Ratio 28.1 H Glucose 76 L Calcium 9.3 Total Bilirubin 0.5 AST 35 ALT 16 Alkaline Phosphatase 58 Total Protein 6.6 Albumin 3.5 Globulin 3.1 Albumin/Globulin Ratio 1.1 PFSH Medical History Breast cancer Dizziness Lupus Osteopenia Parkinson disease Surgical History History of cataract removal with insertion of prosthetic lens Status post laparoscopic cholecystectomy (12/2014) Status post total knee replacement, left Family History Mother Hypertension Father Heart disease Brother Heart disease Social History household members: caregiver and none Smoking Status: Never smoker alcohol intake: never substance use type: does not use Assessment & Plan Post-op Postoperative Procedures: Procedures Operation Date: 11/19/22 16:45 Actual Procedure Side Surgeon p Total Hip Arthroplasty Revision Left Khushi Callahan MD Postoperative status narrative: Postop day 1 status post left hip dislocation. Dislocation of the polyethylene from a dual mobility total hip arthroplasty, history of total hip arthroplasty, recurrent instability Postoperative plan narrative: Weightbearing as tolerated, strict posterior hip precautions continue hip abduction brace. Full-time hip abduction brace with hip range of motion 0-60 and 20? of abduction. Aspirin for DVT prophylaxis. Patient will be discharged back to rehab when safe. Quality VTE Deep Vein Thrombosis/Pulmonary Embolism Present on Admission: No
[2022-11-20] MEDS: OXYCODONE IR 10 MG TABLET PO ×3 (10:52→21:32)
[2022-11-20] MEDS: CHOLECALCIFEROL (VITAMIN D3) 1,000 UNIT TABLET 1000 UNIT PO (10:54)
[2022-11-20] MEDS: MULTIVITAMIN 1 TABLET 1 TAB PO (10:54)
[2022-11-20] MEDS: ASCORBIC ACID 500 MG TABLET PO (10:54)
[2022-11-20] MEDS: atenoloL 25 MG TABLET PO (10:58)
[2022-11-20] MEDS: predniSONE 5 MG TABLET PO (11:09)
--- NOTE | 2022-11-20 12:55 | OT.IP.EVAL ---
Current Diagnoses Polyneuropathy, unspecified (11/18/22) Dizziness and giddiness (11/18/22) Unspecified dislocation of left hip, initial encounter (11/18/22) Dislocation of other internal joint prosthesis, initial encounter (11/18/22) Presence of unspecified artificial hip joint (11/18/22) Surgery Performed Operation Date: 11/19/22 16:45 Actual Procedures p Total Hip Arthroplasty Revision(Left) - Khushi Callahan MD Past Medical History (Last Reviewed 11/20/22 @ 10:51 by Aroldo Castano PA-C) Breast cancer Dizziness Lupus Osteopenia Parkinson disease Surgical History (Last Reviewed 11/20/22 @ 10:51 by Aroldo Castano PA-C) History of cataract removal with insertion of prosthetic lens Status post laparoscopic cholecystectomy (12/2014) Status post total knee replacement, left Occupational Therapy Inpatient Evaluation/Re-Eval M1 PT/OT-IP Prior Functional Status Start: 11/20/22 16:47 Freq: NEEDED Status: Active Protocol: Document 11/20/22 12:15 [facility] (Rec: 11/20/22 17:08 [facility] [id number]) Medical Review Prior Functional Status Medical History Reviewed Yes Communication Unsure what pt's baseline diet and communication were Mobility and Gait Pt recently requiring assistance with mobility, at [facility] and had another recent SNF stay in [place] for the left hip issues Activities of Daily Living and IADL's Pt likely required assistance at baseline, was at SNF Prior Functional Level (Other details) Pt with left hip dislocation and abduction brace. Per reports, was not compliant with brace and had frequent dislocations Social History Household Members caregiver,none Living Arrangements House Number of Floors (Floors) Two Floors Number of Stairs To Enter/Railing? Unclear baseline. This PT saw pt once when she was in SNF in [place] earlier in 2022 and she states that she lives in [place] in a large home. It likely had steps. Unsure how much assistance she needed or received. It appears that she was also recently at SNF in [place]. Pt has a RW at least. She has a brother and ex- in the area and lived alone earlier this year. 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 Callahan. Able to call [place] [facility] to come and readjust abductor brace settings to what was requested by the surgeon. M3 OT- IP Subjective and Pain Start: 11/20/22 16:47 Freq: Status: Active Protocol: Document 11/20/22 12:15 [facility] (Rec: 11/20/22 17:08 [facility] [id number]) OT- Subjective Occupational Therapy Visit Type Type Initial Evaluation Visit Start Time 12:15 Visit Stop Time 12:55 Total Visit Minutes 40 Occupational Therapy Visit Comments Patient Comments Pt very sleepy and able to talk to her ex-. M4 OT- IP ADL's Start: 11/20/22 16:47 Freq: Status: Active Protocol: Document 11/20/22 12:15 [facility] (Rec: 11/20/22 17:08 [facility] [id number]) OT ADL-Dressing General Eval Lower Body Dressing Ability Total Assistance OT ADL-Toileting General Evaluation Toileting Ability Total Assistance M5 OT- IP IADL's Start: 11/20/22 16:47 Freq: Status: Active Protocol: Document 11/20/22 12:15 [facility] (Rec: 11/20/22 17:08 [facility] [id number]) OT-Instrumental Activities of Daily Living Home Safety Awareness Home Safety Comments Pt very sleepy at this time and not able to follow directions or participate in conversation well. Pt's ex- present and was able to get pt's abductor brace. M6 OT- IP Functional Cognition Start: 11/20/22 16:47 Freq: Status: Active Protocol: Document 11/20/22 12:15 [facility] (Rec: 11/20/22 17:08 [facility] [id number]) Cognitive Factors Limiting Selfcare Function Cognitive Ability Level of Alertness Drowsy Cognitive Comments Cognitive Assessment Comments Pt very sleepy and having trouble to stay awake to answer questions. However pt did remember that he ex- is suppose to bring her abductor brace from home. M7 OT- IP Mobility and Balance Start: 11/20/22 16:47 Freq: Status: Active Protocol: Document 11/20/22 12:15 [facility] (Rec: 11/20/22 17:08 [facility] [id number]) OT-Transfer Assessment Comments Mobility Comments Per PT eval , pt is dependent for bed mobility at this time. M8 OT- IP Objective Assessments Start: 11/20/22 16:47 Freq: Status: Active Protocol: Document 11/20/22 12:15 [facility] (Rec: 11/20/22 17:08 [facility] [id number]) OT Gross Range of Motion Upper Extremity Range of Motion ROM Impairments To be assessed. OT Strength Comments Strength Comments At least 3-/5 per observation. M9 OT- IP Assessment and Plan Start: 11/20/22 16:47 Freq: Status: Active Protocol: Document 11/20/22 12:15 [facility] (Rec: 11/20/22 17:08 [facility] [id number]) OT Summary Assessment and Plan Potential Rehabilitation Potential Fair Analytic Complexity at Evaluation Moderate Summary OT Impairments Pain,Strength,Balance, Functional Cognition, Functional Mobility,Grooming, Dressing,Toileting,Bathing, Toilet Transfers,Shower Transfers,Activity Tolerance Progress Towards Goals Slow Progress due to Pain,Slow Progress due to Medical Issues,Slow Progress due to Activity Tolerance,Slow Progress due to Cognition Assessment Summary Pt MOD complexity and able to contact [place] [facility] to come and adjust to new parameters requested by Dr. Callahan. Pt's ex- able to bring the brace from her home . Pt will benefit from going back to skilled rehab when medically ready. Goals Self-Feeding Goal Independent Grooming Goal Standby Assistance Toileting Goal Moderate Assistance Bathing Goal Moderate Assistance Toilet Transfer Goal Moderate Assistance Shower Transfer Goal Moderate Assistance Days to Meet Goals 30 Frequency of Treatment Frequency Of Treatment Once a Day Treatment Plan OT Treatment Plan ADL Training,Functional Mobility,Patient/Family Education,Discharge Planning Discharge Recommendations OT Discharge Recommendations SNF Rehab Transportation Needs at Discharge Stretcher/Ambulance
[2022-11-20 13:16] LABS: Hematocrit 31.1 % (36-46); Hemoglobin 10.3 g/dL (12.0-16.0)
--- NOTE | 2022-11-20 14:35 | PT.IIE ---
Current Diagnoses Polyneuropathy, unspecified (11/18/22) Dizziness and giddiness (11/18/22) Unspecified dislocation of left hip, initial encounter (11/18/22) Dislocation of other internal joint prosthesis, initial encounter (11/18/22) Presence of unspecified artificial hip joint (11/18/22) Surgery Performed Operation Date: 11/19/22 16:45 Actual Procedures p Total Hip Arthroplasty Revision(Left) - Khushi Callahan MD Surgical History (Last Reviewed 11/20/22 @ 10:51 by Aroldo Castano PA-C) History of cataract removal with insertion of prosthetic lens Status post laparoscopic cholecystectomy (12/2014) Status post total knee replacement, left Medical History (Last Reviewed 11/20/22 @ 10:51 by Aroldo Castano PA-C) Breast cancer Dizziness Lupus Osteopenia Parkinson disease Physical Therapy Inpatient Evaluation/Re-Eval M1 PT/OT-IP Prior Functional Status Start: 11/20/22 13:50 Freq: NEEDED Status: Active Protocol: Document 11/20/22 13:50 [facility] (Rec: 11/20/22 14:35 [facility] [id number]) Medical Review Prior Functional Status Medical History Reviewed Yes Communication Unsure what pt's baseline diet and communication were Mobility and Gait Pt recently requiring assistance with mobility, at [facility] and had another recent SNF stay in [place] for the left hip issues Activities of Daily Living and IADL's Pt likely required assistance at baseline, was at SNF Prior Functional Level (Other details) Pt with left hip dislocation and abduction brace. Per reports, was not compliant with brace and had frequent dislocations Social History Household Members caregiver,none Living Arrangements House Number of Floors (Floors) Two Floors Number of Stairs To Enter/Railing? Unclear baseline. This PT saw pt once when she was in SNF in [place] earlier in 2022 and she states that she lives in [place] in a large home. It likely had steps. Unsure how much assistance she needed or received. It appears that she was also recently at SNF in [place]. Pt has a RW at least. She has a brother and ex- in the area and lived alone earlier this year. 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 PT-IP Current Condition Start: 11/20/22 13:50 Freq: NEEDED Status: Active Protocol: Document 11/20/22 13:50 [facility] (Rec: 11/20/22 14:35 [facility] [id number]) Physical Therapy Current Condition Current Condition Evaluation Date 11/20/22 Treatment Diagnosis L hip dislocation and revision M3 PT-IP Subjective Start: 11/20/22 13:50 Freq: NEEDED Status: Active Protocol: Document 11/20/22 13:50 [facility] (Rec: 11/20/22 14:35 [facility] [id number]) Subjective Physical Therapy Visit Type Type Initial Evaluation Visit Start Time 13:50 Visit Stop Time 14:17 Total Visit Minutes 27 Notes PT checks on pt several times today and OT manages all of abduction brace issues/ communication and ex- brings in pt's brace late a.m. Abduction brace is set to 20- 60 deg. Was was agitated and moving all morning until given Ativan and now she is very lethargic and not able to participate much with mobility . Number of WARP DRAWER Visits 0 Physical Therapy Visit Comments Patient Comments Did I pass you two places? Therapy Pain Assessment Pain When Pain Assessed At Rest Pain Present Pain Present Pain Reported Location left hip Intensity 1 Scale Used Jules (Faces) M4 PT-IP Mobility and Gait Start: 11/20/22 13:50 Freq: NEEDED Status: Active Protocol: Document 11/20/22 13:50 [facility] (Rec: 11/20/22 14:35 [facility] [id number]) PT-Bed Mobility Assessment Supine to Sit Supine to Sit Total Assistance,1 Person Assistance,Head of Bed Elevated Sit to Supine Sit to Supine Total Assistance,1 Person Assistance,Bedrails Scooting Scooting to Edge of Bed Dependent Scooting Up and Down in Bed Dependent PT-Transfer Assessment Comments Mobility Comments Pt is very lethargic after receiving Ativan this morning and is not able to really participate in any meaningful way with mobility. SIGN BUILDER and nsg busy and PT manages pt from hook lying to sitting and back to supine and scooting pt up in bed with pt requiring total assistance and PT using bed pad and HOB to assist. She is dependent assist to sit EOB. PT-Balance Assessment Sitting Balance and Reactions Static Sitting Balance Ability Poor Dynamic Sitting Balance Ability Poor M5 PT-IP Objective Assessments Start: 11/20/22 13:50 Freq: NEEDED Status: Active Protocol: Document 11/20/22 13:50 [facility] (Rec: 11/20/22 14:35 [facility] [id number]) Orientation Orientation/Cognition Level of Alertness Lethargic Orientation Name,Age Language Function Ability Garbled Speech Safety Awareness Decreased Safety Awareness Memory Description Short Term Impaired,Air Shovel Operator Impaired Gross Range of Motion Upper Extremity ROM Impairments Defer to OT Lower Extremity ROM Assessment Bilaterally Impaired Strength Lower Extremity Strength Assessment Bilaterally Impaired Comments Strength Comments Pt is too lethargic to participate with MMT and ROM RLE and she has abduction brace donned for LLE. M7 PT-IP Assessment and Plan Start: 11/20/22 13:50 Freq: NEEDED Status: Active Protocol: Document 11/20/22 13:50 [facility] (Rec: 11/20/22 14:35 [facility] [id number]) PT Summary Assessment and Plan Potential Rehabilitation Potential Poor Status of Condition at Evaluation Unstable Summary Impairments Pain,ROM,Strength,Balance, Coordination,Cognition,Bed Mobility,Transfers,Gait, Activity Tolerance Progress Towards Goals Slow Progress due to Pain,Slow Progress due to Medical Issues,Slow Progress due to Activity Tolerance,Slow Progress - Other Assessment Summary Pt is an 82 y/o lady with baseline dementia and PD, left THR and dislocation and revision and with left abduction brace brought in and adjusted today. This is not the first dislocation pt has had. She was agitated and restless this morning when PT checked on her twice and this afternoon, she is sedated/ lethargic after receiving Ativan. She cannot participate in a meaningful way with PT for any mobility this afternoon and PT provides total assistance to get her EOB, back to supine and scooted up to HOB. She will require totalt lift for OOB. If repeated dislocation, high pain and severe cognitive barriers are ongoing repeated issues for pt, unsure how effective skilled PT services have been and will be in the future. May consider palliative/hospice consult. This is not a straight forward orthopedic case and pt cannot meaningnfully participate with therapy, has a history of cognitive issues and non- compliance with abduction brace. Will set frequency at once a day in the acute setting. Goals Bed Mobility Goal Standby Assistance Transfer Goal Standby Assistance,Front Wheeled Walker Gait Goal Minimal Assistance,Front Wheel Walker Gait Distance 5 Days to Meet Goals 10 Frequency of Treatment Frequency Of Treatment Once a Day Treatment Plan Physical Therapy Treatment Plan Bed Mobility Training,Transfer Training,Gait Training, Therapeutic Exercise,Balance Retraining,Post Op Education, Discharge Planning,Hot or Cold Pack,Neuromuscular Re-ed, Coordination Retraining Precautions Posterior Hip Precautions No Hip Flexion > 90 degrees,No Hip Internal Rotation,No Hip Adduction Brace Pt has a left abduction brace donned with 20-60 deg abduction Weight Bearing Status Weight Bearing Status Weight Bear as Tolerated Recommendations To Nursing Amount of Assist Needed Mechanical Lift Discharge Recommendations Other Discharge Recommendations Possible SNF, possible hospice /palliative. Pt has already tried SNF at least twice for the same presentation this year Transportation Needs at Discharge Stretcher/Ambulance
[2022-11-20 14:43] VITALS: BP 127/67; PULSE 71; RESP 17; TEMP 36.3; O2SAT 94
--- NOTE | 2022-11-20 14:56 | PT-IP ANOTE ---
Pt has posterior hip precautions on the left and has a hip abductor brace donned. PT was unable to get her OOB and on her feet d/t lethargy and no self-mobility this afternoon. Given this, she will only be able to get OOB with mechanical lift. Operators can work around the hip precautions by using an amputee sling and putting both straps around both legs with both legs inside and then asking the pt to lean back in the sling. In general, leaning back in the sling and having operators monitor the legs together should keep this same precaution, protecting the left hip in the abductor brace.
[2022-11-20 19:43] VITALS: BP 137/76; PULSE 68; RESP 17; TEMP 36.1; O2SAT 94
[2022-11-20] MEDS: CALCIUM CARBONATE 500 MG TAB PO (21:27)
[2022-11-20] MEDS: ASPIRIN EC 81 MG TABLET PO (21:28)
[2022-11-20] MEDS: PHENAZOPYRIDINE 100 MG TABLET PO (21:28)
--- NOTE | 2022-11-21 01:40 | PC.NURSE ---
Patient removed IV, too agitated to place IV at this time. Will attempt to place IV in the morning. Also removed brace and all clothing. Put brace back on and covered patient with blanket.
--- NOTE | 2022-11-21 10:27 | PM.PNPO.1 ---
Subjective Subjective Date Patient Seen: 11/21/22 Time Patient Seen: 10:27 Interval history: 82-year-old female resting comfortably in bed in no apparent distress. States her pain is mild. Denies fever or chills. Exam Vital Signs (past 8 hours): Oxygen Delivery Method Room Air Oxygen Flow Rate 0 Narrative Exam Narrative: 82-year-old female with history of Parkinson's and mild dementia resting comfortably in bed in no apparent distress. Dressing is clean, dry and intact. Brace is in place. Motor functions intact bilateral lower extremities. Sensation is grossly intact to light touch bilateral lower extremities. Const General: comfortable Nutritional Appearance: average body habitus Orientation: alert Resp Effort & Inspection: normal respiratory effort and able to speak in complete sentences Objective Labs 11/20/22 13:05 11/19/22 11:15 Labs: Laboratory Results - last 24 hr 11/20/22 13:05 Hgb 10.3 L Hct 31.1 L PFSH Medical History Breast cancer Dizziness Lupus Osteopenia Parkinson disease Surgical History History of cataract removal with insertion of prosthetic lens Status post laparoscopic cholecystectomy (12/2014) Status post total knee replacement, left Family History Mother Hypertension Father Heart disease Brother Heart disease Social History household members: caregiver and none Smoking Status: Never smoker alcohol intake: never substance use type: does not use Assessment & Plan Post-op Postoperative Procedures: Procedures Operation Date: 11/19/22 16:45 Actual Procedure Side Surgeon p Total Hip Arthroplasty Revision Left Khushi Callahan MD Postoperative day: 2 Postoperative status narrative: Stable Postoperative plan narrative: Patient will be maintained on total hip replacement protocol with weight-bearing as tolerated and posterior hip precautions Hip abduction brace set with hip range of motion flexion 0-60 and abduction 20? Multimodal pain management Aspirin for DVT prophylaxis Discharge back to correction facility once accepted Quality VTE Deep Vein Thrombosis/Pulmonary Embolism Present on Admission: No
--- NOTE | 2022-11-21 10:28 | PC.NURSE ---
11/21/22 Pt sedated, VSS, I could not wake the patient up to take morning meds safely.
[2022-11-21 10:59] VITALS: BP 137/67; PULSE 78; RESP 16; TEMP 36.6; O2SAT 96
--- NOTE | 2022-11-21 11:12 | PM.DS.1 ---
History of Present Illness History of Present Illness Date Patient Seen: 11/21/22 Time Patient Seen: 10:30 Chief complaint: Hip pain Narrative: See progress note Discharge Providers Provider Date of admission: 11/18/22 19:51 Discharge Date: 11/21/22 Primary care physician: TOMAS Daigle Consults: 11/19/22 10:48 Consult to Physical Therapy Evaluate & Treat Comment: left hip abduction brace Physician Instructions: Evaluate and Treat 11/19/22 18:43 Consult to Anesthesiology Routine Comment: Consulting Provider: Anesthesiologist Reason for consultation: Regional block for post operative pain control 11/19/22 21:47 Consult to Discharge Planning Routine Comment: Consult to Occupational Therapy Evaluate & Treat Comment: Physician Instructions: Evaluate and treat Consult to Physical Therapy Evaluate & Treat Comment: hip abduction brace max flexion 70-80, abd 20-30, Physician Instructions: post op MERCEDES protocol Discharge provider: Aroldo Castano PA-C Summary Hospital Course Discharge Diagnosis: Left hip dislocation dislocation of the polyethylene from a dual mobility total hip arthroplasty, history of total hip arthroplasty, recurrent instability Post-op diagnosis: same Hospital Course: Revision left total hip arthroplasty Same procedure as scheduled: Yes Indications: She is a very complicated problem.? She has a history of a hip fracture treated with a unipolar which was complicated by recurrent instability.? She failed very extensive conservative treatment and ultimately underwent a revision hip arthroplasty with placement of a cup position to avoid instability.? She then has been doing okay but recently leaned over to pick Kleenex? off the floor and dislocated her total hip.? She has a history of Parkinson's and some dementia.? She has undergone a closed reduction but had recurrent instability after closed reduction and has displacement of her polyethylene liner.? She has a very small cup is not a candidate for constrained liner.? Her polyethylene is noted to be displaced.? She was brought to the operating room for revision hip arthroplasty.? Non-operative management has failed and the patient has requested revision total hip replacement. The risks, benefits and alternatives to surgery were discussed with the patient prior to proceeding. Risks discussed included, but were not limited to, failure to relieve pain, leg length discrepancy, dislocation, stiffness, infection, nerve damage, deep venous thrombosis, pulmonary embolism, stroke, coma, heart attack, permanent paralysis and , as well as the potential need for eventual revision of the prosthetic. Surgeon: Khushi Callahan Luggage Maker: Aroldo Castano Click Yes if Unassisted: Yes Anesthesia Type: General and Spinal Operative Notes Findings: Dissociated dual mobility liner with the polyethylene displaced posteriorly, fairly large pocket posteriorly, no evidence of femoral stem loosening, no evidence of acetabular loosening, adequate stability Closure Type: primary Specimen(s): none sent Prosthetic devices, grafts, tissues, transplants, or devices: Callahan and nephew size 22 x 36 dual mobility insert, OR 30, Oxinium +4 head, 2.7 mm suture anchor Estimated Blood Loss (mL): 250 Tourniquet time (min): 250 Patient admitted to the hospital for left hip dislocation with dislocation of the polyethylene from a dual mobility total hip arthroplasty. Scheduled for revision total hip arthroplasty. Consented to the same. Underwent revision left total hip arthroplasty November 19, 2022. Weightbearing as tolerated, posterior hip precautions. Hip abduction brace full-time with flexion to 0-60 degrees and abduction 20?. Multimodal pain management. Aspirin for DVT prophylaxis. Discharge to alf facility today. Status at Discharge Cognitive/behavioral status at discharge: at baseline, confused Functional status at discharge: bed bound Overall status at discharge: patient is not back to baseline Exam Vital Signs (past 8 hours): Oxygen Delivery Method Room Air Oxygen Flow Rate 0 Narrative Exam Narrative: See progress note Objective Labs 11/20/22 13:05 11/19/22 11:15 Labs: Laboratory Results - last 24 hr 11/20/22 13:05 Hgb 10.3 L Hct 31.1 L PFSH Medical History Breast cancer Dizziness Lupus Osteopenia Parkinson disease Surgical History History of cataract removal with insertion of prosthetic lens Status post laparoscopic cholecystectomy (12/2014) Status post total knee replacement, left Family History Mother Hypertension Father Heart disease Brother Heart disease Social History household members: caregiver and none Smoking Status: Never smoker alcohol intake: never substance use type: does not use Discharge Assessment & Plan Assessment and Plan Assessment: 82-year-old female with Parkinson's and mild dementia status post revision left total hip arthroplasty on November 19, 2022. Plan of Treatment: Multimodal pain management Aspirin for DVT prophylaxis Abduction brace full-time Strict posterior hip precautions Weightbearing as tolerated Patient will be discharged back to alf facility today. Discharge Plan Discharge Plan Patient Disposition: SNF Other facility: [facility] Discharge orders & Medications Prescriptions: New acetaminophen 325 mg Tablet 650 mg PO Q6H Qty: 60 0RF aspirin 81 mg Tablet,Delayed Release (Dr/Ec) 81 mg PO BID Qty: 60 0RF ibuprofen 400 mg Tablet 400 mg PO Q4H Qty: 60 0RF oxycodone 5 mg Tablet 5 mg PO Q3H PRN (Reason: Pain, Moderate (4-6)) Qty: 60 0RF Continued atenolol [Tenormin] 25 mg tablet 25 mg PO DAILY prednisone 5 mg tablet 5 mg PO DAILY multivitamin tablet 1 tab PO DAILY ascorbic acid (vitamin C) 500 mg capsule 500 mg PO DAILY calcium carbonate [Calci-Mix] 500 mg calcium (1,250 mg) capsule 500 mg PO BID cholecalciferol (vitamin D3) 2,000 unit capsule 1,000 unit PO DAILY omega [id number] oil [Fish Oil] 300-1,000 mg capsule 1 cap PO DAILY lidocaine 4 % adhesive patch,medicated 1 patch topical DAILY PRN (Reason: Pain (Scale Score 4-6)) Deep Sea Nasal 0.65 % Aerosol,Cygnet 1 spray INTRANASAL BID PRN (Reason: Congestion) phenazopyridine 100 mg Tablet 100 mg PO TID Qty: 30 0RF polyethylene glycol 3350 17 gram Powder In Packet 17 g PO DAILY PRN (Reason: Constipation) Qty: 30 0RF bisacodyl 10 mg Suppository 10 mg DC DAILY PRN (Reason: Constipation) calcium citrate tablet 500 mg PO BID docusate sodium 100 mg capsule 100 mg PO BID Discontinued diclofenac sodium [Voltaren] 1 % gel 2 g topical 4XD PRN (Reason: Pain (Scale Score 4-6)) Rx Instructions: hips naproxen 500 mg tablet 500 mg PO DAILY PRN (Reason: Pain (Scale Score 1-3)) tramadol 50 mg tablet 50 mg PO Q8H PRN (Reason: pain) Qty: 30 0RF acetaminophen [Tylenol] 325 mg tablet 650 mg PO Q6HR PRN (Reason: Pain (Scale Score 4-6)) oxycodone 5 mg Tablet 5 mg PO Q3H PRN (Reason: Pain, Moderate (4-6)) Qty: 30 0RF oxycodone 10 mg Tablet 10 mg PO Q3H PRN (Reason: Pain, Severe (7-10)) Qty: 30 0RF aspirin [Vidette Aspirin] 81 mg tablet,delayed release (DR/EC) 81 mg PO 1XD ibuprofen [IBU] 400 mg tablet 400 mg PO Q6HR PRN (Reason: Pain (Scale Score 4-6)) Follow up/Referrals: Khushi Callahan MD [Physician] - (Two weeks) Lainey Martins ARNP [Primary Care Provider] - Discharge Health Status Health Concerns: Parkinson's Diet/Activity/Treatments Diet: Diet as Tolerated Activity: The patient will be maintained on a total hip replacement protocol with weight bearing as tolerated and posterior hip precautions. She will be placed in a hip abduction brace. She is clearly showed an extremely low level of compliance. I would like to attempt to the best of our ability to get the soft tissues to adequately heal so that she does not develop recurrent instability. I have recommended a full-time abduction brace with hip range of motion 0 to 60 ? with 20? of abduction. Cold/Heat Therapy: Ice to hip as needed Skin/Wound/Dressing Care Dressing: Keep dressing clean and dry Refer to reinaldo dressing instruction insert (the monitor we will typically automatically shut off in 5-7 days. At that point the tubing connected to the dressing can be cut and covered with a Tegaderm. Dressing itself to be left in place until postop appointment.) Special Rehabilitation Services Reason for rehabilitation: Post-operative therapy Rehab type: Physical therapy and Occupational therapy Visit Report/Discharge Packet Instructions: DI for Hip Replacement, DI for Prescription Opioid Use Stand Alone Forms: Patient Portal/API, Surgery Discharge Discharge Data Primary Care Provider: Lainey Martins Quality VTE Deep Vein Thrombosis/Pulmonary Embolism Present on Admission: No
--- NOTE | 2022-11-21 13:05 | PT.IPTN ---
Current Diagnoses Polyneuropathy, unspecified (11/18/22) Dizziness and giddiness (11/18/22) Unspecified dislocation of left hip, initial encounter (11/18/22) Dislocation of other internal joint prosthesis, initial encounter (11/18/22) Presence of unspecified artificial hip joint (11/18/22) Surgery Performed Operation Date: 11/19/22 16:45 Actual Procedures p Total Hip Arthroplasty Revision(Left) - Khushi Callahan MD Physical Therapy Treatment Note M2 PT-IP Current Condition Start: 11/20/22 13:50 Freq: NEEDED Status: Active Protocol: Document 11/20/22 13:50 MB (Rec: 11/20/22 14:35 MB [id number]) Physical Therapy Current Condition Current Condition Evaluation Date 11/20/22 Treatment Diagnosis L hip dislocation and revision M3 PT-IP Subjective Start: 11/20/22 13:50 Freq: NEEDED Status: Active Protocol: Document 11/21/22 13:32 TS (Rec: 11/21/22 13:45 TS [id number]) Subjective Physical Therapy Visit Type Type Treatment Note Visit Start Time 13:05 Visit Stop Time 13:30 Total Visit Minutes 25 Physical Therapy Visit Comments Patient Comments Pt found resting in bed, pt removed hip abduction brace, pt agreeable to have placed back on. M4 PT-IP Mobility and Gait Start: 11/20/22 13:50 Freq: NEEDED Status: Active Protocol: Document 11/21/22 13:32 TS (Rec: 11/21/22 13:45 TS [id number]) PT-Bed Mobility Assessment Rolling Type of Rolling Bilateral Level of Assist Maximal Assistance PT-Transfer Assessment Comments Mobility Comments Pt supine in bed for donning of hip abduction brace. Required x2PA for application of brace. Pt performed rolling bilaterally with MaxA and bed tilted. She was able to follow single step instructions well and was compliant for donning of brace . Brace cuts into L breast making it uncomfortable for pt , towel was placed over the lip of the brace for extra cushioning. Pt was left in bed , RN notified. PT-Balance Assessment Sitting Balance and Reactions Static Sitting Balance Ability Poor Dynamic Sitting Balance Ability Poor M5 PT-IP Objective Assessments Start: 11/20/22 13:50 Freq: NEEDED Status: Active Protocol: Document 11/20/22 13:50 MB (Rec: 11/20/22 14:35 MB [id number]) Orientation Orientation/Cognition Level of Alertness Lethargic Orientation Name,Age Language Function Ability Garbled Speech Safety Awareness Decreased Safety Awareness Memory Description Short Term Impaired,Service Advisor Impaired Gross Range of Motion Upper Extremity ROM Impairments Defer to OT Lower Extremity ROM Assessment Bilaterally Impaired Strength Lower Extremity Strength Assessment Bilaterally Impaired Comments Strength Comments Pt is too lethargic to participate with MMT and ROM RLE and she has abduction brace donned for LLE. M7 PT-IP Assessment and Plan Start: 11/20/22 13:50 Freq: NEEDED Status: Active Protocol: Document 11/21/22 13:32 TS (Rec: 11/21/22 13:45 TS [id number]) PT Summary Assessment and Plan Potential Rehabilitation Potential Poor Summary Impairments Pain,ROM,Strength,Balance, Coordination,Cognition,Bed Mobility,Transfers,Gait, Activity Tolerance Progress Towards Goals Slow Progress due to Pain,Slow Progress due to Medical Issues,Slow Progress due to Activity Tolerance,Slow Progress - Other Assessment Summary Pt removed hip abduction brace and required x2PA for donning of brace. She followed commands for rolling and repositioning well with MaxA. Brace cuts into her L breast is uncomfortable for pt, a towel was placed over the lip of the brace for cushioning. SNF will need to follow up with [facility] upon d/c for readjustment of brace and to see if it can be fitted more comfortably. Goals Bed Mobility Goal Standby Assistance Transfer Goal Standby Assistance,Front Wheeled Walker Gait Goal Minimal Assistance,Front Wheel Walker Gait Distance 5 Days to Meet Goals 10 Frequency of Treatment Frequency Of Treatment Once a Day Treatment Plan Physical Therapy Treatment Plan Bed Mobility Training,Transfer Training,Gait Training, Therapeutic Exercise,Balance Retraining,Post Op Education, Discharge Planning,Hot or Cold Pack,Neuromuscular Re-ed, Coordination Retraining Other Recommendations and Next Treatment Progress transfers and gait as Focus indicated. Review posterior precautions. Introduce ex's as tolerated. Precautions Posterior Hip Precautions No Hip Flexion > 90 degrees,No Hip Internal Rotation,No Hip Adduction Brace Pt has a left abduction brace donned with 20-60 deg abduction Weight Bearing Status Weight Bearing Status Weight Bear as Tolerated Recommendations To Nursing Amount of Assist Needed Mechanical Lift Discharge Recommendations PT Discharge Recommendations SNF Rehab Other Discharge Recommendations Possible SNF, possible hospice /palliative. Pt has already tried SNF at least twice for the same presentation this year Transportation Needs at Discharge Stretcher/Ambulance
--- NOTE | 2022-11-21 14:03 | CM.DPNOTE ---
DC Note Discharge back to [facility] today, patient's ex-spouse Bernard updated and agreeable, Bernard then suggested this BERRY PICKER MACHINE OPERATOR speak with patient's DPOA and niece Soraida Elder P [phone] (?) Soraida at patient's bedside today and agreeable to plan In reviewing patient's advanced directives, signed by patient in May of 2021, she lists the following people to be her DPOA: 1. Aldo Joseph 2. Robert Elder 3. Soraida Elder 4. Kiana Smiley Spoke to Libia at [facility] yesterday to confirm patient okay to return today, Libia confirmed patient was welcome to come back. Updated Libia today on patient's discharge. Patient has her hip brace from home that had been fitted at bedside yesterday by [facility] BLS arranged for transport r/t patient's significant h/o hip dislocations. [facility] scheduled to [facility] at 1500. BLS form completed and signed by Ortho ROSEANNA Castano Reviewed w/ ex spouse Bernard the likelihood that patient would have an out of pocket expense for BLS and Bernard stated agreement and that we can pay for it Faxed DC summary, signed med list, Rx and DC visit report to Libia at [facility]. No PASRR needed as patient was returning to their facility Plan: Discharge back to [facility] SNF via BLS transport JW
[2022-11-21] MEDS: LORazepam 0.5 MG TABLET PO (15:13)
== END 2022-11-21 15:52 | DRG 468 ==
PROVIDERS: Admitting Provider Orthopaedic Surgery; Family Provider Family Medicine; PCP Nurse Practitioner Family; Referring Provider Orthopaedic Surgery; Visit Provider Orthopaedic Surgery
PROC: 0SRS0JA Replacement of Left Hip Joint, Femoral Surface with Synthetic Substitute, Uncemented, Open Approach (ICD-10-PCS; principal; 2022-11-19 16:45)
DX: T84.021A Dislocation of internal left hip prosthesis, initial encounter (principal); G20 Parkinson's disease; F02.80 Dementia in other diseases classified elsewhere, unspecified severity, without behavioral disturbance, psychotic disturbance, mood disturbance, and anxiety
CPT/HCPCS: 36415; 73502; 73700; 80053; 85014; 85018; 85025; 87070; 87075; 87176; 87205; 87801; 97161; 97166; 97530; C1776; C9290; J0690; J1100; J2405; J2704; J3010